=== PATIENT | male | born 1955 | race Caucasian/White ===

== ENCOUNTER 2022-06-10 10:15 | Emergency (ER) | payer MEDICARE, BC, SELFPAY ==
[2022-06-10 10:27] VITALS: BP 143/71; PULSE 67; RESP 18; TEMP 36; O2SAT 97; BMI 32.7
[2022-06-10 10:40] VITALS: PULSE 71; BMI 32.7
--- NOTE | 2022-06-10 10:46 | ED_ITS ---
HPI - General Adult General Chief complaint: Extremity Pain/Injury, Lower Stated complaint: Severe RT leg pain Time Seen by Provider: 06/10/22 10:24 History of Present Illness HPI narrative: This 67-year-old male has a history of pseudogout and comes in because of a flare up. He has pain in his right knee. He has had joint aspiration in the past which identified pseudogout as a cause for his pain. He does have an appointment with a integration solution architect next month. He states that he ate some beef last night and since then has had some terrible pain in his right knee. He has a history of aortic dissection and is on several antihypertensives including enalapril. He states that his kidney function is okay but he is best to avoid NSAIDs. He describes constant pain in his right knee that is not relieved with nonweightbearing. Related Data Home Medications Medication Instructions Recorded Confirmed atorvastatin 80 mg tablet mg 06/10/22 carvedilol 25 mg tablet mg 06/10/22 enalapril maleate 20 mg tablet mg 06/10/22 fluticasone propionate 50 intranasal 06/10/22 mcg/actuation nasal spray,suspension ketoconazole 2 % topical cream applic topical 06/10/22 montelukast 10 mg tablet mg 06/10/22 nifedipine 30 mg tablet,extended mg PO 06/10/22 release triamterene 37.5 cap 06/10/22 mg-hydrochlorothiazide 25 mg capsule Previous Rx's Medication Instructions Recorded methylprednisolone 4 mg tablets in See Rx Instructions PO .COMPLEX 06/10/22 a dose pack (Medrol (Edi)) #21 ea Allergies Allergy/AdvReac Type Severity Reaction Status Date / Time sulfamethoxazole Allergy Rash Verified 06/10/22 10:24 [From Bactrim] trimethoprim [From Bactrim] Allergy Rash Verified 06/10/22 10:24 Review of Systems Status of ROS: Reports: 10 or more systems reviewed and unremarkable except as noted in History and below Narrative: Constitutional: No fevers, no weight gain or loss. Eyes: No discharge. No vision changes. HENT: No congestion, no sore throat, no ear pain. Cardiovascular: No chest pain, no palpitations. Respiratory: No shortness of breath, no wheezes, no cough. Gastrointestinal: No abdominal pain, no vomiting, no diarrhea. Genitourinary: No dysuria, no hematuria. Musculoskeletal: Right knee pain as described above. Skin: No rashes, no pruritis. Neurological: No dizziness, weakness, sensory change, speech change. Endo/Heme/Allergies: No bruising or bleeding. No polydipsia. Pysch: no suicidality, no anxiety, no insomnia. All other systems reviewed and are negative. Exam Narrative: Exam Narrative: Constitutional: Well-developed, well-nourished, no acute distress. HEENT: Normocephalic, atraumatic. Neck: Normal range of motion. Nontender. Supple. Heart: Regular. No murmurs. Normal rate. Intact distal pulses. Lungs: Clear to auscultation. No chest discomfort. No wheezes, rhonchi, or rales. Abdomen: Normal bowel sounds. Nontender. No rebound tenderness. Genitalia: Deferred. Back: No midline tenderness. Normal range of motion. Extremities: Right knee pain. No significant swelling or erythema. Skin: Intact. No rash. Warm. No erythema or pallor. Neurologic: No altered sensation. No weakness. Alert and oriented. Psychiatric: No suicidality. No anxiety or depression. No insomnia. Nursing notes and vitals signs are reviewed. Const: Vital Signs, click to edit/add: Vital Signs - 24 hr 06/10/22 10:27 Temperature 96.8 F L Pulse Rate [Left P ulse Oximeter] 67 Respiratory Rate 18 Blood Pressure [Le ft Upper Arm] 143/71 H Pulse Oximetry 97 Oxygen Delivery Me thod Room Air Course Vital Signs Vital signs: Initial Vital Signs Temperature 96.8 F L 06/10/22 10:27 Temperature Source Temporal Artery Scan 06/10/22 10:27 Pulse Rate 67 06/10/22 10:27 Respiratory Rate 18 06/10/22 10:27 Blood Pressure 143/71 H 06/10/22 10:27 Blood Pressure Mean 95 06/10/22 10:27 Blood Pressure Position Sitting 06/10/22 10:27 Pulse Oximetry 97 06/10/22 10:27 Oxygen Delivery Method 06/10/22 10:27 Vital Signs Temperature 96.8 F L 06/10/22 10:27 Pulse Rate 67 06/10/22 10:27 Respiratory Rate 18 06/10/22 10:27 Blood Pressure 143/71 H 06/10/22 10:27 Pulse Oximetry 97 06/10/22 10:27 Oxygen Delivery Method 06/10/22 10:27 Temperature 96.8 F L 06/10/22 10:27 Pulse Rate 67 06/10/22 10:27 Respiratory Rate 18 06/10/22 10:27 Blood Pressure 143/71 H 06/10/22 10:27 Pulse Oximetry 97 06/10/22 10:27 Oxygen Delivery Method 06/10/22 10:27 Medical Decision Making MDM Narrative Medical decision making narrative: This patient has a history of pseudogout confirm by a joint aspiration analysis. He comes in with a flare up of pain in his right knee related to this. He received the intramuscular injection of morphine 10 mg and an oral dose of dexamethasone 10 mg. A prescription for Medrol Dosepak is also provided. Given his medications and mild renal insufficiency according to his report, I did nisa id using NSAIDs. Discharge Plan Discharge Clinical Impression: Pseudogout Patient Disposition: Home, Self-Care Condition: Stable Additional Instructions: Take medications as needed and indicated. Follow up with MD or return if worsening. Prescriptions: New methylprednisolone [Medrol (Edi)] 4 mg tablets,dose pack See Rx Instructions .ROUTE .COMPLEX Qty: 21 0RF Rx Instructions: orally per package directions No Action atorvastatin 80 mg tablet Label Comments: TAKE 1 TABLET BY MOUTH AT BEDTIME carvedilol 25 mg tablet Label Comments: TAKE 1 TABLET BY MOUTH TWICE DAILY WITH MEALS enalapril maleate 20 mg tablet Label Comments: TAKE 1 TABLET BY MOUTH TWICE DAILY nifedipine 30 mg tablet extended release PO Label Comments: TAKE 1 TABLET BY MOUTH DAILY triamterene-hydrochlorothiazid 37.5-25 mg capsule Label Comments: TAKE ONE CAPSULE BY MOUTH EVERY MORNING montelukast 10 mg tablet Label Comments: TAKE 1 TABLET BY MOUTH AT BEDTIME ketoconazole 2 % cream TOPICAL Label Comments: APPLY TOPICALLY TO THE AFFECTED AREA TWICE DAILY fluticasone propionate 50 mcg/actuation spray,suspension INTRANASAL Label Comments: INHALE 1 SPRAY TO BOTH NOSTRILS ONCE DAILY. Follow Up/Referrals: Anita Davis DO [Primary Care Provider] - Stand Alone Forms: [facility] Info Instructions
--- OUTSIDE RECORDS SUMMARY | 2022-06-10 10:52 | XMS_ITS | Encounter Summary ---
:1955 Author Organization [facility] Address [address] [place] [address] Care Team Providers Name Role Phone Elsewhere, Pcp Primary Care Provider Unavailable Encounter Details Date Type Department Care Team Description 04/06/2022 Ancillary Procedure Department of Dermatology Social History Tobacco Use Types Packs/Day Years Used Date Smoking Tobacco: Former Cigarettes 0.8 6 08/1966 - 08/20/1971 Smokeless Tobacco: Never Comments: quit in early 20s, 1 ppd X 6 y ears Alcohol Use Standard Drinks/Week Comments Yes 10 (1 standard drink = 0.6 oz pure cut o n and off alcohol, none this alcohol) year Alcohol Habits Answer Date Recorded How often do you have a drink containing 4 or more times a w [place] 12/18/2020 alcohol? How many drinks containing alcohol do you have 3 or 4 12/18/2020 on a typical day when you are drinking? How often do you have six or more drinks on one Monthly 12/18/2020 occasion? Social Isolation Answer Date Recorded In a typical week, how many times do you Twice a week 12/18/2020 talk on the phone with family, friends, or neighbors? How often do you get together with friends Once a week 12/18/2020 or relatives? How often do you attend voodoo or mormon Never 09/20/2019 services? Do you belong to any clubs or organizations Yes 12/18/2020 such as voodoo groups, unions, fraternal or athletic groups, or school groups? How often do you attend meetings of the More than 4 times pe r year 12/18/2020 clubs or organizations you belong to? Are you now , , , 09/20/2019 , never or living with a partner? Physical Activity Answer Date Recorded On average, how many days per week do you engage in moderate to 1 day 12/18/2020 strenuous exercise (like walking fast, running, jogging, dancing, swimming, biking, or other activities that cause a light or heavy sweat)? On average, how many minutes do you engage in exercise at th is 20 min 12/18/2020 level? Stress Answer Date Recorded Do you feel stress - tense, restless, nervous, or anxious, N ot at all 12/18/2020 or unable to sleep at night because your mind is troubled all the time - these days? Financial Resource Strain Answer Date Recorded How hard is it for you to pay for the very basics like Not h ernu at all 12/18/2020 food, housing, medical care, and heating? Food Insecurity Answer Date Recorded Within the past 12 months, you worried that your food would Never true 12/18/2020 run out before you got money to buy more. Within the past 12 months, the food you bought just didn't N ever true 12/18/2020 last and you didn't have money to get more. Transportation Needs Answer Date Recorded In the past 12 months, has lack of transportation kept you f rom No 12/18/2020 medical appointments or from getting medications? In the past 12 months, has lack of transportation kept you f rom No 12/18/2020 meetings, work, or getting things needed for daily living? Housing Stability Answer Date Recorded In the last 12 months, was there a time when you were not ab le No 12/18/2020 to pay the mortgage or rent on time? In the last 12 months, how many places have you lived? 1 12/18/2020 In the last 12 months, was there a time when you did not hav e a No 12/18/[address] or slept in a chcf (including now)? Education Answer Date Recorded What is the highest level of school Master's degree (e.g., M A, MS, 09/20/2019 you have completed or the highest Rufus, MEd, [employer], SHON) degree you have received? Sex Assigned at Date Recorded Male 03/19/2018 11:46 AM CDT documented as of this encounter Plan of Treatment Upcoming Encounters Date Type Specialty Care Team Description 06/21/2022 Clinical Communication Admitting/Central Scheduling 06/22/2022 Comprehensive Visit Rheumatology Clemente Mario M.B.B.S. [address] [place] [address] 08/03/2022 Comprehensive Visit Dermatology Jignesh [place] M.D. [address] [place] [address] documented as of this encounter Procedures Procedure Name Priority Date/Time Associated Comments Diagnosis DERMATOLOGY IMAGE Routine 04/06/2022 12:00 Result s for this EXAM AM CDT procedure are i n the results section. documented in this encounter Results cheek, right jawline 38 Mohs micrographic surgery-Dermatology Image Exam (04/06/2022 12:00 AM CDT) Specimen (Source) Anatomical Location Collection Method / Collectio n Time Received Time / Laterality Volume Narrative IIMS - 04/06/2022 10:42 AM CDT This order has been created and auto-finalized to support the import of images acquired without order. The clini michael documentation to support these images can be found on the encounter minna t produced images. Provider Not In System IMG NON RAD IMAGING PROCEDUR ES Performing Organization Address City/State/ZIP Code Phon e Number IIMS IIMS NA documented in this encounter Visit Diagnoses Not on filedocumented in this encounter Care Teams Town Clerk Relationship Specialty Start Date End Date Elsewhere, Pcp PCP - General Family Medicine 02/13/18 documented as of this encounter
--- OUTSIDE RECORDS SUMMARY | 2022-06-10 10:52 | XMS_ITS | Encounter Summary ---
:1955 Author Organization [facility] Address [address] [place] [id number] Care Team Providers Name Role Phone Elsewhere, Pcp Primary Care Provider Unavailable Reason for Referral Outpatient (Routine) - Authorized Specialty Diagnoses / Procedures Referred By Contact Refer red To Contact Dermatology Chuck Zamora M. D. [facility] [address] [place], [place] [phone] Referral ID Status Reason Start Date Expiration Date Visits V isits Requested Authorized [id number] Authorized 04/06/2022 04/06/2023 1 1 Reason for Visit Reason Comments Basal Cell Carcinoma Outpatient (Routine) - Closed Specialty Diagnoses / Procedures Referred By Contact Refer red To Contact Dermatology Diagnoses Malignant Neoplasm Of Face Basal Cell Que Fam M.D. [facility] Procedures [facility] 1-[address] sites [address] [place] [phone] Referral ID Status Reason Start Date Expiration Date Visits Requ ested Visits Authorized [id number] Closed 01/17/2022 01/17/2023 1 1 Encounter Details Date Type Department Care Team Description 04/06/2022 Procedure visit Department of Chuck Zamora Malign ant Neoplasm Dermatology in [place] Of Face Basal Cell [place], [place] [address] [facility] [address] [place] [phone] Social History Tobacco Use Types Packs/Day Years [...] containing 4 or more times a w [place] 12/18/2020 alcohol? How many drinks containing alcohol [...] or relatives? How often do you attend gnosticism or orthodox Never 09/20/2019 services? Do you belong to any clubs or organizations Yes 12/18/2020 such as gnosticism groups, unions, fraternal or athletic groups, or [...] for the very basics like Not h renu at all 12/18/2020 food, housing, medical care, [...] place to sleep or slept in a snf (including now)? Education Answer Date Recorded What is the highest level of school Master's degree (e.g., M A, MS, 09/20/2019 you have completed or the highest Rufus, MEd, CAPSULE MAKER, SHON) degree you have received? Sex Assigned at Date Recorded Male 03/19/2018 11:46 AM CDT documented as of this encounter Last Filed Vital Signs Vital Sign Reading Time Taken Comments Blood Pressure 144/73 04/06/2022 7:00 AM CDT Pulse 84 04/06/2022 7:00 AM CDT Temperature - - Respiratory Rate - - Oxygen Saturation - - Inhaled Oxygen Concentration - - Weight - - Height - - Body Mass Index - - documented in this encounter Procedure Notes Curtis Patel M.D. - 04/06/2022 8:00 AM CDTAssociated Order(s): [facility] 1-4 SITES PREOP INDICATION: REMOVAL. Date of Surgery: 04/06/2022 Surgeon: Chuck Zamora M.D. Senior Instructional Designer: Curtis Patel M.D. Location: [facility]:GO Floor:16 Room:[facility] Visit Type: Outpatient PostOp Diagnosis: Basal Cell Carcinoma Anatomic Location: Right cheek Preoperative size: 0.[address] [facility] number: [phone] Indication(s) for Mohs Micrographic Surgery: anatomic location where tissue conservation is critical Procedure(s): Mohs micrographic surgery with intermediate layered closure Prior to the procedure, final verification of the patient identity and correct marked surgical site was performed. Procedural pause conducted to verify: correct patient identity, procedure to be performed and as applicable, correct side and site, correct patient position, and availability of implants, special equipment or special requirements. INFORMED CONSENT Discussed the risks, benefits, alternatives, and the necessity of other members of the healthcare team participating in the procedure. All questions answered and consent given. PATIENT EDUCATION Ready to learn, no apparent learning barriers were identified; learning preferences include listening. Explained diagnosis and treatment plan; patient expressed understanding of the content. Preoperative medications: Over the counter analgesics The anesthesia used was 1% lidocaine and 0.25% bupivacaine with 1:200,000 epinephrine. The skin was prepped in a sterile fashion with Hibiclens. No residual tumor was identified in true marginal sections of stage 1. Histologic tumor-free margins were obtained in 1 stages (2 blocks) by standard Mohs micrographic techniques with the Mohs surgeon performing both the surgery and pathology. The final defect depth was down to level of: subcutaneous fat. Postoperative size: 2.0 x 1.5 cm. Anesthesia with 1% lidocaine with 1:200,000 epinephrine and another sterile prep were performed. An intermediate layered closure was planned, and Burow's triangles were excised from opposite poles of the defect in the direction of the skin tension lines. The wound was undermined as needed, and hemostasis was obtained with electrocoagulation. The wound edges were closed with 4-0 vicryl and 5-0 monocryl subcutaneous sutures and 5-0 fast gut skin sutures. Postoperative length: 4.5 cm. Estimated blood loss: Minimal. Complications: None. Wound care: Routine. Postoperative medications: Over the counter analgesics documented in this encounter Consult Notes Curtis Patel M.D. - 04/06/2022 8:00 AM CDT DERMATOLOGIC SURGERY CONSULTATION NOTE PATIENT NAME: London Sanches DATE OF : 1955, 67 y.o. DATE: 04/06/2022 STAFF PHYSICIAN: Dr. Chuck Zamora M.D. SUBJECTIVE CHIEF COMPLAINT/REASON FOR VISIT Basal Cell Carcinoma HISTORY OF PRESENT ILLNESS London Sanches is a 67 y.o. male presents today in referral from Que Fam M.D. for biopsy proven Basal Cell Carcinoma on the right cheek. Pathology result: FINAL DIAGNOSIS A. Skin, Right cheek, [id number], 12/19/2021: Nodular and infiltrative basal cell carcinoma, involving biopsy border PERTINENT DERMATOLOGIC REVIEW OF SYSTEMS: Per HPI patient does take aspirin. He quit drinking 18 months ago The dermatologic surgery preoperative sheet was reviewed today in detail. CURRENT MEDICATIONS The medications for today's visit were reviewed OBJECTIVE VITALS SIGNS BP 144/73 Pulse 84 PHYSICAL EXAMINATION General: well appearing male in no acute distress Skin: Focused skin examination was performed today of the surgical site(s) revealing erythematous scar, consistent with prior biopsy site(s), on the right cheek. DIAGNOSTICS REVIEW OF MEDICAL CHART: A review of the patient's medical chart and any referral form(s) was performed. I personally reviewed the patient's histopathology from the biopsy slides, and my impression is listed below in the assessment and plan. ASSESSMENT / PLAN #1 Basal Cell Carcinoma, right cheek The patient is here today for definitive treatment of the above tumor. We reviewed the diagnosis(es)/indication(s) and treatment options. Based on appropriate use criteria, decision was made to treat with Mohs micrographic surgery given anatomic location where tissue conservation is critical. We review ed associated risks, benefits, and alternatives. Risks included bleeding, infection, scar, recurrence, large wound, dehiscence, and sensation loss. Natural history of scar and expectations reviewed. After discussion, the patient consented to proceed. All questions were answered. After curettage of the clinically apparent tumor, the tumor deep and peripheral margins were clear after 1 stages of Mohs micrographic excision. The final wound defect was repaired by intermediate repair. Please refer to the operative note and associated Mohs map for complete details. Follow up on yearly basis for skin cancer screening, sooner if needed for wound related issues. Curtis Patel M.D. Associated attestation - Chuck Zamora M.D. - 04/07/2022 12:41 PM CDT I saw and evaluated the patient, participating in the nelson elements of the service. I discussed the findings, assessment and plan with the resident/fellow and agree with resident/fellow???s findings andplan as documented in the resident/fellow's note. I was immediately available for the entirety of the procedure(s) and present for the nelson and critical portions. Chuck Zamora M.D. documented in this encounter Plan of Treatment Upcoming Encounters Date Type Specialty Care Team Description 06/21/2022 Clinical Communication Admitting/Central Scheduling 06/22/2022 Comprehensive Visit Rheumatology Clemente Mario M.B.B.S. [address] [place] [address] 08/03/2022 Comprehensive Visit Dermatology Jignesh [place] M.D. [address] [place] [phone] Scheduled Referrals Name Type Priority Associated Order Schedule Diagnoses Dermatology office Outpatient Referral Routine Ex pected: visit (clinic) 04/06/2023 (Approximate), Expires: 07/07/2023 documented as of this encounter Procedures Procedure Name Priority Date/Time Associated Diagnosis Comme nts [facility] 1-4 SITES Routine 04/06/2022 8:00 AM Malignant Neopla sm Results for this CDT Of Face Basal Cell procedure are in the results section. documented in this encounter Results [facility] 1-4 sites (04/06/2022 8:00 AM CDT) Narrative Chuck Zamora M.D. - 04/06/2022 8:00 AM CDT Curtis Patel M.D. ? 04/06/2022 ??3:03 PM PREOP INDICATION: REMOVAL. Date of Surgery: 04/06/2022 Surgeon: Chuck Zamora M.D. Senior Instructional Designer: Curtis Patel M.D. Location: [facility] ?? Bldg:GO ?? Floor: 16 ?? Room:[facility] Visit Type: Outpatient PostOp Diagnosis: Basal Cell Carcinoma Anatomic Location: ??Right cheek Preoperative size: ??0.[address] [facility] number: ??[phone] Indication(s) for Mohs Micrographic Surg mike: anatomic location where tissue conservation is critical Procedure(s): Mohs micrographic surgery with intermediate layered closure Prior to the procedure, final verificati on of the patient identity and correct marked surgical site was perform ed. Procedural pause conducted to verify: co rrect patient identity, procedure to be performed and as applicable, corre ct side and site, correct patient position, and availability of implants, special equipment or special requirements. INFORMED CONSENT Discussed the risks, benefits, alternati ves, and the necessity of other members of the healthcare team participa ting in the procedure. ?? All questions answered and consent given. PATIENT EDUCATION Ready to learn, no apparent learning bar riers were identified; learning preferences include listening. ??Explain ed diagnosis and treatment plan; patient expressed understanding of the c ontent. Preoperative medications: ??Over the cou nter analgesics The anesthesia used was 1% lidocaine and 0.25% bupivacaine with 1:200,000 epinephrine. ??The skin was prepped in a sterile fashion with Hibiclens. No residual tumor was identified in true marginal sections of stage 1. Histologic tumor-free margins were obtai katrina in 1 stages (2 blocks) by standard Mohs micrographic te chnikelsie with the Mohs surgeon performing both the surgery and pathology. The final defect depth was down to level of: subcutaneous fat. Postoperative size: ??2.0 x 1.5 cm. Anesthesia with 1% lidocaine with 1:200, 000 epinephrine and another sterile prep were performed. ??A n intermediate layered closure was planned, and Burow's triangl es were excised from opposite poles of the defect in the dire ction of the skin tension lines. ??The wound was undermined as nee ded, and hemostasis was obtained with electrocoagulation. ??The wound edges were closed with 4-0 vicryl and 5-0 monocryl subcuta neous sutures and 5-0 fast gut skin sutures. ??Postoperative l ength: 4.5 cm. ??Estimated blood loss: Minimal. ??Complications: No ne. ??Wound care: Routine. Postoperative medications: Over the coun ter analgesics Que Fam M.D. DERM PROCEDURE ORDERABLES documented in this encounter Visit Diagnoses Diagnosis Malignant Neoplasm Of Face Basal Cell documented in this encounter Administered Medications Inactive Administered Medications - up to 3 most recent administrations Medication Order MAR Action Action Date Dose Rate Site lidocaine-EPINEPHrine 1%-1:200,000 Given 04/06/2022 10:00 AM CDT 12 mL injection 2-50 mL (XYLOCAINE W/EPI) 2-50 mL, injection, As needed, may repeat if the patient complains of pain/discomfort at the site up to 50 mL for entire procedure, Starting on [place] 04/06/22 at 0751, For 1 day documented in this encounter Care Teams Stage Driver Relationship Specialty Start Date End Date Elsewhere, Pcp PCP - General Family Medicine 02/13/18 documented as of this encounter
--- OUTSIDE RECORDS SUMMARY | 2022-06-10 10:52 | XMS_ITS | Encounter Summary ---
:1955 Author Organization [facility] Address [address] [place] [address] Care Team Providers Name Role Phone Elsewhere, [...] containing 4 or more times a w sit[place] 12/18/2020 alcohol? How many drinks containing alcohol [...] or relatives? How often do you attend jain or rastafarian Never 09/20/2019 services? Do you belong to any clubs or organizations Yes 12/18/2020 such as jain groups, unions, fraternal or athletic groups, or [...] place to sleep or slept in a detention (including now)? Education Answer Date Recorded What is the highest level of school Master's degree (e.g., M A, MS, 09/20/2019 you have completed or the highest Rufus, MEd, HAND WELT BUTTER, SHON) degree you have received? Sex Assigned at Date Recorded Male 03/19/2018 11:46 AM CDT documented as of this encounter Plan of Treatment Upcoming Encounters Date Type Specialty Care Team Description 06/21/2022 Clinical Communication Admitting/Central Scheduling 06/22/2022 Comprehensive Visit Rheumatology Clemente Mairo M.B.B.S. [address] [place] [address] 08/03/2022 Comprehensive Visit Dermatology Jignesh Leonard M.D. [address] [place] [address] documented as of this encounter Procedures Procedure Name Priority Date/Time Associated Comments Diagnosis DERMATOLOGY IMAGE Routine 04/06/2022 12:05 Result s for this EXAM AM CDT procedure are i n the results section. documented in this encounter Results cheek, right jawline 38 Mohs micrographic surgery-Dermatology Image Exam (04/06/2022 12:05 AM CDT) Specimen (Source) Anatomical Location Collection [...] on filedocumented in this encounter Care Teams Gypsum Roofer Relationship Specialty Start Date End Date Elsewhere, Pcp PCP - General Family Medicine 02/13/18 documented as of this encounter
--- OUTSIDE RECORDS SUMMARY | 2022-06-10 10:52 | XMS_ITS | Encounter Summary ---
:1955 Author Organization [facility] Address [address] [place] [address] Care Team Providers Name Role Phone Elsewhere, Pcp Primary Care Provider Unavailable Encounter Details Date Type Department Care Team Description 02/28/2022 Ancillary Procedure Department of Ophthalmology Social History Tobacco Use Types Packs/Day Years [...] containing 4 or more times a w [place] 12/18/2020 alcohol? How many drinks containing alcohol [...] or relatives? How often do you attend mosque or anglican Never 09/20/2019 services? Do you belong to any clubs or organizations Yes 12/18/2020 such as mosque groups, unions, fraternal or athletic groups, or [...] place to sleep or slept in a jail (including now)? Education Answer Date Recorded What is the highest level of school Master's degree (e.g., M A, MS, 09/20/2019 you have completed or the highest Rufus, MEd, STEAMFITTER APPRENTICE, SHON) degree you have received? Sex Assigned at Date Recorded Male 03/19/2018 11:46 AM CDT documented as of this encounter Plan of Treatment Upcoming Encounters Date Type Specialty Care Team Description 06/21/2022 Clinical Communication Admitting/Central Scheduling 06/22/2022 Comprehensive Visit Rheumatology Clemente Mario M.B.B.S. [address] [place] [address] 08/03/2022 Comprehensive Visit Dermatology Jignesh Leonard M.D. [address] [place] [address] documented as of this encounter Procedures Procedure Name Priority Date/Time Associated Comments Diagnosis OPHTHALMOLOGY IMAGE Routine 02/28/2022 1:15 PM Re sults for this EXAM CDT procedure are i n the results section. documented in this encounter Results Visual Jean (VF)-Ophthalmology Image Exam (02/28/2022 1:15 PM CDT) Specimen (Source) Anatomical Collection Method Collection Time Re ceived Time Location / / Volume Laterality 02/28/2022 1:15 PM CDT Narrative [facility] - 02/28/2022 1:26 PM CDT This order has been created and [...] on filedocumented in this encounter Care Teams Anthropologist Relationship Specialty Start Date End Date Elsewhere, Pcp PCP - General Family Medicine 02/13/18 documented as of this encounter
--- OUTSIDE RECORDS SUMMARY | 2022-06-10 10:52 | XMS_ITS | Encounter Summary ---
:1955 Author Organization [facility] Address [address] [place] [address] Care Team Providers Name Role Phone Elsewhere, Pcp Primary Care Provider Unavailable Encounter Details Date Type Department Care Team Description 03/31/2022 Lab RST RO LMP Chuck Zamora, Basal Cell Carcinoma [address] [facility] M.D. [place] [address] [address] [place] [address] (Wo rk) Social History Tobacco Use Types Packs/Day Years [...] containing 4 or more times a w [place] 12/18/2020 alcohol? How many drinks containing alcohol [...] or relatives? How often do you attend episcopalian or alevism Never 09/20/2019 services? Do you belong to any clubs or organizations Yes 12/18/2020 such as episcopalian groups, unions, fraternal or athletic groups, or [...] place to sleep or slept in a penitentiary (including now)? Education Answer Date Recorded What is the highest level of school Master's degree (e.g., Radha Darnell, , 09/20/2019 you have completed or the highest Rufus, MEd, STACKER DRIVER, SHON) degree you have received? Sex Assigned at Date Recorded Male 03/19/2018 11:46 AM CDT documented as of this encounter Plan of Treatment Upcoming Encounters Date Type Specialty Care Team Description 06/21/2022 Clinical Communication Admitting/Central Scheduling 06/22/2022 Comprehensive Visit Rheumatology Clemente Mario M.B.B.S. [address] [place] [address] 08/03/2022 Comprehensive Visit Dermatology Jignesh Leonard M.D. [address] [place] [phone] documented as of this encounter Procedures Procedure Name Priority Date/Time Associated Diagnosis Comme nts PATHOLOGY REVIEW OF Routine 03/31/2022 2:47 PM Basal Cell Carc inoma Results for this OUTSIDE MATERIAL CDT Skin Other Parts procedu re are in Face the results section. documented in this encounter Results Pathology Review of Outside Material (03/31/2022 2:47 PM CDT) Component Value Ref Test Analysis Performed At [facility] Range Method Time Signature 04/04/2022 PDRM 12:09 PM CDT Report Enoc Rodriguez M.D. 04/04/2022 PD RM electronically 12:09 PM signed by CDT I verify that I have examined all relevant slides/materials for the specimen(s) and rendered or confirmed the diagnosis. Material Received A. [id number]: Skin, Right cheek 04/04/2022 PDRM ? 1 stained slide, 1 block 12:09 PM CDT Interpretation FINAL DIAGNOSIS 04/04/2022 PDRM A. ??Skin, Right cheek, [id number], 12/19/2021: ??Nodular and 12:09 PM infiltrative basal cell carcinoma, involving biopsy border CDT Specimen Anatomical Collection Method Collection Time Receive d Time (Source) Location / / Volume Laterality Varies 03/31/2022 2:47 PM 08/12/202 2 2:47 CDT PM CDT Narrative This result has an attachment that is no t available. Chuck Zamora M.D. LAB SURG PATH ORDERABLES Performing Organization Address City/State/[facility] Code Phon e Number [facility] - [address] [place], [place] [address] [place] [address] Laboratories-[facility] [address] documented in this encounter Visit Diagnoses Diagnosis Basal Cell Carcinoma Skin Other Parts Fa ce documented in this encounter Care Teams Lockstitch Pocket Setter Relationship Specialty Start Date End Date Elsewhere, Pcp PCP - General Family Medicine 02/13/18 documented as of this encounter
--- OUTSIDE RECORDS SUMMARY | 2022-06-10 10:52 | XMS_ITS | Encounter Summary ---
:1955 Author Organization [facility] Address [address] [place] [address] Care Team Providers Name Role Phone Elsewhere, Pcp Primary Care Provider Unavailable Encounter Details Date Type Department Care Team Description 01/17/2022 Clinical Communication [facility] Que Fam[facility] [place] [place] [address] [facility] [address] [place] [address] [phone] Social History Tobacco Use Types Packs/Day Years [...] containing 4 or more times a w tejon 12/18/2020 alcohol? How many drinks containing alcohol [...] or relatives? How often do you attend mandaen or spiritism Never 09/20/2019 services? Do you belong to any clubs or organizations Yes 12/18/2020 such as mandaen groups, unions, fraternal or athletic groups, or [...] place to sleep or slept in a senior care (including now)? Education Answer Date Recorded What is the highest level of school Master's degree (e.g., M Mann, MS, 09/20/2019 you have completed or the highest Rufus, MEd, SILK WORKER, SHON) degree you have received? Sex Assigned at Date Recorded Male 03/19/2018 11:46 AM CDT documented as of this encounter Miscellaneous Notes Telephone Encounter - Art Krause - 01/17/2022 9:38 AM CDT ----- Message from Que Fam M.D. sent at 01/12/2022 7:04 PM CDT ----- Regarding: RE: Please advise 1. Slides 2. Mohs ----- Message ----- From: Art Krause Sent: 01/12/2022 1:06 PM CDT To: Rst [facility] Surgery Subject: Please advise Good Afternoon Patient has been referred for a BCC of the right cheek Biopsy was done 12/19 Pathology is in media dated 12/19 an photo in q-AFreeze dated 01/08 Please advise how to proceed with patient care Thank you Jaya documented in this encounter Plan of Treatment Upcoming Encounters Date Type Specialty Care Team Description 06/21/2022 Clinical Communication Admitting/Central Scheduling 06/22/2022 Comprehensive Visit Rheumatology Clemente Mario M.B.B.S. [address] [place] [phone] 08/03/2022 Comprehensive Visit Dermatology Jignesh Leonard M.D. [address] [place] [phone] documented as of this encounter Visit Diagnoses Not on filedocumented in this encounter Care Teams Recycling Coordinator Relationship Specialty Start Date End Date Elsewhere, Pcp PCP - General Family Medicine 02/13/18 documented as of this encounter
--- OUTSIDE RECORDS SUMMARY | 2022-06-10 10:52 | XMS_ITS | Encounter Summary ---
:1955 Author Organization [facility] Address [address] [place] [address] Care Team Providers Name Role Phone Elsewhere, Pcp Primary Care Provider Unavailable Reason for Referral Outpatient (Routine) - Authorized Specialty Diagnoses / Procedures Referred By Contact Refer red To Contact Ophthalmology Diagnoses Anatomical Narrow Angle Bilateral Masoud Veliz O.D. [address] [phone] Referral ID Status Reason Start Date Expiration Date Visits V isits Requested Authorized [id number] Authorized 02/28/2022 02/28/2023 [address] Haily Carbajal Reason for Visit Reason Comments Follow-up Glaucoma suspect Outpatient (Routine) - Closed Specialty Diagnoses / Procedures Referred By Contact Refer red To Contact Ophthalmology Masoud Veliz O. D. [address] [address] Referral ID Status Reason Start Date Expiration Date Visits Requ ested Visits Authorized [id number] Closed 10/14/2021 10/14/2022 1 1 Encounter Details Date Type Department Care Team Description 02/28/2022 Office Visit Department of Sadia Veliz Ophthalmology in Claudia Meredith Angle Bilateral [place], [place] [address] [place] [address] (Primary Dx) [address] [place] [phone] Social History Tobacco Use Types Packs/Day Years [...] containing 4 or more times a w timbi-sha shoshone 12/18/2020 alcohol? How many drinks containing alcohol [...] or relatives? How often do you attend christian or muslim Never 09/20/2019 services? Do you belong to any clubs or organizations Yes 12/18/2020 such as christian groups, unions, fraternal or athletic groups, or [...] place to sleep or slept in a halfway (including now)? Education Answer Date Recorded What is the highest level of school Master's degree (e.g., M A, MS, 09/20/2019 you have completed or the highest Rufus, MEd, FINANCIAL SERVICES DIRECTOR, SHON) degree you have received? Sex Assigned at Date Recorded Male 03/19/2018 11:46 AM CDT documented as of this encounter Progress Notes Masoud Veliz O.D. - 02/28/2022 3:00 PM CDT #1 Narrow angles; glaucoma suspect ONH photos 2020 stable vs 2018 family hx - grandfather CCT 545, 541 OCT rnfl 09/2021 - stable both; slightly thicker temporally VF 03/10 right - early inf arc; stable left - sup scatter (10-2) VF 09/2021 right - scatter; stable left - paracentral change sup vs noise Gonio 03/10- appears narrow and potentially occludable both IOP acceptable for now both 16, 19 will ask glaucoma consult for narrow angles for potential laser PI #2 Refractive disorder discussed; will cont rx OCT macula cirrus 08/2020 - wnl both documented in this encounter Plan of Treatment Upcoming Encounters Date Type Specialty Care Team Description 06/21/2022 Clinical Communication Admitting/Central Scheduling 06/22/2022 Comprehensive Visit Rheumatology Clemente Mario M.B.B.S. [address] [place] [phone] 08/03/2022 Comprehensive Visit Dermatology Jignesh Leonard M.D. [address] [place] [phone] Scheduled Referrals Name Type Priority Associated Order Schedule Diagnoses Ophthalmology - Outpatient Referral Routine Anatomical Narrow Expected: Glaucoma consult Angle Bilateral 02/29/20 22 (clinic) (Approximate), Expires: 05/31/2023 documented as of this encounter Visit Diagnoses Diagnosis Anatomical Narrow Angle Bilateral - Prim corinne documented in this encounter Care Teams Lead Burner Supervisor Relationship Specialty Start Date End Date Elsewhere, Pcp PCP - General Family Medicine 02/13/18 documented as of this encounter
--- OUTSIDE RECORDS SUMMARY | 2022-06-10 10:52 | XMS_ITS | Encounter Summary ---
:1955 Author Organization [facility] Address [address] [place] [address] Care Team Providers Name Role Phone Elsewhere, Pcp Primary Care Provider Unavailable Reason for Referral Outpatient (Routine) - Closed Specialty Diagnoses / Procedures Referred By Contact Refer red To Contact Dermatology Diagnoses Malignant Neoplasm Of Face Basal Cell Que Fam M.D. [facility] Procedures GIFTY MOHS 1-4 sites [address] [place] [phone] Referral ID Status Reason Start Date Expiration Date Visits Requ ested Visits Authorized [id number] Closed 01/17/2022 01/17/2023 1 1 Encounter Details Date Type Department Care Team Description 01/17/2022 Orders Only Department of Que Fam, Malignant N eoplasm Of Dermatology in M.DJaleel Face Basal Cell [place], [place] [address] [place] [address] (Primary Dx) [address] [place] [phone] Social History Tobacco Use Types Packs/Day Years [...] containing 4 or more times a w ewiiaapaayp 12/18/2020 alcohol? How many drinks containing alcohol [...] or relatives? How often do you attend catholic or moravian Never 09/20/2019 services? Do you belong to any clubs or organizations Yes 12/18/2020 such as catholic groups, unions, fraternal or athletic groups, or [...] place to sleep or slept in a [facility] (including now)? Education Answer Date Recorded What is the highest level of school Master's degree (e.g., Radha Darnell, MS, 09/20/2019 you have completed or the highest Rufus, MEd, TOUR ACTOR, SHON) degree you have received? Sex Assigned at Date Recorded Male 03/19/2018 11:46 AM CDT documented as of this encounter Plan of Treatment Upcoming Encounters Date Type Specialty Care Team Description 06/21/2022 Clinical Communication Admitting/Central Scheduling 06/22/2022 Comprehensive Visit Rheumatology Clemente Mario M.B.B.S. [address] [place] [address] 08/03/2022 Comprehensive Visit Dermatology Jignesh Leonard M.D. [address] [place] [address] documented as of this encounter Results GIFTY [facility] 1-4 sites (04/06/2022 8:00 AM CDT) Narrative Chuck Zamora M.D. - 04/06/2022 8:00 AM CDT Curtis Patel M.D. ? 04/06/2022 ??3:03 PM PREOP INDICATION: REMOVAL. Date of Surgery: 04/06/2022 Surgeon: Chuck Zamora M.D. Leadership Development Instructor: Curtis Patel M.D. Location: [place] ?? Bldg:GO ?? Floor: 16 ?? Room:DERMPR Visit Type: Outpatient PostOp Diagnosis: Basal Cell Carcinoma Anatomic Location: ??Right cheek Preoperative size: ??0.8 x 0.8 cm [facility] number: ??[id number] Indication(s) for Mohs Micrographic Surg [...] Diagnosis Malignant Neoplasm Of Face Basal Cell - Primary Malignant Neoplasm Of Face Basal Cell documented in this encounter Care Teams Assembler Plastic Boat Relationship Specialty Start Date End Date Elsewhere, Pcp PCP - General Family Medicine 02/13/18 documented as of this encounter
--- OUTSIDE RECORDS SUMMARY | 2022-06-10 10:52 | XMS_ITS | Clinical Summary ---
:1955 Author Organization [facility] Address [address] [place] [address] Care Team Providers Name Role Phone Elsewhere, Pcp Primary Care Provider Unavailable Source Comments Patient records contain information from all sites at [facility]. For routine questions regarding patient records, call [phone] during business hours, M-F 8:00 AM - 5:00 PM Central Time. Record requests for emergency care only can be directed to [phone] at any time.[facility] Allergies Active Allergy Reactions Severity Noted Date Comments Sulfamethoxazole-Trimethoprim Hives 02/18/2018 Medications Medication Sig Dispensed Refills Start Date End Date Status carvedilol (COREG) 25 Take 25 mg by 0 Active mg tablet mouth 2 (two) times a day with meals. FLUoxetine (PROzac) 40 Take 20 mg by 0 Active mg capsule mouth daily. montelukast Take 10 mg by 0 Acti ve (SINGULAIR) 10 mg mouth at bedtime. tablet NIFEdipine (ADALAT CC) Take 30 mg by 0 Active 60 mg ER tablet mouth daily. enalapril (VASOTEC) 20 Take 20 mg by 0 Active mg tablet mouth 2 (two) times a day. triamterene-hydroCHLOR Take 1 capsule by 0 0 Active Othiazide (DYAZIDE) mouth daily. 37.5-25 mg per capsule cetirizine (ZyrTEC) 10 Take 10 mg by 0 07/15/2018 Active mg tablet mouth daily. atorvastatin (LIPITOR) Take 80 mg by 0 04/20/2020 Active 80 mg tablet mouth daily. cod liver oil oil Take 5 mL by mouth 0 03/05/2019 Active daily. fluticasone propionate Administer 2 0 06/08/2020 Active (FLONASE) 50 sprays into mcg/actuation nasal nostril(s) as spray needed. ketoconazole (NIZORAL) Apply topically as 0 07/09/20 20 Active 2 % cream needed. lactobacillus Take 1 capsule by 0 05/29/2018 Active combination no.4 3 mouth daily. billion cell capsule miscellaneous medical Full face mask 1/3 0 0 Active supply misc months, full face mask cushion 08/[address] Take 81 mg by 0 Active tablet mouth daily. famotidine (PEPCID) 10 Take 10 mg by 0 Active mg tablet mouth daily as needed for heartburn. multivitamin tablet Take 1 tablet by 0 11/15/2020 Active mouth daily. Active Problems Problem Noted Date Hyperlipidemia 09/24/2019 Apnea Sleep Obstructive 09/24/2019 Obesity Body Mass Index 30-39.9 Adult 09/24/2019 Atherosclerotic Heart Disease Of [place] Coronary Arter y Without Angina 09/24/2019 Pectoris Regurgitation Aortic 09/24/2019 Glaucoma 06/10/2018 Thoracic Aortic Aneurysm Without Rupture Unspecified 0 04/16/2018 Hypertension Essential Primary 04/16/2018 Dissection Of Thoracic Aorta Unspecified 04/16/2018 Concussion Loss Of Consciousness Unspecified Duration Initial Chronic Kidney Disease (CKD), Stage 3a Glomerular Filt ration Rate (GFR) 45 To 59 Headache Post Traumatic Intracranial Hemorrhage Encounters Date Type Specialty Care Team Description 04/06/2022 Procedure visit Dermatology Chuck Zamora Malignant Neoplasm Kim Garcia Of Face Basal C ell 04/06/2022 Ancillary Procedure 04/06/2022 Ancillary Procedure 04/06/2022 Ancillary Procedure 04/06/2022 Ancillary Procedure 03/31/2022 Lab Laboratory Medicine Chuck Zamora Basal Cell Carcinoma Kim Garcia Skin Other Part s Face 03/29/2022 Orders Only Dermatology Chuck Zamora Basal Cell Ca rcinoma Kim Garcia Skin Other Part s Face (Primary D x) from Last 3 Months Family History Medical History Relation Name Comments Glaucoma Paternal Grandfather james Hyperlipidemia Paternal Grandfather james Hypertension Paternal Grandfather james Osteoporosis Paternal Grandfather james Stroke Paternal Grandfather james Relation Name Status Comments Paternal Grandfather james Social History Tobacco Use Types Packs/Day Years [...] containing 4 or more times a w [place] 12/18/2020 alcohol? How many drinks containing alcohol [...] or relatives? How often do you attend confucianism or gnosticism Never 09/20/2019 services? Do you belong to any clubs or organizations Yes 12/18/2020 such as confucianism groups, unions, fraternal or athletic groups, or [...] minutes do you engage in exercise at is 20 min 12/18/2020 level? Stress Answer [...] place to sleep or slept in a long-term (including now)? Education Answer Date Recorded What is the highest level of school Master's degree (e.g., M A, MS, 09/20/2019 you have completed or the highest Rufus, MEd, C D REACTOR OPERATOR, SHON) degree you have received? Sex Assigned at Date Recorded Male 03/19/2018 11:46 AM CDT Last Filed Vital Signs Vital Sign Reading Time Taken Comments Blood Pressure 144/73 04/06/2022 7:00 AM CDT Pulse 84 04/06/2022 7:00 AM CDT Temperature 36.1 ??C (97 ??F) 11/11/2020 8:17 AM CDT Respiratory Rate 20 10/15/2020 6:25 PM AGRICULTURE TECHNICIAN Oxygen Saturation 96% 12/22/2020 8:34 AM CDT Inhaled Oxygen Concentration - - Weight 103 kg (227 lb 11.8 oz) 12/22/2020 8:34 AM CDT Height 171.7 cm (5' 7.6) 12/22/2020 8:34 AM CDT Body Mass Index 35.04 12/22/2020 8:34 AM CDT Plan of Treatment Upcoming Encounters Date Type Specialty Care Team Description 06/21/2022 Clinical Communication Admitting/Central Scheduling 06/22/2022 Comprehensive Visit Rheumatology Clemente Mario M.B.B.S. [address] [place] [address] 08/03/2022 Comprehensive Visit Dermatology Jignesh Leonard M.D. [address] [place] [address] Health Maintenance Due Date Last Done Comments CT Colonography 1955 Cologuard 1955 Colonoscopy 1955 Colorectal Cancer Screening 1955 FIT 1955 Depression Screening (Annual 08/20/2021 PHQ-2) Office Visit for Blood Pressure 12/22/2021 12/22/2020 Check / Re-check COVID-19 Vaccine (5 - Booster for 02/15/2022 12/21/2021, , Moderna series) 11/25/2020, Additional history exists Creatinine Level 05/04/2022 05/04/2021, 12/21/2020, 10/22/2020, Additional history exists Potassium Level 05/04/2022 05/04/2021, 10/22/2020, 10/07/2020, Additional history exists Sodium Level 05/04/2022 05/04/2021, 10/22/2020, 10/07/2020, Additional history exists Fasting Glucose for Diabetes 05/04/2024 05/04/2021, 021, Screening 10/07/2020, Additional history exists Lipid (Cholesterol) Screening 12/07/2026 12/07/2021, 2018, 07/29/2018, Additional history exists DTaP,Tdap,and Td Vaccines (3 - Td 03/10/2029 03/10/2019, or Tdap) Pneumococcal vaccine (65+ years) Completed 04/19/2020, Zoster Vaccines Completed 07/28/2020, 05/20/2020, 04/04/2015 Fall Risk Screen (Annual) Completed 10/14/2021 Influenza Vaccine Completed 05/08/2022, 05/04/2021, 07/28/2020, Additional history exists Medical Devices Implanted Type Area Shipboard Intelligence Analyst Device Shelf Expiration Model / Identifier Date Serial / Lot Stent Other Stent Other Aorta Procedures Procedure Name Priority Date/Time Associated Comments Diagnosis [facility] 1-4 SITES Routine 04/06/2022 8:00 AM Malignant Neopla sm Results for this CDT Of Face Basal Cell procedure are in the results section. DERMATOLOGY IMAGE Routine 04/06/2022 12:15 Result s for this EXAM AM CDT procedure are i n the results section. DERMATOLOGY IMAGE Routine 04/06/2022 12:10 Result s for this EXAM AM CDT procedure are i n the results section. DERMATOLOGY IMAGE Routine 04/06/2022 12:05 Result s for this EXAM AM CDT procedure are i n the results section. DERMATOLOGY IMAGE Routine 04/06/2022 12:00 Result s for this EXAM AM CDT procedure are i n the results section. PATHOLOGY REVIEW OF Routine 03/31/2022 2:47 PM Basal Cell Re sults for this OUTSIDE MATERIAL CDT Carcinoma Skin procedure are in Other Parts Face the results section. from Last [address] [facility] 1-4 sites (04/06/2022 8:00 AM CDT) Narrative Chuck Zamora M.D. - 04/06/2022 8:00 AM CDT Curtis Patel M.D. ? 04/06/2022 ??3:03 PM PREOP INDICATION: REMOVAL. Date of Surgery: 04/06/2022 Surgeon: Chuck Zamora M.D. Security Support Analyst: Curtis Patel M.D. Location: [place] ?? dg:GO ?? Floor: 16 ?? Room:DERMOH Visit Type: Outpatient PostOp Diagnosis: Basal Cell Carcinoma Anatomic Location: ??Right cheek Preoperative size: ??0.8 x 0.8 cm [facility] number: ??[id number] Indication(s) for Mohs Micrographic Surg [...] analgesics Que Fam M.D. DERM PROCEDURE ORDERABLES cheek, right jawline 38 Mohs micrographic surgery-Dermatology Image Exam (04/06/2022 12:15 AM CDT)Only the most recent of4 resultswithin the time period is included. Specimen (Source) Anatomical Location Collection Method / [...] Code Phon e Number IIMS IIMS NA Pathology Review of Outside Material (03/31/2022 2:47 PM CDT) Component Value Ref Test Analysis Performed At [facility] gist Range Method Time Signature 04/04/2022 PDRM 12:09 PM CDT Report Enoc Rodriguez M.D. 04/04/2022 PD RM electronically 12:09 PM signed by CDT I verify that I have examined all relevant slides/materials for the specimen(s) and rendered or confirmed the diagnosis. Material Received A. [id number]: Skin, Right cheek 04/04/2022 PDRM ? 1 stained slide, 1 block 12:09 PM CDT Interpretation FINAL DIAGNOSIS 04/04/2022 PDR A. ??Skin, Right cheek, [id number], 12/19/2021: ??Nodular and 12:09 PM infiltrative basal cell carcinoma, involving biopsy border CDT Specimen Anatomical Collection Method Collection Time Receive d Time (Source) Location / / Volume Laterality Varies 03/31/2022 2:47 PM 2:47 CDT PM CDT Narrative This result has an attachment that is no t available. Chuck Zamora M.D. LAB SURG PATH ORDERABLES Performing Organization Address City/State/ZIP Code Phon e Number [facility] - [address] [place], [place] [address] [facility] [place] [address] Laboratories-[facility] [address] from Last 3 Months Insurance Payer Benefit Plan Subscriber ID Effective Phone Address Typ e / Group Dates MEDICARE MEDICARE A [id number] 2019-Pres [address] [place] [address] BLUE CROSS BCBS [place] [id number] 2019-Pres [phone] PO YVONNE X Cost Share BLUE SHIELD BLUE COST ent [phone] [place] [address] (Home) [place] [address] Care Teams Director Of Emergency Nursing Relationship Specialty Start Date End Date Elsewhere, Pcp PCP - General Family Medicine 02/13/18
--- OUTSIDE RECORDS SUMMARY | 2022-06-10 10:52 | XMS_ITS | Encounter Summary ---
:1955 Author Organization [facility] Address [address] [place] [address] Care Team Providers Name Role Phone Elsewhere, [...] containing 4 or more times a w [place] 12/18/2020 alcohol? How many drinks containing alcohol [...] or relatives? How often do you attend sikhism or jew Never 09/20/2019 services? Do you belong to any clubs or organizations Yes 12/18/2020 such as sikhism groups, unions, fraternal or athletic groups, or [...] place to sleep or slept in a residential (including now)? Education Answer Date Recorded What is the highest level of school Master's degree (e.g., M A, MS, 09/20/2019 you have completed or the highest Rufus, MEd, RHIT, SHON) degree you have received? Sex Assigned at Date Recorded Male 03/19/2018 11:46 AM CDT documented as of this encounter Plan of Treatment Upcoming Encounters Date Type Specialty Care Team Description 06/21/2022 Clinical Communication Admitting/Central Scheduling 06/22/2022 Comprehensive Visit Rheumatology Clemente Mario M.B.B.S. [address] [place] [address] 08/03/2022 Comprehensive Visit Dermatology Jignesh Leonard M.D. [address] [place] [address] documented as of this encounter Procedures Procedure Name Priority Date/Time Associated Comments Diagnosis DERMATOLOGY IMAGE Routine 04/06/2022 12:15 Result s for this EXAM AM CDT procedure are i n the results section. documented in this encounter Results cheek, right jawline 38 Mohs micrographic surgery-Dermatology Image Exam (04/06/2022 12:15 AM CDT) Specimen (Source) Anatomical Location Collection [...] on filedocumented in this encounter Care Teams Extract Operator Relationship Specialty Start Date End Date Elsewhere, Pcp PCP - General Family Medicine 02/13/18 documented as of this encounter
--- OUTSIDE RECORDS SUMMARY | 2022-06-10 10:52 | XMS_ITS | Encounter Summary ---
:1955 Author Organization [facility] Address [address] [place] [address] Care Team Providers Name Role Phone Elsewhere, Pcp Primary Care Provider Unavailable Encounter Details Date Type Department Care Team Description 02/28/2022 Ancillary Procedure Department of Alfie Veliz Ophthalmology in [place], [place] [address] [place] [address] [phone] Social History Tobacco Use Types Packs/Day Years [...] containing 4 or more times a w [place] 12/18/2020 alcohol? How many drinks containing alcohol [...] or relatives? How often do you attend orthodox or episcopalian Never 09/20/2019 services? Do you belong to any clubs or organizations Yes 12/18/2020 such as orthodox groups, unions, fraternal or athletic groups, or [...] place to sleep or slept in a mcc (including now)? Education Answer Date Recorded What is the highest level of school Master's degree (e.g., M Mann, , 09/20/2019 you have completed or the highest Rufus, Ahsan, ACCOUNTING ASSOCIATE, SHON) degree you have received? Sex Assigned at Date Recorded Male 03/19/2018 11:46 AM CDT documented as of this encounter Plan of Treatment Upcoming Encounters Date Type Specialty Care Team Description 06/21/2022 Clinical Communication Admitting/Central Scheduling 06/22/2022 Comprehensive Visit Rheumatology Clemente Mario M.B.B.S. [address] [place] [address] 08/03/2022 Comprehensive Visit Dermatology Jignesh Leonard M.D. [address] [place] [address] documented as of this encounter Procedures Procedure Name Priority Date/Time Associated Diagnosis Comme nts AUTOMATED VF - Routine 02/28/2022 1:08 PM Glaucoma Results for this EXTENDED - OS - CDT procedure ar e in LEFT EYE the results section. documented in this encounter Results Automated VF - Extended - OS - Left Eye (02/28/2022 1:08 PM CDT) Specimen (Source) Anatomical Location Collection Method / Collectio n Time Received Time / Laterality Volume Narrative OPHTHALMOLOGY IMAGING EXAM - 02/29/20 22 2:55 PM CDT Automated visual field device used was Zeiss. Strategy was CHIARA. Threshold was 10-2. Eyelid was taped. Notes See note for results. Masoud Veliz O.D. OPHTH VISUAL FIELD Performing Organization Address City/State/ZIP Code Phon e Number OPHTHALMOLOGY IMAGING EXAM documented in this encounter Visit Diagnoses Diagnosis Glaucoma documented in this encounter Care Teams Tele Tech Relationship Specialty Start Date End Date Elsewhere, Pcp PCP - General Family Medicine 02/13/18 documented as of this encounter
--- OUTSIDE RECORDS SUMMARY | 2022-06-10 10:52 | XMS_ITS | Encounter Summary ---
:1955 Author Organization [facility] Address [address] [place] [address] Care Team Providers Name Role Phone Elsewhere, [...] containing 4 or more times a w [place] 12/18/2020 alcohol? How many drinks containing alcohol [...] or relatives? How often do you attend yarsanism or yazidi Never 09/20/2019 services? Do you belong to any clubs or organizations Yes 12/18/2020 such as yarsanism groups, unions, fraternal or athletic groups, or [...] have completed or the highest Rufus, MEd, OUTCOMES SPECIALIST, SHON) degree you have received? Sex Assigned at Date Recorded Male 03/19/2018 11:46 AM CDT documented as of this encounter Plan of Treatment Upcoming Encounters Date Type Specialty Care Team Description 06/21/2022 Clinical Communication Admitting/Central Scheduling 06/22/2022 Comprehensive Visit Rheumatology Clemente Mario M.B.B.S. [address] [place] [address] 08/03/2022 Comprehensive Visit Dermatology Jignesh Leonard M.D. [address] [place] [address] documented as of this encounter Procedures Procedure Name Priority Date/Time Associated Comments Diagnosis DERMATOLOGY IMAGE Routine 04/06/2022 12:10 Result s for this EXAM AM CDT procedure are i n the results section. documented in this encounter Results cheek, right jawline 38 Mohs micrographic surgery-Dermatology Image Exam (04/06/2022 12:10 AM CDT) Specimen (Source) Anatomical Location Collection [...] on filedocumented in this encounter Care Teams Museum Docent Relationship Specialty Start Date End Date Elsewhere, Pcp PCP - General Family Medicine 02/13/18 documented as of this encounter
--- OUTSIDE RECORDS SUMMARY | 2022-06-10 10:52 | XMS_ITS | Encounter Summary ---
:1955 Author Organization [facility] Address [address] [place] [address] Care Team Providers Name Role Phone Elsewhere, [...] containing 4 or more times a w [place] 12/18/2020 alcohol? How many drinks containing [...] How often do you attend episcopalian or church Never 09/20/2019 services? Do you belong to [...] place to sleep or slept in a fdc (including now)? Education Answer Date Recorded What is the highest level of school Master's degree (e.g., M A, MS, 09/20/2019 you have completed or the highest Rufus, MEd, RFID MANAGER, SHON) degree you have received? Sex Assigned at Date Recorded Male 03/19/2018 11:46 AM CDT documented as of this encounter Plan of Treatment Upcoming Encounters Date Type Specialty Care Team Description 06/21/2022 Clinical Communication Admitting/Central Scheduling 06/22/2022 Comprehensive Visit Rheumatology Clemente Mario M.B.B.S. [address] [place] [address] 08/03/2022 Comprehensive Visit Dermatology Jignesh Leonard M.D. [address] [place] [address] documented as of this encounter Procedures Procedure Name Priority Date/Time Associated Comments Diagnosis OPHTHALMOLOGY IMAGE Routine 02/28/2022 1:10 PM Re sults for this EXAM CDT procedure are i n the results section. documented in this encounter Results Visual Jean (VF)-Ophthalmology Image Exam (02/28/2022 1:10 PM CDT) Specimen (Source) Anatomical Collection Method Collection Time Re ceived Time Location / / Volume Laterality 02/28/2022 1:07 PM CDT Narrative IIMS - 02/28/2022 1:19 PM CDT This order has been created [...] on filedocumented in this encounter Care Teams Bar Waiter/Waitress Relationship Specialty Start Date End Date Elsewhere, Pcp PCP - General Family Medicine 02/13/18 documented as of this encounter
--- OUTSIDE RECORDS SUMMARY | 2022-06-10 10:52 | XMS_ITS | Encounter Summary ---
:1955 Author Organization [facility] Address [address] [place] [address] Care Team Providers Name Role Phone Elsewhere, Pcp Primary Care Provider Unavailable Encounter Details Date Type Department Care Team Description 02/28/2022 Ancillary Procedure Department of Alfie Veliz Ophthalmology in [place], [place] [address] [place] [address] [phone] Social History Tobacco Use Types Packs/Day Years [...] containing 4 or more times a w [place] 12/18/2020 alcohol? How many drinks containing alcohol [...] or relatives? How often do you attend bahai or voodoo Never 09/20/2019 services? Do you belong to any clubs or organizations Yes 12/18/2020 such as bahai groups, unions, fraternal or athletic groups, or [...] have completed or the highest Rufus, Ahsan, CREATIVE PERFUMER, SHON) degree you have received? Sex Assigned at Date Recorded Male 03/19/2018 11:46 AM CDT documented as of this encounter Plan of Treatment Upcoming Encounters Date Type Specialty Care Team Description 06/21/2022 Clinical Communication Admitting/Central Scheduling 06/22/2022 Comprehensive Visit Rheumatology Clemente Mario M.B.B.S. [address] [place] [address] 08/03/2022 Comprehensive Visit Dermatology Jignesh Leonard M.D. [address] [place] [address] documented as of this encounter Procedures Procedure Name Priority Date/Time Associated Diagnosis Comme nts AUTOMATED VF - Routine 02/28/2022 1:08 PM Glaucoma Results for this EXTENDED - OD - CDT procedure ar e in RIGHT EYE the results section. documented in this encounter Results Automated VF - Extended - OD - Right Eye (02/28/2022 1:08 PM CDT) Specimen (Source) Anatomical Location Collection Method / Collectio n Time Received Time / Laterality Volume Narrative OPHTHALMOLOGY IMAGING EXAM - 02/29/20 22 2:55 PM CDT Automated visual field device used was Zeiss. Strategy was CHIARA. Threshold was 24-2. Eyelid was taped. Notes See note for results. Masoud Veliz O.D. OPHTH VISUAL FIELD Performing Organization Address City/State/ZIP Code Phon e Number OPHTHALMOLOGY IMAGING EXAM documented in this encounter Visit Diagnoses Diagnosis Glaucoma documented in this encounter Care Teams Distributor Advertising Material Relationship Specialty Start Date End Date Elsewhere, Pcp PCP - General Family Medicine 02/13/18 documented as of this encounter
--- OUTSIDE RECORDS SUMMARY | 2022-06-10 10:52 | XMS_ITS | Encounter Summary ---
:1955 Author Organization [facility] Address [address] [place] [address] Care Team Providers Name Role Phone Elsewhere, Pcp Primary Care Provider Unavailable Encounter Details Date Type Department Care Team Description 03/29/2022 Orders Only Department of Sera, Chuck Garcia, Lavern Tarah l Carcinoma Dermatology in M.D. Skin Other Parts Face [place], [place] [address] [facility] (Primary Dx) [address] [place] [address] [phone] Social History Tobacco Use Types Packs/Day Years [...] containing 4 or more times a w [place] 12/18/2020 alcohol? How many drinks containing alcohol [...] or relatives? How often do you attend latter-day or orthodox Never 09/20/2019 services? Do you belong to any clubs or organizations Yes 12/18/2020 such as latter-day groups, unions, fraternal or athletic groups, or [...] place to sleep or slept in a prison (including now)? Education Answer Date Recorded What is the highest level of school Master's degree (e.g., M A, MS, 09/20/2019 you have completed or the highest Rufus, MEd, DIRECTOR OF CORPORATE SALES, SHON) degree you have received? Sex Assigned at Date Recorded Male 03/19/2018 11:46 AM CDT documented as of this encounter Plan of Treatment Upcoming Encounters Date Type Specialty Care Team Description 06/21/2022 Clinical Communication Admitting/Central Scheduling 06/22/2022 Comprehensive Visit Rheumatology Clemente Mario M.B.B.S. [address] [place] [address] 08/03/2022 Comprehensive Visit Dermatology Jignesh Leonard M.D. [address] [place] [address] documented as of this encounter Results Pathology Review of Outside Material (03/31/2022 2:47 PM CDT) Component Value Ref Test Analysis Performed At [facility] gist Range Method Time Signature 04/04/2022 PDRM 12:09 PM CDT Report Enoc Rodriguez M.D. 04/04/2022 PD RM electronically 12:09 PM signed by CDT I verify that I have examined all relevant slides/materials for the specimen(s) and rendered or confirmed the diagnosis. Material Received A. [id number]: Skin, Right cheek 04/04/2022 PDRM ? 1 stained slide, 1 block 12:09 PM CDT Interpretation FINAL DIAGNOSIS 04/04/2022 PDRM A. ??Skin, Right cheek, [id number], 12/19/2021: ??Nodular and 12:09 PM infiltrative basal cell carcinoma, involving biopsy border CDT Specimen Anatomical Collection Method Collection Time Receive d Time (Source) Location / / Volume Laterality Varies 03/31/2022 2:47 PM 2:47 CDT PM CDT Narrative This result has an attachment that is no t available. Chuck M Demer M.D. LAB SURG PATH ORDERABLES Performing Organization Address City/State/ZIP Code Phon e Number [facility] - [address] [place], [place] [address] [facility] [place] [address] Laboratories-[facility] [address] documented in this encounter Visit Diagnoses Diagnosis Basal Cell Carcinoma Skin Other Parts Fa ce - Primary documented in this encounter Care Teams Material Manager Relationship Specialty Start Date End Date Elsewhere, Pcp PCP - General Family Medicine 02/13/18 documented as of this encounter
--- OUTSIDE RECORDS SUMMARY | 2022-06-10 10:53 | XMS_ITS | Encounter Summary ---
:1955 Author Organization [facility] Address [address] [place] [address] Care Team Providers Name Role Phone Elsewhere, Pcp Primary Care Provider Unavailable Encounter Details Date Type Department Care Team Description 10/14/2021 Ancillary Procedure Department of Alfie Veliz Ophthalmology in [place], [place] [address] [facility] [address] [place] [phone] Social History Tobacco Use Types Packs/Day Years [...] containing 4 or more times a w tribe 12/18/2020 alcohol? How many drinks containing alcohol [...] or relatives? How often do you attend buddhist or pentecostal Never 09/20/2019 services? Do you belong to any clubs or organizations Yes 12/18/2020 such as buddhist groups, unions, fraternal or athletic groups, or [...] have completed or the highest Rufus, MEd, FRAME STRAIGHTENER, SHON) degree you have received? Sex Assigned at Date Recorded Male 03/19/2018 11:46 AM CDT documented as of this encounter Plan of Treatment Upcoming Encounters Date Type Specialty Care Team Description 06/21/2022 Clinical Communication Admitting/Central Scheduling 06/22/2022 Comprehensive Visit Rheumatology Clemente Mario M.B.B.S. [address] [place] [address] 08/03/2022 Comprehensive Visit Dermatology Jignesh Leonard M.D. [address] [place] [address] documented as of this encounter Procedures Procedure Name Priority Date/Time Associated Diagnosis Comme nts AUTOMATED VF - Routine 10/14/2021 12:42 PM Glaucoma Result s for this EXTENDED - OU - FILLING SEPARATOR procedure ar e in BOTH EYES the results section. documented in this encounter Results Automated VF - Extended - OU - Both Eyes (10/14/2021 12:42 PM FILLING SEPARATOR) Specimen (Source) Anatomical Location Collection Method / Collectio n Time Received Time / Laterality Volume Narrative OPHTHALMOLOGY IMAGING EXAM - 10/14/19 22 3:11 PM FILLING SEPARATOR Right Eye Automated visual field device used was Z eiss. Strategy was CHIARA. Threshold was 24-2. Left Eye Automated visual field device used was Z eiss. Strategy was CHIARA. Threshold was 24-2. Notes See note for results. Masoud Veliz O.D. OPHTH VISUAL FIELD Performing Organization Address City/State/ZIP Code Phon e Number OPHTHALMOLOGY IMAGING EXAM documented in this encounter Visit Diagnoses Diagnosis Glaucoma documented in this encounter Care Teams Home Care Coordinator Relationship Specialty Start Date End Date Elsewhere, Pcp PCP - General Family Medicine 02/13/18 documented as of this encounter
--- OUTSIDE RECORDS SUMMARY | 2022-06-10 10:53 | XMS_ITS | Encounter Summary ---
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 [facility] Procedures EEG routine - awake and sleep [address] [place], [place] [address] Referral ID Status Reason Start Date Expiration Date Visits Requ ested Visits Authorized [id number] Closed 10/13/2020 10/13/2021 1 1 Encounter Details Date Type Department Care Team Description 10/22/2020 Hospital Encounter Department of Shanika Stroke C erebrovascular Accident Personal History; Neurology in [place] Kidney Disorder; [address] Hypertension Essential Primary; [place], [place] Dissecting Aneurysm Thoracic Aortic (HCC) [address] [place] [address] [place], [place] [phone] (Work) [phone] Social History Tobacco Use Types Packs/Day Years [...] containing 4 or more times a w [place] 12/18/2020 alcohol? How many drinks containing alcohol [...] or relatives? How often do you attend caodaism or orthodox Never 09/20/2019 services? Do you belong to any clubs or organizations Yes 12/18/2020 such as caodaism groups, unions, fraternal or athletic groups, or [...] place to sleep or slept in a skilled nursing (including now)? Education Answer Date Recorded What is the highest level of school Master's degree (e.g., M A, MS, 09/20/2019 you have completed or the highest Rufus, MEd, CREW ATTENDANT, SHON) degree you have received? Sex Assigned at Date Recorded Male 03/19/2018 11:46 AM CDT documented as of this encounter Medications at Time of Discharge Medication Sig Dispensed Refills Start Date End Date aspirin [address] tablet Take 81 mg by mouth 0 daily. atorvastatin (LIPITOR) 80 Take 80 mg by mouth 0 0 04/20/2020 mg tablet daily. carvedilol (COREG) 25 mg Take 25 mg by mouth 0 tablet 2 (two) times a day with meals. cetirizine (ZyrTEC) 10 mg Take 10 mg by mouth 0 1 09/14/2017 tablet daily. cod liver oil oil Take 5 mL by mouth 0 03/05/2019 daily. enalapril (VASOTEC) 20 mg Take 20 mg by mouth 0 tablet 2 (two) times a day. FLUoxetine (PROzac) 40 mg Take 20 mg by mouth 0 capsule daily. fluticasone propionate Administer 2 sprays 0 05/21 (FLONASE) 50 into nostril(s) as mcg/actuation nasal spray needed. ketoconazole (NIZORAL) 2 Apply topically as 0 % cream needed. lactobacillus combination Take 1 capsule by 0 05/2018 no.4 3 billion cell mouth daily. capsule miscellaneous medical Full face mask 08/22 0 2019 supply mis months, full face mask cushion 08/20 month montelukast (SINGULAIR) Take 10 mg by mouth 0 10 mg tablet at bedtime. NIFEdipine (ADALAT CC) 60 Take 30 mg by mouth 0 mg ER tablet daily. triamterene-hydroCHLOROth Take 1 capsule by 0 10/2019 iazide (DYAZIDE) 37.5-25 mouth daily. mg per capsule cholecalciferol (VITAMIN Take 1,000 Units by 0 12/22/2020 D3) 25 mcg (1,000 Unit) mouth daily. capsule omeprazole (PriLOSEC) 20 Take 20 mg by mouth 0 12/22/[address] capsule every morning before breakfast. documented as of this encounter Plan of Treatment Upcoming Encounters Date Type Specialty Care Team Description 06/21/2022 Clinical Communication Admitting/Central Scheduling 06/22/2022 Comprehensive Visit Rheumatology Clemente Mario M.B.BJaleelSJaleel [address] [place] [phone] 08/03/2022 Comprehensive Visit Dermatology Jignesh Leonard M.D. [address] [place] [phone] documented as of this encounter Procedures Procedure Name Priority Date/Time Associated Diagnosis Comme nts EEG ROUTINE - Routine 10/22/2020 1:01 PM Stroke Cerebrovascula r Results for this AWAKE AND SLEEP YEAST CULTURE DEVELOPER Accident Personal procedu re are in History the results Kidney Disorder section. Hypertension Essential Primary Dissecting Aneurysm Thoracic Aortic (HCC) documented in this encounter Results EEG routine - awake and sleep (10/22/2020 1:01 PM YEAST CULTURE DEVELOPER) Specimen (Source) Anatomical Location Collection Method / Collectio n Time Received Time / Laterality Volume Narrative MMODAL - 10/22/2020 3:02 PM YEAST CULTURE DEVELOPER CLINICAL INTERPRETATION Normal EEG during wakefulness and sleep. ??No potentially epileptiform activity was present during the recordin g. EEG CLASSIFICATION SPECIAL STUDY - Short-term video EEG. Normal (awake and asleep). EKG channel. EEG REPORT The short-term video EEG recording durin g wakefulness contains 11 Hz activity over the posterior head regions . ??No abnormal activity occurred with photic stimulation. ??Hyperventilat ion was not performed due to Covid precautions. During the recording, the patient fell a sleep spontaneously. ??No abnormal activity occurred during sleep or at the time of arousal. The EKG channel was unremarkable. Dr. Alvarez reviewed the EEG with Dr. Soto and agree with these findings. Romy Voss M.D. 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
--- OUTSIDE RECORDS SUMMARY | 2022-06-10 10:53 | XMS_ITS | Encounter Summary ---
:1955 Author Organization [facility] Address [address] [place] [address] Care Team Providers Name Role Phone Elsewhere, Pcp Primary Care Provider Unavailable Reason for Visit Reason Comments Pre-visit Intake Encounter Details Date Type Department Care Team Description 12/21/2020 Clinical Communication Department of Shanika, Pre- visit Intake Neurology in [place], [place] [address] [facility] [address] [place] [phone] Social History Tobacco Use Types Packs/Day Years [...] containing 4 or more times a w [place] 12/18/2020 alcohol? How many drinks containing alcohol [...] How often do you attend orthodox or restoration Never 09/20/2019 services? Do you belong to [...] place to sleep or slept in a correction (including now)? Education Answer Date Recorded What is the highest level of school Master's degree (e.g., Radha Darnell MS, 09/20/2019 you have completed or the highest Rufus, Ahsan, SLIDE FASTENERS INSPECTOR, SHON) degree you have received? Sex Assigned at Date Recorded Male 03/19/2018 11:46 AM CDT documented as of this encounter Plan of Treatment Upcoming Encounters Date Type Specialty Care Team Description 06/21/2022 Clinical Communication Admitting/Central Scheduling 06/22/2022 Comprehensive Visit Rheumatology Clemente Mario M.B.B.S. [address] [place] [address] 08/03/2022 Comprehensive Visit Dermatology Jignesh Leonard M.D. [address] [place] [address] documented as of this encounter Visit Diagnoses Not on filedocumented in this encounter Care Teams Pediatric Physical Therapy Assistant Relationship Specialty Start Date End Date Elsewhere, Pcp PCP - General Family Medicine 02/13/18 documented as of this encounter
--- OUTSIDE RECORDS SUMMARY | 2022-06-10 10:53 | XMS_ITS | Encounter Summary ---
:[address] [facility] Address [address] [place] [address] Care Team Providers Name Role Phone Elsewhere, Pcp Primary Care Provider Unavailable Encounter Details Date Type Department Care Team Description 01/10/2022 Ancillary Procedure Department of Dermatology Social History [...] containing 4 or more times a w [place] 12/18/2020 alcohol? How many drinks containing alcohol [...] or relatives? How often do you attend protestant or jew Never 09/20/2019 services? Do you belong to any clubs or organizations Yes 12/18/2020 such as protestant groups, unions, fraternal or athletic groups, or [...] place to sleep or slept in a assisted (including now)? Education Answer Date Recorded What is the highest level of school Master's degree (e.g., M A, MS, 09/20/2019 you have completed or the highest Rufus, MEd, MACHINE WASHER, SHON) degree you have received? Sex Assigned at Date Recorded Male 03/19/2018 11:46 AM CDT documented as of this encounter Plan of Treatment Upcoming Encounters Date Type Specialty Care Team Description 06/21/2022 Clinical Communication Admitting/Central Scheduling 06/22/2022 Comprehensive Visit Rheumatology Clemente Mario M.B.B.S. [address] [place] [address] 08/03/2022 Comprehensive Visit Dermatology Jignesh Leonard M.D. [address] [place] [address] documented as of this encounter Procedures Procedure Name Priority Date/Time Associated Comments Diagnosis DERMATOLOGY IMAGE Routine 01/10/2022 12:00 Result s for this EXAM AM CDT procedure are i n the results section. documented in this encounter Results Cheek, right 12 14 26 28 38-Dermatology Image Exam (01/10/2022 12:00 AM CDT) Specimen (Source) Anatomical Location Collection Method / Collectio n Time Received Time / Laterality Volume Narrative IIMS - 01/10/2022 11:44 AM CDT This order has been created [...] on filedocumented in this encounter Care Teams Salvage Laborer Relationship Specialty Start Date End Date Elsewhere, Pcp PCP - General Family Medicine 02/13/18 documented as of this encounter
--- OUTSIDE RECORDS SUMMARY | 2022-06-10 10:53 | XMS_ITS | Encounter Summary ---
:1955 Author Organization [facility] Address [address] [place] [address] Care Team Providers Name Role Phone Elsewhere, Pcp Primary Care Provider Unavailable Reason for Visit Outpatient (Routine) - Closed Specialty Diagnoses / Procedures Referred By Contact Refer red To Contact Neurology Romy Voss M.D . [facility] [address] [place] [phone] Referral ID Status Reason Start Date Expiration Date Visits Requ ested Visits Authorized [id number] Closed 10/15/2020 10/15/2021 1 1 Encounter Details Date Type Department Care Team Description 12/22/2020 Office Visit Department of Romy Voss, Intracrani al Hemorrhage (HCC) (Primary Dx); Neurology in [place] Hemorrhage Subarachnoid Personal History [place], [place] [address] [facility] [address] [place] [phone] Social History Tobacco Use Types Packs/Day Years [...] containing 4 or more times a w [place] 12/18/2020 alcohol? How many drinks containing alcohol [...] or relatives? How often do you attend temple or sikhism Never 09/20/2019 services? Do you belong to any clubs or organizations Yes 12/18/2020 such as temple groups, unions, fraternal or athletic groups, or [...] have completed or the highest Rufus, MEd, NUDE MODEL, SHON) degree you have received? Sex Assigned at Date Recorded Male 03/19/2018 11:46 AM CDT documented as of this encounter Consult Notes Romy Voss M.D. - 12/22/2020 11:30 AM CDT SUBJECTIVE HISTORY OF PRESENT ILLNESS Mr. Sanches returns in followup accompanied by his . 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 Of note, he did undergo MRI imaging locally approximately 19 days following the event. This study showed the bilateral intracranial and associated subarachnoid blood products butalso showed an area of restricted diffusion in the right basal ganglia, which to my view was somewhat low attenuation on the ADC map, as well as an area of low attenuation change in the left periventricular basal ganglia. I was pleased to hear that he has been doing well with no significant cardiovascular symptoms and with blood pressures in excellent control. He denies any headaches or significant lightheadedness. He has complex aortic disease as described in my previous notes and those of Dr. Keane. His Holter monitor shows no significant dysrhythmias. He has a transthoracic echocardiogram scheduled for December 30, 2020. The following portions of the patient's history were reviewed and updated as appropriate: allergies,current medication, family history, medical history, surgical history, social history, problem list. ASSESSMENT / PLAN #1 Posttraumatic bifrontal hemorrhagic contusions and associated subarachnoid hemorrhage He has not undergone imaging since October 15, 2020, but has not had any neurologic symptoms to suggest rebleed or other new ischemic event. I suggested that a followup MRI in approximately 1 year's time would be reasonable, and they will call to schedule as it gets closer to that time. #2 Possible subacute right basal ganglia ischemic event The timing of this event and whether it was asymptomatic or symptomatic is uncertain. It is possiblethat this led to his fall, although he did have syncopal symptoms at that time. I emphasized the importance of ongoing risk factor monitoring and management, which he is doing. His blood pressure is in excellent control. He is on maximal dose statin and being closely followed by Cardiology and his primary care provider. #3 Stage 3 chronic kidney disease #4 Treated hypertension #5 Treated hyperlipidemia #6 Complex type B aortic dissection, status post left carotid to subclavian bypass, endovascular repair of the distal arch and proximal descending aorta, and open aortobiiliac grafting for acute occlusion of the infrarenal abdominal artery I will follow up the results of his TTE when available. I advised him to continue his low-dose aspirin therapy and concurred with Dr. Keane's recommendation regarding moderating alcohol intake. Romy Voss M.D. CT CT Job ID: [id number]/tory documented in this encounter Plan of Treatment Upcoming Encounters Date Type Specialty Care Team Description 06/21/2022 Clinical Communication Admitting/Central Scheduling 06/22/2022 Comprehensive Visit Rheumatology Clemente Mario M.B.B.S. [address] [place] [address] 08/03/2022 Comprehensive Visit Dermatology Jignesh Leonard M.D. [address] [place] [address] documented as of this encounter Visit Diagnoses Diagnosis Intracranial Hemorrhage (HCC) - Primary Hemorrhage Subarachnoid Personal History documented in this encounter Care Teams Clinical Program Coordinator Relationship Specialty Start Date End Date Elsewhere, Pcp PCP - General Family Medicine 02/13/18 documented as of this encounter
--- OUTSIDE RECORDS SUMMARY | 2022-06-10 10:53 | XMS_ITS | Encounter Summary ---
:1955 Author Organization [facility] Address [address] [place] [address] Care Team Providers Name Role Phone Elsewhere, Pcp Primary Care Provider Unavailable Reason for Referral Outpatient (Routine) - Closed Specialty Diagnoses / Procedures Referred By Contact Refer red To Contact Diagnoses Dissection Of Thoracic Aorta Unspecified (HCC) Hypertension Essential Primary Hyperlipidemia Regurgitation Aortic Neema Keane [facility] Procedures Echo Transthoracic (TTE) M.DJaleel [address] [place] [address] Referral ID Status Reason Start Date Expiration Date Visits Requ ested Visits Authorized [id number] Closed 09/24/2019 09/23/2020 1 1 Reason for Visit Outpatient (Routine) - Closed Specialty Diagnoses / Procedures Referred By Contact Refer red To Contact Diagnoses Dissection Of Thoracic Aorta Unspecified (HCC) Hypertension Essential Primary Hyperlipidemia Regurgitation Aortic Neema Keane [facility] Procedures Echo Transthoracic (TTE) M.DJaleel [address] [place] [address] Referral ID Status Reason Start Date Expiration Date Visits Requ ested Visits Authorized [id number] Closed 09/24/2019 09/23/2020 1 1 Encounter Details Date Type Department Care Team Description 12/30/2020 Hospital Department of Diya, Dissecting Ane urysm Thoracic Aortic (HCC); Encounter Cardiovascular Neema Seymour M.D. Hypertension Essential Primary; Diseases in [place], [facility] [address] Hyperlipidemia; [place], [place] Regurgitation Aortic [address] [place] [address] [place], [place] [phone] (Work) [phone] Social History Tobacco Use Types Packs/Day Years [...] containing 4 or more times a w yuhaaviatam 12/18/2020 alcohol? How many drinks containing alcohol [...] or relatives? How often do you attend methodist or amish Never 09/20/2019 services? Do you belong to any clubs or organizations Yes 12/18/2020 such as methodist groups, unions, fraternal or athletic groups, or [...] have completed or the highest Rufus, MEd, HYDROELECTRIC PLANT OPERATOR, SHON) degree you have received? Sex [...] 25 mg Take 25 mg by mouth 2 0 tablet (two) times a day with meals. cetirizine (ZyrTEC) 10 mg Take 10 mg by mouth 0 1 09/14/2017 tablet daily. cod liver oil oil Take 5 mL by mouth 0 03/05/2019 daily. enalapril (VASOTEC) 20 mg Take 20 mg by mouth 2 0 tablet (two) times a day. famotidine (PEPCID) 10 mg Take 10 mg by mouth 0 tablet daily as needed for heartburn. FLUoxetine (PROzac) 40 mg Take 20 mg by mouth 0 capsule daily. fluticasone propionate Administer 2 sprays 0 05/21 (FLONASE) 50 into nostril(s) as mcg/actuation nasal spray needed. ketoconazole (NIZORAL) 2 Apply topically as 0 % cream needed. lactobacillus combination Take 1 capsule by 0 05/2018 no.4 3 billion cell mouth daily. capsule miscellaneous medical Full face mask 08/22 0 2019 supply misc months, full face mask cushion 08/20 month montelukast (SINGULAIR) Take 10 mg by mouth at 0 10 mg tablet bedtime. multivitamin tablet Take 1 tablet by mouth 0 10/19 daily. NIFEdipine (ADALAT CC) 60 Take 30 mg by mouth 0 mg ER tablet daily. triamterene-hydroCHLOROth Take 1 capsule by 0 10/2019 iazide (DYAZIDE) 37.5-25 mouth daily. mg per capsule documented as of this encounter Plan of Treatment Upcoming Encounters Date Type Specialty Care Team Description 06/21/2022 Clinical Communication Admitting/Central Scheduling 06/22/2022 Comprehensive Visit Rheumatology Clemente Mario M.B.B.S. [address] [place] [address] 08/03/2022 Comprehensive Visit Dermatology Jignesh Leonard M.D. [address] [place] [address] documented as of this encounter Procedures Procedure Name Priority Date/Time Associated Diagnosis Comme nts (TTE) 2D ECHO Routine 12/30/2020 4:08 PM Dissecting Aneurysm R esults for this DOPPLER COLOR CDT Thoracic Aortic procedure a re in (HCC) the results Hypertension section. Essential Primar y Hyperlipidemia Regurgitation Aortic documented in this encounter Results (TTE) 2D ECHO DOPPLER COLOR (12/30/2020 4:08 PM CDT) P athologist Signature Ejection 61 MC CV EIMS Fraction Sinus of 41 MC CV EIMS Valsalva Mid-Ascending 38 MC CV EIMS Aorta LV End-Diastolic 56 MC CV EIMS Diameter LV End-Systolic 37 MC CV EIMS Diameter MV E Velocity 0.9 MC CV EIMS MV A Velocity 0.8 MC CV EIMS MV E/A 1.13 MC CV EIMS MV e' Velocity 0.08 MC CV EIMS Medial MV e' Velocity 0.12 MC CV EIMS Lateral MV E/e' Medial 11.3 MC CV EIMS MV E/e' Lateral 7.5 MC CV EIMS Left ventricular 70 MC CV EIMS stroke volume index Cardiac Output 10.63 MC CV EIMS Cardiac Index 4.94 MC CV EIMS TR Vmax 2.50 MC CV EIMS RA Pressure 5 MC CV EIMS RV Systolic 30 MC CV EIMS Pressure Anatomical Region Laterality Modality Echocardiography Specimen (Source) Anatomical Collection Method Collection Time Re ceived Time Location / / Volume Laterality 12/30/2020 3:13 PM CDT Impressions 12/30/2020 4:33 PM CDT LEFT VENTRICLE: ??Mildly enlarged left ventricular chamber size. ??Calculated 2- D linear left ventricular ejection fraction 61 %. ??Le ft ventricular cardiac index 4.94 l/min/m^2. ??No regional wall motion abnormalities. ??No rmal left ventricular filling pressure. ??RIGHT VENTRICLE: ??Normal right ventricular ch bert size. ??Normal right ventricular systolic function. Estimated right ventricular systolic pr essure 30 mmHg (systolic blood pressure 136 mmHg). ATRIA: ??Mild-moderately enlarged left a trial size. ??Normal right atrial size. ??CARDIAC VALVES: Trileaflet aortic valve. ??Mildly thicke katrina aortic valve. ??Mild-moderate aortic valve regurgitation. ??Mildly thickened mitral valve. ??Trivial mitral valve regurgitation. ??Normal tricuspid valve. ??Trivial tricuspid ethel ve regurgitation. ??OTHER ECHO FINDINGS: ??Normal inferior vena cava size with normal inspiratory c ollapse (>50%). ??Normal sinus of Valsalva diameter (diameter 41 mm). ??Upper limit of ivon l for patient is 43 mm. ??Normal mid ascending aorta diameter (diameter 38 mm at mid level). ??Upper limit of normal for patient is 41 mm. ??Abdominal aorta incompletely visualized. ??Normal abdominal aorta Doppler flow pattern. ??No intracardiac mass or thrombus, but the left atrial ap pendage cannot be visualized adequately with transthoracic echo to exclude thrombus i n this location. ??No pericardial effusion. For the complete report, see the [employer] Documents. Narrative 12/30/2020 4:33 PM CDT For the complete report, see the [employer] Documents. Final Impressions 1. 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 2. Mildly enlarged left ventricular atul jean pierre size. ??Calculated ejection fraction 61%. No regional wall motion abnormalities. 3. Normal right ventricular chamber size and systolic function. 4. Estimated right ventricular systolic pressure 30 mmHg (systolic blood pressure 136 mmHg). 5. Mildly thickened aortic valve (tricus pid) with mild-moderate regurgitation. 6. Normal inferior vena cava size with n ormal inspiratory collapse (>50%). 7. Normal sinus of Valsalva diameter (di ameter 41 mm). ??Upper limit of normal for patient is 43 mm. 8. Normal mid ascending aorta diameter ( diameter 38 mm at mid level). ??Upper limit of normal for patient is 41 mm. 9. No evidence of descending aorta/aorti c arch obstruction; proximal end of the vascular stent seen in the mid aortic arch. 10. No pericardial effusion. 11. Compared to the report of 09/23/2019 no significant change has occurred. Side by side comparison of images performed. Procedure Note Alexei De LaC ruz M.D. - 12/30/2020Formatti ng of this note might be different from the original. For the complete report, see the [employer] Documents. Final Impressions 1. 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 2. Mildly enlarged left ventricular atul jean pierre size. Calculated ejection fraction 61%. No regional wall motion abnormalities. 3. Normal right ventricular chamber size and systolic function. 4. Estimated right ventricular systolic pressure 30 mmHg (systolic blood pressure 136 mmHg). 5. Mildly thickened aortic valve (tricus pid) with mild-moderate regurgitation. 6. Normal inferior vena cava size with n ormal inspiratory collapse (>50%). 7. Normal sinus of Valsalva diameter (di ameter 41 mm). Upper limit of normal for patient is 43 mm. 8. Normal mid ascending aorta diameter ( diameter 38 mm at mid level). Upper limit of normal for patient is 41 mm. 9. No evidence of descending aorta/aorti c arch obstruction; proximal end of the vascular stent seen in the mid aortic arch. 10. No pericardial effusion. 11. Compared to the report of 09/23/2019 no significant change has occurred. Side by side comparison of images performed. Findings LEFT VENTRICLE: Mildly enlarged left radha tricular chamber size. Calculated 2-D linear left ventricular ejection fraction 61 %. Left ventricular cardiac index 4.94 l/min/m^2. No regional wall motion abnormalities. Norm al left ventricular filling pressure. RIGHT VENTRICLE: Normal right ventricular atul jean pierre size. Normal right ventricular systolic function. Estimated right ventricular systolic pr essure 30 mmHg (systolic blood pressure 136 mmHg). ATRIA: Mild-moderately enlarged left atr ial size. Normal right atrial size. CARDIAC VALVES: Trileaflet aortic valve. Mildly thickene d aortic valve. Mild-moderate aortic valve regurgitation. Mildly thickened mitral v alve. Trivial mitral valve regurgitation. Normal tricuspid valve. Trivial tricuspid valve regurgitation. OTHER ECHO FINDINGS: Normal inferior vena cava size with normal inspiratory c ollapse (>50%). Normal sinus of Valsalva diameter (diameter 41 mm). Upper limit of normal for patient is 43 mm. Normal mid ascending aorta diameter (diameter 38 mm at mid level). Upper limit of normal for patient is 41 mm. Abdominal aorta incompletely visualized. Normal ab dominal aorta Doppler flow pattern. No intracardiac mass or thrombus, but the left atrial ap pendage cannot be visualized adequately with transthoracic echo to exclude thrombus i n this location. No pericardial effusion. For the complete report, see the Order-L evel Documents. Neema Keane M.D. CV ECHO PROCEDURES documented in this encounter Visit Diagnoses Diagnosis Dissection Of Thoracic Aorta Unspecified (HCC) Hypertension Essential Primary Hyperlipidemia Regurgitation Aortic documented in this encounter Care Teams Cupola Tender Relationship Specialty Start Date End Date Elsewhere, Pcp PCP - General Family Medicine 02/13/18 documented as of this encounter
--- OUTSIDE RECORDS SUMMARY | 2022-06-10 10:53 | XMS_ITS | Encounter Summary ---
:1955 Author Organization [facility] Address [address] [place] [address] Care Team Providers Name Role Phone Elsewhere, Pcp Primary Care Provider Unavailable Encounter Details Date Type Department Care Team Description 10/22/2020 Hospital Encounter Department of [place], Stroke C erebrovascular Accident Personal History; Laboratory Medicine Steve Escalante, Ushaen kim Essential Primary; and Pathology, MRenny., Ch.B., Dissecting An eurysm Thoracic Aortic (HCC); [place] renetta Childers M.D. Chronic Kidney Disease (CKD), Stage 3 Un specified (HCC) [place], [facility] [address] [place], [place] [address] [place] [phone] [place], [place] [phone] (Work) [phone] Social History Tobacco Use Types Packs/Day Years [...] or relatives? How often do you attend jewish or orthodoxy Never 09/20/2019 services? Do you belong to any clubs or organizations Yes 12/18/2020 such as jewish groups, unions, fraternal or athletic groups, or [...] have completed or the highest Rufus, MEd, BRADDER, SHON) degree you have received? Sex Assigned [...] daily. capsule miscellaneous medical Full face mask 1/3 0 2019 supply misc months, full face [...] Visit Rheumatology Clemente Mario M.B.B.S. [address] [place] [phone] 08/03/2022 Comprehensive Visit Dermatology Jignesh Leonard M.D. [address] [place] [phone] documented as of this encounter Procedures Procedure Name Priority Date/Time Associated Diagnosis Comme nts MICROSCOPIC Routine 10/22/2020 10:37 Results for this AUTOMATED AM SENIOR UI UX DEVELOPER procedure are i n the results section. URINALYSIS WITH Routine 10/22/2020 10:37 Stroke Cerebrovascula r Results for this MICROSCOPIC AM SENIOR UI UX DEVELOPER Accident Personal procedure are in History the results Hypertension Essential secti on. Primary Dissecting Aneurysm Thoracic Aortic (HCC) Chronic Kidney Disease (CKD), Stage 3 Unspecified (HCC) documented in this encounter Results Microscopic Automated (10/22/2020 10:37 AM SENIOR UI UX DEVELOPER) P athologist Signature Microscopy Normal 10/22/2020 [place] 11:37 AM SENIOR UI UX DEVELOPER Casts, Hyaline 1-3 /lpf 10/22/2020 [place] 11:37 AM SENIOR UI UX DEVELOPER Specimen Anatomical Collection Method Collection Time Receive d Time (Source) Location / / Volume Laterality Urine 10/22/2020 10:37 10/22/2020 AM SENIOR UI UX DEVELOPER 10:37 AM SENIOR UI UX DEVELOPER Steve Jefferson, Laurie, Lina. LAB URINE ORDERABLE S Performing Organization Address City/State/ZIP Code Phon e Number [facility] - [address] [place] [phone] [facility] [place] [place] [address] [facility] 200 [place] [facility] Urinalysis with Microscopic: Urine, Midstream (10/22/2020 10:37 AM SENIOR UI UX DEVELOPER) [facility] Method Time Signature Source Midstream 10/22/2020 [place] 10:37 AM SENIOR UI UX DEVELOPER Appearance Normal Normal 10/22/2020 [place] 11:13 AM SENIOR UI UX DEVELOPER Osmolality, U 553 150 - 1150 10/22/2020 [place] mOsm/kg 11:32 AM SENIOR UI UX DEVELOPER pH, U 6.0 4.5 - 8.0 10/22/2020 [place] 11:32 AM SENIOR UI UX DEVELOPER Comment: ----ADDITIONAL INFORMATION---- This test was developed and its performa nce characteristics determined by [facility] in a manner co nsistent with CLIA requirements. This test has not bee n cleared or approved by the U.S. Food and Drug Admin istration. Glucose 4 0 - 15 mg/dL 10/22/2020 11:13 AM SENIOR UI UX DEVELOPER CUCO A Protein, U 12 <26 mg/dL 10/22/2020 11:13 AM SENIOR UI UX DEVELOPER [place] Comment: ----ADDITIONAL INFORMATION---- On 02/13/2017 the total protein assay me thod changed resulting in approximately a 15% increase in prote in values. Protein/Osmolality 0.22 <0.42 Ratio 10/22/2020 11:32 AM SENIOR UI UX DEVELOPER [place] Comment: ----ADDITIONAL INFORMATION---- On 02/13/2017 the total protein assay me thod changed resulting in approximately a 15% increase in prote in values. Predicted 24 Hr Protein 220 mg/24 h 10/22/2020 11:32 AM SENIOR UI UX DEVELOPER [place] Predicted Range 70-692 mg/24 h 10/22/2020 11:32 AM SENIOR UI UX DEVELOPER [place] Hemoglobin, QL Negative Negative 10/22/2020 11:37 AM SENIOR UI UX DEVELOPER R SAM Specimen Anatomical Collection Method Collection Time Receive d Time (Source) Location / / Volume Laterality Urine (Urine, 10/22/2020 10:37 10/22/2020 Midstream) AM SENIOR UI UX DEVELOPER 10:37 AM SENIOR UI UX DEVELOPER Steve Jefferson, BJaleel, MSanchez. LAB URINE ORDERABLE S Performing Organization Address City/State/ZIP Code Phon e Number [facility] - [address] [place] [phone] [facility] [place] [address] [facility] [address] documented in this encounter Visit Diagnoses Diagnosis Stroke Cerebrovascular Accident Personal History Hypertension 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) Chronic Kidney Disease (CKD), Stage 3 Un specified (HCC) documented in this encounter Care Teams [employer] Department Head Relationship Specialty Start Date End Date Elsewhere, Pcp PCP - General Family Medicine 02/13/18 documented as of this encounter
--- OUTSIDE RECORDS SUMMARY | 2022-06-10 10:53 | XMS_ITS | Encounter Summary ---
:1955 Author Organization [facility] Address [address] [place] [address] Care Team Providers Name Role Phone Elsewhere, Pcp Primary Care Provider Unavailable Reason for Referral O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) Chronic Kidney Disease (CKD), Stage 3 Unspecified (HCC) Steve Lombardo M.B., [facility] Procedures US Kidneys with Renal Artery Doppler Kim Sullivan [address] [place] [address] Referral ID Status Reason Start Date Expiration Date Visits Requ ested Visits Authorized [id number] Closed 10/22/2020 10/22/2021 1 1 BURSEMENT SPEC Reason for Visit O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) Chronic Kidney Disease (CKD), Stage 3 Unspecified (HCC) Steve Lombardo M.B., [facility] Procedures US Kidneys with Renal Artery Doppler Kim Sullivan [address] [place] [phone] Referral ID Status Reason Start Date Expiration Date Visits Requ ested Visits Authorized [id number] Closed 10/22/2020 10/22/2021 1 1 Encounter Details Date Type Department Care Team Description 10/22/2020 Hospital Encounter Department of [place], Stroke C erebrovascular Accident Personal History; Radiology, Mack Escalante, Hypertensio n Essential Primary; Alvarado, renetta Jefferson Ch.B., Dissecting Aneu rysm Thoracic Aortic (HCC); Kim Gilbert Chronic Kidney Disease (CKD), Stage 3 Un specified (HCC) [place] [address] [facility] [address] [place] [phone] Social History Tobacco Use Types Packs/Day Years [...] containing 4 or more times a w [place] 12/18/2020 alcohol? How many drinks containing alcohol [...] or relatives? How often do you attend worship or episcopal Never 09/20/2019 services? Do you belong to any clubs or organizations Yes 12/18/2020 such as worship groups, unions, fraternal or athletic groups, or [...] place to sleep or slept in a alf (including now)? Education Answer Date Recorded What is the highest level of school Master's degree (e.g., M A, MS, 09/20/2019 you have completed or the highest Rufus, MEd, ORNAMENTAL PLASTER STICKER, SHON) degree you have received? Sex Assigned [...] daily. capsule miscellaneous medical Full face mask /3 0 2019 supply misc months, full face [...] Comprehensive Visit Rheumatology Clemente Mario M.B.B.S. [address] [place] [phone] 08/03/2022 Comprehensive Visit Dermatology Jignesh Leonard M.D. [address] [place] [phone] documented as of this encounter Procedures Procedure Name Priority Date/Time Associated Diagnosis Comme nts US KIDNEYS WITH RAD - Routine 10/22/2020 11:47 Stroke Results for RENAL ARTERY (most inpatients AM REIMBURSEMENT SPEC Cerebrovascular this pro cedure DOPPLER and all Accident Personal are in the outpatients) History results Hypertension section. Essential Primar y Dissecting Aneurysm Thoracic Aortic (HCC) Chronic Kidney Disease (CKD), Stage 3 Unspecified (HCC) documented in this encounter Results US Kidneys with Renal Artery Doppler (10/22/2020 11:47 AM REIMBURSEMENT SPEC) Anatomical Region Laterality Modality Abdomen, Renal, Ultrasound RST LOS, Ultrasound ARZ LOS, N/A Ultrasound Ultrasound FLA LOS, Procedural Specimen (Source) Anatomical Collection Method Collection Time Re ceived Time Location / / Volume Laterality 10/22/2020 11:55 AM REIMBURSEMENT SPEC Impressions 10/22/2020 12:06 PM REIMBURSEMENT SPEC No renal artery stenosis. No hydronephro sis. Narrative 10/22/2020 12:06 PM REIMBURSEMENT SPEC EXAM: US KIDNEYS WITH RENAL ARTERY DOPPLER Exam performed with color and spectral D oppler analysis. COMPARISON: CT of the abdomen and pelvis dated 09/23/2019. FINDINGS: Right kidney: Normal echogenicity and pa renchymal thickness. No hydronephrosis. Right renal artery: Negative for stenosi s; 2 vessels well seen. ?? Left kidney: Normal echogenicity and par enchymal thickness. No hydronephrosis. Left renal artery: Negative for stenosis ; single vessel well seen. ?? Right Renal Measurements: Right renal length: 12.1 cm Right segmental artery - upper pole RI: 0.73 Right segmental artery - lower pole RI: 0.80 Right renal artery origin PSV: 50 cm/s Right renal artery prox PSV: 59 cm/s Right renal artery mid PSV: 52 cm/s Right renal artery distal PSV: 34 cm/s Left Renal Measurements: Left renal length: 11.8 cm Left segmental artery - upper pole RI: 0 .79 Left segmental artery - lower pole RI: 0 .78 Left renal artery origin PSV: 25 cm/s Left renal artery prox PSV: 43 cm/s Left renal artery mid PSV: 42 cm/s Left renal artery distal PSV: 37 cm/s Aorta: The abdominal aorta is prominent in the upper abdomen measuring 3.6 cm. This tapers to 3.1 cm in the lower abdom inal aorta. Bladder: Normal, prominent prostatic imp ression. Procedure Note Brianna Hickey M.D. - 10/22/2020For matting of this note might be different from the original. EXAM: US KIDNEYS WITH RENAL ARTERY DOPPL ER Exam performed with color and spectral D oppler analysis. COMPARISON: CT of the abdomen and pelvis dated 09/23/2019. FINDINGS: Right kidney: Normal echogenicity and pa renchymal thickness. No hydronephrosis. Right renal artery: Negative for stenosi s; 2 vessels well seen. Left kidney: Normal echogenicity and par enchymal thickness. No hydronephrosis. Left renal artery: Negative for stenosis ; single vessel well seen. Right Renal Measurements: Right renal length: 12.1 cm Right segmental artery - upper pole RI: 0.73 Right segmental artery - lower pole RI: 0.80 Right renal artery origin PSV: 50 cm/s Right renal artery prox PSV: 59 cm/s Right renal artery mid PSV: 52 cm/s Right renal artery distal PSV: 34 cm/s Left Renal Measurements: Left renal length: 11.8 cm Left segmental artery - upper pole RI: 0 .79 Left segmental artery - lower pole RI: 0 .78 Left renal artery origin PSV: 25 cm/s Left renal artery prox PSV: 43 cm/s Left renal artery mid PSV: 42 cm/s Left renal artery distal PSV: 37 cm/s Aorta: The abdominal aorta is prominent in the upper abdomen measuring 3.6 cm. This tapers to 3.1 cm in the lower abdom inal aorta. Bladder: Normal, prominent prostatic imp ression. IMPRESSION: No renal artery stenosis. No hydronephro sis. Steve Jefferson, Kim Sullivan IMG US PROCEDURES documented in this encounter Visit Diagnoses Diagnosis Stroke Cerebrovascular Accident Personal History Hypertension 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) Chronic Kidney Disease (CKD), Stage 3 Un specified (HCC) documented in this encounter Care Teams Junior Data Analyst Relationship Specialty Start Date End Date Elsewhere, Pcp PCP - General Family Medicine 02/13/18 documented as of this encounter
--- OUTSIDE RECORDS SUMMARY | 2022-06-10 10:53 | XMS_ITS | Encounter Summary ---
:1955 Author Organization [facility] Address [address] [place] [address] Care Team Providers Name Role Phone Elsewhere, Pcp Primary Care Provider Unavailable Reason for Visit Outpatient (Routine) - Closed Specialty Diagnoses / Procedures Referred By Contact Refer red To Contact Nephrology and Steve Lombardo, [facility] Hypertension Radha.Yovani, ChTemitope, MSanchez. [address] [place] [phone] Referral ID Status Reason Start Date Expiration Date Visits Requ ested Visits Authorized [id number] Closed 10/22/2020 10/22/2021 1 1 Encounter Details Date Type Department Care Team Description 11/11/2020 Office Visit Steve Heath Hyp ertension Essential Primary (Primary Dx); Center for Ronny Escalante, ChJaleelB., Chronic Kidn ey Disease Stage 2 Glomerular Filtration Rate 60 To 89; Transplantation and M.DJaleel Aneurysm Thoracic Aortic Without Rupture (HCC); Clinical Regeneration in [address] [place] [address] Apnea Sleep Obstructive; [place], [place] Hyperlipidemia [address] [place] [phone] [place] [phone] Social History Tobacco Use Types Packs/Day Years [...] containing 4 or more times a w [place] 12/18/2020 alcohol? How many drinks containing alcohol [...] or relatives? How often do you attend denominational or protestant Never 09/20/2019 services? Do you belong to any clubs or organizations Yes 12/18/2020 such as denominational groups, unions, fraternal or athletic groups, or [...] place to sleep or slept in a fpc (including now)? Education Answer Date Recorded What is the highest level of school Master's degree (e.g., M Mann, MS, 09/20/2019 you have completed or the highest Rufus, MEd, COIL ASSEMBLER, SHON) degree you have received? Sex Assigned at Date Recorded Male 03/19/2018 11:46 AM CDT documented as of this encounter Last Filed Vital Signs Vital Sign Reading Time Taken Comments Blood Pressure 106/62 11/11/2020 9:01 AM CDT Pulse 67 11/11/2020 9:01 AM CDT Temperature 36.1 ??C (97 ??F) 11/11/2020 8:17 AM CDT Respiratory Rate - - Oxygen Saturation - - Inhaled Oxygen Concentration - - Weight 99.2 kg (218 lb 11.1 oz) 11/11/2020 8:17 AM CDT Height - - Body Mass Index 33.15 10/13/2020 7:15 AM OPERATIONS BUSINESS PARTNER documented in this encounter Progress Notes Steve Lombardo M.B., Laurie, MSanchez. - 11/11/2020 8:30 AM CDT REASON FOR VISIT Tests review/Wrap up SUBJECTIVE Mr. Sanches returns for follow up with his supportive following his visit earlier this month with me. He is feeling much better drinking more water, less salt and this is encouraging. He has not had anymore dizzy spells. OBJECTIVE DIAGNOSTICS Recent Labs 10/22/20 0946 10/22/20 0945 07/120302/21/182111 HGB 13.6 -- 11.3 L 10.0 L LABIRON -- 33 -- -- FERRITIN -- -- 264 -- NA -- 141 -- 132 L KSERUM -- 4.2 -- -- KPLASMA -- -- -- 3.7 BICARB -- 28 -- 23 BUN -- 25 H -- 46 H CREATININE -- 1.63 H 1.44 H 2.20 H EGFRNONBLKAA -- 43 L 51 L 31 L EGFRBLKAA -- 50 L 59 L 36 L Recent Labs 10/22/20 09 CYSTATINC 1.08 EGFRCYSTATNC 69 Recent Labs 10/22/20 0946 10/22/20 0945 03/01/18120302/21/[id number]/21/182111 CALCIUM -- 10.0 9.6 -- 8.8 LABPHOS -- -- 3.6 -- -- PTH -- 52 -- -- -- 25OHVITDTTL 36 -- 49 < > -- < > = values in this interval not displayed. US reviewed with no renal artery flow issues and equal good size kidneys with no hydronephrosis. ASSESSMENT / PLAN Mr. Sanches is doing very well and was pleased with his results. We reviewed these with his today from his last visit. His creatinine had been up slightly at 1.63; however, I did a cystatin C which gave him an eGFR of 69. He is a well-built gentleman and therefore I think the creatinine overestimates his degree of kidney disease. This is stage II rather than stage IIIB. He does not have any signs of proteinuria and indeed his 24-hour albumin is less than 13 and his total protein, while above the threshold of 229, is only 234. I would not be concerned with protein less than 500. He is going tocontinue to work on weight loss to the goal as we previously expressed and he does not have any red blood cells in his urine. Reviewed all his labs. He does not have any signs of anemia. His calcium and phosphorus as well as PTH and vitamin D were all normal suggesting no significant sequelae of GFR that is mildly below the normal for age at 68. His monoclonal screen was normal with no evidence of monoclonality, and he had an immunological screen by Rheumatology a few years ago which was negative other than the CATHIE that was positive. His blood pressure is well controlled in the clinic today, 106/62, and given that he is asymptomatic, I have not looked to change his medications, although he could potentially reduce his nifedipine down to 30 mg twice a day or 60 mg once a day per preference. We discussed his PPI and he could stop this which he will do, and he could potentially take famotidine if he gets any reflux symptoms. I did not see any contraindication with his montelukast for his allergies. It was a pleasure meeting him. He can follow up with his primary care, but the door is open to Nephrology if he needs any further input down the line. He and his were reassured with regards to this. Ronny Wilkins, Laurie, MSanchez. documented in this encounter Plan of Treatment Upcoming Encounters Date Type Specialty Care Team Description 06/21/2022 Clinical Communication Admitting/Central Scheduling 06/22/2022 Comprehensive Visit Rheumatology Clemente Mario M.B.B.S. [address] [place] [address] 08/03/2022 Comprehensive Visit Dermatology Jignesh Leonard M.D. [address] [place] [address] documented as of this encounter Visit Diagnoses Diagnosis Hypertension Essential Primary - Primary Chronic Kidney Disease Stage 2 Glomerula r Filtration Rate 60 To 89 Thoracic Aortic Aneurysm Without Rupture Unspecified (HCC) Apnea Sleep Obstructive Hyperlipidemia documented in this encounter Care Teams Director Nursery School Relationship Specialty Start Date End Date Elsewhere, Pcp PCP - General Family Medicine 02/13/18 documented as of this encounter
--- OUTSIDE RECORDS SUMMARY | 2022-06-10 10:53 | XMS_ITS | Encounter Summary ---
:1955 Author Organization [facility] Address [address] [place] [address] Care Team Providers Name Role Phone Elsewhere, Pcp Primary Care Provider Unavailable Encounter Details Date Type Department Care Team Description 01/08/2022 Ancillary Procedure Department of Dermatology Social History [...] containing 4 or more times a w [place] 12/18/2020 alcohol? How many drinks containing alcohol [...] or relatives? How often do you attend zoroastrian or synagogue Never 09/20/2019 services? Do you belong to any clubs or organizations Yes 12/18/2020 such as zoroastrian groups, unions, fraternal or athletic groups, or [...] have completed or the highest Rufus, MEd, RADIO INTERFERENCE INVESTIGATOR, SHON) degree you have received? Sex Assigned at Date Recorded Male 03/19/2018 11:46 AM CDT documented as of this encounter Plan of Treatment Upcoming Encounters Date Type Specialty Care Team Description 06/21/2022 Clinical Communication Admitting/Central Scheduling 06/22/2022 Comprehensive Visit Rheumatology Clemente Mario M.B.B.S. [address] [place] [address] 08/03/2022 Comprehensive Visit Dermatology Jignesh Leonard M.D. [address] [place] [address] documented as of this encounter Procedures Procedure Name Priority Date/Time Associated Comments Diagnosis DERMATOLOGY IMAGE Routine 01/08/2022 12:00 Result s for this EXAM AM CDT procedure are i n the results section. documented in this encounter Results Face 507-Dermatology Image Exam (01/08/2022 12:00 AM CDT) Specimen (Source) Anatomical Location Collection Method / Collectio n Time Received Time / Laterality Volume Narrative IIMS - 01/09/2022 4:13 PM CDT This order has been created [...] on filedocumented in this encounter Care Teams Wrapping Machine Helper Relationship Specialty Start Date End Date Elsewhere, Pcp PCP - General Family Medicine 02/13/18 documented as of this encounter
--- OUTSIDE RECORDS SUMMARY | 2022-06-10 10:53 | XMS_ITS | Encounter Summary ---
:1955 Author Organization [facility] Address [address] [place] [address] Care Team Providers Name Role Phone Elsewhere, Pcp Primary Care Provider Unavailable Reason for Referral Outpatient (Routine) - Closed Specialty Diagnoses / Procedures Referred By Contact Refer red To Contact Ophthalmology Masoud Veliz O. D. [address] [phone] Referral ID Status Reason Start Date Expiration Date Visits Requ ested Visits Authorized [id number] Closed 10/14/2021 10/14/2022 1 1 Scheduling Instructions with TY JSF DEVELOPER Reason for Visit Reason Comments Glaucoma Outpatient (Routine) - Closed Specialty Diagnoses / Procedures Referred By Contact Refer red To Contact Ophthalmology Masoud Veliz O. D. [address] [phone] Referral ID Status Reason Start Date Expiration Date Visits Requ ested Visits Authorized [id number] Closed 09/01/2020 09/01/2021 1 1 Encounter Details Date Type Department Care Team Description 10/14/2021 Office Visit Department of Jose Alfredo Glaucoma (Prim corinne Dx) Ophthalmology in [place] [address] [place] [phone] Social History Tobacco Use Types Packs/Day Years [...] containing 4 or more times a w [place] 12/18/2020 alcohol? How many drinks containing alcohol [...] or relatives? How often do you attend muslim or pentecostal Never 09/20/2019 services? Do you belong to any clubs or organizations Yes 12/18/2020 such as muslim groups, unions, fraternal or athletic groups, or [...] place to sleep or slept in a nursing home (including now)? Education Answer Date Recorded What is the highest level of school Master's degree (e.g., M A, MS, 09/20/2019 you have completed or the highest Rufus, MEd, SPORTS DEVELOPMENT OFFICER, SHON) degree you have received? Sex Assigned at Date Recorded Male 03/19/2018 11:46 AM CDT documented as of this encounter Progress Notes Masoud Veliz O.D. - 10/14/2021 2:45 PM CST #1 Glaucoma suspect based on large cup/disc ONH photos 2020 stable vs 2018 family hx - grandfather CCT 545, 541 OCT rnfl 09/2021 - stable both; slightly thicker temporally VF 09/2021 right - scatter; stable left - paracentral change sup vs noise IOP acceptable for now both 23, 24 cont observation off glaucoma meds 4 mo 24-2 right 10-2 left; gonio; no dilation #2 Refractive disorder discussed; will cont rx OCT macula cirrus 08/2020 - wnl both JSF DEVELOPER documented in this encounter Plan of Treatment Upcoming Encounters Date Type Specialty Care Team Description 06/21/2022 Clinical Communication Admitting/Central Scheduling 06/22/2022 Comprehensive Visit Rheumatology Clemente Mario M.B.B.S. [address] [place] [address] 08/03/2022 Comprehensive Visit Dermatology Jignesh Leonard M.D. [address] [place] [address] Scheduled Referrals Name Type Priority Associated Order Schedule Diagnoses Ophthalmology office Outpatient Referral Routine Expected: visit (clinic) 02/11/2022 (Approximate), Expires: 01/11/2023 documented as of this encounter Results Automated VF - Extended [...] See note for results. Masoud Veliz O.D. OPH VISUAL FIELD Performing Organization Address City/[facility] Code Phon e Number OPHTHALMOLOGY IMAGING EXAM Automated VF - Extended - OD - [...] O.D. OPHTH VISUAL FIELD Performing Organization Address City/[facility] Phon e Number OPHTHALMOLOGY IMAGING EXAM documented in this encounter Visit Diagnoses Diagnosis Glaucoma - Primary Glaucoma Glaucoma documented in this encounter Care Teams A&P Mechanic Relationship Specialty Start Date End Date Elsewhere, Pcp PCP - General Family Medicine 02/13/18 documented as of this encounter
--- OUTSIDE RECORDS SUMMARY | 2022-06-10 10:53 | XMS_ITS | Encounter Summary ---
:1955 Author Organization [facility] Address [address] [place] [address] Care Team Providers Name Role Phone Elsewhere, Pcp Primary Care Provider Unavailable Reason for Visit Reason Comments Appointment Encounter Details Date Type Department Care Team Description 10/25/2020 Clinical Communication Department of Bee Tender, Nicole samuels Cardiovascular Medicine Kim Vazquez in [facility] betzaida [address] [place] [phone] Social History Tobacco Use Types Packs/Day Years [...] containing 4 or more times a w [place] 12/18/2020 alcohol? How many drinks containing alcohol [...] or relatives? How often do you attend pentecostalism or anabaptism Never 09/20/2019 services? Do you belong to any clubs or organizations Yes 12/18/2020 such as pentecostalism groups, unions, fraternal or athletic groups, or [...] place to sleep or slept in a group home (including now)? Education Answer Date Recorded What is the highest level of school Master's degree (e.g., Radha Darnell MS, 09/20/2019 you have completed or the highest Rufus, MEd, MINE MOTOR ENGINEER, SHON) degree you have received? Sex Assigned at Date Recorded Male 03/19/2018 11:46 AM CDT documented as of this encounter Miscellaneous Notes Telephone Encounter - Jeanette Mckeon - 10/25/2020 4:23 PM CST Will call Dr. Mooney office IAL TRACKWORK BLACKSMITH Telephone Encounter - Steffanie More C.N.P., R.NJaleel - 10/25/2020 2:53 PM SPECIAL TRACKWORK BLACKSMITH Add echo and I think would be reasonable to have him fu with Dr. Keane as she did say in her note of 09/24/2019 she would see him back sooner if he has new symptoms or concerns IAL TRACKWORK BLACKSMITH Telephone Encounter - Breana Ferguson R.N. - 10/25/2020 10:57 AM SPECIAL TRACKWORK BLACKSMITH Pre-appointment cardiology triage/record review. Information collected has not been verified by the patient. Appointment triage team does not establish a relationship with the patient. For any questions, please contact patient's primary provider. 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 HTN CKD stage 3 SAMIR on CPAP HLD Syncopal spell 08/2020 s/p traumatic bilateral bifrontal L>R hemorrhagic contusions and bilateralR>L subdural hematomas without associated significant mass effect Testing/Consultations: 10/2020 6 hour BP Labs: CBC, CMP 09/2020 Holter Autonomic reflex screen 09/[address] chest/abd/pelvis angiogram OSMR: Care Everywhere IAL TRACKWORK BLACKSMITH documented in this encounter Plan of Treatment Upcoming Encounters Date Type Specialty Care Team Description 06/21/2022 Clinical Communication Admitting/Central Scheduling 06/22/2022 Comprehensive Visit Rheumatology Clemente Mario M.B.B.S. [address] [place] [address] 08/03/2022 Comprehensive Visit Dermatology Jignesh Leonard M.D. [address] [place] [address] documented as of this encounter Visit Diagnoses Not on filedocumented in this encounter Care Teams Teleprinter Installer Relationship Specialty Start Date End Date Elsewhere, Pcp PCP - General Family Medicine 02/13/18 documented as of this encounter
--- OUTSIDE RECORDS SUMMARY | 2022-06-10 10:53 | XMS_ITS | Encounter Summary ---
:1955 Author Organization [facility] Address [address] [place] [address] Care Team Providers Name Role Phone Elsewhere, Pcp Primary Care Provider Unavailable Encounter Details Date Type Department Care Team Description 10/14/2021 Ancillary Procedure Department of Alfie Veliz Ophthalmology in [place], [place] [address] [facility] [address] [place] [phone] Social History Tobacco Use Types Packs/Day Years [...] containing 4 or more times a w [place] 12/18/2020 alcohol? How many drinks containing alcohol [...] or relatives? How often do you attend rastafari or scientologist Never 09/20/2019 services? Do you belong to any clubs or organizations Yes 12/18/2020 such as rastafari groups, unions, fraternal or athletic groups, or [...] have completed or the highest Rufus, MEd, ROOMING HOUSE OPERATOR, SHON) degree you have received? Sex Assigned at Date Recorded Male 03/19/2018 11:46 AM CDT documented as of this encounter Plan of Treatment Upcoming Encounters Date Type Specialty Care Team Description 06/21/2022 Clinical Communication Admitting/Central Scheduling 06/22/2022 Comprehensive Visit Rheumatology Clemente Mario M.B.B.S. [address] [place] [address] 08/03/2022 Comprehensive Visit Dermatology Jignesh Leonard M.D. [address] [place] [address] documented as of this encounter Procedures Procedure Name Priority Date/Time Associated Comments Diagnosis OPTICAL COHERENCE Routine 10/14/2021 2:31 PM Glaucoma Resu lts for this TOMOGRAPHY (OCT) - EQUIPMENT MAINTENANCE TECH procedure are in OPTIC NERVE - OU - the resul ts BOTH EYES section. documented in this encounter Results Optical Coherence Tomography (OCT) - Optic Nerve - OU - Both Eyes (10/14/2021 2:31 PM EQUIPMENT MAINTENANCE TECH) Specimen (Source) Anatomical Location Collection Method / Collectio n Time Received Time / Laterality Volume Narrative OPHTHALMOLOGY IMAGING EXAM - 10/14/19 22 3:11 PM EQUIPMENT MAINTENANCE TECH OCT device used was Cirrus . Right Eye Reliability was good. Left Eye Reliability was good. Notes See note for results. Masoud Veliz O.D. OPHTH TOMOGRAPHY Performing Organization Address City/State/ZIP Code Phon e Number OPHTHALMOLOGY IMAGING EXAM documented in this encounter Visit Diagnoses Diagnosis Glaucoma documented in this encounter Care Teams Automobiles Salesperson Relationship Specialty Start Date End Date Elsewhere, Pcp PCP - General Family Medicine 02/13/18 documented as of this encounter
--- OUTSIDE RECORDS SUMMARY | 2022-06-10 10:53 | XMS_ITS | Encounter Summary ---
:1955 Author Organization [facility] Address [address] [place] [id number] Care Team Providers Name Role Phone Elsewhere, Pcp Primary Care Provider Unavailable Reason for Referral Outpatient (Routine) - Closed Specialty Diagnoses / Procedures Referred By Contact Refer red To Contact Cardiovascular Disease Neema [facility] Selvin Seymour M.D. [address] [place] [address] Referral ID Status Reason Start Date Expiration Date Visits Requ ested Visits Authorized [id number] Closed 01/06/2021 01/06/2022 1 1 MRI/CAT/PET Scan (Routine) - Closed Specialty Diagnoses / Procedures Referred By Contact Refer red To Contact Radiology Diagnoses Dissecting Aneurysm Abdominal Aortic (HCC) Neema Keane [facility] Procedures CT Chest Abdomen Pelvis Angiogram with IV Contrast M.D. [address] [place] [address] Referral ID Status Reason Start Date Expiration Date Visits Requ ested Visits Authorized [id number] Closed 01/06/2021 01/06/2022 1 1 Outpatient (Routine) - Closed Specialty Diagnoses / Procedures Referred By Contact Refer red To Contact Diagnoses Hypertension 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) Regurgitation Aortic Neema Keane [facility] Procedures Echo Transthoracic (TTE) M.D. 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) Regurgitation Aortic Neema Keane [facility] Procedures ECG 12 Lead M.DJaleel [address] [place], [place] [address] Referral ID Status Reason Start Date Expiration Date Visits Requ ested Visits Authorized [id number] Closed 01/06/2021 01/06/2022 1 1 Reason for Visit Outpatient (Routine) - Closed Specialty Diagnoses / Procedures Referred By Referred To Contact Contact Cardiovascular Diseases Diagnoses Stroke Cerebrovascular Accident Personal History Kidney Disorder Hypertension 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 Regurgitation Aortic; [place], [place] 200 [facility] Chronic Kidney Disease (CKD), Stage 3a G lomerular Filtration Rate (GFR) 45 To 59 (HCC); 200 [place], [place] Stroke Cerebrovascular Accid ent Personal History; [place] [address] Kidney Disorder; [id number] Obesity Body Mass Index 30-3 9.9 Adult; Hyperlipidemia; [phone] Dissecting Aneu rysm Abdominal Aortic (HCC) (Fax) Social History Tobacco Use Types Packs/Day Years [...] containing 4 or more times a w kaw 12/18/2020 alcohol? How many drinks containing alcohol [...] or relatives? How often do you attend tenriism or quaker Never 09/20/2019 services? Do you belong to any clubs or organizations Yes 12/18/2020 such as tenriism groups, unions, fraternal or athletic groups, or [...] place to sleep or slept in a care home (including now)? Education Answer Date Recorded What is the highest level of school Master's degree (e.g., M [employer], [place], 09/20/2019 you have completed or the highest [employer], MEd, [employer], SHON) degree you have received? Sex Assigned at Date Recorded Male 03/19/2018 11:46 AM CDT documented as of this encounter Last Filed Vital Signs Vital Sign Reading Time Taken Comments Blood Pressure 109/58 12/22/2020 8:36 AM CDT Pulse 72 12/22/2020 8:36 AM CDT Temperature - - Respiratory Rate - - Oxygen Saturation 96% 12/22/2020 8:34 AM CDT Inhaled Oxygen Concentration - - Weight 103 kg (227 lb 11.8 oz) 12/22/2020 8:34 AM CDT Height 171.7 cm (5' 7.6) 12/22/2020 8:34 AM CDT Body Mass Index 35.04 12/22/2020 8:34 AM CDT documented in this encounter Consult Notes Neema Keane M.D. - 12/22/2020 9:00 AM CDT REFERRAL SOURCE Romy Voss M.D. ?? CHIEF COMPLAINT / REASON FOR VISIT Complex type B aortic dissection. HISTORY OF PRESENT ILLNESS Mr. Sanches is a very pleasant 65-year-old man here today for routine follow-up of aortic disease. He was previously evaluated by my colleague, Dr. Charles, and I met him for the first time in September2019. He has a history of longstanding hypertension dating back to his 20s, which was suboptimally controlled. In December of 2013 he developed a type B dissection originating from and involving the origin of the left subclavian artery extending to the iliacs bilaterally. He was initially managed medicallybut developed evidence of end-organ ischemia with abdominal pain and acute kidney injury with imaging findings of marked compression of the true lumen in the abdomen. The proximal descending aorta measured 4.7 cm. He underwent a complex endovascular procedure with a left carotid to left subclavian artery bypass with an 8 mm PTFE graft followed by stent grafting of the distal arch and proximal descending thoracic aorta with two Medtronic Valiant stent grafts, with the proximal graft placed just distal to the left carotid artery with a 5 cm overlap with the second graft ending above the celiac artery. This was complicated by acute occlusion of the infrarenal abdominal aorta, requiring conversion to open repair to replace the infrarenal abdominal aorta with an 18 x 9 bifurcated Dacron graft to the iliac arteries bilaterally. He ultimately made a good recovery, but has had some ongoing issues with chronic kidney disease. He came to [facility] in February of 2018 for further evaluation of a potential underlying aortopathy. He was evaluated by Dr. Charles and on exam did not have features suggestive of Marfan syndrome, Loeys-Marcella syndrome, or Jayden-Danlos syndrome. There was questionable dilatation of the sinus of Valsalva at 41 mm (although this is actually within normal limits for age and BSA) with a trileaflet aortic valve and mild-moderate regurgitation. He was evaluated by [facility] and underwent genetic testing with the Invitae panel which did not reveal any pathogenic mutations. MRA of the brain showed nointracranial aneurysm. Screening of first-degree relatives was recommended. When I met him in September 2019, he was overall doing well with no significant cardiovascular symptoms and no symptoms of claudication. He had gained about 30 pounds and was not exercising. His blood pressure was well controlled. Echo showed normal LV function with an EF of 61% and mild-moderate aortic insufficiency. The RVSP was 36 mmHg. CTA showed no complications related to his prior repair. The residual dissection in the left common iliac artery was stable. He was having some issues with lower extremity edema, which I felt was more related to venous insufficiency. I suggested weight loss, exercise, and compression stockings. On September 18, 2020 he had a fall with head trauma. It sounds like it was probably a syncopal event,possibly related to low blood pressure. He did not immediately seek care but a few days later was having headaches and was found to have hemorrhagic bifrontal contusions and bilateral subdural hematomas. In September he was evaluated by Dr. Voss in Neurology. It was felt his syncope was likely related to orthostasis. Head MRA was unremarkable. 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 He then saw Dr. Lombardo in Nephrology. Ambulatory blood pressure monitor showed an average blood pressure of 111/60. Weight loss, increased fluid intake, and decreased alcohol intake was recommended. He is here today for follow-up with neurology and routine cardiac follow-up. He reports that he is doing much better since he increased his fluid intake. His symptoms of orthostatic lightheadedness have decreased significantly, and he has not noted any within the past month. He continues to monitor his blood pressure and has very good control at home with a range of 94/51 to 128/67. He has no symptoms with systolic pressures in the 90s. There have been no further syncopal events. He has no symptoms of exertional chest pain or dyspnea. There have been no issues with palpitations. He uses CPAP at night. He has no orthopnea or PND. He has no symptoms of claudication. He has stable lower extremity edema. His weight has been stable. He is hoping to lose weight. He has not been doing much activity, butdid mow the lawn at all of his three properties earlier this week and felt good with that. The following portions of the patient's history were reviewed and updated as appropriate: allergies,current medications, family history, medical history, social history, surgical history, psychiatric history, substance abuse history, problem list, labs, diagnostic tests. I also reviewed pertinent clinical notes in the electronic health record. PAST MEDICAL HISTORY 1. 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 2. Left carotid to subclavian bypass with an 8 mm PTFE graft, followed by endovascular repair of thedistal arch and proximal descending thoracic aorta with two overlapping Medtronic Valiant stent grafts complicated by acute occlusion of the abdominal aorta requiring open aorto bi-iliac grafting; January 15, 2014, [facility]. 3. Hypertension. 4. Normal aortic root, 41 mm; Z-score = 1.57. 5. Mild-moderate aortic insufficiency. 6. Stage 3 chronic kidney disease. 7. Hyperlipidemia. 8. Inguinal hernia repair. 9. Incisional hernia. 10. Cecal diverticulitis, status post appendectomy. 11. Pseudogout. 12. Glaucoma. 13. Obesity, BMI 35. 14. Obstructive sleep apnea treated with CPAP. 15. Traumatic bilateral bifrontal hemorrhagic contusions and subdural hematomas. 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 He smoked briefly in high school, but never regularly. He does drink alcohol daily, 3-4 glasses of wine per day or several beers per day. He has beentrying to cut down on this. FAMILY HISTORY No family history of aortic dissection, aortic surgery, or sudden unexplained . He has one daughter, healthy. He has three siblings. REVIEW OF SYSTEMS A comprehensive review of systems was completed; pertinent abnormalities are included in the Historyof Present Illness. MEDICATIONS Current Medications: ??? aspirin [address] tablet, Take 81 mg by mouth daily. ??? atorvastatin (LIPITOR) 80 mg tablet, Take 80 mg by mouth daily. ??? carvedilol (COREG) 25 mg tablet, Take 25 mg by mouth 2 (two) times a day with meals. ??? cetirizine (ZyrTEC) 10 mg tablet, Take 10 mg by mouth daily. ??? cod liver oil oil, Take 5 mL by mouth daily. ??? enalapril (VASOTEC) 20 mg tablet, Take 20 mg by mouth 2 (two) times a day. ??? famotidine (PEPCID) 10 mg tablet, Take 10 mg by mouth daily as needed for heartburn. ??? FLUoxetine (PROzac) 40 mg capsule, Take 80 mg by mouth daily. ??? fluticasone propionate (FLONASE) 50 mcg/actuation nasal spray, Administer 2 sprays into nostril(s) as needed. ??? ketoconazole (NIZORAL) 2 % cream, Apply topically as needed. ??? lactobacillus combination no.4 3 billion cell capsule, Take 1 capsule by mouth daily. ??? miscellaneous medical supply misc, Full face mask 1/3 months, full face mask cushion 1/1 month ??? montelukast (SINGULAIR) 10 mg tablet, Take 10 mg by mouth at bedtime. ??? multivitamin tablet, Take 1 tablet by mouth daily. ??? NIFEdipine (ADALAT CC) 60 mg ER tablet, Take 60 mg by mouth 2 (two) times a day. ??? triamterene-hydroCHLOROthiazide (DYAZIDE) 37.5-25 mg per capsule, Take 1 capsule by mouth daily. No current facility-administered medications for this visit. VITALS BP 109/58 (BP Location: Left arm, Patient Position: Sitting, Cuff Size: Large) Pulse 72 Ht 171.7cm Wt 103 kg SpO2 96% BMI 35.04 kg/m?? PHYSICAL EXAMINATION General: Overweight. Well groomed. Psychiatric: Normal mood and affect. Oriented to person, place, and time. Eyes: No xanthelasma or conjunctivitis. ENT: No oral mucosal pallor or cyanosis. Uvula is normal. Vessels: Jugular venous pressure is normal. Normal carotid upstrokes. Soft carotid bruit in the leftneck/suprasternal notch. Left radial is slightly diminished compared to right radial. Heart: Regular rhythm with a normal S1 and S2 with a soft systolic ejection murmur and soft 1/4 holodiastolic murmur at the left sternal border. Lungs: Clear bilaterally. Abdomen: No obvious hepatosplenomegaly. No abdominal tenderness, no masses. Extremities: No clubbing or cyanosis. 1-2+ lower extremity edema bilaterally. Skin: No stasis dermatitis or ulceration of the lower extremities. DIAGNOSTIC REVIEW All labs and diagnostic studies were reviewed. Labs from October 22, 2020: Hemoglobin 13.6, platelets 292, sodium 141, potassium 4.2, creatinine 1.63,BUN 25, glucose 115, total bilirubin 0.4, AST 23, ALT 31, albumin 4.4, Cystatin C1 0.08, estimated GFR 69. ECG shows sinus rhythm at 71 beats per minute with nonspecific T-wave changes. Holter monitor shows sinus rhythm with rates varying 65-100 beats per minute with an average heart rate of 74 beats per minute. There were rare PACs and PVCs and two three beat episodes of SVT. He had no symptoms. CTA of the chest, abdomen, and pelvis shows no significant changes. There is a normal caliber aorticroot and ascending aorta. There are postoperative changes of stent grafting of the descending thoracic aorta with a patent left common carotid to left subclavian artery bypass graft. The descending aorta at the level of the diaphragm is stable at 39 mm. There are postoperative changes of graft replacement of the infrarenal abdominal aorta which is intact without pseudoaneurysm. There is stable focal dissection of the left common iliac artery with a maximum diameter of 19 mm. There are mild atherosclerotic changes in the iliofemoral arteries. The celiac, SMA, two right renal arteries, and one left re nal artery are patent. There is proximal occlusion of the ROSIE with distal reconstitution. There is scattered coronary calcifications. ?? ASSESSMENT / PLAN #1 Complex type B aortic dissection, status post left carotid to subclavian bypass, endovascular repair of the distal arch and proximal descending aorta, and open [id number] grafting for acute occlusion of the infrarenal abdominal aorta #2 Normal aortic root dimension, 41 mm; Z-score = 1.57 #3 Mild-moderate aortic insufficiency #4 Residual dissection/dilatation of the left common iliac artery, 18-19 mm #5 Hypertension #6 Hyperlipidemia #7 Coronary artery disease, asymptomatic #8 Obesity, BMI 35 #9 Obstructive sleep apnea treated with CPAP #10 Stage 3 chronic kidney disease #11 Chronic venous insufficiency #12 Orthostatic lightheadedness, improved #13 Syncope complicated by bifrontal hemorrhagic contusions and bilateral subdural hematomas Mr. Sanches is stable from the perspective of his complex aortic disease. CTA demonstrates no changes with no complications related to his prior repairs, no new aneurysms or dissections, and no changes with any the previously noted areas of dilatation. He did not have his echocardiogram performed yesterday, as he did not see it on his itinerary. I do not suspect any major changes with his valve disease based on his exam, but given his episode of syncope I do think it is reasonable to recheck the echo to make sure there have been no changes with his ventricular function. His blood pressure is very well controlled. His symptoms of orthostasis have improved with increasedfluid intake. Even when he has systolic pressures in the 90s he does not have any symptoms of lightheadedness. At this point, he would favor not making any changes to his medical program. I agree with this, as we have previously discussed that excellent blood pressure control is important in the setting of his complex aortic disease. Should he develop recurrent symptoms of orthostasis, I would recommend starting by decreasing or discontinuing the nifedipine, which is the most likely agent to lead toorthostasis and may contribute to his lower extremity edema. I again recommended he work on weight loss, and if he is able to lose a significant amount of weight it is possible he will require less blood pressure medication. Holter monitor showed no arrhythmias and he has had no symptoms suggestive of arrhythmia. There havebeen no recurrent syncopal events. It would be beneficial for him to cut down on his alcohol intake, and this was already discussed with him. He indicates he is working on this. Weight loss would also be helpful. We will reschedule the echocardiogram at his convenience and I will review the results when available and determine timing of his next routine follow-up. ADDENDUM: TTE was reviewed. This shows no changes with mild LV enlargement, LVEF 61%. There are no regional wall motion abnormalities. The sinus of Valsalva is 41 mm and mid ascending is 38 mm, both normal for patient's age and size. There is mild-moderate regurgitation, unchanged. RV size and function are normal with an RVSP of 30 mmHg. There is no effusion. I will see him back in 18 months, sooner if he has new symptoms or concerns. Neema Keane M.D. 12/22/2020 documented in this encounter Plan of Treatment Upcoming Encounters Date Type Specialty Care Team Description 06/21/2022 Clinical Communication Admitting/Central Scheduling 06/22/2022 Comprehensive Visit Rheumatology Clemente Mario M.B.B.S. [address] [place] [address] 08/03/2022 Comprehensive Visit Dermatology Jignesh Leonard M.D. [address] [place] [address] Scheduled Orders Name Type Priority Associated Diagnoses Order Schedule CBC without Lab Routine Hypertension Expected: Differential Essential Primar y 06/26/2022, Dissecting Aneurysm Expires: Thoracic Aortic 01/07/2024 (HCC) Regurgitation Aortic Lipid Panel Lab Routine Stroke Expected: Cerebrovascular 06/26/2022, Accident Personal Expires: History 01/07/2024 Hypertension Essential Primar y Dissecting Aneurysm Thoracic Aortic (HCC) Regurgitation Aortic Basic Metabolic Lab Routine Hypertension Expected: Panel Essential Primar y 06/26/2022, Dissecting Aneurysm Expires: Thoracic Aortic 01/07/2024 (HCC) Regurgitation Aortic ECG 12 Lead ECG Routine Hypertension Expected: Essential Primar y 06/26/2022, Dissecting Aneurysm Expires: Thoracic Aortic 01/07/2024 (HCC) Regurgitation Aortic Echo Transthoracic Echocardiography Routine Hypertension Expec nixon: (TTE) Essential Primar y 06/26/2022, Dissecting Aneurysm Expires: Thoracic Aortic 01/07/2024 (HCC) Regurgitation Aortic CT Chest Abdomen Imaging RAD - Routine Dissecting Aneurysm Exp ected: Pelvis Angiogram (most inpatients Abdominal Aortic 02/2022, with IV Contrast and all (HCC) Expires: outpatients) 01/07/2024 Scheduled Referrals Name Type Priority Associated Order Schedule Diagnoses Cardiovascular Disease Outpatient Referral Routine Expected: office visit (clinic) 2021, Expires: 01/07/2024 documented as of this encounter Visit Diagnoses Diagnosis Dissection Of Thoracic Aorta Unspecified (HCC) - Primary Hypertension Essential Primary Regurgitation Aortic Chronic Kidney Disease (CKD), Stage 3a G lomerular Filtration Rate (GFR) 45 To 59 (HCC) Stroke Cerebrovascular Accident Personal History Kidney Disorder Obesity Body Mass Index 30-39.9 Adult Hyperlipidemia Dissecting Aneurysm Abdominal Aortic (HC C) documented in this encounter Care Teams Cruise Staff Member Relationship Specialty Start Date End Date Elsewhere, Pcp PCP - General Family Medicine 02/13/18 documented as of this encounter
--- OUTSIDE RECORDS SUMMARY | 2022-06-10 10:53 | XMS_ITS | Encounter Summary ---
:1955 Author Organization [facility] Address [address] [place] [id number] Care Team Providers Name Role Phone Elsewhere, Pcp Primary Care Provider Unavailable Encounter Details Date Type Department Care Team Description 10/22/2020 Hospital Encounter Department of Steve [facility] Medicine Ronny Escalante, Laurie, Torsten arroyo (CKD), Stage and Pathology, [place] [address] [place] [address] Filtration Rate [place], [place] (GFR) 45 To 59 (HCC) [address] [facility] [address] [place], [place] [phone] (Work) [phone] Social History Tobacco Use Types Packs/Day Years [...] containing 4 or more times a w [place] 12/18/2020 alcohol? How many drinks containing alcohol [...] or relatives? How often do you attend anabaptism or lutheran Never 09/20/2019 services? Do you belong to any clubs or organizations Yes 12/18/2020 such as anabaptism groups, unions, fraternal or athletic groups, or [...] have completed or the highest Rufus, MEd, CORRECTION OFFICER SUPERVISOR, SHON) degree you have received? Sex Assigned [...] Full face mask 1/3 0 2019 supply [facility] [place] months, full face mask cushion / month montelukast (SINGULAIR) Take 10 mg by [...] Visit Rheumatology Clemente Mario M.B.B.S. [address] [place] [phone] 08/03/2022 Comprehensive Visit Dermatology Jignesh Leonard M.D. [address] [place] [address] documented as of this encounter Procedures Procedure Name Priority Date/Time Associated Diagnosis Comme nts PROTEIN, TOTAL, 24 Routine 11/05/2020 8:00 AM Chronic Kidney R esults for this HR, U CDT Disease (CKD), Stage procedu re are in 3a Glomerular the results Filtration Rate section. (GFR) 45 To 59 (HCC) ALBUMIN, 24 HR, U Routine 11/05/2020 8:00 AM Chronic Kidney Re sults for this CDT Disease (CKD), Stage procedu re are in 3a Glomerular the results Filtration Rate section. (GFR) 45 To 59 (HCC) documented in this encounter Results (ABNORMAL) Protein, Total, 24 Hour, Urine (11/05/2020 8:00 AM CDT) P athologist Signature Total Protein, 234 (H) <229 mg/24 11/08/2020 DTL 24 HR, U h 2:08 PM CDT Comment: ----ADDITIONAL INFORMATION---- On 02/13/2017 the total protein assay me thod changed resulting in approximately a 15% increase in prote in values. Collection Duration 24 h 11/08/2020 12:53 PM CDT [facility] Urine Volume 2600 mL 11/08/2020 12:53 PM CDT [facility] A Concentration 9 mg/dL 11/08/2020 2:08 PM CDT DTL Specimen Anatomical Collection Method Collection Time Receive d Time (Source) Location / / Volume Laterality Urine (Urine, 24 11/05/2020 8:00 AM 11/08 1:21 Hours) CDT PM CDT Resulting Agency Comment Mailed In Specimen Steve Jefferson Ch.B., M.D. LAB URINE ORDERABLE S Performing Organization Address City/[facility] Phon e Number [facility] - [address] [place], [place] [address] [place] [address] [facility] 200 [facility] [place] [address] Albumin, 24 Hour Collection, Urine (11/05/2020 8:00 AM CDT) P athologist Signature Albumin, 24 Hr, <13 <30 mg/24 h 11/08/2020 DTL U 2:33 PM CDT Comment: ----ADDITIONAL INFORMATION---- This test has been modified from the man ufacturer's instructions. Its performance characteri stics were determined by [facility] in a manner co nsistent with CLIA requirements. This test has not bee n cleared or approved by the U.S. Food and Drug Admin istration. Collection Duration 24 h 11/08/2020 12:53 PM CDT DTL Urine Volume 2600 mL 11/08/2020 12:53 PM CDT DTL Albumin Excretion Rate <9 <20 mcg/min 11/08/2020 2:33 PM CDT DTL Specimen Anatomical Collection Method Collection Time Receive d Time (Source) Location / / Volume Laterality Urine (Urine, 24 11/05/2020 8:00 AM 11/08 1:21 Hours) CDT PM CDT Resulting Agency Comment Mailed In Specimen Steve Jefferson Ch.B., M.D. LAB URINE ORDERABLE S Performing Organization Address City/[facility]/ZIP Code Phon e Number [facility] - 200 [place], [place] [address] [place] [address] documented in this encounter Visit Diagnoses Diagnosis Chronic Kidney Disease (CKD), Stage 3a G lomerular Filtration Rate (GFR) 45 To 59 (HCC) documented in this encounter Care Teams Steam Hammer Operator Relationship Specialty Start Date End Date Elsewhere, Pcp PCP - General Family Medicine 02/13/18 documented as of this encounter
--- OUTSIDE RECORDS SUMMARY | 2022-06-10 10:53 | XMS_ITS | Encounter Summary ---
:1955 Author Organization [facility] Address [address] [place] [phone] Care Team Providers Name Role Phone Elsewhere, Pcp Primary Care Provider Unavailable Reason for Referral MRI/CAT/PET Scan (Routine) - Closed Specialty Diagnoses / Procedures Referred By Contact Refer red To Contact Radiology Diagnoses Dissection Of Thoracic Aorta Unspecified (HCC) Hypertension Essential Primary Hyperlipidemia [facility]domen Pelvis Angiogram with IV Contrast M.D. [address] [place] [phone] Referral ID Status Reason Start Date Expiration Date Visits Requ ested Visits Authorized [id number] Closed 09/24/2019 09/23/2020 1 1 Reason for Visit MRI/CAT/PET Scan (Routine) - Closed Specialty Diagnoses / Procedures Referred By Contact Refer red To Contact Radiology Diagnoses Dissection Of Thoracic Aorta Unspecified (HCC) Hypertension Essential Primary Hyperlipidemia Regurgitation Aortic Neema Keane [facility] Procedures CT Chest Abdomen Pelvis Angiogram with IV Contrast M.D. [address] [place], [place] [address] Referral ID Status Reason Start Date Expiration Date Visits Requ ested Visits Authorized [id number] Closed 09/24/2019 09/23/2020 1 1 Encounter Details Date Type Department Care Team Description 12/21/2020 Hospital Encounter Department of Joseph Keane Aneurysm Thoracic Aortic (HCC); Radiology, Mack Seymour M.D. Hypertension Essential Primary; Building, in 200 [facility] Hyperlipidemia; [place], [place] Regurgitation Aortic [place] [address] 200 [facility] [phone] [place], [place] (Work) [phone] Social History Tobacco Use Types Packs/Day Years [...] containing 4 or more times a w [place] 12/18/2020 alcohol? How many drinks containing alcohol [...] or relatives? How often do you attend pentecostal or quaker Never 09/20/2019 services? Do you belong to any clubs or organizations Yes 12/18/2020 such as pentecostal groups, unions, fraternal or athletic groups, or [...] place to sleep or slept in a [place] [facility] [place] facility (including now)? Education Answer Date Recorded What is the highest level of school Master's degree (e.g., M A, MS, 09/20/2019 you have completed or the highest Rufus, MEd, CLOUD SUBJECT MATTER EXPERT, SHON) degree you have received? Sex Assigned [...] mouth 0 10 mg tablet at bedtime. multivitamin tablet Take 1 tablet by 0 11/15/2020 mouth daily. NIFEdipine (ADALAT CC) 60 Take 30 [...] Comprehensive Visit Rheumatology Clemente Mario M.B.B.S. [address] [place] [phone] 08/03/2022 Comprehensive Visit Dermatology Jignesh Leonard M.D. [address] [place] [phone] Scheduled Orders Name Type Priority Associated Diagnoses Order S chedule Creatinine, POCT Point of Care Routine Routine la b collection Testing-Docked (next collect ion) for Device 1 Occurrences s tarting 12/21/2020 unti l 12/21/2020 documented as of this encounter Procedures Procedure Name Priority Date/Time Associated Comments Diagnosis CT CHEST ABDOMEN RAD - Routine 12/21/2020 12:32 Dissecting Result s for this PELVIS ANGIOGRAM (most inpatients PM CDT Aneurysm Thoracic pr ocedure are in WITH IV CONTRAST and all Aortic (HCC) the results outpatients) Hypertension section. Essential Primar y Hyperlipidemia Regurgitation Aortic CREATININE, POCT, Routine 12/21/2020 10:57 Result s for this B AM CDT procedure are i n the results section. CREATININE, POCT, Routine 12/21/2020 10:57 Result s for this B AM CDT procedure are i n the results section. documented in this encounter Results CT Chest Abdomen Pelvis Angiogram with IV Contrast (12/21/2020 12:32 PM CDT) Anatomical Region Laterality Modality Chest, Abdomen, Pelvis, Cardiovascular C omputed Tomography, Computed RST LOS, Abdominal ARZ LOS, Thoracic Julio ography ARZ LOS, Vascular Interventional ARZ LOS, Vascular Interventional FLA LOS, Abdominal FLA LOS Specimen (Source) Anatomical Collection Method Collection Time Re ceived Time Location / / Volume Laterality 12/21/2020 12:49 PM CDT Impressions 12/21/2020 1:03 PM CDT 1. ??No significant interval change. Patent thoracic aortic stent graft. No endoleak or stent migration. 2. 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 Patent left common carotid to subclavian bypass graft. 3. ??Infrarenal abdominal aortic graft i s patent. 4. 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 Narrative 12/21/2020 1:03 PM CDT EXAM: ??CT CHEST ABDOMEN PELVIS ANGIOGRAM WITH IV CONTRAST Including 3D image post-processing. COMPARISON: ??09/23/2019 FINDINGS: VASCULAR FINDINGS: * ??Normal caliber of the aortic root, a scending aorta and the arch. * ??Unchanged appearances of the thoraci c endovascular stent graft extending from the mid aortic arch at the level of left common carotid artery to the descending thoracic aorta. The graft is intact with out migration, stenosis or leak. * ??Stable mild dilation of the descendi ng thoracic aorta at the level of diaphragmatic hiatus measuring 3.9 x 3.7 cm. 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 Patent left common carotid subclavian bypass graft with nor mal opacification of the mid and distal left subclavian artery and left axillary artery. * ??Patent visualized bilateral common c arotid arteries, right brachiocephalic artery and right subclavian artery. * ??The visualized proximal abdominal ao rta is of normal caliber. * ??Postsurgical changes of infrarenal a bdominal aorta. The graft is intact without stenosis, leak or pseudoaneurysm . * ??Unchanged appearances of bilateral t ortuous common iliac arteries. Unchanged focal dissection of the proximal left co mmon iliac artery. Dilation of distal left common iliac artery measuring 19 mm . * ??Mild atherosclerosis of the rest of the iliofemoral arteries without significant focal stenosis. * ??Patent celiac artery, SMA, ROSIE, dual right renal and single left renal arteries. * ??Proximal occlusion of the ROSIE with d istal reconstitution. * ??No cardiomegaly or pericardial effus ion. * ??Scattered coronary artery calcificat ions. * ??The central pulmonary arteries are n ormal in caliber. * ??Conventional pulmonary venous anatom y. No anomalous drainage or stenosis. ADDITIONAL FINDINGS: * ??Trachea and central bronchi are tineo nt. No central endobronchial lesion. Dependent atelectasis in bilateral lower lobes of lungs. No consolidation pneumothorax. * ??No intrathoracic lymphadenopathy. Vi sualized thyroid is normal. * ??Hepatic steatosis. Unchanged mm hypo attenuating lesion in left lobe of the liver. Normal gallbladder. * ??The pancreas, adrenal glands and kid neys are normal. Calcified granulomas in the spleen. Small splenule. * ??No small or large bowel dilation. Sc attered colonic diverticulosis. * ??The prostate is enlarged with calcif ications. Left inguinal hernias repair. Numerous bilateral subcentimeter inguina l lymph nodes. * ??Degenerative changes of the spine. Procedure Note Rashad Clifton M.B.B.S., M.Rayna. - 11/2020 EXAM: CT CHEST ABDOMEN PELVIS ANGIOGRAM WITH IV CONTRAST Including 3D image post-processing. COMPARISON: 09/23/2019 FINDINGS: VASCULAR FINDINGS: * Normal caliber of the aortic root, asc ending aorta and the arch. * Unchanged appearances of the thoracic endovascular stent graft extending from the mid aortic arch at the level of left common carotid artery to the descending thoracic aorta. The graft is intact with out migration, stenosis or leak. * Stable mild dilation of the descending thoracic aorta at the level of diaphragmatic hiatus measuring 3.9 x 3.7 cm. * Unchanged proximal occlusion of left s ubclavian artery. Patent left common carotid subclavian bypass graft with nor mal opacification of the mid and distal left subclavian artery and left axillary artery. * Patent visualized bilateral common car otid arteries, right brachiocephalic artery and right subclavian artery. * The visualized proximal abdominal aort a is of normal caliber. * Postsurgical changes of infrarenal abd ominal aorta. The graft is intact without stenosis, leak or pseudoaneurysm . * Unchanged appearances of bilateral tor tuous common iliac arteries. Unchanged focal dissection of the proximal left co mmon iliac artery. Dilation of distal left common iliac artery measuring 19 mm . * Mild atherosclerosis of the rest of th e iliofemoral arteries without significant focal stenosis. * Patent celiac artery, SMA, ROSIE, dual r ight renal and single left renal arteries. * Proximal occlusion of the ROSIE with dis delicia reconstitution. * No cardiomegaly or pericardial effusio n. * Scattered coronary artery calcificatio ns. * The central pulmonary arteries are nor mal in caliber. * Conventional pulmonary venous anatomy. No anomalous drainage or stenosis. ADDITIONAL FINDINGS: * Trachea and central bronchi are patent . No central endobronchial lesion. Dependent atelectasis in bilateral lower lobes of lungs. No consolidation pneumothorax. * No intrathoracic lymphadenopathy. Visu alized thyroid is normal. * Hepatic steatosis. Unchanged mm hypoat tenuating lesion in left lobe of the liver. Normal gallbladder. * The pancreas, adrenal glands and kidne ys are normal. Calcified granulomas in the spleen. Small splenule. * No small or large bowel dilation. Scat tered colonic diverticulosis. * The prostate is enlarged with calcific ations. Left inguinal hernias repair. Numerous bilateral subcentimeter inguina l lymph nodes. * Degenerative changes of the spine. IMPRESSION: 1. No significant interval change. Paten t thoracic aortic stent graft. No endoleak or stent migration. 2. Proximal occlusion of left subclavian artery. Patent left common carotid to subclavian bypass graft. 3. Infrarenal abdominal aortic graft is patent. 4. Unchanged focal dissection and dilati on of left common iliac artery. Neema Keane M.D. IMG CT PROCEDURES Creatinine, POCT (12/21/2020 10:57 AM CDT) athologist Signature Creatinine, 1.4 0.7 - 1.4 12/21/2020 PCDT POCT, B mg/dL 11:01 AM CDT Comment: ----ADDITIONAL INFORMATION---- Performed at the Point of Care Specimen Anatomical Collection Method Collection Time Receive d Time (Source) Location / / Volume Laterality Blood 12/21/2020 10:57 12/21/2020 AM CDT 11:02 AM CDT Unknown Provider LAB POCT ORDERABLES - DEVICE Performing Organization Address City/[facility] Phon e Number POC [place] PERFORMING [address] [place] [address] LABS [place]CD[place] [address] [place] [facility] [address] (ABNORMAL) Creatinine, POCT (12/21/2020 10:57 AM CDT) athologist Signature eGFR-Black/Afri 60 >=60 12/21/2020 PCMO can [place], mL/min/BSA 11:02 AM CDT POCT Comment: ----ADDITIONAL INFORMATION---- Estimated GFR calculated using the 2009 CKD_EPI creatinine equation. eGFR Non-Black/ 52 (L) >=60 mL/min/BSA 12/21/2020 11:02 AM CDT [facility] [place], POCT Comment: ----ADDITIONAL INFORMATION---- Estimated GFR calculated using the 2009 CKD_EPI creatinine equation. Specimen Anatomical Collection Method Collection Time Receive d Time (Source) Location / / Volume Laterality Blood 12/21/2020 10:57 12/21/2020 AM CDT 11:02 AM CDT Unknown Provider LAB POCT ORDERABLES - DEVICE Performing Organization Address City/[facility] Phon e Number POC [facility] [address] [place] [address] OUTPATIENT LABS [facility] [place] [place] [address] [place] [facility] [address] documented in this encounter Visit Diagnoses Diagnosis Dissection Of Thoracic Aorta Unspecified (HCC) Hypertension Essential Primary Hyperlipidemia Regurgitation Aortic documented in this encounter Administered Medications Inactive Administered Medications - up to 3 most recent administrations Medication Order MAR Action Action Date Dose Rate Site iohexoL 350 mg iodine/mL solution Given 12/21/2020 12:01 PM CDT 100 mL 1-200 mL (OMNIPAQUE) 1-200 mL, intravenous, Once in imaging, contrast, Starting on 12/21/20 at 1040, For 1 dose, Imaging Protocol Orders, Dose per Radiant Medication Guidelines sodium chloride (PF) 0.9 % injection 1-1 00 mL Given 12/21/2020 12:01 PM CDT 30 mL 1-100 mL, intravenous, Once, On 12/21/20 at 1045, For 1 dose, Imaging Protocol Orders documented in this encounter Care Teams Camera Systems Engineer Relationship Specialty Start Date End Date Elsewhere, Pcp PCP - General Family Medicine 02/13/18 documented as of this encounter
--- OUTSIDE RECORDS SUMMARY | 2022-06-10 10:53 | XMS_ITS | Encounter Summary ---
:1955 Author Organization [facility] Address [address] [place] [id number] Care Team Providers Name Role Phone Elsewhere, Pcp Primary Care Provider Unavailable Encounter Details Date Type Department Care Team Description 10/22/2020 Hospital Encounter Department of [place], Stroke C erebrovascular Accident Personal History; Laboratory Medicine Steve Escalante, Ushaen kim Essential Primary; and Pathology, MRenny., Ch.B., Dissecting An eurysm Thoracic Aortic (HCC); [place] renetta Childers M.D. Chronic Kidney Disease (CKD), Stage 3 Un specified (HCC) [place], [facility] [address] [place], [place] [address] [place] [phone] [place], [place] [phone] (Work) [phone] Social History Tobacco Use Types Packs/Day Years [...] containing 4 or more times a w platinum 12/18/2020 alcohol? How many drinks containing alcohol [...] or relatives? How often do you attend alevism or taoism Never 09/20/2019 services? Do you belong to any clubs or organizations Yes 12/18/2020 such as alevism groups, unions, fraternal or athletic groups, or [...] place to sleep or slept in a half-way (including now)? Education Answer Date Recorded What is the highest level of school Master's degree (e.g., M Mann, MS, 09/20/2019 you have completed or the highest Rufus, MEd, TALENT REP, SHON) degree you have received? Sex Assigned [...] Scheduling 06/22/2022 Comprehensive Visit Rheumatology Clemente Mario M.B.B.SJaleel [address] [place] [phone] 08/03/2022 Comprehensive Visit Dermatology Jignesh Leonard M.D. [address] [place] [phone] documented as of this encounter Procedures Procedure Name Priority Date/Time Associated Diagnosis Comme nts CYSTATIN C WITH EGFR Routine 10/22/2020 9:46 Stroke Cerebrovas cular Results for this AM DOCTOR PODIATRIC MEDICINE Accident Personal procedure are in History the results Hypertension Essential secti on. Primary Dissecting Aneurysm Thoracic Aortic (HCC) Chronic Kidney Disease (CKD), Stage 3 Unspecified (HCC) 25-HYDROXYVITAMIN D2 Routine 10/22/2020 9:46 Stroke Cerebrovas cular Results for this AND D3, S AM DOCTOR PODIATRIC MEDICINE Accident Personal procedure are in History the results Hypertension Essential secti on. Primary Dissecting Aneurysm Thoracic Aortic (HCC) Chronic Kidney Disease (CKD), Stage 3 Unspecified (HCC) CBC WITH Routine 10/22/2020 9:46 Stroke Cerebrovascular Re sults for this DIFFERENTIAL, B AM DOCTOR PODIATRIC MEDICINE Accident Personal procedu re are in History the results Hypertension Essential secti on. Primary Dissecting Aneurysm Thoracic Aortic (HCC) Chronic Kidney Disease (CKD), Stage 3 Unspecified (HCC) MONOCLONAL GAMMOPATHY Routine 10/22/2020 9:45 Stroke Cerebrova scular Results for this DIAGNOSTIC, S AM DOCTOR PODIATRIC MEDICINE Accident Personal procedure are in History the results Hypertension Essential secti on. Primary Dissecting Aneurysm Thoracic Aortic (HCC) Chronic Kidney Disease (CKD), Stage 3 Unspecified (HCC) IRON AND TOT Routine 10/22/2020 9:45 Stroke Cerebrovascular Re sults for this IRON-BINDING AM DOCTOR PODIATRIC MEDICINE Accident Personal procedure are in CAPACITY, S/P History the results Hypertension Essential secti on. Primary Dissecting Aneurysm Thoracic Aortic (HCC) Chronic Kidney Disease (CKD), Stage 3 Unspecified (HCC) C-REACTIVE PROTEIN Routine 10/22/2020 9:45 Stroke Cerebrovascu lar Results for this (CRP), S/P AM DOCTOR PODIATRIC MEDICINE Accident Personal procedure are in History the results Hypertension Essential secti on. Primary Dissecting Aneurysm Thoracic Aortic (HCC) Chronic Kidney Disease (CKD), Stage 3 Unspecified (HCC) PARATHYROID HORMONE Routine 10/22/2020 9:45 Stroke Cerebrovasc ular Results for this (PTH), S AM DOCTOR PODIATRIC MEDICINE Accident Personal procedure are in History the results Hypertension Essential secti on. Primary Dissecting Aneurysm Thoracic Aortic (HCC) Chronic Kidney Disease (CKD), Stage 3 Unspecified (HCC) LACTATE DEHYDROGENASE Routine 10/22/2020 9:45 Stroke Cerebrova scular Results for this (LD), S AM DOCTOR PODIATRIC MEDICINE Accident Personal procedure are in History the results Hypertension Essential secti on. Primary Dissecting Aneurysm Thoracic Aortic (HCC) Chronic Kidney Disease (CKD), Stage 3 Unspecified (HCC) COMPREHENSIVE Routine 10/22/2020 9:45 Stroke Cerebrovascular R esults for this METABOLIC PANEL, S/P AM DOCTOR PODIATRIC MEDICINE Accident Personal pr ocedure are in History the results Hypertension Essential secti on. Primary Dissecting Aneurysm Thoracic Aortic (HCC) Chronic Kidney Disease (CKD), Stage 3 Unspecified (HCC) documented in this encounter Results CBC with Differential, Blood (10/22/2020 9:46 AM DOCTOR PODIATRIC MEDICINE) P athologist Signature Hemoglobin 13.6 13.2 - 10/22/2020 DTL 16.6 g/dL 10:16 AM DOCTOR PODIATRIC MEDICINE Hematocrit 41.8 38.3 - 10/22/2020 DTL 48.6 % 10:16 AM DOCTOR PODIATRIC MEDICINE Erythrocytes 4.38 4.35 - 10/22/2020 DTL 5.65 10:16 AM DOCTOR PODIATRIC MEDICINE x10(12)/L MCV 95.4 78.2 - 10/22/2020 DTL 97.9 fL 10:16 AM DOCTOR PODIATRIC MEDICINE RBC Distrib Width 13.2 11.8 - 10/22/2020 DTL 14.5 % 10:16 AM DOCTOR PODIATRIC MEDICINE Platelet Count 292 135 - 317 10/22/2020 DTL x10(9)/L 10:16 AM DOCTOR PODIATRIC MEDICINE Leukocytes 8.0 3.4 - 9.6 10/22/2020 DTL x10(9)/L 10:16 AM DOCTOR PODIATRIC MEDICINE Neutrophils 5.67 1.56 - 10/22/2020 DTL 6.45 10:16 AM DOCTOR PODIATRIC MEDICINE x10(9)/L Lymphocytes 1.66 0.95 - 10/22/2020 DTL 3.07 10:16 AM DOCTOR PODIATRIC MEDICINE x10(9)/L Monocytes 0.48 0.26 - 10/22/2020 DTL 0.81 10:16 AM DOCTOR PODIATRIC MEDICINE x10(9)/L Eosinophils 0.18 0.03 - 10/22/2020 DTL 0.48 10:16 AM DOCTOR PODIATRIC MEDICINE x10(9)/L Basophils 0.04 0.01 - 10/22/2020 DTL 0.08 10:16 AM DOCTOR PODIATRIC MEDICINE x10(9)/L Specimen Anatomical Collection Method Collection Time Receive d Time (Source) Location / / Volume Laterality Blood (Blood, 10/22/2020 9:46 AM 10/23/19 21 Venous) DOCTOR PODIATRIC MEDICINE 10:09 AM DOCTOR PODIATRIC MEDICINE Steve Jefferson, Laurie, Lina. LAB BLOOD ADD-ON Performing Organization Address City/State/ZIP Code Phon e Number [facility] - 200 [place], [place] [address] [facility] [place] [address] [facility] 200 [facility] 25-Hydroxyvitamin D2 and D3 (10/22/2020 9:46 AM DOCTOR PODIATRIC MEDICINE) athologist Signature 25-Hydroxy D2 <4.0 ng/mL 10/22/2020 [facility] 10:23 PM DOCTOR PODIATRIC MEDICINE 25-Hydroxy D3 36 ng/mL 10/22/2020 [facility] 10:23 PM DOCTOR PODIATRIC MEDICINE 25-Hydroxy D 36 ng/mL 10/22/2020 [facility] Total 10:23 PM DOCTOR PODIATRIC MEDICINE Comment: ----REFERENCE VALUE---- 25-HYDROXY D TOTAL (D2+D3) Optimum level s in the healthy population are 20-50, patients with bone disease may benefit from higher levels within this r scotty. ----ADDITIONAL INFORMATION---- This test was developed and its performa nce characteristics determined by [facility] in a manner consistent with CLIA requirements. This test has not been cleared or approved by the U.S. Sin d and Drug Administration. Specimen Anatomical Collection Method Collection Time Receive d Time (Source) Location / / Volume Laterality Blood (Blood, 10/22/2020 9:46 AM 10/23/19 1:34 Venous) DOCTOR PODIATRIC MEDICINE PM DOCTOR PODIATRIC MEDICINE Steve Jefferson Ch.B., M.D. LAB BLOOD ADD-ON Performing Organization Address City/[facility]/ZIP Code Phon e Number [facility] [address] [place], [place] [address] [facility]ENTER [facility] [place] [address] Laboratory Medicine and Pathology [address] [place] Cystatin C with Estimated GFR, S (10/22/2020 9:46 AM DOCTOR PODIATRIC MEDICINE) athologist Signature eGFR by 69 >60 10/22/2020 [place] Cystatin C mL/min/BSA 11:53 AM DOCTOR PODIATRIC MEDICINE Comment: ----ADDITIONAL INFORMATION---- Cystatin C-based eGFR may differ substan tially from creatinine-based eGFR in patients with a bnormal muscle mass or acutely changing renal function. ??Pl ease interpret together with relevant clinical features. Cystatin C, S 1.08 0.77 - 1.42 mg/L 10/22/2020 11:53 AM DOCTOR PODIATRIC MEDICINE [place] Specimen Anatomical Collection Method Collection Time Receive d Time (Source) Location / / Volume Laterality Blood (Blood, 10/22/2020 9:46 AM 10/23/19 Venous) DOCTOR PODIATRIC MEDICINE 10:07 AM DOCTOR PODIATRIC MEDICINE Steve Jefferson Ch.B., M.D. LAB BLOOD ADD-ON Performing Organization Address City/State/ZIP Code Phon e Number [facility] - [address] [place], [place] [address] [facility] [place] [address] [facility] [address] CRP (C-Reactive Protein) (10/22/2020 9:45 AM DOCTOR PODIATRIC MEDICINE) athologist Signature C-Reactive 6.8 <=8.0 mg/L 10/22/2020 DTL Protein (CRP), 11:14 AM DOCTOR PODIATRIC MEDICINE S Specimen Anatomical Collection Method Collection Time Receive d Time (Source) Location / / Volume Laterality Blood (Blood, 10/22/2020 9:45 AM 10/23/19 Venous) DOCTOR PODIATRIC MEDICINE 10:10 AM DOCTOR PODIATRIC MEDICINE Steve Jefferson Ch.B., M.D. LAB BLOOD ADD-ON Performing Organization Address City/State/ZIP Code Phon e Number [facility] - [address] LD (Lactate Dehydrogenase) (10/22/2020 9:45 AM DOCTOR PODIATRIC MEDICINE) Analysis Performed At Patho logist Time Signature Lactate 165 122 - 222 10/22/2020 DTL Dehydrogenase U/L 11:14 AM DOCTOR PODIATRIC MEDICINE (LD), S Specimen Anatomical Collection Method Collection Time Receive d Time (Source) Location / / Volume Laterality Blood (Blood, 10/22/2020 9:45 AM 10/23/19 Venous) DOCTOR PODIATRIC MEDICINE 10:10 AM DOCTOR PODIATRIC MEDICINE Steve Jefferson Ch.B., M.D. LAB BLOOD NON ADD-O N Performing Organization Address City/[facility]/ZIP Code Phon e Number [facility] - [address] Iron and Total Iron-Binding Capacity (10/22/2020 9:45 AM DOCTOR PODIATRIC MEDICINE) P athologist Signature Iron 92 50 - 150 10/22/2020 DTL mcg/dL 11:14 AM DOCTOR PODIATRIC MEDICINE Total Iron 275 250 - 400 10/22/2020 DTL Binding Capacity mcg/dL 11:14 AM DOCTOR PODIATRIC MEDICINE Percent 33 14 - 50 % 10/22/2020 DTL Saturation 11:14 AM DOCTOR PODIATRIC MEDICINE Specimen Anatomical Collection Method Collection Time Receive d Time (Source) Location / / Volume Laterality Blood (Blood, 10/22/2020 9:45 AM 10/23/19 Venous) DOCTOR PODIATRIC MEDICINE 10:10 AM DOCTOR PODIATRIC MEDICINE Steve Jefferson Ch.B., Kim LAB BLOOD ADD-ON Performing Organization Address City/State/ZIP Code Phon e Number [facility] - [address] (ABNORMAL) Monoclonal Gammopathy Screen (10/22/2020 9:45 AM DOCTOR PODIATRIC MEDICINE) Patholo gist Method Time Signature Total Protein, 7.2 6.3 - 7.9 10/22/2020 [facility] S g/dL 1:38 PM DOCTOR PODIATRIC MEDICINE [place] Free 2.00 (H) 0.3300 - 10/22/2020 [facility] Light Chain, S 1.94 5:39 PM DOCTOR PODIATRIC MEDICINE mg/dL Lambda Free 2.59 0.5700 - 10/22/2020 [facility] Light Chain, S 2.63 5:39 PM DOCTOR PODIATRIC MEDICINE mg/dL [place]/Lambda 0.7722 0.2600 - 10/22/2020 [facility] FLC Ratio 1.65 5:39 PM DOCTOR PODIATRIC MEDICINE Albumin 3.5 3.4 - 4.7 10/25/2020 [facility] g/dL 10:59 AM DO[facility] PODIATRIC MEDICINE Alpha-1 0.3 0.1 - 0.3 10/25/2020 [facility] Globulin g/dL 10:59 AM DOCTOR PODIATRIC MEDICINE Alpha-2 1.1 (H) 0.6 - 1.0 10/25/2020 [facility] Globulin g/dL 10:59 AM DO[facility] PODIATRIC MEDICINE Beta-Globulin 1.1 0.7 - 1.2 10/25/2020 [facility] g/dL 10:59 AM DOCTOR PODIATRIC MEDICINE Gamma-Globulin 1.2 0.6 - 1.6 10/25/2020 [facility] g/dL 10:59 AM DOCTOR PODIATRIC MEDICINE A/G Ratio 0.94 10/25/2020 [facility] 10:59 AM DOCTOR PODIATRIC MEDICINE Impression No apparent monoclonal protein on serum electrophoresi s. 10/25/2020 [facility] See Isotype. 10:59 AM DOCTOR PODIATRIC MEDICINE M-protein No monoclonal 10/26/2020 [facility] Isotype protein 3:50 PM DOCTOR PODIATRIC MEDICINE MALDI-TOF MS detected by isotyping. Abnormal Free Light Chain Ratio noted.D~Sugges t 24-hr urine Monoclonal Protein Studies. Comment: ----ADDITIONAL INFORMATION---- The submitted sample was assayed by five separate immunopurifications for IgG, IgA, IgM, kappa and lambda. ??The r esult reflects the findings of either no monoclonal protein detected or those monoclonal immunoglobulins that were detected. This test was developed and its performa nce characteristics determined by [facility] in a manner consistent with CLIA requirements. This test has not been cleared or approved by the U.S. Sin d and Drug Administration. Specimen Anatomical Collection Method Collection Time Receive d Time (Source) Location / / Volume Laterality Blood (Blood, 10/22/2020 9:45 AM 10/23/19 21 1:24 Venous) DOCTOR PODIATRIC MEDICINE PM DOCTOR PODIATRIC MEDICINE Narrative [facility] SUPPORT [place]IRT R - 10/26/2020 3:50 PM DOCTOR PODIATRIC MEDICINE Specimen Information: Specimen ID: [id number] Specimen Type: Blood Specimen Collection Start Date: 1 ??9:45 AM Specimen Received Date: 10/22/2020 ??1:24 PM Specimen ID: [id number] Specimen Type: Blood Specimen Collection Start Date: ??9:45 AM Specimen Received Date: 10/22/2020 12:24 PM Steve Jefferson Ch.B., M.D. LAB BLOOD ADD-ON Performing Organization Address City/[facility] Phon e Number [facility] [address] [place], [place] [address] [address] [facility] [place] [address] Laboratory Medicine and Pathology [address] [place] [address] Dr. [place] Parathyroid Hormone (PTH) (10/22/2020 9:45 AM DOCTOR PODIATRIC MEDICINE) P athologist Signature Parathyroid 52 15 - 65 10/22/2020 DTL Hormone (PTH), S pg/mL 11:14 AM DOCTOR PODIATRIC MEDICINE Specimen Anatomical Collection Method Collection Time Receive d Time (Source) Location / / Volume Laterality Blood (Blood, 10/22/2020 9:45 AM 10/23/19 21 Venous) DOCTOR PODIATRIC MEDICINE 10:10 AM DOCTOR PODIATRIC MEDICINE Steve Jefferson Ch.B., MNoble LAB BLOOD ADD-ON Performing Organization Address City/State/ZIP Code Phon e Number [facility] - [address] [place], [place] [address] [facility] [place] [address] [facility] 200 [address] [facility] (ABNORMAL) Comprehensive Metabolic Panel (10/22/2020 9:45 AM DOCTOR PODIATRIC MEDICINE) Analysis Performed At Patho logist Time Signature Potassium, S 4.2 3.6 - 5.2 10/22/2020 DTL mmol/L 10:46 AM DOCTOR PODIATRIC MEDICINE Sodium, S 141 135 - 145 10/22/2020 DTL mmol/L 10:46 AM DOCTOR PODIATRIC MEDICINE Chloride, S 101 98 - 107 10/22/2020 DTL mmol/L 10:46 AM DO[facility] PODIATRIC MEDICINE Bicarbonate, S 28 22 - 29 10/22/2020 DTL mmol/L 10:46 AM DO[facility] PODIATRIC MEDICINE Anion Gap 12 7 - 15 10/22/2020 DTL 10:46 AM DO[facility] PODIATRIC MEDICINE BUN (Blood Urea 25 (H) 8 - 24 10/22/2020 DTL Nitrogen), S mg/dL 10:46 AM DO[facility] PODIATRIC MEDICINE Creatinine 1.63 (H) 0.74 - 10/22/2020 DTL 1.35 mg/dL 10:46 AM DOCTOR PODIATRIC MEDICINE eGFR-Non 43 (L) >=60 10/22/2020 DTL Black/ mL/min/BSA 10:46 AM DOCTOR PODIATRIC MEDICINE [place] Comment: ----ADDITIONAL INFORMATION---- Estimated GFR calculated using the 2009 CKD_EPI creatinine equation. eGFR-Black/ 50 (L) >=60 mL/min/BSA 2020 10:46 AM DOCTOR PODIATRIC MEDICINE DTL Comment: ----ADDITIONAL INFORMATION---- Estimated GFR calculated using the 2009 CKD_EPI creatinine equation. Calcium, Total, S 10.0 8.8 - 10.2 mg/dL 10/22/2020 10:4 6 AM DOCTOR PODIATRIC MEDICINE DTL Glucose, S 115 70 - 140 mg/dL 10/22/2020 10:46 AM DOCTOR PODIATRIC MEDICINE DTL Protein, Total, S 7.4 6.3 - 7.9 g/dL 10/22/2020 10:46 AM DO[facility] PODIATRIC MEDICINE DTL Albumin, S 4.4 3.5 - 5.0 g/dL 10/22/2020 10:46 AM DO[facility] PODIATRIC MEDICINE DTL Aspartate Aminotransferase 23 8 - 48 U/L 10/22/2020 1 0:46 AM DOCTOR PODIATRIC MEDICINE DTL (AST), S Alkaline Phosphatase, S 92 40 - 129 U/L 10/22/2020 10 :46 AM DOCTOR PODIATRIC MEDICINE DTL Alanine Aminotransferase (ALT), 31 7 - 55 U/L 021 10:46 AM DOCTOR PODIATRIC MEDICINE DTL S Bilirubin, Total, S 0.4 <=1.2 mg/dL 10/22/2020 10:46 A M DOCTOR PODIATRIC MEDICINE DTL Specimen Anatomical Collection Method Collection Time Receive d Time (Source) Location / / Volume Laterality Blood (Blood, 10/22/2020 9:45 AM 03/05/20 21 Venous) DOCTOR PODIATRIC MEDICINE 10:08 AM DOCTOR PODIATRIC MEDICINE Steve Jefferson, Lina Sullivan. LAB BLOOD ADD-ON Performing Organization Address City/State/ZIP Code Phon e Number [facility] - [address] [place], [place] [address] [facility] [place] [address] [facility] [address] documented in this encounter Visit Diagnoses Diagnosis Stroke Cerebrovascular Accident Personal History Hypertension 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) Chronic Kidney Disease (CKD), Stage 3 Un specified (HCC) documented in this encounter Care Teams Granite Countertop Installer Relationship Specialty Start Date End Date Elsewhere, Pcp PCP - General Family Medicine 02/13/18 documented as of this encounter
--- OUTSIDE RECORDS SUMMARY | 2022-06-10 10:53 | XMS_ITS | Encounter Summary ---
:1955 Author Organization [facility] Address [address] [place] [address] Care Team Providers Name Role Phone Elsewhere, Pcp Primary Care Provider Unavailable Encounter Details Date Type Department Care Team Description 10/14/2021 Ancillary Procedure Department of Ophthalmology Social History [...] containing 4 or more times a w [place] 12/18/2020 alcohol? How many drinks containing alcohol [...] or relatives? How often do you attend jew or mormonism Never 09/20/2019 services? Do you belong to any clubs or organizations Yes 12/18/2020 such as jew groups, unions, fraternal or athletic groups, or [...] have completed or the highest Rufus, MEd, PRECISION THREAD GRINDER OPERATOR, SHON) degree you have received? Sex Assigned at Date Recorded Male 03/19/2018 11:46 AM CDT documented as of this encounter Plan of Treatment Upcoming Encounters Date Type Specialty Care Team Description 06/21/2022 Clinical Communication Admitting/Central Scheduling 06/22/2022 Comprehensive Visit Rheumatology Clemente Mario M.B.B.S. [address] [place] [address] 08/03/2022 Comprehensive Visit Dermatology Jignesh Leonard M.D. [address] [place] [address] documented as of this encounter Procedures Procedure Name Priority Date/Time Associated Comments Diagnosis OPHTHALMOLOGY IMAGE Routine 10/14/2021 12:50 Resu lts for this EXAM PM SOFTWARE SPECIALIST procedure are i n the results section. documented in this encounter Results Visual Jean (VF) SFA-Ophthalmology Image Exam (10/14/2021 12:50 PM SOFTWARE SPECIALIST) Specimen (Source) Anatomical Collection Method Collection Time Re ceived Time Location / / Volume Laterality 10/14/2021 12:46 PM SOFTWARE SPECIALIST Narrative [facility] - 10/14/2021 1:01 PM SOFTWARE SPECIALIST This order has been created and auto-finalized [...] on filedocumented in this encounter Care Teams Last Pattern Grader Relationship Specialty Start Date End Date Elsewhere, Pcp PCP - General Family Medicine 02/13/18 documented as of this encounter
--- OUTSIDE RECORDS SUMMARY | 2022-06-10 10:53 | XMS_ITS | Encounter Summary ---
:1955 Author Organization [facility] Address [address] [place] [address] Care Team Providers Name Role Phone Elsewhere, Pcp Primary Care Provider Unavailable Reason for Visit Reason Comments Patient Education Encounter Details Date Type Department Care Team Description 10/26/2020 Education Department of Patient Mann Lombardo M.B., Laurie, MJaleelD. [address] [place] [phone] Chronic Kidney Disease Education in [place] Sarah L (CKD), Stage 3 [place] Unspecified (HCC) [address] [place] [phone] Social History Tobacco Use Types Packs/Day Years [...] containing 4 or more times a w [place] 12/18/2020 alcohol? How many drinks containing alcohol [...] or relatives? How often do you attend religious or gnosticism Never 09/20/2019 services? Do you belong to any clubs or organizations Yes 12/18/2020 such as religious groups, unions, fraternal or athletic groups, or [...] have completed or the highest Rufus, MEd, SHIPMASTER, SHON) degree you have received? Sex Assigned at Date Recorded Male 03/19/2018 11:46 AM CDT documented as of this encounter Plan of Treatment Upcoming Encounters Date Type Specialty Care Team Description 06/21/2022 Clinical Communication Admitting/Central Scheduling 06/22/2022 Comprehensive Visit Rheumatology Clemente Mario M.B.B.S. [address] [place] [address] 08/03/2022 Comprehensive Visit Dermatology Jignesh Leonard M.D. [address] [place] [address] documented as of this encounter Visit Diagnoses Diagnosis Chronic Kidney Disease (CKD), Stage 3 Un specified (HCC) documented in this encounter Care Teams Bed And Breakfast Cook Relationship Specialty Start Date End Date Elsewhere, Pcp PCP - General Family Medicine 02/13/18 documented as of this encounter
--- OUTSIDE RECORDS SUMMARY | 2022-06-10 10:53 | XMS_ITS | Encounter Summary ---
:1955 Author Organization [facility] Address [address] [place] [address] Care Team Providers Name Role Phone Elsewhere, [...] containing 4 or more times a w jamul 12/18/2020 alcohol? How many drinks containing alcohol [...] or relatives? How often do you attend congregational or zoroastrianism Never 09/20/2019 services? Do you belong to any clubs or organizations Yes 12/18/2020 such as congregational groups, unions, fraternal or athletic groups, or [...] place to sleep or slept in a intermediate (including now)? Education Answer Date Recorded What is the highest level of school Master's degree (e.g., M A, MS, 09/20/2019 you have completed or the highest Rufus, MEd, GYROSCOPIC ENGINEERING TECHNICIAN, SHON) degree you have received? Sex Assigned at Date Recorded Male 03/19/2018 11:46 AM CDT documented as of this encounter Plan of Treatment Upcoming Encounters Date Type Specialty Care Team Description 06/21/2022 Clinical Communication Admitting/Central Scheduling 06/22/2022 Comprehensive Visit Rheumatology Clemente Mario M.B.B.S. [address] [place] [address] 08/03/2022 Comprehensive Visit Dermatology Jignesh Leonard M.D. [address] [place] [address] documented as of this encounter Procedures Procedure Name Priority Date/Time Associated Comments Diagnosis OPHTHALMOLOGY IMAGE Routine 10/14/2021 2:25 PM Re sults for this EXAM GUARD RAIL INSTALLER procedure are i n the results section. documented in this encounter Results Optical Coherence Tomography (OCT)-Ophthalmology Image Exam (10/14/2021 2:25 PM GUARD RAIL INSTALLER) Specimen (Source) Anatomical Collection Method Collection Time Re ceived Time Location / / Volume Laterality 10/14/2021 2:24 PM GUARD RAIL INSTALLER Narrative [facility] - 10/14/2021 2:35 PM GUARD RAIL INSTALLER This order has been created and auto-finalized [...] on filedocumented in this encounter Care Teams Industrial Trainer Relationship Specialty Start Date End Date Elsewhere, Pcp PCP - General Family Medicine 02/13/18 documented as of this encounter
--- OUTSIDE RECORDS SUMMARY | 2022-06-10 10:54 | XMS_ITS | Encounter Summary ---
:1955 Author Organization [facility] Address [address] [place] [address] Care Team Providers Name Role Phone Elsewhere, Pcp Primary Care Provider Unavailable Encounter Details Date Type Department Care Team Description 09/01/2020 Ancillary Procedure Department of [facility] Glenn Reina Ophthalmology in Kaylen Draper O.D. [place], [place] [address] [facility] [address] [place] [phone] Social History Tobacco Use Types Packs/Day Years [...] containing 4 or more times a w [place] 12/18/2020 alcohol? How many drinks containing alcohol [...] or relatives? How often do you attend holiness or hoahaoism Never 09/20/2019 services? Do you belong to any clubs or organizations Yes 12/18/2020 such as holiness groups, unions, fraternal or athletic groups, or [...] place to sleep or slept in a fci (including now)? Education Answer Date Recorded What is the highest level of school Master's degree (e.g., M A, MS, 09/20/2019 you have completed or the highest Rufus, MEd, SOLUTION PROFESSIONAL, SHON) degree you have received? Sex Assigned at Date Recorded Male 03/19/2018 11:46 AM CDT documented as of this encounter Plan of Treatment Upcoming Encounters Date Type Specialty Care Team Description 06/21/2022 Clinical Communication Admitting/Central Scheduling 06/22/2022 Comprehensive Visit Rheumatology Clemente Mario M.B.B.S. [address] [place] [address] 08/03/2022 Comprehensive Visit Dermatology Jignesh Leonard M.D. [address] [place] [address] documented as of this encounter Procedures Procedure Name Priority Date/Time Associated Diagnosis Comme nts AUTOMATED VF - Routine 09/01/2020 12:50 PM Glaucoma Result s for this EXTENDED - OU - MAMMAL CONTROL AGENT procedure ar e in BOTH EYES the results section. documented in this encounter Results Automated VF - Extended - OU - Both Eyes (09/01/2020 12:50 PM MAMMAL CONTROL AGENT) Specimen (Source) Anatomical Location Collection Method / Collectio n Time Received Time / Laterality Volume Narrative OPHTHALMOLOGY IMAGING EXAM - 09/01/19 21 3:11 PM MAMMAL CONTROL AGENT Right Eye Automated visual field device used was Z eiss. Strategy was CHIARA. Threshold was 30-2. Left Eye Automated visual field device used was Z eiss. Strategy was CHIARA. Threshold was 30-2. Notes See note for results. Kaylen Reina O.D. OPHTH VISUAL FIELD Performing Organization Address City/State/ZIP Code Phon e Number OPHTHALMOLOGY IMAGING EXAM documented in this encounter Visit Diagnoses Diagnosis Glaucoma documented in this encounter Care Teams Designer Writer Relationship Specialty Start Date End Date Elsewhere, Pcp PCP - General Family Medicine 02/13/18 documented as of this encounter
--- OUTSIDE RECORDS SUMMARY | 2022-06-10 10:54 | XMS_ITS | Encounter Summary ---
:1955 Author Organization [facility] Address [address] [place] [address] Care Team Providers Name Role Phone Elsewhere, Pcp Primary Care Provider Unavailable Encounter Details Date Type Department Care Team Description 09/01/2020 Ancillary Procedure Department of Ophthalmology Social History [...] containing 4 or more times a w [place] 12/18/2020 alcohol? How many drinks containing alcohol [...] How often do you attend pentecostal or synagogue Never 09/20/2019 services? Do you [...] have completed or the highest Rufus, MEd, FINISHER COLD ROLLING, SHON) degree you have received? Sex Assigned at Date Recorded Male 03/19/2018 11:46 AM CDT documented as of this encounter Plan of Treatment Upcoming Encounters Date Type Specialty Care Team Description 06/21/2022 Clinical Communication Admitting/Central Scheduling 06/22/2022 Comprehensive Visit Rheumatology Clemente Mario M.B.B.S. [address] [place] [address] 08/03/2022 Comprehensive Visit Dermatology Jignesh Leonard M.D. [address] [place] [address] documented as of this encounter Procedures Procedure Name Priority Date/Time Associated Comments Diagnosis OPHTHALMOLOGY IMAGE Routine 09/01/2020 12:00 Resu lts for this EXAM AM RADIATION OFFICER procedure are i n the results section. documented in this encounter Results Eyes Color-Ophthalmology Image Exam (09/01/2020 12:00 AM RADIATION OFFICER) Specimen (Source) Anatomical Location Collection Method / Collectio n Time Received Time / Laterality Volume Narrative IIMS - 09/01/2020 2:06 PM RADIATION OFFICER This order has been created and auto-finalized [...] on filedocumented in this encounter Care Teams Independent Driver Relationship Specialty Start Date End Date Elsewhere, Pcp PCP - General Family Medicine 02/13/18 documented as of this encounter
--- OUTSIDE RECORDS SUMMARY | 2022-06-10 10:54 | XMS_ITS | Encounter Summary ---
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 [facility] Procedures Autonomic reflex Screen [address] [place], [place] [address] Referral ID Status Reason Start Date Expiration Date Visits Requ ested Visits Authorized [id number] Closed 10/13/2020 10/13/2021 1 1 Encounter Details Date Type Department Care Team Description 10/15/2020 Hospital Encounter Department of Shanika, Hemorrha ge Subarachnoid Nontraumatic (HCC); Neurology in [facility] [place] Nontraumatic Intracerebral Hemorrhage Un specified (HCC); [place], [place] [address] [facility] Hypertension Essential Primary; [address] [place], [place] Dissecting Aneurysm Thoracic Aortic ([place]) [place] [phone] [phone] Social History Tobacco Use Types Packs/Day Years [...] or more times a w [place] 12/18/2020 alcohol? How many drinks containing alcohol [...] or relatives? How often do you attend yarsani or pentecostal Never 09/20/2019 services? Do you belong to any clubs or organizations Yes 12/18/2020 such as yarsani groups, unions, fraternal or athletic groups, or [...] have completed or the highest Rufus, MEd, SCREW CUTTER, SHON) degree you have received? Sex Assigned [...] Scheduling 06/22/2022 Comprehensive Visit Rheumatology Clemente Mario M.B.BJaleelS. [address] [place] [phone] 08/03/2022 Comprehensive Visit Dermatology Jignesh Leonard M.D. [address] [place] [phone] documented as of this encounter Procedures Procedure Name Priority Date/Time Associated Diagnosis Comme nts AUTONOMIC REFLEX Routine 10/15/2020 2:02 PM Hemorrhage Resul ts for this SCREEN LOCK CORNER MACHINE OPERATOR Subarachnoid procedure are i n Nontraumatic (HC C) the results Nontraumatic section. 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 REPORT ? AUTONOMIC REFLEX SCREEN ? [phone] ? A ge: 65 ?Location: [place] ? Lab #: [id number] [place] ?Sex: M ? Order ID: [id number] ? Date: 10/15/2020 : 1955 Autonomic Unix System Administrator: Evans Taylor M.D. ([id number]) ?CONCLUSION Abnormal study. 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 These findings can be seen i n autonomic neuropathies, but may to a large degree relate to effects of v arious medications (enalapril, nifedipine, fluoxetine, carvedilol, dyaz syeda, Zyrtec), which would also be expected to increase this patient's risk of orthostatic hypotension under conditions of increased orthostatic stre ss (dehydration, heat exposure, postprandially, with prolonged standing, etc.). ?QUANTITATIVE AXON REFLEX SWEAT TEST (QSWEAT) ?Test ? Latency ??Sweat Output ??Sweat Output Normal Cutoff Side ?Site ? Current ?? Dura tion ? (min) ?(uL) ?5th (10th) Percentile ? (mA) ? (min) ? L ? Forearm ? 2 ?10 ? 0.8 ? 0.77 ? M: ?? 0.25 (0.43) L ? Proximal Leg ?2 ?10 ? 0.7 ? 0.43 ? M: ?? 0.48 (0.73) L ? Distal Leg ?2 ?10 ? 1.7 ? 0.89 ? M: ?? 0.62 (0.82) L ? Foot ?2 ?10 ? 0.7 ? 1.37 ? M: ?? 0.15 (0.33) Comments on Sudomotor Test: QSART respon ses were reduced at the proximal leg and normal at all other sites. ?DEEP BREATHING & VALSALVA MANEUVER RESPONSES ?Result ? Normal Cutoff Deep Breathing ?Heart Rate Range (bpm) ? 6.0 ? > 7 Valsalva Maneuver ? Valsalv a Ratio ? 1.15 ? > 1.29 Comments on Deep Breathing: ??Heart rate responses to deep breathing were reduced. Comments on Valsalva maneuver: (A) Heart rate responses to the Valsalva maneuver were reduced. (B) Yhzi-am-gbdz blood pressure response s to the Valsalva maneuver showed reduced late phase II, mildly prolonged BP recovery time, and absent phase IV. ?B LOOD PRESSURE AND HEART RATE RESPONSES TO TILT ? BP (mmHg) ?Heart Rate (BPM) ?Supine ? 122/70 ? 65 ?Tilt 1 min ? 114/68 ? 72 ?Tilt 2 min ? 118/70 ? 78 ?Tilt 3 min ? 114/64 ? 80 ?Tilt 5 min ? 122/68 ? 78 ?Tilt 10 min ?118/70 ? 80 Comments on Tilt: Patient was tilted for 10 minutes. Orthostatic hypotension was not detected. Heart rate response was normal. The patient reported no symptoms. -99 = missing value ?? Romy Voss M.D. 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
--- OUTSIDE RECORDS SUMMARY | 2022-06-10 10:54 | XMS_ITS | Encounter Summary ---
:1955 Author Organization [facility] Address [address] [place] [address] Care Team Providers Name Role Phone Elsewhere, Pcp Primary Care Provider Unavailable Reason for Referral Outpatient (Routine) - Closed Specialty Diagnoses / Procedures Referred By Contact Refer red To Contact Diagnoses Thoracic Aortic Aneurysm Without Rupture Unspecified (HCC) Dissection Of Thoracic Aorta Unspecified (HCC) Agustín Charles M.D. [facility] Procedures Echo Transthoracic (TTE) - Adult Congenital [address] [place] [address] Referral ID Status Reason Start Date Expiration Date Visits Requ ested Visits Authorized [id number] Closed 04/16/2018 04/16/2019 1 1 CHBOARD WIRER Reason for Visit Outpatient (Routine) - Closed Specialty Diagnoses / Procedures Referred By Contact Refer red To Contact Diagnoses Thoracic Aortic Aneurysm Without Rupture Unspecified (HCC) Dissection Of Thoracic Aorta Unspecified (HCC) Agustín Charles M.D. [facility] Procedures Echo Transthoracic (TTE) - Adult Congenital [address] [place] [address] Referral ID Status Reason Start Date Expiration Date Visits Requ ested Visits Authorized [id number] Closed 04/16/2018 04/16/2019 1 1 Encounter Details Date Type Department Care Team Description 09/23/2019 Hospital Encounter Department of Agustín Charles Thoracic Aortic Without Rupture (HCC); Cardiovascular Diseases Kim Garcia Dissecting Aneurysm Thoracic Aortic (HCC ) in [facility] betzaida [address] [facility] [address] [place] [phone] Social History Tobacco Use Types Packs/Day Years Used Date Smoking Tobacco: Former Cigarettes 0.8 6 08/1966 - 08/20/1971 Smokeless Tobacco: Never Comments: quit in early 20s, 1 ppd X 6 y ears Alcohol Use Standard Drinks/Week Comments No 0 (1 standard drink = 0.6 oz pure cut on and off alcohol, none this alcohol) year Alcohol Habits Answer Date Recorded How often do you have a drink containing 4 or more times a w [place] 12/18/2020 alcohol? How many drinks containing alcohol [...] or relatives? How often do you attend moravian or advent Never 09/20/2019 services? Do you belong to any clubs or organizations Yes 12/18/2020 such as moravian groups, unions, fraternal or athletic groups, or [...] have completed or the highest Rufus, MEd, FOXING PAINTER, SHON) degree you have received? Sex Assigned at Date Recorded Male 03/19/2018 11:46 AM CDT documented as of this encounter Medications at Time of Discharge Medication Sig Dispensed Refills Start Date End Date carvedilol (COREG) 25 mg Take 25 mg by 0 tablet mouth 2 (two) times a day with meals. cetirizine (ZyrTEC) 10 mg Take 10 mg by 0 018 tablet mouth daily. cod liver oil oil Take 5 mL by mouth 0 03/05/2019 daily. enalapril (VASOTEC) 20 mg Take 20 mg by 0 tablet mouth 2 (two) times a day. FLUoxetine (PROzac) 40 mg Take 20 mg by 0 capsule mouth daily. lactobacillus combination Take 1 capsule by 0 05/2018 no.4 3 billion cell capsule mouth daily. miscellaneous medical Full face mask 1/3 0 2019 supply misc months, full face mask cushion 08/20 month montelukast (SINGULAIR) 10 Take 10 mg by 0 mg tablet mouth at bedtime. NIFEdipine (ADALAT CC) 60 Take 30 mg by 0 mg ER tablet mouth daily. triamterene-hydroCHLOROthia Take 1 capsule by 0 0 08/22/2019 zide (DYAZIDE) 37.5-25 mg mouth daily. per capsule aspirin 325 mg tablet Take 325 mg by 0 10/12/2020 mouth daily. cholecalciferol (VITAMIN Take 1,000 Units 0 03/0512/22/2020 D3) 25 mcg (1,000 Unit) by mouth daily. capsule pravastatin (PRAVACHOL) 40 Take 60 mg by 0 10/12/2020 mg tablet mouth daily. 1.5 tablets daily documented as of this encounter Plan of Treatment Upcoming Encounters Date Type Specialty Care Team Description 06/21/2022 Clinical Communication Admitting/Central Scheduling 06/22/2022 Comprehensive Visit Rheumatology Clemente Mario M.B.BJaleelS. [address] [place] [address] 08/03/2022 Comprehensive Visit Dermatology Jignesh Leonard M.D. [address] [place] [address] documented as of this encounter Procedures Procedure Name Priority Date/Time Associated Diagnosis Comme nts (TTE) 2D ECHO Routine 09/23/2019 3:39 PM Aneurysm Thoracic Res ults for this DOPPLER COLOR SWITCHBOARD WIRER Aortic Without procedure ar e in Rupture (HCC) the results Dissecting Aneurysm section. Thoracic Aortic (HCC) documented in this encounter Results (TTE) 2D ECHO DOPPLER COLOR (09/23/2019 3:39 PM SWITCHBOARD WIRER) [facility] Method Time Signature Ejection Fraction 61 MC CV EIMS Sinus of Valsalva 41 MC CV EIMS Sinotubular Junction 34 MC CV EIM S Proximal Ascending 38 MC CV EIMS Aorta LV Mass Index 107 MC CV EIMS LV End-Diastolic 56 MC CV EIMS Diameter LV End-Systolic 35 MC CV EIMS Diameter MV E Velocity 0.8 MC CV EIMS MV A Velocity 0.8 MC CV EIMS MV E/A 1.00 MC CV EIMS MV e' Velocity 0.07 MC CV EIMS Medial MV e' Velocity 0.13 MC CV EIMS Lateral MV E/e' Medial 11.4 MC CV EIMS MV E/e' Lateral 6.2 MC CV EIMS Left ventricular 53 MC CV EIMS stroke volume index Cardiac Output 7.76 MC CV EIMS Cardiac Index 3.79 MC CV EIMS LV Interventricular 10 MC CV EIMS Septal Wall Thickness LV Posterior Wall 10 MC CV EIMS Thickness Tricuspid Annular S? 0.16 MC CV EIMS TR Vmax 2.80 MC CV EIMS RA Pressure 5 MC CV EIMS RV Systolic Pressure 36 MC CV EIM S Aortic valve area 3.53 MC CV EIMS LA Volume Index 41 MC CV EIMS Anatomical Region Laterality Modality Echocardiography Specimen (Source) Anatomical Collection Method Collection Time Re ceived Time Location / / Volume Laterality 09/23/2019 2:22 PM SWITCHBOARD WIRER Impressions 09/23/2019 8:10 PM SWITCHBOARD WIRER LEFT VENTRICLE: ??Mildly enlarged left ventricular chamber size. ??Calculated 2- D linear left ventricular ejection fraction 61 %. ??No rmal left ventricular wall thickness. ??No regional wall motion abnormalities. ??Findings consist ent with normal left ventricular filling pressure. RIGHT VENTRICLE: ??Normal right ventricu lar chamber size. ??Normal right ventricular systolic function. ??Estimated right ventricular systolic pressure 36 mmHg (systolic blood pressure 124 mmHg). ??ATRIA: ??Mild-moderately enlarg ed left atrial size. ??Left atrial volume index 41 ml/m^2. Normal right atrial size. ??CARDIAC WEST VES: ??Trileaflet aortic valve. ??Mildly thickened aortic valve. ??Mild-moderate aortic valve regu rgitation. ??Mildly thickened mitral valve. ??Trivial mitral valve regurgitation. ??Normal pul monary valve. ??Normal pulmonary valve systolic velocity. Mild pulmonary valve regurgitation. ??N ormal tricuspid valve. ??Trivial tricuspid valve regurgitation. ??OTHER ECHO FINDINGS: ?? Normal inferior vena cava size with normal inspiratory collapse (>50%). ??Normal aortic sinus o f Valsalva (41 mm); upper limit of normal per age and BSA 42 mm. ??Normal ascending aorta dime nsion. ??Abdominal aorta incompletely visualized. ??Normal abdominal aorta Doppler flow pattern. ?? No atrial level shunt by color flow imaging. ??No intracardiac mass or thrombus, but the l eft atrial appendage cannot be visualized adequately with transthoracic echo to exclude throm bus in this location. ??No pericardial effusion. For the complete report, see the Order-L evel Documents below. Narrative 09/23/2019 8:10 PM SWITCHBOARD WIRER For the complete report, see the Order-L evel Documents below. Final Impressions 1. Status post descending aortic aneurys m repair (elsewhere, 2013). 2. Mildly enlarged left ventricular atul jean pierre size. ??No regional wall motion abnormalities. Calculated ejection fraction 61%. 3. Left ventricular cardiac index 3.79 l /min/m^2. 4. Findings consistent with normal left ventricular filling pressure. 5. Normal right ventricular chamber size and systolic function. Estimated right ventricular systolic pressure 36 mmHg. 6. Mildly thickened aortic valve (tricus pid) with mild-moderate regurgitation; no stenosis. 7. Mild-moderately enlarged left atrial size; normal right atrial size. 8. Normal ascending aorta dimension. 9. No evidence of descending aorta/aorti c arch obstruction; proximal end of the vascular stent seen in the mid aortic arch. 10. Normal inferior vena cava size with normal inspiratory collapse (>50%). 11. No pericardial effusion. 12. Compared to the report of 03/19/2018 the following changes have occurred: LV size measures larger and RVSP has increased. Side by s syeda comparison of images performed. Procedure Note Ayan Mojica M.D. - 09/23/2019For matting of this note might be different from the original. For the complete report, see the Order-L evel Documents below. Final Impressions 1. Status post descending aortic aneurys m repair (elsewhere, 2013). 2. Mildly enlarged left ventricular atul jean pierre size. No regional wall motion abnormalities. Calculated ejection fraction 61%. 3. Left ventricular cardiac index 3.79 l /min/m^2. 4. Findings consistent with normal left ventricular filling pressure. 5. Normal right ventricular chamber size and systolic function. Estimated right ventricular systolic pressure 36 mmHg. 6. Mildly thickened aortic valve (tricus pid) with mild-moderate regurgitation; no stenosis. 7. Mild-moderately enlarged left atrial size; normal right atrial size. 8. Normal ascending aorta dimension. 9. No evidence of descending aorta/aorti c arch obstruction; proximal end of the vascular stent seen in the mid aortic arch. 10. Normal inferior vena cava size with normal inspiratory collapse (>50%). 11. No pericardial effusion. 12. Compared to the report of 03/19/2018 the following changes have occurred: LV size measures larger and RVSP has increased. Side by s syeda comparison of images performed. Findings LEFT VENTRICLE: Mildly enlarged left radha tricular chamber size. Calculated 2-D linear left ventricular ejection fraction 61 %. Norm al left ventricular wall thickness. No regional wall motion abnormalities. Findings consisten t with normal left ventricular filling pressure. RIGHT VENTRICLE: Normal right ventricula r chamber size. Normal right ventricular systolic function. Estimated right ventricular sy stolic pressure 36 mmHg (systolic blood pressure 124 mmHg). ATRIA: Mild-moderately enlarged l eft atrial size. Left atrial volume index 41 ml/m^2. Normal right atrial size. CARDIAC VALVE S: Trileaflet aortic valve. Mildly thickened aortic valve. Mild-moderate aortic valve regurg itation. Mildly thickened mitral valve. Trivial mitral valve regurgitation. Normal pulmo nary valve. Normal pulmonary valve systolic velocity. Mild pulmonary valve regurgitation. Nor mal tricuspid valve. Trivial tricuspid valve regurgitation. OTHER ECHO FINDINGS: Norm al inferior vena cava size with normal inspiratory collapse (>50%). Normal aortic sinus of Valsalva (41 mm); upper limit of normal per age and BSA 42 mm. Normal ascending aorta dimens ion. Abdominal aorta incompletely visualized. Normal abdominal aorta Doppler flow pattern. No atrial level shunt by color flow imaging. No intracardiac mass or thrombus, but the l eft atrial appendage cannot be visualized adequately with transthoracic echo to exclude throm bus in this location. No pericardial effusion. For the complete report, see the Order-L evel Documents below. Agustín Charles M.D. CV ECHO PROCEDURES documented in this encounter Visit Diagnoses Diagnosis Thoracic Aortic Aneurysm Without Rupture Unspecified (HCC) Dissection Of Thoracic Aorta Unspecified (HCC) documented in this encounter Care Teams R Developer Relationship Specialty Start Date End Date Elsewhere, Pcp PCP - General Family Medicine 02/13/18 documented as of this encounter
--- OUTSIDE RECORDS SUMMARY | 2022-06-10 10:54 | XMS_ITS | Encounter Summary ---
:1955 Author Organization [facility] Address [address] [place] [address] Care Team Providers Name Role Phone Elsewhere, Pcp Primary Care Provider Unavailable Reason for Referral MRI/CAT/PET Scan (Routine) - Closed Specialty Diagnoses / Procedures Referred By Contact Refer red To Contact Radiology Diagnoses Kidney Disorder Romy Voss M.D. [facility] Procedures MR Brain without and with IV Contrast MR Brain without IV Contrast CO MRI BRAIN WO CNTRST HC MRI BRAIN WO CNTRST [address] [place], [place] [address] Referral ID Status Reason Start Date Expiration Date Visits Requ ested Visits Authorized [id number] Closed 10/13/2020 10/13/2021 1 1 [facility] MRI/CAT/PET Scan (Routine) - Closed Specialty Diagnoses / Procedures Referred By Contact Refer red To Contact Radiology Diagnoses Stroke Cerebrovascular Accident Personal History Romy Voss M.D. [facility] Procedures MR Neck Angiogram without and with IV Contrast [address] [place], [place] [phone] Referral ID Status Reason Start Date Expiration Date Visits Requ ested Visits Authorized [id number] Closed 10/13/2020 10/13/2021 1 1 [facility] MRI/CAT/PET Scan (Routine) - Closed Specialty Diagnoses / Procedures Referred By Contact Refer red To Contact Radiology Diagnoses Stroke Cerebrovascular Accident Personal History Romy Voss M.D. [facility] Procedures MR Brain Angiogram without IV Contrast [address] [place], [place] [address] Referral ID Status Reason Start Date Expiration Date Visits Requ ested Visits Authorized [id number] Closed 10/13/2020 10/13/2021 1 1 [facility] Reason for Visit MRI/CAT/PET Scan (Routine) - Closed Specialty Diagnoses / Procedures Referred By Contact Refer red To Contact Radiology Diagnoses Stroke Cerebrovascular Accident Personal History Romy Voss M.D. [facility] Procedures MR Neck Angiogram without and with IV Contrast [address] [place], [place] [phone] Referral ID Status Reason Start Date Expiration Date Visits Requ ested Visits Authorized [id number] Closed 10/13/2020 10/13/2021 1 1 Encounter Details Date Type Department Care Team Description 10/15/2020 Hospital Encounter Department of [facility], Stroke C erebrovascular Accident Personal History; Radiology, Valente Stanton M.D. [facility] [place], in [address] [facility] [phone] [place] [address] [place], [place] (Work) [phone] Social History Tobacco Use Types Packs/Day Years [...] containing 4 or more times a w [employer] 12/18/2020 alcohol? How many drinks containing alcohol [...] How often do you attend sikhism or sabianism Never 09/20/2019 services? Do you belong to [...] have completed or the highest Rufus, MEd, [employer], SHON) degree you have received? Sex Assigned at Date Recorded Male 03/19/2018 11:46 AM CDT documented as of this encounter Last Filed Vital Signs Vital Sign Reading Time Taken Comments Blood Pressure - - Pulse 71 10/15/2020 6:25 PM [facility] Temperature - - Respiratory Rate 20 10/15/2020 6:25 PM [facility] Oxygen Saturation 97% 10/15/2020 6:25 PM [facility] Inhaled Oxygen Concentration - - Weight - - Height - - Body Mass Index - - documented in this encounter Medications at Time of Discharge [...] before breakfast. documented as of this encounter Nursing Notes Chanelle Huddleston R.N. - 10/15/2020 5:15 PM CST Patient tolerates MRI with minimal sedation. Patient meets criteria for dismissal. Patient dismissesvia ambulatory mode. RN accompanies patient to the [facility] where he meets his . Patient and deny the need for further assistance from here. [facility] Jojo Farah R.N. - 10/15/2020 4:38 PM CST Radiology Minimal Sedation Screening (Ativan) Is the patient 18 and older: Yes if yes... continue If no, did Radiologists approve administration and was verbal consent obtained from parents? Able to take oral meds? Yes If yes... continue Does the patient have a responsible adult accompanying them? Yes - If yes: Name of accompanying adult Vikki () Phone number of accompanying adult [phone] - If no, verify sedation dismissal plan: - If family/friend coming to transport following exam (confirm via phone call): - Name of adult - Phone number of adult If using transportation service: - Name of service - Final destination/address Does patient have an allergy to lorazepam or other benzodiazepines? No If no... continue Does patient have active respiratory issues? No If no...continue If yes notify radiologist for direction prior to continuing. Has the patient taken any other benzodiazepines, antidepressants, or sedating medications today? No If no...continue If yes, ask how long they have been taking the medication(s) and notify radiologist for direction prior to continuing. Does patient have a hx of narrow angle glaucoma or gaging or choking? No If no... Continue If yes notify radiologist for direction prior to continuing. Is patient scheduled for a MR proctogram or neuro functional MR? No if no... continue Is the patient scheduled for a MR guided breast biopsy? No - if yes, obtain consent prior to administration. Is patient or ? No If no... continue Does patient have other appointments today that may require attention to detail or informed consent?No If no... continue If yes, call other area to determine if administration is ???ok?? . [facility] documented in this encounter Plan of Treatment Upcoming Encounters Date Type Specialty Care Team Description 06/21/2022 Clinical Communication Admitting/Central Scheduling 06/22/2022 Comprehensive Visit Rheumatology Clemente Mario M.B.B.S. [address] [place] [address] 08/03/2022 Comprehensive Visit Dermatology Jignesh Leonard M.D. [address] [place] [phone] documented as of this encounter Procedures Procedure Name Priority Date/Time Associated Diagnosis Comme nts MR BRAIN WITHOUT RAD - Routine 10/15/2020 6:28 Kidney Disorder Resu lts for AND WITH IV (most inpatients PM [facility] this proced ure CONTRAST and all are in the outpatients) results section. MR NECK RAD - Routine 10/15/2020 6:28 Stroke Results for ANGIOGRAM (most inpatients PM [facility] Cerebrovascular this pro cedure WITHOUT AND WITH and all Accident Personal are in the IV CONTRAST outpatients) History results section. MR BRAIN RAD - Routine 10/15/2020 6:28 Stroke Results for ANGIOGRAM (most inpatients PM [facility] Cerebrovascular this pro cedure WITHOUT IV and all Accident Personal are in the CONTRAST outpatients) History results section. documented in this encounter Results MR Brain without and with IV Contrast (10/15/2020 6:28 PM [facility]) Anatomical Region Laterality Modality Head, Brain, Neuroradiology RST LOS, Neuroradiology OSCAR N/A Magnetic Resonance LOS, Neuroradiology FLA [facility] Specimen (Source) Anatomical Collection Method Collection Time Re ceived Time Location / / Volume Laterality 10/18/2020 9:10 AM [facility] Impressions 10/18/2020 9:59 AM [facility] 1. Slight decrease in size of the bifrontal posttraumatic hematomas. Bilateral subdural hygromas are slightly decreased on the right and slightly increased on the left. 2. Unremarkable head MRA. 3. Neck MRA with findings related to typ e B aortic dissection with endovascular graft. 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 Narrative 10/18/2020 9:59 AM [facility] EXAM: MR BRAIN ANGIOGRAM WITHOUT IV CONTRAST, MR NECK ANGIOGRAM WITHOUT AND WITH IV CONTRAST, MR BRAIN WITHOUT AND WITH I V CONTRAST COMPARISON: Head MRI 10/07/2020 FINDINGS: Head MRI: 3.8 x 2.5 x 1.9 cm (AP x trans x SI) left paramedian inferior frontal intraparenchymal hematoma measures sligh tly smaller than on prior with similar degree of surrounding vasogenic edema ca using minimal mass effect on the underlying frontal horn of the left fron delicia horn of the lateral ventricle. Mild sulcal effacement. 1.3 cm right paramedi an anterior frontal hematoma measures minimally smaller than on prior with min imal local sulcal effacement and decreased surrounding vasogenic edema. R eportedly, these represent posttraumatic contusions; location would support this history. Bilateral subdural hygromas. Similar to slightly decreased on the rig ht measuring up to 7 mm. Slightly increased on the left measuring up to 5 mm (previously 2 mm). Reactive dural enhancement. Area of diffusion restriction in the rig ht basal ganglia is not present today; in addition, there is no T2 hyperintensi ty or enhancement. Chronic infarcts with encephalomalacia in the left caudate hea d. Prominent perivascular spaces versus hippocampal cysts bilaterally. No acute infarcts. 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 Mild leukoaraiosis. Degenerative changes both TMJ. Head MRA: Dominant right vertebral arter y. Vertebral, basilar, and intracranial internal carotid arteries are patent wit h antegrade flow. No aneurysms or high-grade stenoses of the intracranial arteries. Fenestrated anterior communicating artery. Neck MRA: The left vertebral artery is m arkedly diminutive. Flow is not seen in the distal vertebral artery on time-of-f light imaging but it is visible on nicholas bolus imaging. Likewise in the inferior neck it is not visible on nicholas bolus imaging but flow is visible nearly to it s origin. A connection is not seen to the aorta though he has a history of a t ype B aortic dissection with a descending thoracic endovascular stent g raft. Left carotid subclavian bypass is present. Origins of the carotid and vert ebral arteries are otherwise patent. No high-grade stenoses of the carotid arter ies. 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 Procedure Note Vidhi French M.D. - 10/18/2020Formatt ing of this note might be different from the original. EXAM: MR BRAIN ANGIOGRAM WITHOUT IV CONT RAST, MR NECK ANGIOGRAM WITHOUT AND WITH IV CONTRAST, MR BRAIN WITHOUT AND WITH I V CONTRAST COMPARISON: Head MRI 10/07/2020 FINDINGS: Head MRI: 3.8 x 2.5 x 1.9 cm (AP x trans x SI) left paramedian inferior frontal intraparenchymal hematoma measures sligh tly smaller than on prior with similar degree of surrounding vasogenic edema ca using minimal mass effect on the underlying frontal horn of the left fron delicia horn of the lateral ventricle. Mild sulcal effacement. 1.3 cm right paramedi an anterior frontal hematoma measures minimally smaller than on prior with min imal local sulcal effacement and decreased surrounding vasogenic edema. R eportedly, these represent posttraumatic contusions; location would support this history. Bilateral subdural hygromas. Similar to slightly decreased on the rig ht measuring up to 7 mm. Slightly increased on the left measuring up to 5 mm (previously 2 mm). Reactive dural enhancement. Area of diffusion restriction in the rig ht basal ganglia is not present today; in addition, there is no T2 hyperintensi ty or enhancement. Chronic infarcts with encephalomalacia in the left caudate hea d. Prominent perivascular spaces versus hippocampal cysts bilaterally. No acute infarcts. 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 Mild leukoaraiosis. Degenerative changes both TMJ. Head MRA: Dominant right vertebral arter y. Vertebral, basilar, and intracranial internal carotid arteries are patent wit h antegrade flow. No aneurysms or high-grade stenoses of the intracranial arteries. Fenestrated anterior communicating artery. Neck MRA: The left vertebral artery is m arkedly diminutive. Flow is not seen in the distal vertebral artery on time-of-f light imaging but it is visible on nicholas bolus imaging. Likewise in the inferior neck it is not visible on nicholas bolus imaging but flow is visible nearly to it s origin. A connection is not seen to the aorta though he has a history of a t ype B aortic dissection with a descending thoracic endovascular stent g raft. Left carotid subclavian bypass is present. Origins of the carotid and vert ebral arteries are otherwise patent. No high-grade stenoses of the carotid arter ies. 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 IMPRESSION: 1. Slight decrease in size of the bifron delicia posttraumatic hematomas. Bilateral subdural hygromas are slightly decreased on the right and slightly increased on the left. 2. Unremarkable head MRA. 3. Neck MRA with findings related to typ e B aortic dissection with endovascular graft. 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 Romy RAYMUNDO MRI PROCEDURES MR Neck Angiogram without and with IV Contrast (10/15/2020 6:28 PM [facility]) Anatomical Region Laterality Modality Neck, Neuroradiology RST LOS, Neuroradiology ARZ LOS, N/A Magnetic Resonance Neuroradiology FLA [facility] Specimen (Source) Anatomical Collection Method Collection Time Re ceived Time Location / / Volume Laterality 10/18/2020 9:10 AM [facility] Impressions 10/18/2020 9:59 AM [facility] 1. Slight decrease in size of the bifrontal posttraumatic hematomas. Bilateral subdural hygromas are slightly decreased on the right and slightly increased on the left. 2. Unremarkable head MRA. 3. Neck MRA with findings related to typ e B aortic dissection with endovascular graft. 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 Narrative 10/18/2020 9:59 AM [facility] [employer] [facility] EXAM: MR BRAIN ANGIOGRAM WITHOUT IV CONTRAST, MR NECK ANGIOGRAM WITHOUT AND WITH IV CONTRAST, MR BRAIN WITHOUT AND WITH I V CONTRAST COMPARISON: Head MRI 10/07/2020 FINDINGS: Head MRI: 3.8 x 2.5 x 1.9 cm (AP x trans x SI) left paramedian inferior frontal intraparenchymal hematoma measures sligh tly smaller than on prior with similar degree of surrounding vasogenic edema ca using minimal mass effect on the underlying frontal horn of the left fron delicia horn of the lateral ventricle. Mild sulcal effacement. 1.3 cm right paramedi an anterior frontal hematoma measures minimally smaller than on prior with min imal local sulcal effacement and decreased surrounding vasogenic edema. R eportedly, these represent posttraumatic contusions; location would support this history. Bilateral subdural hygromas. Similar to slightly decreased on the rig ht measuring up to 7 mm. Slightly increased on the left measuring up to 5 mm (previously 2 mm). Reactive dural enhancement. Area of diffusion restriction in the rig ht basal ganglia is not present today; in addition, there is no T2 hyperintensi ty or enhancement. Chronic infarcts with encephalomalacia in the left caudate hea d. Prominent perivascular spaces versus hippocampal cysts bilaterally. No acute infarcts. 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 Mild leukoaraiosis. Degenerative changes both TMJ. Head MRA: Dominant right vertebral arter y. Vertebral, basilar, and intracranial internal carotid arteries are patent wit h antegrade flow. No aneurysms or high-grade stenoses of the intracranial arteries. Fenestrated anterior communicating artery. Neck MRA: The left vertebral artery is m arkedly diminutive. Flow is not seen in the distal vertebral artery on time-of-f light imaging but it is visible on nicholas bolus imaging. Likewise in the inferior neck it is not visible on nicholas bolus imaging but flow is visible nearly to it s origin. A connection is not seen to the aorta though he has a history of a t ype B aortic dissection with a descending thoracic endovascular stent g raft. Left carotid subclavian bypass is present. Origins of the carotid and vert ebral arteries are otherwise patent. No high-grade stenoses of the carotid arter ies. 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 Procedure Note Vidhi French M.D. - 10/18/2020Formatt ing of this note might be different from the original. EXAM: MR BRAIN ANGIOGRAM WITHOUT IV CONT RAST, MR NECK ANGIOGRAM WITHOUT AND WITH IV CONTRAST, MR BRAIN WITHOUT AND WITH I V CONTRAST COMPARISON: Head MRI 10/07/2020 FINDINGS: Head MRI: 3.8 x 2.5 x 1.9 cm (AP x trans x SI) left paramedian inferior frontal intraparenchymal hematoma measures sligh tly smaller than on prior with similar degree of surrounding vasogenic edema ca using minimal mass effect on the underlying frontal horn of the left fron delicia horn of the lateral ventricle. Mild sulcal effacement. 1.3 cm right paramedi an anterior frontal hematoma measures minimally smaller than on prior with min imal local sulcal effacement and decreased surrounding vasogenic edema. R eportedly, these represent posttraumatic contusions; location would support this history. Bilateral subdural hygromas. Similar to slightly decreased on the rig ht measuring up to 7 mm. Slightly increased on the left measuring up to 5 mm (previously 2 mm). Reactive dural enhancement. Area of diffusion restriction in the rig ht basal ganglia is not present today; in addition, there is no T2 hyperintensi ty or enhancement. Chronic infarcts with encephalomalacia in the left caudate hea d. Prominent perivascular spaces versus hippocampal cysts bilaterally. No acute infarcts. 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 Mild leukoaraiosis. Degenerative changes both TMJ. Head MRA: Dominant right vertebral arter y. Vertebral, basilar, and intracranial internal carotid arteries are patent wit h antegrade flow. No aneurysms or high-grade stenoses of the intracranial arteries. Fenestrated anterior communicating artery. Neck MRA: The left vertebral artery is m arkedly diminutive. Flow is not seen in the distal vertebral artery on time-of-f light imaging but it is visible on nicholas bolus imaging. Likewise in the inferior neck it is not visible on nicholas bolus imaging but flow is visible nearly to it s origin. A connection is not seen to the aorta though he has a history of a t ype B aortic dissection with a descending thoracic endovascular stent g raft. Left carotid subclavian bypass is present. Origins of the carotid and vert ebral arteries are otherwise patent. No high-grade stenoses of the carotid arter ies. 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 IMPRESSION: 1. Slight decrease in size of the bifron delicia posttraumatic hematomas. Bilateral subdural hygromas are slightly decreased on the right and slightly increased on the left. 2. Unremarkable head MRA. 3. Neck MRA with findings related to typ e B aortic dissection with endovascular graft. 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 Romy RAYMUNDO MRI PROCEDURES MR Brain Angiogram without IV Contrast (10/15/2020 6:28 PM [employer] [employer]) Anatomical Region Laterality Modality Head, Brain, Neuroradiology RST LOS, Neuroradiology ARZ N/A Magnetic Resonance LOS, Neuroradiology FLA LOS Specimen (Source) Anatomical Collection Method Collection Time Re ceived Time Location / / Volume Laterality 10/18/2020 9:10 AM [facility] Impressions 10/18/2020 9:59 AM [facility] 1. Slight decrease in size of the bifrontal posttraumatic hematomas. Bilateral subdural hygromas are slightly decreased on the right and slightly increased on the left. 2. Unremarkable head MRA. 3. Neck MRA with findings related to typ e B aortic dissection with endovascular graft. 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 Narrative 10/18/2020 9:59 AM [employer] [employer] EXAM: MR BRAIN ANGIOGRAM WITHOUT IV CONTRAST, MR NECK ANGIOGRAM WITHOUT AND WITH IV CONTRAST, MR BRAIN WITHOUT AND WITH I V CONTRAST COMPARISON: Head MRI 10/07/2020 FINDINGS: Head MRI: 3.8 x 2.5 x 1.9 cm (AP x trans x SI) left paramedian inferior frontal intraparenchymal hematoma measures sligh tly smaller than on prior with similar degree of surrounding vasogenic edema ca using minimal mass effect on the underlying frontal horn of the left fron delicia horn of the lateral ventricle. Mild sulcal effacement. 1.3 cm right paramedi an anterior frontal hematoma measures minimally smaller than on prior with min imal local sulcal effacement and decreased surrounding vasogenic edema. R eportedly, these represent posttraumatic contusions; location would support this history. Bilateral subdural hygromas. Similar to slightly decreased on the rig ht measuring up to 7 mm. Slightly increased on the left measuring up to 5 mm (previously 2 mm). Reactive dural enhancement. Area of diffusion restriction in the rig ht basal ganglia is not present today; in addition, there is no T2 hyperintensi ty or enhancement. Chronic infarcts with encephalomalacia in the left caudate hea d. Prominent perivascular spaces versus hippocampal cysts bilaterally. No acute infarcts. 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 Mild leukoaraiosis. Degenerative changes both TMJ. Head MRA: Dominant right vertebral arter y. Vertebral, basilar, and intracranial internal carotid arteries are patent wit h antegrade flow. No aneurysms or high-grade stenoses of the intracranial arteries. Fenestrated anterior communicating artery. Neck MRA: The left vertebral artery is m arkedly diminutive. Flow is not seen in the distal vertebral artery on time-of-f light imaging but it is visible on nicholas bolus imaging. Likewise in the inferior neck it is not visible on nicholas bolus imaging but flow is visible nearly to it s origin. A connection is not seen to the aorta though he has a history of a t ype B aortic dissection with a descending thoracic endovascular stent g raft. Left carotid subclavian bypass is present. Origins of the carotid and vert ebral arteries are otherwise patent. No high-grade stenoses of the carotid arter ies. 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 Procedure Note Vidhi French M.D. - 10/18/2020Formatt ing of this note might be different from the original. EXAM: MR BRAIN ANGIOGRAM WITHOUT IV CONT RAST, MR NECK ANGIOGRAM WITHOUT AND WITH IV CONTRAST, MR BRAIN WITHOUT AND WITH I V CONTRAST COMPARISON: Head MRI 10/07/2020 FINDINGS: Head MRI: 3.8 x 2.5 x 1.9 cm (AP x trans x SI) left paramedian inferior frontal intraparenchymal hematoma measures sligh tly smaller than on prior with similar degree of surrounding vasogenic edema ca using minimal mass effect on the underlying frontal horn of the left fron delicia horn of the lateral ventricle. Mild sulcal effacement. 1.3 cm right paramedi an anterior frontal hematoma measures minimally smaller than on prior with min imal local sulcal effacement and decreased surrounding vasogenic edema. R eportedly, these represent posttraumatic contusions; location would support this history. Bilateral subdural hygromas. Similar to slightly decreased on the rig ht measuring up to 7 mm. Slightly increased on the left measuring up to 5 mm (previously 2 mm). Reactive dural enhancement. Area of diffusion restriction in the rig ht basal ganglia is not present today; in addition, there is no T2 hyperintensi ty or enhancement. Chronic infarcts with encephalomalacia in the left caudate hea d. Prominent perivascular spaces versus hippocampal cysts bilaterally. No acute infarcts. 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 Mild leukoaraiosis. Degenerative changes both TMJ. Head MRA: Dominant right vertebral arter y. Vertebral, basilar, and intracranial internal carotid arteries are patent wit h antegrade flow. No aneurysms or high-grade stenoses of the intracranial arteries. Fenestrated anterior communicating artery. Neck MRA: The left vertebral artery is m arkedly diminutive. Flow is not seen in the distal vertebral artery on time-of-f light imaging but it is visible on nicholas bolus imaging. Likewise in the inferior neck it is not visible on nicholas bolus imaging but flow is visible nearly to it s origin. A connection is not seen to the aorta though he has a history of a t ype B aortic dissection with a descending thoracic endovascular stent g raft. Left carotid subclavian bypass is present. Origins of the carotid and vert ebral arteries are otherwise patent. No high-grade stenoses of the carotid arter ies. 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 IMPRESSION: 1. Slight decrease in size of the bifron delicia posttraumatic hematomas. Bilateral subdural hygromas are slightly decreased on the right and slightly increased on the left. 2. Unremarkable head MRA. 3. Neck MRA with findings related to typ e B aortic dissection with endovascular graft. 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 Romy RAYMUNDO MRI PROCEDURES documented in this encounter Visit Diagnoses Diagnosis Stroke Cerebrovascular Accident Personal History Kidney Disorder documented in this encounter Administered Medications Inactive Administered Medications - up to 3 most recent administrations Medication Order MAR Action Action Date Dose Rate Site gadobutrol injection 0.01-30 mL Given 10/15/2020 6:12 PM [employer] 10 mL (GADAVIST) 0.01-30 mL, intravenous, Once in imaging, contrast, Starting on Sun10/15/20 at 1631, For 1 dose, Imaging Protocol Orders, Dose per Radiant Medication Guidelines LORazepam tablet 0.5 mg (ATIVAN) Given 10/15/2020 4:46 PM [employer] 1 mg 0.5 mg, sublingual, As needed, anxiety, Starting on Sun10/15/20 at 1631, For 4 doses, Imaging Protocol Orders, 1 mg by mouth once as needed for anxiety related to radiology study. May administer 0.5 mg dose if patient prefers. May repeat every 15 minutes if anxiety persists (2 mg maximum dose). sodium chloride (PF) 0.9 % injection 1-1 00 mL Given 10/15/2020 6:12 PM [employer] 20 mL 1-100 mL, intravenous, Once, On Sun10/15/20 at 1645, For 1 dose, Imaging Protocol Orders documented in this encounter Care Teams Picking Table Worker Relationship Specialty Start Date End Date Elsewhere, Pcp PCP - General Family Medicine 02/13/18 documented as of this encounter
--- OUTSIDE RECORDS SUMMARY | 2022-06-10 10:54 | XMS_ITS | Encounter Summary ---
:1955 Author Organization [facility] Address [address] [place] [id number] Care Team Providers Name Role Phone Elsewhere, Pcp Primary Care Provider Unavailable Encounter Details Date Type Department Care Team Description 09/01/2020 Silent Schedule Department of Ophthalmology Angel Veliz in [facility] cota O.D. [address] [facility] [address] [place] [address] [place], [place] [phone] Social History Tobacco Use Types Packs/Day Years [...] containing 4 or more times a w twenty-nine palms 12/18/2020 alcohol? How many drinks containing alcohol [...] or relatives? How often do you attend evangelical or voodoo Never 09/20/2019 services? Do you belong to any clubs or organizations Yes 12/18/2020 such as evangelical groups, unions, fraternal or athletic groups, or [...] place to sleep or slept in a long term (including now)? Education Answer Date Recorded What is the highest level of school Master's degree (e.g., M A, MS, 09/20/2019 you have completed or the highest Rufus, MEd, CASE MAKING MACHINE OPERATOR, SHON) degree you have received? Sex Assigned at Date Recorded Male 03/19/2018 11:46 AM CDT documented as of this encounter Plan of Treatment Upcoming Encounters Date Type Specialty Care Team Description 06/21/2022 Clinical Communication Admitting/Central Scheduling 06/22/2022 Comprehensive Visit Rheumatology Clemente Mario M.B.B.S. [address] [place] [phone] 08/03/2022 Comprehensive Visit Dermatology Jignesh Leonard M.D. [address] [place] [address] documented as of this encounter Procedures Procedure Name Priority Date/Time Associated Comments Diagnosis OPTICAL COHERENCE Routine 09/01/2020 2:45 PM Glaucoma Resu lts for this TOMOGRAPHY (OCT) - FORENSIC ECONOMIST procedure are in OPTIC NERVE - OU - the resul ts BOTH EYES section. documented in this encounter Results Optical Coherence Tomography (OCT) - Optic Nerve - OU - Both Eyes (09/01/2020 2:45 PM FORENSIC ECONOMIST) Specimen (Source) Anatomical Location Collection Method / Collectio n Time Received Time / Laterality Volume Narrative OPHTHALMOLOGY IMAGING EXAM - 09/01/19 21 3:11 PM FORENSIC ECONOMIST OCT device used was [employer]rus . Right Eye Reliability was good. Left Eye Reliability was good. Notes See note for results. Masoud Veliz O.D. OPHTH TOMOGRAPHY Performing Organization Address City/State/ZIP Code Phon e Number OPHTHALMOLOGY IMAGING EXAM documented in this encounter Visit Diagnoses Not on filedocumented in this encounter Care Teams Black Puller Relationship Specialty Start Date End Date Elsewhere, Pcp PCP - General Family Medicine 02/13/18 documented as of this encounter
--- OUTSIDE RECORDS SUMMARY | 2022-06-10 10:54 | XMS_ITS | Encounter Summary ---
:1955 Author Organization [facility] Address [address] [place] [address] Care Team Providers Name Role Phone Elsewhere, Pcp Primary Care Provider Unavailable Reason for Referral Specialty Diagnoses / Procedures Referred By Contact Refer red To Contact Steve Lombardo M.B., [facility], [facility] [address] [place] [phone] Referral ID Status Reason Start Date Expiration Date Visits Requ ested Visits Authorized utpatient (Routine) - Closed Specialty Diagnoses / Procedures Referred By Contact Refer red To Contact Nephrology and Steve Lombardo, [facility] Laurie Jefferson M.D. [address] [place] [phone] Referral ID Status Reason Start Date Expiration Date Visits Requ ested Visits Authorized [id number] Closed 10/22/2020 10/22/2021 1 1 Scheduling Instructions Can put in transplant clinic time. 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) Chronic Kidney Disease (CKD), Stage 3 Unspecified (HCC) Steve Lombardo M.B., [facility] Procedures US Kidneys with Renal Artery Doppler Kim Sullivan [address] [place] [address] Referral ID Status Reason Start Date Expiration Date Visits Requ ested Visits Authorized [id number] Closed 10/22/2020 10/22/2021 1 1 UNTS RECEIVABLE SUPERVISOR Reason for Visit Reason Comments Chronic Kidney Disease Outpatient (Routine) - Closed Specialty Diagnoses / Procedures Referred By Referred To Contact Contact Nephrology and Diagnoses Stroke Cerebrovascular Accident Personal History Kidney Disorder Hypertension 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) Romy Voss [place] [facility] Hypertension Kim [address] [place] [address] Referral ID Status Reason Start Date Expiration Date Visits Requ ested Visits Authorized [id number] Closed 10/13/2020 10/13/2021 1 1 Encounter Details Date Type Department Care Team Description 10/22/2020 Comprehensive Visit Division of [place], Chronic Kidney Disease (CKD), Stage 3 Unspecified (HCC) (Primary Dx); Nephrology and Steve Escalante Chronic Kidne y Disease (CKD), Stage 3a Glomerular Filtration Rate (GFR) 45 To 59 (HCC); Hypertension in Radha.Laurie Pina, Hypertension Essential Primary; Kim Gilbert Stroke Cerebrovascular Accident Personal History; [place] [address] [facility] Kidney Disorder; [place], [place] Dissecting Aneurysm Thoracic Aortic (HCC); [place] [address] Obesity Body Mass Index 30-39.9 Adult; [id number] Hyperlipidemia; Atherosclerotic Heart Disease Of [place] Coronary Artery Without Angina Pectoris; [phone] Aneurysm Thorac ic Aortic Without Rupture (HCC) (Fax) Social History Tobacco Use Types [...] containing 4 or more times a w chilkat 12/18/2020 alcohol? How many drinks containing alcohol [...] How often do you attend zoroastrian or sabianist Never 09/20/2019 services? Do you belong to [...] have completed or the highest Rufus, MEd, POTLINE MONITOR, SHON) degree you have received? Sex Assigned at Date Recorded Male 03/19/2018 11:46 AM CDT documented as of this encounter Last Filed Vital Signs Vital Sign Reading Time Taken Comments Blood Pressure - - Pulse - - Temperature 36.1 ??C (97 ??F) 10/22/2020 8:21 AM ACCOUNTS RECEIVABLE SUPERVISOR Respiratory Rate - - Oxygen Saturation - - Inhaled Oxygen Concentration - - Weight 100 kg (220 lb 10.9 oz) 10/22/2020 8:21 AM ACCOUNTS RECEIVABLE SUPERVISOR Height - - Body Mass Index 33.45 10/13/2020 7:15 AM ACCOUNTS RECEIVABLE SUPERVISOR documented in this encounter Consult Notes Steve Lombardo M.B., Lina Sullivan. - 10/22/2020 8:30 AM CST Referring Provider: Romy Voss M.D. SUBJECTIVE REASON FOR CONSULT Hypertension and CKD HISTORY OF PRESENT ILLNESS Mr. Sanches is a 65 y.o. male who comes with questions regarding his elevated creatinine. 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 The initial dissection began in the left subclavian and extended to the renal arteries, with the proximal descending artery reportedly measuring at 4.7 cm. On 01/15/2014, he underwent a left azncbmd-jg-tqirismedi bypass and endovascular stent repairof the arch to the distal descending thoracic aorta. Endovascular stenting was complicated by intimal flap embolization and occlusion of the aorta at the iliac bifurcation. This required open repair with aortobiiliac bypass with Dacron graft. The postoperative course was complicated by an acute kidney injury and his recent creatinine baseline is around 1.7-1.8 but has been down t o 1.3-1.4 in 2019. He had late subacute hemorrhagic bifrontal contusions and evidence of a previous infarct on head imaging from a fall in Sep 2020. He has managed hypertension, SAMIR on CPAP and hyperlipidemia. He does not have AF and good LVEF 55-60% with moderate LVH Mr. Sanches has had blood pressure management since his mid 20s off and on. He has had information with regard to salt and can continue to reduce this further. He has been on a proton pump inhibitor for about 2 years. In 2020 he has taken his spironolactone only for a few days which was exacerbated by his increasing creatinine. His blood pressure, he reports, is meant to be kept at less than 120 systolic. He does not have a significant history of chronic kidney disease or family history of chronic kidneydisease or stones. He does not have any obstructive urinary symptoms and does not have peripheral edema. The following portions of the patient's history were reviewed and updated as appropriate: allergies,current medications, family history, medical history, social history, surgical history and problem list. Medications Current Outpatient Medications: ??? aspirin [address] tablet, Take 81 mg by mouth daily., Disp: , Rfl: ??? atorvastatin (LIPITOR) 80 mg tablet, Take 80 mg by mouth daily., Disp: , Rfl: ??? carvedilol (COREG) 25 mg tablet, Take 25 mg by mouth 2 (two) times a day with meals., Disp: , Rfl: ??? cetirizine (ZyrTEC) 10 mg tablet, Take 10 mg by mouth daily. , Disp: , Rfl: ??? cholecalciferol (VITAMIN D3) 25 mcg (1,000 Unit) capsule, Take 1,000 Units by mouth daily., Disp: , Rfl: ??? cod liver oil oil, Take 5 mL by mouth daily., Disp: , Rfl: ??? enalapril (VASOTEC) 20 mg tablet, Take 20 mg by mouth 2 (two) times a day. , Disp: , Rfl: ??? FLUoxetine (PROzac) 40 mg capsule, Take 80 mg by mouth daily. , Disp: , Rfl: ??? fluticasone propionate (FLONASE) 50 mcg/actuation nasal spray, Administer 2 sprays into nostril(s) as needed., Disp: , Rfl: ??? ketoconazole (NIZORAL) 2 % cream, Apply topically as needed., Disp: , Rfl: ??? lactobacillus combination no.4 3 billion cell capsule, Take 1 capsule by mouth daily., Disp: , Rfl: ??? miscellaneous medical supply mis, Full face mask 1/3 months, full face mask cushion 1/ month, Disp: , Rfl: ??? montelukast (SINGULAIR) 10 mg tablet, Take 10 mg by mouth at bedtime., Disp: , Rfl: ??? NIFEdipine (ADALAT CC) 60 mg ER tablet, Take 60 mg by mouth 2 (two) times a day., Disp: , Rfl: ??? omeprazole (PriLOSEC) [address] capsule, Take 20 mg by mouth every morning before breakfast., Disp: , Rfl: ??? triamterene-hydroCHLOROthiazide (DYAZIDE) 37.5-25 mg per capsule, Take 1 capsule by mouth daily., Disp: , Rfl: Review of Systems Constitutional: Positive for fatigue. Cardiovascular: Positive for swelling in the legs or feet. Neurological: Positive for loss of consciousness, light-headedness, excessive daytime sleepiness, loss of balance or tendency to fall easily, headaches and weakness in arms or legs. Psychiatric/Behavioral: Positive for excessive daytime sleepiness/tiredness and little interest or pleasure in doing things over past two weeks. The following systems were negative: Skin, Eyes, ENT, Respiratory, GI, , Hematologic, Musculoskeletal Past Medical/Surgical History Past Medical History: Diagnosis Date ??? Amblyopia Bilateral ??? Anemia ??? Cataract ??? Concussion Loss Of Consciousness Unspecified Duration Initial ??? Depressive Disorder ??? Dissection Aorta (HCC) ??? Headache Unspecified ??? Hyperlipidemia ??? Hypertension NOS since his 20s ??? Hyperthyroidism ??? Other Specified Health Status ??? Pseudogout ??? Sleep Apnea ??? Transient Ischemic Attack ??? Ulcer Duodenal 2000 Cauterized. Cause H. Pylori Past Surgical History: Procedure Laterality Date ??? APPENDECTOMY ??? HERNIA REPAIR ??? OTHER SURGICAL HISTORY duodinal ulcer 2000 ??? THORACIC AORTA STENT ??? VASECTOMY 1987 OBJECTIVE There were no vitals taken for this visit. PHYSICAL EXAMINATION Constitutional General: He is not in acute distress. Appearance: He is well-developed. HENT Nose: Nose normal. Eyes General: No scleral icterus. Neck Thyroid: No thyromegaly. Vascular: No JVD. Cardiovascular Rate and Rhythm: Normal rate and regular rhythm. Heart sounds: No murmur. No friction rub. No gallop. Pulmonary Effort: Pulmonary effort is normal. No respiratory distress. Breath sounds: Normal breath sounds. No wheezing or rales. Abdominal General: Bowel sounds are normal. There is no distension. Palpations: Abdomen is soft. There is no mass. Tenderness: There is no abdominal tenderness. There is no rebound. Hernia: No hernia is present. Musculoskeletal Right lower leg: No edema. Left lower leg: No edema. Lymphadenopathy Cervical: No cervical adenopathy. Skin Findings: No erythema or rash. Neurological Mental Status: He is alert and oriented to person, place, and time. Psychiatric Behavior: Behavior normal. Thought Content: Thought content normal. Judgment: Judgment normal. DIAGNOSTICS Recent Labs 03/01/18 1204 02/21/18 2112 HGB 11.3 L 10.0 L FERRITIN 264 -- NA -- 132 L BUN -- 46 H CREATININE 1.44 H 2.20 H Recent Labs 03/01/18 1204 02/21/18 2112 CALCIUM 9.6 8.8 LABPHOS 3.6 -- 25OHVITDTTL 49 -- 6hr ambulatory BP shows good control of BP 111/60 CT Mar 2017 IMPRESSION: 1. Endovascular thoracic aortic stent extending from the mid aortic arch to the distal descending thoracic aorta, across the takeoff of the left subclavian artery with a patent left common carotid artery to left subclavian artery bypass. 2. Additional postsurgical changes involving a short segment of the infrarenal abdominal aorta. 3. Focal dissection of the proximal left common iliac artery. The proximal common iliac arteries aretortuous and ectatic. Findings suggest an underlying connective tissue disorder. ASSESSMENT / PLAN #1 Stroke Cerebrovascular Accident Personal History #2 Kidney Disorder #3 Hypertension Essential Primary #4 Dissecting Aneurysm Thoracic Aortic (HCC) Mr. Sanches and I looked at his labs here from [place] and from outside. His baseline creatinine is around 1.5, 1.6. He did get acute kidney injury around the time of his type B dissection, and this has left him with some chronic kidney disease, stage 3. We discussed stage 3 kidney disease, and he did not have any significant risk factors associated with progression, i.e., his urine was negative. We repeated these labs today, and his urine is indeed without blood or protein on the dipstick. We are awaiting quantification on that. His creatinine has come down to 1.63, giving him a creatinine based EGFR of 43 mL/minute; however, cystatin C of 1.08 gives him an EGFR of 69. We were able to get an ultrasound with Dopplers of his kidneys today to ensure that he had significant blood flow to his kidneys. He has 2 right renal arteries, and both on the left and right kidneys, there is no evidence of stenosis. He has no hydronephrosis, either, as expected. I did complete a monoclonal screen, which initial light chain results are normal for renal function.The rest of his labs are within normal range including his CRP which had previously been elevated a few years ago. His calcium and albumin are normal. His iron studies are within normal range with a TSAT of 33, and he has no elevated PTH suggesting not significant prolongation of his chronic kidney disease. His hemoglobin is normal, 13.6, and he is not anemic. He will meet with our nurse team for education on keeping kidneys healthy and a return visit with [facility] in October to be able to go through these results. However, I sent him a portal message to reassure him. I spoke with Mr. Sanches about his risk factors for kidney disease, and certainly we discussed weight loss, as his BMI is 33.5. We are aiming for an initial weight loss of around 10 pounds as an achievable target to bring his BMI down. This will help with his blood pressure as well as relieving pressure on his kidney. His 6-hour ambulatory blood pressure monitor was excellent with an average blood pressure control at111/60. I have commended him on this and encouraged him to continue with a low-salt diet. If he has syncopal episodes, which are still being investigated, then there could be a change in his blood pressure medications. His enalapril is helpful as well as his nifedipine and hydrochlorothiazide. He could potentially have a reduction in his nifedipine as a first-line agent if he is having ongoing syncopal episodes. This was not a significant discussion that we had with regard to side effects at present. Ronny Wilkins, Kim Sullivan RECOMMENDATIONS TO PATIENT: Please remember to avoid taking NSAIDS (such as ibuprofen, naproxen, ketorolac, indomethacin, nabumetone) as these medications may affect your kidney function. Should you receive medications from a doctor, please remind them of your kidney disease and ask thatthey check the appropriate dose for you. Please remember that contrast dye from CT scans, heart catheterizations, or MRI studies may affect your kidney function and/or you. You should discuss this risk with your doctor. UNTS RECEIVABLE SUPERVISOR documented in this encounter Plan of Treatment Upcoming Encounters Date Type Specialty Care Team Description 06/21/2022 Clinical Communication Admitting/Central Scheduling 06/22/2022 Comprehensive Visit Rheumatology Clemente Mario M.B.B.S. [address] [place] [address] 08/03/2022 Comprehensive Visit Dermatology Jignesh Leonard M.D. [address] [place] [address] Scheduled Referrals Name Type Priority Associated Order Schedule Diagnoses Nephrology and Outpatient Routine 1 Occurrences Hypertension office Referral starting 10/22/2020 visit (clinic) until 024 Patient Education - Outpatient Routine Chronic Kidney Expect ed: Keeping your kidneys Referral Disease (CKD), 10/22 healthy education Stage 3 Unspecified (Ap proximate), visit (clinic) - ([facility]) Expires: (RST) documented as of this encounter Results US Kidneys with Renal Artery Doppler (10/22/2020 11:47 AM ACCOUNTS RECEIVABLE SUPERVISOR) Anatomical Region Laterality Modality Abdomen, Renal, Ultrasound RST LOS, Ultrasound ARZ LOS, N/A Ultrasound Ultrasound FLA LOS, Procedural Specimen (Source) Anatomical Collection Method Collection Time Re ceived Time Location / / Volume Laterality 10/22/2020 11:55 AM ACCOUNTS RECEIVABLE SUPERVISOR Impressions 10/22/2020 12:06 PM ACCOUNTS RECEIVABLE SUPERVISOR No renal artery stenosis. No hydronephro sis. Narrative 10/22/2020 12:06 PM ACCOUNTS RECEIVABLE SUPERVISOR EXAM: US KIDNEYS WITH RENAL ARTERY DOPPLER [...] artery stenosis. No hydronephro sis. Steve Jefferson, Laurie, Lina. IMG US PROCEDURES Urinalysis with Microscopic: Urine, Midstream (10/22/2020 10:37 AM ACCOUNTS RECEIVABLE SUPERVISOR) [facility] Method Time Signature Source Midstream 10/22/2020 [place] 10:37 AM ACCOUNTS RECEIVABLE SUPERVISOR Appearance Normal Normal 10/22/2020 [place] 11:13 AM ACCOUNTS RECEIVABLE SUPERVISOR Osmolality, U 553 150 - 1150 10/22/2020 [place] mOsm/kg 11:32 AM ACCOUNTS RECEIVABLE SUPERVISOR pH, U 6.0 4.5 - 8.0 10/22/2020 [place] 11:32 AM ACCOUNTS RECEIVABLE SUPERVISOR Comment: ----ADDITIONAL INFORMATION---- This test was developed and its performa nce characteristics determined by [facility] in a manner co nsistent with CLIA requirements. This test has not bee n cleared or approved by the U.S. Food and Drug Admin istration. Glucose 4 0 - 15 mg/dL 10/22/2020 11:13 AM ACCOUNTS RECEIVABLE SUPERVISOR CUCO A Protein, U 12 <26 mg/dL 10/22/2020 11:13 AM ACCOUNTS RECEIVABLE SUPERVISOR [place] Comment: ----ADDITIONAL INFORMATION---- On 02/13/2017 the total protein assay me thod changed resulting in approximately a 15% increase in prote in values. Protein/Osmolality 0.22 <0.42 Ratio 10/22/2020 11:32 AM ACCOUNTS RECEIVABLE SUPERVISOR [place] Comment: ----ADDITIONAL INFORMATION---- On 02/13/2017 the total protein assay me thod changed resulting in approximately a 15% increase in prote in values. Predicted 24 Hr Protein 220 mg/24 h 10/22/2020 11:32 AM ACCOUNTS RECEIVABLE SUPERVISOR [place] Predicted Range 70-692 mg/24 h 10/22/2020 11:32 AM ACCOUNTS RECEIVABLE SUPERVISOR [place] Hemoglobin, QL Negative Negative 10/22/2020 11:37 AM ACCOUNTS RECEIVABLE SUPERVISOR R SAM Specimen Anatomical Collection Method Collection Time Receive d Time (Source) Location / / Volume Laterality Urine (Urine, 10/22/2020 10:37 10/22/2020 Midstream) AM ACCOUNTS RECEIVABLE SUPERVISOR 10:37 AM ACCOUNTS RECEIVABLE SUPERVISOR Steve Jefferson, Ch.B., M.Rayna. LAB URINE ORDERABLE S Performing Organization Address City/State/ZIP Code Phon e Number [facility] - [address] [place] [address] [place] [address] Laboratories-[address] CBC with Differential, Blood (10/22/2020 9:46 AM ACCOUNTS RECEIVABLE SUPERVISOR) P athologist Signature Hemoglobin 13.6 13.2 - 10/22/2020 DTL 16.6 g/dL 10:16 AM ACCOUNTS RECEIVABLE SUPERVISOR Hematocrit 41.8 38.3 - 10/22/2020 DTL 48.6 % 10:16 AM ACCOUNTS RECEIVABLE SUPERVISOR Erythrocytes 4.38 4.35 - 10/22/2020 DTL 5.65 10:16 AM ACCOUNTS RECEIVABLE SUPERVISOR x10(12)/L MCV 95.4 78.2 - 10/22/2020 DTL 97.9 fL 10:16 AM ACCOUNTS RECEIVABLE SUPERVISOR RBC Distrib Width 13.2 11.8 - 10/22/2020 DTL 14.5 % 10:16 AM ACCOUNTS RECEIVABLE SUPERVISOR Platelet Count 292 135 - 317 10/22/2020 DTL x10(9)/L 10:16 AM ACCOUNTS RECEIVABLE SUPERVISOR Leukocytes 8.0 3.4 - 9.6 10/22/2020 DTL x10(9)/L 10:16 AM ACCOUNTS RECEIVABLE SUPERVISOR Neutrophils 5.67 1.56 - 10/22/2020 DTL 6.45 10:16 AM ACCOUNTS RECEIVABLE SUPERVISOR x10(9)/L Lymphocytes 1.66 0.95 - 10/22/2020 DTL 3.07 10:16 AM ACCOUNTS RECEIVABLE SUPERVISOR x10(9)/L Monocytes 0.48 0.26 - 10/22/2020 DTL 0.81 10:16 AM ACCOUNTS RECEIVABLE SUPERVISOR x10(9)/L Eosinophils 0.18 0.03 - 10/22/2020 DTL 0.48 10:16 AM ACCOUNTS RECEIVABLE SUPERVISOR x10(9)/L Basophils 0.04 0.01 - 10/22/2020 DTL 0.08 10:16 AM ACCOUNTS RECEIVABLE SUPERVISOR x10(9)/L Specimen Anatomical Collection Method Collection Time Receive d Time (Source) Location / / Volume Laterality Blood (Blood, 10/22/2020 9:46 AM 10/23/19 21 Venous) ACCOUNTS RECEIVABLE SUPERVISOR 10:09 AM ACCOUNTS RECEIVABLE SUPERVISOR Steve Jefferson, Ch.BJaleel, MSanchez. LAB BLOOD ADD-ON Performing Organization Address City/State/ZIP Code Phon e Number [facility] - [address] [place] [address] [place] [address] Laboratories-[facility] [address] [facility] 25-Hydroxyvitamin D2 and D3 (10/22/2020 9:46 AM ACCOUNTS RECEIVABLE SUPERVISOR) P athologist Signature 25-Hydroxy D2 <4.0 ng/mL 10/22/2020 [facility] 10:23 PM ACCOUNTS RECEIVABLE SUPERVISOR 25-Hydroxy D3 36 ng/mL 10/22/2020 [facility] 10:23 PM ACCOUNTS RECEIVABLE SUPERVISOR 25-Hydroxy D 36 ng/mL 10/22/2020 [facility] Total 10:23 PM ACCOUNTS RECEIVABLE SUPERVISOR Comment: ----REFERENCE VALUE---- 25-HYDROXY D TOTAL (D2+D3) Optimum level s in the healthy population are 20-50, patients with bone disease may benefit from higher levels within this r scotty. ----ADDITIONAL INFORMATION---- This test was developed and its performa nce characteristics determined by [facility] in a manner consistent with CLIA requirements. This test has not been cleared or approved by the U.S. Sin d and Drug Administration. Specimen Anatomical Collection Method Collection Time Receive d Time (Source) Location / / Volume Laterality Blood (Blood, 10/22/2020 9:46 AM 10/23/19 1:34 Venous) ACCOUNTS RECEIVABLE SUPERVISOR PM ACCOUNTS RECEIVABLE SUPERVISOR Steve Jefferson Ch.B., M.D. LAB BLOOD ADD-ON Performing Organization Address City/[facility]/ZIP Code Phon e Number [facility] [address] [place], [place] [address] [facility] [place] [address] Laboratory Medicine and Pathology [address] [place] Cystatin C with Estimated GFR, S (10/22/2020 9:46 AM ACCOUNTS RECEIVABLE SUPERVISOR) athologist Signature eGFR by 69 >60 10/22/2020 [place] Cystatin C mL/min/BSA 11:53 AM ACCOUNTS RECEIVABLE SUPERVISOR Comment: ----ADDITIONAL INFORMATION---- Cystatin C-based eGFR may differ substan tially from creatinine-based eGFR in patients with a bnormal muscle mass or acutely changing renal function. ??Pl ease interpret together with relevant clinical features. Cystatin C, S 1.08 0.77 - 1.42 mg/L 10/22/2020 11:53 AM ACCOUNTS RECEIVABLE SUPERVISOR [place] Specimen Anatomical Collection Method Collection Time Receive d Time (Source) Location / / Volume Laterality Blood (Blood, 10/22/2020 9:46 AM 10/23/19 Venous) ACCOUNTS RECEIVABLE SUPERVISOR 10:07 AM ACCOUNTS RECEIVABLE SUPERVISOR Steve Jefferson Ch.B., M.D. LAB BLOOD ADD-ON Performing Organization Address City/[facility]/ZIP Code Phon e Number [facility] - [address] [place], [place] [address] [facility] [place] [place] [address] Laboratories-[facility] [address] CRP (C-Reactive Protein) (10/22/2020 9:45 AM ACCOUNTS RECEIVABLE SUPERVISOR) athologist Signature C-Reactive 6.8 <=8.0 mg/L 10/22/2020 DTL Protein (CRP), 11:14 AM ACCOUNTS RECEIVABLE SUPERVISOR S Specimen Anatomical Collection Method Collection Time Receive d Time (Source) Location / / Volume Laterality Blood (Blood, 10/22/2020 9:45 AM 10/23/19 Venous) ACCOUNTS RECEIVABLE SUPERVISOR 10:10 AM ACCOUNTS RECEIVABLE SUPERVISOR Steve Jefferson Ch.B., M.D. LAB BLOOD ADD-ON Performing Organization Address City/State/ZIP Code Phon e Number [facility] - [address] [place], [place] [address] [facility] [place], [place] [address] [place] [address] LD (Lactate Dehydrogenase) (10/22/2020 9:45 AM ACCOUNTS RECEIVABLE SUPERVISOR) Analysis Performed At Patho logist Time Signature Lactate 165 122 - 222 10/22/2020 DTL Dehydrogenase U/L 11:14 AM ACCOUNTS RECEIVABLE SUPERVISOR (LD), S Specimen Anatomical Collection Method Collection Time Receive d Time (Source) Location / / Volume Laterality Blood (Blood, 10/22/2020 9:45 AM 10/23/19 Venous) ACCOUNTS RECEIVABLE SUPERVISOR 10:10 AM ACCOUNTS RECEIVABLE SUPERVISOR Steve Jefferson Ch.B., M.D. LAB BLOOD NON ADD-O N Performing Organization Address City/[facility] Code Phon e Number [facility] - [address] [place], [place] [address] [facility] [place], [place] [address] [place] [address] Iron and Total Iron-Binding Capacity (10/22/2020 9:45 AM ACCOUNTS RECEIVABLE SUPERVISOR) P athologist Signature Iron 92 50 - 150 10/22/2020 DTL mcg/dL 11:14 AM ACCOUNTS RECEIVABLE SUPERVISOR Total Iron 275 250 - 400 10/22/2020 DTL Binding Capacity mcg/dL 11:14 AM ACCOUNTS RECEIVABLE SUPERVISOR Percent 33 14 - 50 % 10/22/2020 DTL Saturation 11:14 AM ACCOUNTS RECEIVABLE SUPERVISOR Specimen Anatomical Collection Method Collection Time Receive d Time (Source) Location / / Volume Laterality Blood (Blood, 10/22/2020 9:45 AM 10/23/19 Venous) ACCOUNTS RECEIVABLE SUPERVISOR 10:10 AM ACCOUNTS RECEIVABLE SUPERVISOR Steve Jefferson Ch.B., M.D. LAB BLOOD ADD-ON Performing Organization Address City/State/ZIP Code Phon e Number [facility] - [address] [place], [place] [address] [facility] [place], [place] [id number] [place] [address] (ABNORMAL) Monoclonal Gammopathy Screen (10/22/2020 9:45 AM ACCOUNTS RECEIVABLE SUPERVISOR) [facility] Method Time Signature Total Protein, 7.2 6.3 - 7.9 10/22/2020 [facility] S g/dL 1:38 PM ACCOUNTS RECEIVABLE SUPERVISOR [place] Free 2.00 (H) 0.3300 - 10/22/2020 [facility] Light Chain, S 1.94 5:39 PM ACCOUNTS RECEIVABLE SUPERVISOR mg/dL Lambda Free 2.59 0.5700 - 10/22/2020 [facility] Light Chain, S 2.63 5:39 PM ACCOUNTS RECEIVABLE SUPERVISOR mg/dL [place]/Lambda 0.7722 0.2600 - 10/22/2020 [facility] FLC Ratio 1.65 5:39 PM ACCOUNTS RECEIVABLE SUPERVISOR Albumin 3.5 3.4 - 4.7 10/25/2020 [facility] g/dL 10:59 AM ACCOUNTS RECEIVABLE SUPERVISOR Alpha-1 0.3 0.1 - 0.3 10/25/2020 [facility] Globulin g/dL 10:59 AM ACCOUNTS RECEIVABLE SUPERVISOR Alpha-2 1.1 (H) 0.6 - 1.0 10/25/2020 [facility] Globulin g/dL 10:59 AM ACCOUNTS RECEIVABLE SUPERVISOR Beta-Globulin 1.1 0.7 - 1.2 10/25/2020 [facility] g/dL 10:59 AM ACCOUNTS RECEIVABLE SUPERVISOR Gamma-Globulin 1.2 0.6 - 1.6 10/25/2020 [facility] g/dL 10:59 AM ACCOUNTS RECEIVABLE SUPERVISOR A/G Ratio 0.94 10/25/2020 [facility] 10:59 AM ACCOUNTS RECEIVABLE SUPERVISOR Impression No apparent monoclonal protein on serum electrophoresi s. 10/25/2020 [facility] See Isotype. 10:59 AM ACCOUNTS RECEIVABLE SUPERVISOR M-protein No monoclonal 10/26/2020 [facility] Isotype protein 3:50 PM ACCOUNTS RECEIVABLE SUPERVISOR MALDI-TOF MS detected by isotyping. Abnormal Free [...] and its performa nce characteristics determined by [facility] in a manner consistent with CLIA requirements. This test has not been cleared or approved by the U.S. Sin d and Drug Administration. Specimen Anatomical Collection Method Collection Time Receive d Time (Source) Location / / Volume Laterality Blood (Blood, 10/22/2020 9:45 AM 10/23/19 1:24 Venous) ACCOUNTS RECEIVABLE SUPERVISOR PM ACCOUNTS RECEIVABLE SUPERVISOR Narrative [facility] SUPPORT KIRT R - 10/26/2020 3:50 PM ACCOUNTS RECEIVABLE SUPERVISOR Specimen Information: Specimen ID: [id number] Specimen Type: Blood Specimen Collection Start Date: ??9:45 AM Specimen Received Date: 10/22/2020 ??1:24 PM Specimen ID: [id number] Specimen Type: Blood Specimen Collection Start Date: ??9:45 AM Specimen Received Date: 10/22/2020 12:24 PM Steve Jefferson Ch.B., MNoble LAB BLOOD ADD-ON Performing Organization Address City/[facility] Code Phon e Number [facility] [address] [place], [place] [address] SUPPORT [facility] [place] [address] Laboratory Medicine and Pathology [address] [place] [address] Dr. CASTREJON Parathyroid Hormone (PTH) (10/22/2020 9:45 AM ACCOUNTS RECEIVABLE SUPERVISOR) P athologist Signature Parathyroid 52 15 - 65 10/22/2020 [facility] Hormone (PTH), S pg/mL 11:14 AM ACCOUNTS RECEIVABLE SUPERVISOR Specimen Anatomical Collection Method Collection Time Receive d Time (Source) Location / / Volume Laterality Blood (Blood, 10/22/2020 9:45 AM 10/23/19 Venous) ACCOUNTS RECEIVABLE SUPERVISOR 10:10 AM ACCOUNTS RECEIVABLE SUPERVISOR Steve Jefferson, Laurie, MNoble LAB BLOOD ADD-ON Performing Organization Address City/[facility]/ZIP Code Phon e Number [facility] - [facility] [place], [place] [address] [facility] [place] [place] [address] Laboratories-[facility] [address] [facility] (ABNORMAL) Comprehensive Metabolic Panel (10/22/2020 9:45 AM ACCOUNTS RECEIVABLE SUPERVISOR) Analysis Performed At Patho logist Time Signature Potassium, S 4.2 3.6 - 5.2 10/22/2020 [facility] mmol/L 10:46 AM ACCOUNTS RECEIVABLE SUPERVISOR Sodium, S 141 135 - 145 10/22/2020 [facility] mmol/L 10:46 AM ACCOUNTS RECEIVABLE SUPERVISOR Chloride, S 101 98 - 107 10/22/2020 [facility] mmol/L 10:46 AM ACCOUNTS RECEIVABLE SUPERVISOR Bicarbonate, S 28 22 - 29 10/22/2020 [facility] mmol/L 10:46 AM ACCOUNTS RECEIVABLE SUPERVISOR Anion Gap 12 7 - 15 10/22/2020 [facility] 10:46 AM ACCOUNTS RECEIVABLE SUPERVISOR BUN (Blood Urea 25 (H) 8 - 24 10/22/2020 [facility] Nitrogen), S mg/dL 10:46 AM ACCOUNTS RECEIVABLE SUPERVISOR Creatinine 1.63 (H) 0.74 - 10/22/2020 [facility] 1.35 mg/dL 10:46 AM ACCOUNTS RECEIVABLE SUPERVISOR eGFR-Non 43 (L) >=60 10/22/2020 [facility] Black/ mL/min/BSA 10:46 AM ACCOUNTS RECEIVABLE SUPERVISOR [place] Comment: ----ADDITIONAL INFORMATION---- Estimated GFR calculated using the 2009 CKD_EPI creatinine equation. eGFR-Black/ 50 (L) >=60 mL/min/BSA 2020 10:46 AM ACCOUNTS RECEIVABLE SUPERVISOR DTL Comment: ----ADDITIONAL INFORMATION---- Estimated GFR calculated using the 2009 CKD_EPI creatinine equation. Calcium, Total, S 10.0 8.8 - 10.2 mg/dL 10/22/2020 10:4 6 AM ACCOUNTS RECEIVABLE SUPERVISOR DTL Glucose, S 115 70 - 140 mg/dL 10/22/2020 10:46 AM ACCOUNTS RECEIVABLE SUPERVISOR DTL Protein, Total, S 7.4 6.3 - 7.9 g/dL 10/22/2020 10:46 AM ACCOUNTS RECEIVABLE SUPERVISOR DTL Albumin, S 4.4 3.5 - 5.0 g/dL 10/22/2020 10:46 AM ACCOUNTS RECEIVABLE SUPERVISOR DTL Aspartate Aminotransferase 23 8 - 48 U/L 10/22/2020 1 0:46 AM ACCOUNTS RECEIVABLE SUPERVISOR DTL (AST), S Alkaline Phosphatase, S 92 40 - 129 U/L 10/22/2020 10 :46 AM ACCOUNTS RECEIVABLE SUPERVISOR DTL Alanine Aminotransferase (ALT), 31 7 - 55 U/L 021 10:46 AM ACCOUNTS RECEIVABLE SUPERVISOR DTL S Bilirubin, Total, S 0.4 <=1.2 mg/dL 10/22/2020 10:46 A M ACCOUNTS RECEIVABLE SUPERVISOR DTL Specimen Anatomical Collection Method Collection Time Receive d Time (Source) Location / / Volume Laterality Blood (Blood, 10/22/2020 9:45 AM 10/23/19 21 Venous) ACCOUNTS RECEIVABLE SUPERVISOR 10:08 AM ACCOUNTS RECEIVABLE SUPERVISOR Steve Jefferson Ch.B., M.D. LAB BLOOD ADD-ON Performing Organization Address City/State/ZIP Code Phon e Number [facility] - [address] [place], [place] [address] [facility] [place] [address] Laboratories-[facility] [address] documented in this encounter Visit Diagnoses Diagnosis Chronic Kidney Disease (CKD), Stage 3 Un specified (HCC) - Primary Chronic Kidney Disease (CKD), Stage 3a G lomerular Filtration Rate (GFR) 45 To 59 (HCC) Hypertension Essential Primary Stroke Cerebrovascular Accident Personal History Kidney Disorder Dissection Of Thoracic Aorta Unspecified (HCC) Obesity Body Mass Index 30-39.9 Adult Hyperlipidemia Atherosclerotic Heart Disease Of [place] Coronary Artery Without Angina Pectoris Thoracic Aortic Aneurysm Without Rupture Unspecified (HCC) Stroke Cerebrovascular Accident Personal History Hypertension 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) Chronic Kidney Disease (CKD), Stage 3 Un specified (HCC) Stroke Cerebrovascular Accident Personal History Hypertension 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
--- OUTSIDE RECORDS SUMMARY | 2022-06-10 10:54 | XMS_ITS | Encounter Summary ---
:1955 Author Organization [facility] Address [address] [place] [address] Care Team Providers Name Role Phone Elsewhere, Pcp Primary Care Provider Unavailable Reason for Referral Outpatient (Routine) - Closed Specialty Diagnoses / Procedures Referred By Contact Refer red To Contact Ophthalmology Masoud Veliz O. D. [facility] [address] [place] [phone] Referral ID Status Reason Start Date Expiration Date Visits Requ ested Visits Authorized [id number] Closed 09/01/2020 09/01/2021 1 1 Scheduling Instructions with TY CLEANER Outpatient (Routine) - Closed Specialty Diagnoses / Procedures Referred By Contact Refer red To Contact Diagnoses Masoud Al O.D. [facility] Procedures Corneal Pachymetry - OU - Both Eyes [address] [place] [phone] Referral ID Status Reason Start Date Expiration Date Visits Requ ested Visits Authorized [id number] Closed 09/01/2020 09/01/2021 1 1 CLEANER Reason for Visit Reason Comments Eye Exam Outpatient (Routine) - Closed Specialty Diagnoses / Procedures Referred By Contact Refer red To Contact Ophthalmology Diagnoses Glaucoma Softing Kaylen Reina [place] O.DJaleel [address] [place] [phone] Referral ID Status Reason Start Date Expiration Date Visits Requ ested Visits Authorized [id number] Closed 11/03/2019 11/02/2020 1 1 Encounter Details Date Type Department Care Team Description 09/01/2020 Office Visit Department of Ophthalmology Rajan Veliz, Glaucoma in [facility] betzaida O.D. [address] [place] [address] [place], [place] [phone] (Wo rk) Social History Tobacco Use Types [...] containing 4 or more times a w [place] 12/18/2020 alcohol? How many drinks containing alcohol [...] or relatives? How often do you attend mormon or sabianism Never 09/20/2019 services? Do you belong to any clubs or organizations Yes 12/18/2020 such as mormon groups, unions, fraternal or athletic groups, or [...] have completed or the highest Rufus, MEd, MATTRESS STUFFER, SHON) degree you have received? Sex Assigned at Date Recorded Male 03/19/2018 11:46 AM CDT documented as of this encounter Progress Notes Masoud Veliz O.D. - 09/01/2020 2:15 PM CST #1 Glaucoma suspect based on large cup/disc ONH photos 2020 stable vs 2018 family hx - grandfather OCT rnfl 08/2020 good ss; no gpa right - wnl left - thin inf VF 08/2020 -right scatter; left full; no gpa Impression / Plan IOP acceptable for now both 20, 23 cont observation off glaucoma meds discussed potential tx for left in future 6 mo va ta vf oct dilation pach #2 Refractive disorder cont rx OCT macula cirrus 08/2020 - wnl both CLEANER documented in this encounter Plan of Treatment Upcoming Encounters Date Type Specialty Care Team Description 06/21/2022 Clinical Communication Admitting/Central Scheduling 06/22/2022 Comprehensive Visit Rheumatology Clemente Mario M.B.B.S. [address] [place] [address] 08/03/2022 Comprehensive Visit Dermatology Jignesh Leonard M.D. [address] [place] [phone] Scheduled Orders Name Type Priority Associated Diagnoses Order S chedule Corneal Pachymetry - Ophthalmology Routine Glaucoma Expect ed: OU - Both Eyes 03/01/2021 (Approximate), Expires: 2023 Scheduled Referrals Name Type Priority Associated Order Schedule Diagnoses Ophthalmology office Outpatient Referral Routine Expected: visit (clinic) 03/01/2021 (Approximate), Expires: 09/01/2023 documented as of this encounter Results Optical Coherence Tomography (OCT) - Optic Nerve - OU - Both Eyes (10/14/2021 2:31 PM SACK CLEANER) Specimen (Source) Anatomical Location Collection Method / Collectio n Time Received Time / Laterality Volume Narrative OPHTHALMOLOGY IMAGING EXAM - 10/14/19 3:11 PM SACK CLEANER OCT device used was Cirrus . Right Eye Reliability was good. Left Eye Reliability was good. Notes See note for results. Masoud Veliz O.D. OPHTH TOMOGRAPHY Performing Organization Address City/State/ZIP Code Phon e Number OPHTHALMOLOGY IMAGING EXAM Automated VF - Extended - OU - Both Eyes (10/14/2021 12:42 PM SACK CLEANER) Specimen (Source) Anatomical Location Collection Method / Collectio n Time Received Time / Laterality Volume Narrative OPHTHALMOLOGY IMAGING EXAM - 10/14/19 3:11 PM SACK CLEANER Right Eye Automated visual field device used was Z eiss. Strategy was CHIARA. Threshold was 24-2. Left Eye Automated visual field device used was Z eiss. Strategy was CHIARA. Threshold was 24-2. Notes See note for results. Masoud Veliz O.D. OPHTH VISUAL FIELD Performing Organization Address City/State/ZIP Code Phon e Number OPHTHALMOLOGY IMAGING EXAM documented in this encounter Visit Diagnoses Diagnosis Glaucoma Glaucoma Glaucoma documented in this encounter Care Teams Wind Energy Mechanic Relationship Specialty Start Date End Date Elsewhere, Pcp PCP - General Family Medicine 02/13/18 documented as of this encounter
--- OUTSIDE RECORDS SUMMARY | 2022-06-10 10:54 | XMS_ITS | Encounter Summary ---
:1955 Author Organization [facility] Address [address] [place] [address] Care Team Providers Name Role Phone Elsewhere, [...] containing 4 or more times a w [place] 12/18/2020 alcohol? How many drinks containing alcohol [...] or relatives? How often do you attend hoahaoism or zoroastrian Never 09/20/2019 services? Do you belong to any clubs or organizations Yes 12/18/2020 such as hoahaoism groups, unions, fraternal or athletic groups, or [...] have completed or the highest Rufus, MEd, EXECUTIVE OFFICE MANAGER, SHON) degree you have received? Sex Assigned at Date Recorded Male 03/19/2018 11:46 AM CDT documented as of this encounter Plan of Treatment Upcoming Encounters Date Type Specialty Care Team Description 06/21/2022 Clinical Communication Admitting/Central Scheduling 06/22/2022 Comprehensive Visit Rheumatology Clemente Mario M.B.B.S. [address] [place] [address] 08/03/2022 Comprehensive Visit Dermatology Jignesh Leonard M.D. [address] [place] [address] documented as of this encounter Procedures Procedure Name Priority Date/Time Associated Comments Diagnosis OPHTHALMOLOGY IMAGE Routine 09/01/2020 12:50 Resu lts for this EXAM PM POULTRY KILLER procedure are i n the results section. documented in this encounter Results Visual Jean (VF) SFA-Ophthalmology Image Exam (09/01/2020 12:50 PM POULTRY KILLER) Specimen (Source) Anatomical Collection Method Collection Time Re ceived Time Location / / Volume Laterality 09/01/2020 12:46 PM POULTRY KILLER Narrative [facility] - 09/01/2020 12:58 PM POULTRY KILLER This order has been created and auto-finalized [...] on filedocumented in this encounter Care Teams Cancellation Clerk Relationship Specialty Start Date End Date Elsewhere, Pcp PCP - General Family Medicine 02/13/18 documented as of this encounter
--- OUTSIDE RECORDS SUMMARY | 2022-06-10 10:54 | XMS_ITS | Encounter Summary ---
:1955 Author Organization [facility] Address [address] [place] [id number] Care Team Providers Name Role Phone Elsewhere, Pcp Primary Care Provider Unavailable Reason for Referral MRI/CAT/PET Scan (Routine) - Closed Specialty Diagnoses / Procedures Referred By Contact Refer red To Contact Radiology Diagnoses Kidney Disorder Romy Voss M.D. [facility] Procedures MR Brain without and with IV Contrast MR Brain without IV Contrast [place] MRI BRAIN WO CNTRST HC MRI BRAIN WO CNTRST [address] [place] [phone] Referral ID Status Reason Start Date Expiration Date Visits Requ ested Visits Authorized [id number] Closed 10/13/2020 10/13/2021 1 1 utpatient (Routine) - Closed Specialty Diagnoses / Procedures Referred By Contact Refer red To Contact Neurology Romy Voss M.D . 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 [facility] Procedures MR Neck Angiogram without and with IV Contrast [address] [place], [place] [phone] Referral ID Status Reason Start Date Expiration Date Visits Requ ested Visits Authorized [id number] Closed 10/13/2020 10/13/2021 1 1 GER AGRIC[employer]URE MRI/CAT/PET Scan (Routine) - Closed Specialty Diagnoses / Procedures Referred By Contact Refer red To Contact Radiology Diagnoses Stroke Cerebrovascular Accident Personal History Romy Voss M.D. 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 [facility] Procedures ECG Heart rhythm monitor (Holter) [address] [place], [place] [phone] Referral ID Status Reason Start Date Expiration Date Visits Requ ested Visits Authorized [id number] Closed 10/13/2020 10/13/2021 1 1 GER AGRIC[employer]URE Reason for Visit Reason Comments Pre-visit Intake intkae complete 10/12 Appointment Request (Routine) - Closed Specialty Diagnoses / Procedures Referred By Contact Refer red To Contact Neurology Diagnoses Abnormal Magnetic Resonance Imaging Referral ID Status Reason Start Date Expiration Date Visits Requ ested Visits Authorized [id number] Closed 10/07/2020 10/07/2021 1 1 Encounter Details Date Type Department Care Team Description 10/13/2020 Comprehensive Visit Department of Lisa Voss Essential Primary (Primary Dx); Neurology in [place] Stroke Cerebrovascular Accident Personal History; [place] [id number] Kidney Disorder ; [facility] Dissecting Aneurysm Thoracic Aortic (HCC ) [address] [facility] [phone] Social History Tobacco Use Types Packs/Day Years [...] containing 4 or more times a w [place] 12/18/2020 alcohol? How many drinks containing alcohol [...] How often do you attend [facility] or oriental orthodox Never 09/20/2019 services? Do you belong [...] to sleep or slept in a senior living (including now)? Education Answer Date Recorded What is the highest level of school Master's degree (e.g., M A, MS, 09/20/2019 you have completed or the highest Rufus, MEd, GARDENING SUPERVISOR, SHON) degree you have received? Sex Assigned at Date Recorded Male 03/19/2018 11:46 AM CDT documented as of this encounter Last Filed Vital Signs Vital Sign Reading Time Taken Comments Blood Pressure - - Pulse - - Temperature 36.6 ??C (97.9 ??F) 10/13/2020 7:15 AM MANAGER AGRIC[employer] Respiratory Rate - - Oxygen Saturation - - Inhaled Oxygen Concentration - - Weight 98.8 kg (217 lb 13 oz) 10/13/2020 7:15 AM MANAGER AGRIC[employer]URE Height 173 cm (5' 8.11) 10/13/2020 7:15 AM MANAGER AGRICULTURE Body Mass Index 33.01 10/13/2020 7:15 AM MANAGER AGRIC[employer]URE documented in this encounter Consult Notes Romy Voss M.D. - 10/13/2020 7:30 AM CST SUBJECTIVE REASON FOR CONSULT Mr. 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 HISTORY OF PRESENT ILLNESS He has a history of a type B aortic dissection which occurred in December of 2014 in setting of uncontrolled hypertension, managed at [facility] in [place]. The initial dissection began in the left subclavian and extended to the renal arteries, with the proximal descending artery reportedly measuring at 4.7 cm. On 01/15/2014, he underwent a left zyakeef-ig-esxnyuignf bypass and endovascular stent repairof the arch to the distal descending thoracic aorta. Endovascular stenting was complicated by intimal flap embolization and occlusion of the aorta at the iliac bifurcation. This required open repair with aortobiiliac bypass with Dacron graft. The postoperative course was complicated by an acute kidney injury and over time, he has had elevation of his creatinines, with a most recent creatinine of 1.77. In February of 2018, he presented with abdominal pain and was ultimately discovered to have cecal diverticulitis. He was also found to have pseudogout of the left elbow at that time. He was tested for connective tissue disease with a negative genetic testing and benign family history. He was evaluated by Dr. Charles as well, and has done well over the last few years, although in June of 2020, his blood pressures were high and he underwent adjustment of his antihypertensive medications with the addition of spironolactone to his regimen of hydrochlorothiazide, carvedilol and enalapril. This was stopped due 2 low readings of 100/50s. He persisted to have occasional orthostatic lightheadedness. On the morning of September 18, 2020, he had a THC brownie. In the evening, he was lying in the recliner andhad fallen asleep. His had already retired and when he woke up, he got out of their recliner and fell face down hard on the hardwood floor. His heard a thump and went, and noticed that he wasface down and snoring loudly but unresponsive for approximately 2 minutes to her shouting. She pushed him on his side and he then woke up. She did not call an EMT. He then went to bed and the followingday, awoke with a severe frontal vertex headache. He also had evidence for a contusion in his frontal area and bruising on his head. His comments that the furniture was quite sharp and pointy and that he may have hit his head on this during his fall. He was evaluated on September 22 by the primary care provider who discussed blood pressure control in relation to his presumptive syncopal episode.He and his forgot to mention his persistent headache, but when they did, she advised an MRI, which was done on October 07, 2020. He was using Tylenol, Aleve and Advil for headache. The MRI demonstrated a 4.2- x 2.7 x 3.2-cm hyperintense inferior left frontal lobe area of contusion with diffusionrestriction, hyperintense on ADC map with an adjacent vasogenic edema area consistent with a hemorrhagic contusion. A small amount of subarachnoid blood products were also seen along the left frontal convexity. There was a smaller 1.9 x 1.4 x 1.7 area of hyperintensity with similar characteristics consistent with a hemorrhagic contusion. Abnormal diffusion signal in the right basal ganglia without res tricted diffusion. A 7-mm subdural hygroma on the right hemisphere and a 2-mm subdural hygroma alongthe left hemisphere without significant mass effect. These findings were consistent with late subacute hemorrhagic bifrontal contusions, left greater than right, with bilateral traumatic hemispheric subdural hygromas, 7 mm on the right and 2 mm on the left, with no significant mass effect on adjacent brain parenchyma. 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 Since that time, his headaches have resolved. His blood pressures have been stable around 115s/60s. He was on 325 mg of aspirin at the time of the fall, and is currently taking baby aspirin. He still gets orthostatic lightheadedness. He had 1 episode shortly following the fall where his legs felt somewhat wobbly while standing, and his gradually helped lower him to the floor. No clear evidence of seizure activity. No alteration of sensorium, no change in cognition or personality, although he has had reduced energy and endurance. He underwent recent laboratory testing revealing a normal PT, PTT, normal chemistries with the exception of a creatinine of 1.77 on 10/07/2020, up from 1.55 on 09/20, but this was 1.75 on 07/07/2020, upfrom 1.32 on 05/21/2020. His hemoglobin was 13.0 on 10/07/2020, but up from 10.9 on 02/21/2018, duringthe time that he was being evaluated for abdominal pain. His LDL was 122 on 09/20/2020, and he is on statin therapy, atorvastatin 80 mg. He admits to having had some syncopal spells in childhood a couple of times when sitting in [facility], but no episodes recently. He denies a history of atrial fibrillation, coronary artery disease, other than above-described, and congestive heart failure. He has sleep apnea and is compliant on CPAP. He has treated hypertension and treated hyperlipidemia. He has chronic kidney disease, and is concerned that his creatinines are increasing, and requested specifically an appointment with Nephrology. He is a remote reformed smoker (5 years, having quit in 1971). His most recent available transthoracic echocardiogram was on 04/30/2019, demonstrating a normal left ventricular size, moderately increased wall thickness, normal global systolic function with an ejection fraction of 55% to 60%, moderate basal septal left ventricular hypertrophy, and a dilated ascending aorta (3.8 cm, and aortic sinus 3.8 cm maximal diameter). His is still somewhat concerned about him driving and returning to full activities. He has never had any prior headaches or intracranial hemorrhages, or history to suggest sentinel bleed. The following portions of the patient's history were reviewed and updated as appropriate: allergies,current medication, family history, medical history, surgical history, social history, problem list. OBJECTIVE PHYSICAL EXAMINATION Neurologic: The neurologic exam reveals an alert, oriented gentleman with an intact cranial nerve and neurovascular exam. Strength and tone are normal throughout. Deep tendon reflexes are symmetric, and plantar responses are downgoing bilaterally. Gait and coordination are intact. ASSESSMENT / PLAN #1 Status post traumatic bilateral bifrontal, left greater than right, hemorrhagic contusions and bilateral, right greater than left, subdural hematomas without associated significant mass effect He has not had imaging since his fall. He is currently asymptomatic. I have ordered a followup MRI/MRA of the head and neck to exclude vascular pathology, dissection, etc., and to assure that his hematomas are resorbing and evolving as expected. #2 Orthostatic hypotension I suspect that the syncopal spell leading to the above fall and traumatic hemorrhages was on the basis of an orthostatic syncopal episode rather than another primary etiology but for completeness, I have ordered autonomic testing and an EEG. #3 Chronic kidney disease He has concerns about his increase in creatinine and wishes to see Nephrology if time permits. I have also ordered ambulatory blood pressure monitor, 6-hour, in preparation for this assessment. #4 Status post type B aortic dissection, left sqbxica-oy-wrqwhxjsky bypass, arch to distal descending aorta endovascular repair and aortobiiliac bypass graft I have ordered a Holter monitor and a cardiovascular followup to assure that there is no propensity for cardiac dysrhythmia, which may have precipitated his spell, and as followup for his aortic dissection. I defer to Cardiology as to whether a repeat echo is indicated at this time. I will review his study results when complete. Romy Voss M.D. CT CT Job ID: [id number]/[id number] [employer] documented in this encounter Plan of Treatment Upcoming Encounters Date Type Specialty Care Team Description 06/21/2022 Clinical Communication Admitting/Central Scheduling 06/22/2022 Comprehensive Visit Rheumatology Clemente Mario M.B.B.S. [address] [place] [phone] 08/03/2022 Comprehensive Visit Dermatology Jignesh Leonard M.D. [address] [place] [phone] Scheduled Referrals Name Type Priority Associated Diagnoses Order S chedule Nephrology and Outpatient Routine Stroke 1 Occurrences Hypertension - Referral Cerebrovascular starting Chronic kidney Accident Personal 10/13/19 21 until disease consult History 10/13/2023 (clinic) Kidney Disorder Hypertension Essential Primar y Dissecting Aneurysm Thoracic Aortic (HCC) Cardiovascular Outpatient Routine Stroke Expected: Disease - General Referral Cerebrovascular 021 cardiology consult Accident Personal (Nicole roximate), (clinic) History Expires: Kidney Disorder 10/13/2023 Hypertension Essential Primar y Dissecting Aneurysm Thoracic Aortic (HCC) Neurology office Outpatient Routine 1 Occurrenc es visit (clinic) Referral starting 10/15/2020 unti l 10/13/2023 documented as of this encounter Results EEG routine - awake and sleep (10/22/2020 1:01 PM MANAGER [employer]GRIC[employer]URE) Specimen (Source) Anatomical Location Collection Method / Collectio n Time Received Time / Laterality Volume Narrative MMODAL - 10/22/2020 3:02 PM MANAGER AGRICULTURE CLINICAL INTERPRETATION Normal EEG during wakefulness and [...] Code Phon e Number MMODAL MMODAL NA NEP Blood pressure check 6 hr (10/22/2020 7:51 AM MANAGER AGRICULTURE) Specimen (Source) Anatomical Location Collection Method / Collectio n Time Received Time / Laterality Volume Narrative This result has an attachment that is no t available. Romy Voss M.D. PFT ORDERABLES Performing Organization Address City/State/ZIP Code Phon e Number MMODAL MR Brain without and with IV Contrast (10/15/2020 6:28 PM MANAGER AGRICULTURE) Anatomical Region Laterality Modality Head, Brain, Neuroradiology RST LOS, Neuroradiology ARConrado N/A Magnetic Resonance LOS, Neuroradiology FLA [facility] Specimen (Source) Anatomical Collection Method Collection Time Re ceived Time Location / / Volume Laterality 10/18/2020 9:10 AM MANAGER AGRICULTURE Impressions 10/18/2020 9:59 AM MANAGER AGRICULTURE 1. Slight decrease in size of the bifrontal posttraumatic hematomas. Bilateral subdural hygromas are slightly decreased on the right and slightly increased on the left. 2. Unremarkable head MRA. 3. Neck MRA with findings related to typ e B aortic dissection with endovascular graft. 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 Narrative 10/18/2020 9:59 AM MANAGER AGRICULTURE EXAM: MR BRAIN ANGIOGRAM WITHOUT IV CONTRAST, [...] and with IV Contrast (10/15/2020 6:28 PM MANAGER AGRICULTURE) Anatomical Region Laterality Modality Neck, Neuroradiology RST LOS, Neuroradiology ARZ LOS, N/A Magnetic Resonance Neuroradiology [facility] Specimen (Source) Anatomical Collection Method Collection Time Re ceived Time Location / / Volume Laterality 10/18/2020 9:10 AM MANAGER AGRICULTURE Impressions 10/18/2020 9:59 AM MANAGER AGRICULTURE 1. Slight decrease in size of the bifrontal posttraumatic hematomas. Bilateral subdural hygromas are slightly decreased on the right and slightly increased on the left. 2. Unremarkable head MRA. 3. Neck MRA with findings related to typ e B aortic dissection with endovascular graft. 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 Narrative 10/18/2020 9:59 AM MANAGER AGRICULTURE EXAM: MR BRAIN ANGIOGRAM WITHOUT IV CONTRAST, [...] Angiogram without IV Contrast (10/15/2020 6:28 PM MANAGER AGRICULTURE) Anatomical Region Laterality Modality Head, Brain, Neuroradiology RST LOS, Neuroradiology ARZ N/A Magnetic Resonance LOS, Neuroradiology FLA LOS Specimen (Source) Anatomical Collection Method Collection Time Re ceived Time Location / / Volume Laterality 10/18/2020 9:10 AM MANAGER AGRICULTURE Impressions 10/18/2020 9:59 AM MANAGER AGRICULTURE 1. Slight decrease in size of the bifrontal posttraumatic hematomas. Bilateral subdural hygromas are slightly decreased on the right and slightly increased on the left. 2. Unremarkable head MRA. 3. Neck MRA with findings related to typ e B aortic dissection with endovascular graft. 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 Narrative 10/18/2020 9:59 AM MANAGER AGRICULTURE EXAM: MR BRAIN ANGIOGRAM WITHOUT IV CONTRAST, [...] right vertebral artery. Romy RAYMUNDO MRI PROCEDURES Autonomic reflex Screen (10/15/2020 2:02 PM MANAGER AGRICULTURE) Specimen (Source) Anatomical Collection Method Collection Time Re ceived Time Location / / Volume Laterality 10/15/2020 2:00 PM MANAGER AGRICULTURE Narrative MC KASSANDRA AUTO - 10/18/2020 9:29 AM MANAGER AGRICULTURE FINAL ? REPORT ? AUTONOMIC REFLEX SCREEN ? [phone] ? A ge: 65 ?Location: [facility] ? Lab #: [id number] [place] Sanches ?Sex: M ? Order ID: [id number] ? Date: 10/15/2020 : 1955 Autonomic Asset Analyst: Evans Taylro M.D. ([id number]) ?CONCLUSION Abnormal study. There is evidence of [...] to the Valsalva maneuver were reduced. (B) Nolb-[id number] blood pressure response s to the Valsalva [...] Code Phon e Number MC KASSANDRA AUTO HOLTER MONITOR - IN CLINIC JOCKEY ROOM CUSTODIAN (10/13/2020 8:46 AM MANAGER AGRICULTURE) [employer] Method Time Signature SVE Max Per 8 count HOLTER Hour SENTINEL VE Total Beats 8 count HOLTER SENTINEL SVE Percent 0 percent HOLTER Beats SENTINEL VE Max Per [id number] HOLTER Hour Time SENTINEL AF Count 0 count HOLTER SENTINEL Min Heart Rate 65 bpm HOLTER SENTINEL Analysis Date 210,226 HOLTER SENTINEL SVE Max Per [id number] HOLTER Hour Time SENTINEL Max Heart Rate [id number] HOLTER Time SENTINEL VE Max Per 2 count HOLTER Hour SENTINEL Holter Pauses 0 count HOLTER SENTINEL Mean Heart 74 bpm HOLTER Rate SENTINEL SVE Total 39 count HOLTER Beats SENTINEL Recording Date [id number] HOLTER SENTINEL SVT Max Rate 132 bpm HOLTER SENTINEL VE Percent 0 percent HOLTER Beats SENTINEL Min Heart Rate [id number] HOLTER Time SENTINEL VT Runs 0 count HOLTER SENTINEL Bradycardia 0 count HOLTER Runs SENTINEL SVT Runs 2 count HOLTER SENTINEL Tachycardia 0 count HOLTER Runs SENTINEL Max Heart Rate 100 bpm HOLTER SENTINEL Specimen (Source) Anatomical Collection Method Collection Time Re ceived Time Location / / Volume Laterality 10/13/2020 8:45 AM MANAGER AGRICULTURE Narrative This result has an attachment that is no t available. Romy Voss M.D. 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
--- OUTSIDE RECORDS SUMMARY | 2022-06-10 10:54 | XMS_ITS | Encounter Summary ---
:1955 Author Organization [facility] Address [address] [place] [address] Care Team Providers Name Role Phone Elsewhere, Pcp Primary Care Provider Unavailable Encounter Details Date Type Department Care Team Description 09/01/2020 Ancillary Procedure Department of Phoebeing Glenn Reina Ophthalmology in Kaylen Draper O.D. [place], [place] [address] [facility] [address] [place] [phone] Social History Tobacco Use Types Packs/Day Years [...] containing 4 or more times a w [place] 12/18/2020 alcohol? How many drinks containing alcohol [...] or relatives? How often do you attend nondenominational or rastafari Never 09/20/2019 services? Do you belong to any clubs or organizations Yes 12/18/2020 such as nondenominational groups, unions, fraternal or athletic groups, or [...] have completed or the highest Rufus, MEd, PHARMACY GENERAL MANAGER, SHON) degree you have received? Sex Assigned at Date Recorded Male 03/19/2018 11:46 AM CDT documented as of this encounter Plan of Treatment Upcoming Encounters Date Type Specialty Care Team Description 06/21/2022 Clinical Communication Admitting/Central Scheduling 06/22/2022 Comprehensive Visit Rheumatology Clemente Mario M.B.B.S. [address] [place] [address] 08/03/2022 Comprehensive Visit Dermatology Jignesh Leonard M.D. [address] [place] [address] documented as of this encounter Procedures Procedure Name Priority Date/Time Associated Diagnosis Comme nts FUNDUS PHOTOS - OU Routine 09/01/2020 2:05 PM Glaucoma Res ults for this - BOTH EYES STEEL HANDLER procedure are i n the results section. documented in this encounter Results Fundus Photos - OU - Both Eyes (09/01/2020 2:05 PM STEEL HANDLER) Specimen (Source) Anatomical Location Collection Method / Collectio n Time Received Time / Laterality Volume Narrative OPHTHALMOLOGY IMAGING EXAM - 09/01/19 21 3:11 PM STEEL HANDLER Right Eye Field of view is standard view. Left Eye Field of view is standard view. Notes See note for results. Kaylen Reina O.D. OPHTH PHOTOGRAPHY Performing Organization Address City/State/ZIP Code Phon e Number OPHTHALMOLOGY IMAGING EXAM documented in this encounter Visit Diagnoses Diagnosis Glaucoma documented in this encounter Care Teams Plumber Gasfitter Relationship Specialty Start Date End Date Elsewhere, Pcp PCP - General Family Medicine 02/13/18 documented as of this encounter
--- OUTSIDE RECORDS SUMMARY | 2022-06-10 10:54 | XMS_ITS | Encounter Summary ---
:1955 Author Organization [facility] Address [address] [place] [address] Care Team Providers Name Role Phone Elsewhere, Pcp Primary Care Provider Unavailable Reason for Referral Outpatient (Routine) - Closed Specialty Diagnoses / Procedures Referred By Contact Refer red To Contact Ophthalmology Diagnoses Glaucoma Kaylen French [facility] [address] [place] [phone] Referral ID Status Reason Start Date Expiration Date Visits Requ ested Visits Authorized [id number] Closed 11/03/2019 11/02/2020 1 1 Scheduling Instructions Schedule with glaucoma team Encounter Details Date Type Department Care Team Description 11/03/2019 Orders Only Department of Thomas Reina, Glaucoma (P rimary Dx) Ophthalmology in Kaylen Draper O.D. [place], [place] [address] [place] [address] [place] [phone] Social History Tobacco Use Types Packs/Day Years [...] containing 4 or more times a w [place] 12/18/2020 alcohol? How many drinks containing alcohol [...] or relatives? How often do you attend amish or latter day Never 09/20/2019 services? Do you belong to any clubs or organizations Yes 12/18/2020 such as amish groups, unions, fraternal or athletic groups, or [...] have completed or the highest Rufus, MEd, BEEF GRADER, SHON) degree you have received? Sex Assigned at Date Recorded Male 03/19/2018 11:46 AM CDT documented as of this encounter Plan of Treatment Upcoming Encounters Date Type Specialty Care Team Description 06/21/2022 Clinical Communication Admitting/Central Scheduling 06/22/2022 Comprehensive Visit Rheumatology Clemente Mario M.B.B.S. [address] [place] [address] 08/03/2022 Comprehensive Visit Dermatology Jignesh Leonard M.D. [address] [place] [address] Scheduled Referrals Name Type Priority Associated Order Schedule Diagnoses Ophthalmology - Outpatient Referral Routine Glaucoma Expec nixon: Glaucoma consult 02/03/2020 (clinic) (Approximate), Expires: 11/02/2022 documented as of this encounter Results Fundus Photos - OU - Both Eyes (09/01/2020 2:05 PM PAD TUFTER) Specimen (Source) Anatomical Location Collection Method / Collectio n Time Received Time / Laterality Volume Narrative OPHTHALMOLOGY IMAGING EXAM - 09/01/19 21 3:11 PM PAD TUFTER Right Eye Field of view is standard view. Left Eye Field of view is standard view. Notes See note for results. Kaylen Reina O.D. OPHTH PHOTOGRAPHY Performing Organization Address City/State/ZIP Code Phon e Number OPHTHALMOLOGY IMAGING EXAM Automated VF - Extended - OU - Both Eyes (09/01/2020 12:50 PM PAD TUFTER) Specimen (Source) Anatomical Location Collection Method / Collectio n Time Received Time / Laterality Volume Narrative OPHTHALMOLOGY IMAGING EXAM - 09/01/19 21 3:11 PM PAD TUFTER Right Eye Automated visual field device used [...] Glaucoma documented in this encounter Care Teams Labor Arbitrator Relationship Specialty Start Date End Date Elsewhere, Pcp PCP - General Family Medicine 02/13/18 documented as of this encounter
--- OUTSIDE RECORDS SUMMARY | 2022-06-10 10:54 | XMS_ITS | Encounter Summary ---
:1955 Author Organization [facility] Address [address] [place] [address] Care Team Providers Name Role Phone Elsewhere, [...] containing 4 or more times a w [place] 12/18/2020 alcohol? How many drinks containing alcohol [...] How often do you attend zoroastrian or zoroastrianism Never 09/20/2019 services? Do you [...] have completed or the highest Rufus, MEd, MAINTENANCE TEAM LEADER, SHON) degree you have received? Sex Assigned at Date Recorded Male 03/19/2018 11:46 AM CDT documented as of this encounter Plan of Treatment Upcoming Encounters Date Type Specialty Care Team Description 06/21/2022 Clinical Communication Admitting/Central Scheduling 06/22/2022 Comprehensive Visit Rheumatology Clemente Mario M.B.B.S. [address] [place] [address] 08/03/2022 Comprehensive Visit Dermatology Jignesh Leonard M.D. [address] [place] [address] documented as of this encounter Procedures Procedure Name Priority Date/Time Associated Comments Diagnosis OPHTHALMOLOGY IMAGE Routine 09/01/2020 12:05 Resu lts for this EXAM AM TIMBER RIDER procedure are i n the results section. documented in this encounter Results Eyes Spectralis OCT-Ophthalmology Image Exam (09/01/2020 12:05 AM TIMBER RIDER) Specimen (Source) Anatomical Location Collection Method / Collectio n Time Received Time / Laterality Volume Narrative IIMS - 09/01/2020 2:35 PM TIMBER RIDER This order has been created and auto-finalized [...] on filedocumented in this encounter Care Teams Printer Operator Relationship Specialty Start Date End Date Elsewhere, Pcp PCP - General Family Medicine 02/13/18 documented as of this encounter
--- OUTSIDE RECORDS SUMMARY | 2022-06-10 10:54 | XMS_ITS | Encounter Summary ---
:1955 Author Organization [facility] Address [address] [place] [address] Care Team Providers Name Role Phone Elsewhere, Pcp Primary Care Provider Unavailable Reason for Visit Reason Comments Appointment Encounter Details Date Type Department Care Team Description 10/13/2020 Clinical Communication Department of Reordering Clerk, Nicole samuels Cardiovascular Medicine Kim Vazquez in [facility] betzaida [address] [place] [phone] Social History Tobacco Use Types Packs/Day [...] containing 4 or more times a w [place] 12/18/2020 alcohol? How many drinks containing alcohol [...] or relatives? How often do you attend cheondoism or roman catholic Never 09/20/2019 services? Do you belong to any clubs or organizations Yes 12/18/2020 such as cheondoism groups, unions, fraternal or athletic groups, or [...] have completed or the highest Rufus, MEd, STEMHOLE BORER, SHON) degree you have received? Sex Assigned at Date Recorded Male 03/19/2018 11:46 AM CDT documented as of this encounter Plan of Treatment Upcoming Encounters Date Type Specialty Care Team Description 06/21/2022 Clinical Communication Admitting/Central Scheduling 06/22/2022 Comprehensive Visit Rheumatology Clemente Mario M.B.B.S. [address] [place] [phone] 08/03/2022 Comprehensive Visit Dermatology Jignesh Leonard M.D. [address] [place] [phone] documented as of this encounter Visit Diagnoses Not on filedocumented in this encounter Care Teams Product Support Analyst Relationship Specialty Start Date End Date Elsewhere, Pcp PCP - General Family Medicine 02/13/18 documented as of this encounter
--- OUTSIDE RECORDS SUMMARY | 2022-06-10 10:54 | XMS_ITS | Encounter Summary ---
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 [facility] Procedures ECG Heart rhythm monitor (Holter) [address] [place], [place] [phone] Referral ID Status Reason Start Date Expiration Date Visits Requ ested Visits Authorized [id number] Closed 10/13/2020 10/13/2021 1 1 Encounter Details Date Type Department Care Team Description 10/13/2020 Hospital Encounter Department of Shanika, Hemorrha ge Subarachnoid Nontraumatic (HCC); Cardiovascular Diseases Radha Stanton Nontraumatic Intracerebral Hemorrhage Un specified (HCC); in [place], [facility] well drill operator rotary drill [address] Hypertension Essential Prima ry; [address] SW Dissecting Aneurysm Thoracic Aortic (HCC ) [facility], [address] [place] [phone] Social History Tobacco Use Types Packs/Day Years [...] How often do you attend caodaism or congregational Never 09/20/2019 services? Do you belong to [...] have completed or the highest Rufus, MEd, HOUSING SPECIALIST, SHON) degree you have received? Sex [...] Comprehensive Visit Rheumatology Clemente Mario M.B.B.S. [address] [place] [phone] 08/03/2022 Comprehensive Visit Dermatology Jignesh Leonard M.D. [address] [place] [phone] documented as of this encounter Procedures Procedure Name Priority Date/Time Associated Diagnosis Comme nts HOLTER MONITOR - Routine 10/13/2020 8:46 AM Hemorrhage Resul ts for this IN CLINIC CASE MANAGEMENT RN CLEARANCE DIVER Subarachnoid procedure are in Nontraumatic (HC C) the results Nontraumatic section. 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) documented in this encounter Results HOLTER MONITOR - IN CLINIC CASE MANAGEMENT RN (10/13/2020 8:46 AM CLEARANCE DIVER) [facility] gist Method Time Signature SVE Max Per 8 count HOLTER Hour SENTINEL VE Total Beats 8 count HOLTER SENTINEL SVE Percent 0 percent HOLTER Beats SENTINEL VE Max Per [id number] HOLTER Hour Time SENTINEL AF Count 0 count HOLTER SENTINEL Min Heart Rate 65 bpm HOLTER SENTINEL Analysis Date , HOLTER SENTINEL SVE Max Per [id number] HOLTER Hour Time SENTINEL Max Heart Rate [id number] HOLTER Time SENTINEL VE Max Per 2 count HOLTER Hour SENTINEL Holter Pauses 0 count HOLTER SENTINEL Mean Heart 74 bpm HOLTER Rate SENTINEL SVE Total 39 count HOLTER Beats SENTINEL Recording Date [id number] HOLTER SENTINEL SVT Max Rate 132 bpm HOLTER SENTINEL VE Percent 0 percent HOLTER Beats SENTINEL Min Heart Rate [id number] HOLTER Time SENTINEL VT Runs 0 count HOLTER SENTINEL Bradycardia 0 count HOLTER Runs SENTINEL SVT Runs 2 count HOLTER SENTINEL Tachycardia 0 count HOLTER Runs SENTINEL Max Heart Rate 100 bpm HOLTER SENTINEL Specimen (Source) Anatomical Collection Method Collection Time Re ceived Time Location / / Volume Laterality 10/13/2020 8:45 AM CLEARANCE DIVER Narrative This result has an attachment that [...] (HCC) documented in this encounter Care Teams Precipitator Relationship Specialty Start Date End Date Elsewhere, Pcp PCP - General Family Medicine 02/13/18 documented as of this encounter
--- OUTSIDE RECORDS SUMMARY | 2022-06-10 10:54 | XMS_ITS | Encounter Summary ---
:1955 Author Organization [facility] Address [address] [place] [id number] Care Team Providers Name Role Phone Elsewhere, Pcp Primary Care Provider Unavailable Reason for Referral MRI/CAT/PET Scan (Routine) - Closed Specialty Diagnoses / Procedures Referred By Contact Refer red To Contact Radiology Diagnoses Dissection Of Thoracic Aorta Unspecified (HCC) Hypertension Essential Primary Hyperlipidemia Regurgitation Neema [facility] Procedures CT Chest Abdomen Pelvis Angiogram with IV Contrast M.D. [address] [place] [phone] Referral ID Status Reason Start Date Expiration Date Visits Requ ested Visits Authorized [id number] Closed 09/24/2019 09/23/2020 1 1 NDING ANESTHESIOLOGIST Outpatient (Routine) - Closed Specialty Diagnoses / Procedures Referred By Contact Refer red To Contact Diagnoses Dissection Of Thoracic Aorta Unspecified (HCC) Hypertension Essential Primary Hyperlipidemia Regurgitation Aortic Neema Keane [facility] Procedures ECG 12 Lead M.D. [address] [place], [place] [phone] Referral ID Status Reason Start Date Expiration Date Visits Requ ested Visits Authorized [id number] Closed 09/24/2019 12/21/2020 1 1 NDING ANESTHESIOLOGIST Outpatient (Routine) - Closed Specialty Diagnoses / Procedures Referred By Contact Refer red To Contact Diagnoses Dissection Of Thoracic Aorta Unspecified (HCC) Hypertension Essential Primary Hyperlipidemia Regurgitation Aortic Neema Keane [facility] Procedures Echo Transthoracic (TTE) Kim [address] [place] [address] Referral ID Status Reason Start Date Expiration Date Visits Requ ested Visits Authorized [id number] Closed 09/24/2019 09/23/2020 1 1 NDING ANESTHESIOLOGIST Reason for Visit Outpatient (Routine) - Closed Specialty Diagnoses / Procedures Referred By Contact Refer red To Contact Cardiovascular Disease Agustín Charles [place] M.D. [address] [place] [address] Referral ID Status Reason Start Date Expiration Date Visits Requ ested Visits Authorized [id number] Closed 04/16/2018 04/16/2019 1 1 Encounter Details Date Type Department Care Team Description 09/24/2019 Office Visit Department of Diya, Manda Ane urysm Thoracic Aortic (HCC) (Primary Dx); Cardiovascular Medicine Neema Seymour M.D. 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 How many drinks containing alcohol [...] How often do you attend episcopalian or samaritan Never 09/20/2019 services? Do you belong to [...] place to sleep or slept in a usp (including now)? Education Answer Date Recorded What is the highest level of school Master's degree (e.g., M Mann, MS, 09/20/2019 you have completed or the highest Rufus, MEd, EXTRUSION TECHNICIAN, SHON) degree you have received? Sex Assigned at Date Recorded Male 03/19/2018 11:46 AM CDT documented as of this encounter Last Filed Vital Signs Vital Sign Reading Time Taken Comments Blood Pressure 114/58 09/24/2019 9:37 AM ATTENDING ANESTHESIOLOGIST Pulse 73 09/24/2019 9:37 AM ATTENDING ANESTHESIOLOGIST Temperature - - Respiratory Rate - - Oxygen Saturation 96% 09/24/2019 9:35 AM ATTENDING ANESTHESIOLOGIST Inhaled Oxygen Concentration - - Weight 103 kg (227 lb 1.2 oz) 09/24/2019 9:35 AM ATTENDING ANESTHESIOLOGIST Height 171.2 cm (5' 7.4) 09/24/2019 9:35 AM ATTENDING ANESTHESIOLOGIST Body Mass Index 35.14 09/24/2019 9:35 AM ATTENDING ANESTHESIOLOGIST documented in this encounter Consult Notes Kimberley Mccartney M.D. - 09/24/2019 10:00 AM CST Referring provider: Agustín Charles M.D. Reason for consultation: History of aortic dissection SUBJECTIVE HISTORY OF PRESENT ILLNESS London Sanches is a 64 y.o. male who presents today for follow up evaluation. Mr. 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 He was managed at [facility] in [place]. The initial dissection began at the left subclavian and extended to the renal arteries. The proximal descending artery reportedly measured 4.7 cm. On 01/15/14 the patient had left carotid to subclavian bypass and endovascular stent repair of the arch to distal descending thoracic aorta. Endovascular stenting was complicated by intimal flap embolization and occlusion of the aorta at the iliac bifurcation. Open repair was then required, with aorto bi-iliacbypass with Dacron graft. Post-operative course was complicated by acute kidney injury. In February 2018 the patient presented with abdominal pain, and there was suspicion for appendicitis. Ultimately he was discovered to have cecal diverticulitis. CT imaging at [place] in 2016 demonstrated tortuous and ectatic proximal common iliac arteries. There was concern that these findings might suggest an underlying connective tissue disorder, and the patient was referred to Dr. Charles for further evaluation. He was seen by Dr. Charles and Dr. Cunha in the summer of 2017. There was no clinical evidenceof connective tissue disease, family history was benign, and genetic testing was ultimately performed and was negative. Since his visit with Dr. Charles, Mr. Sanches has overall been well. He had an episode of pseudogoutlast year that has since resolved. Since his residential in 2015 he and his moved from [place] to [place]. 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 Mr. Sanchesenjoys cooking, but acknowledges that they are having a bit too much fun, and he has gained about 15kilograms since his visit with Dr. Charles. He is beginning to feel out of shape but is uncertain howto go about getting back on track. He tells me he tends to be a bit undisciplined. In addition, he was warned against any significant physical activity by his physicians in [place], and so is afraid toexercise. Pre-dissection he exercised daily over his lunch hour on a stationary bike or treadmill and enjoyed weight lifting. He also really enjoys yoga. Since his residential he has not had any regularexercise routine. He finds himself afraid to do any exercise that causes him to sweat, for fear it is too much for this aorta. Notably, Mr. Sanches had a transthoracic echo at home in April 2019 which, by report, demonstrated moderate left ventricular hypertrophy. Those images were also sent to us for review. No hypertrophy is noted on review of the images, and his echo is overall unchanged from prior. See below. REVIEW OF SYSTEMS All other systems reviewed and negative unless noted in HPI. Current Outpatient Medications Medication Sig Dispense Refill ??? aspirin 325 mg tablet Take 325 mg by mouth daily. ??? carvedilol (COREG) 25 mg tablet Take 25 mg by mouth 2 (two) times a day with meals. ??? cetirizine (ZyrTEC) 10 mg tablet Take 10 mg by mouth daily. ??? enalapril (VASOTEC) 20 mg tablet Take 20 mg by mouth 2 (two) times a day. ??? FLUoxetine (PROzac) 40 mg capsule Take 80 mg by mouth daily. ??? montelukast (SINGULAIR) 10 mg tablet Take 10 mg by mouth at bedtime. ??? NIFEdipine (ADALAT CC) 60 mg ER tablet Take 60 mg by mouth 2 (two) times a day. ??? omeprazole (PriLOSEC) [address] capsule Take 20 mg by mouth every morning before breakfast. ??? pravastatin (PRAVACHOL) 40 mg tablet Take 60 mg by mouth daily. 1.5 tablets daily ??? triamterene-hydroCHLOROthiazide (DYAZIDE) 37.5-25 mg per capsule Take 1 capsule by mouth daily. Past Medical History: Diagnosis Date ??? Cataract ??? Depressive Disorder ??? Dissection Aorta (HCC) ??? Hyperlipidemia ??? Hypertension NOS since his 20s ??? Hyperthyroidism ??? Other Specified Health Status ??? Pseudogout ??? Sleep Apnea ??? Ulcer Duodenal 2000 Cauterized. Cause H. Pylori ??? Unspecified Amblyopia Bilateral Past Surgical History: Procedure Laterality Date ??? HERNIA REPAIR ??? OTHER SURGICAL HISTORY duodinal ulcer 2000 ??? THORACIC AORTA STENT ??? VASECTOMY 1987 Family History Problem Relation Age of Onset ??? Hypertension Paternal Grandfather ??? Stroke Paternal Grandfather ??? Hyperlipidemia Paternal Grandfather ??? Osteoporosis Paternal Grandfather ??? Glaucoma Paternal Grandfather Social History Socioeconomic History ??? Marital status: Spouse name: Not on file ??? Number of children: Not on file ??? Years of education: Not on file ??? Highest education level: Master's degree (e.g., MA, MS, Rufus, MEd, EXTRUSION TECHNICIAN, SHON) Occupational History ??? Not on file Social Needs ??? Financial resource strain: Not hard at all ??? Food insecurity Worry: Never true Inability: Never true ??? Transportation needs Medical: No Non-medical: No Tobacco Use ??? Smoking status: Former Smoker Packs/day: 0.75 Years: 6.00 Pack years: 4.50 Types: Cigarettes Start date: 08/20/1966 Last attempt to quit: 08/20/1971 Years since quittin.1 ??? Smokeless tobacco: Never Used ??? Tobacco comment: quit in early 20s, 1 ppd X 6 years Substance and Sexual Activity ??? Alcohol use: Yes Alcohol/week: 10.0 standard drinks Types: 10 Glasses of wine per week Frequency: 4 or more times a week Drinks per session: 3 or 4 Binge frequency: Weekly Comment: cut on and off alcohol, none this year ??? Drug use: No ??? Sexual activity: Yes Partners: Female control/protection: Vasectomy Lifestyle ??? Physical activity Days per week: 1 day Minutes per session: 60 min ??? Stress: Not at all Relationships ??? Social connections Talks on phone: Once a week Gets together: Twice a week Attends samaritan service: Never Active member of club or organization: No Attends meetings of clubs or organizations: Never Relationship status: ??? Intimate partner violence Fear of current or ex partner: Not on file Emotionally abused: Not on file Physically abused: Not on file Forced sexual activity: Not on file Other Topics Concern ??? Not on file Social History Narrative ??? Not on file OBJECTIVE VITAL SIGNS BP 114/58 (BP Location: Left arm, Patient Position: Sitting, Cuff Size: Large) Pulse 73 Ht 171.2cm Wt 103 kg SpO2 96% BMI 35.14 kg/m?? PHYSICAL EXAMINATION GENERAL: Well-appearing and in no acute distress. PSYCH: The patient is awake, alert, oriented, and normally conversant. SKIN: No chronic venous stasis changes in the lower extremities. VESSELS: No jugular venous distension. No carotid bruits. Normal peripheral pulses. HEART: [place] impalpable. Normal S1 and S2. No murmurs. LUNGS: Clear to auscultation & tympanic to percussion bilaterally with good inspiratory effort. ABDOMEN: Soft, nontender, and nondistended with active bowel sounds. No hepatomegaly. EXTREMITIES: Soft pitting edema to the upper barreto. DIAGNOSTICS I have reviewed the patient's current laboratory, imaging, and other diagnostic studies. Echocardiogram reviewed. Normal LV size and function, EF 61%. There is no left ventricular hypertrophy. Basal septum is prominent, unchanged from prior studies, and no LVOT obstruction. The sinus of Valsalva dimension is normal for the patient's BSA and unchanged from prior studies. There is mild to moderate eccentric aortic regurgitation. CTA demonstrates stable findings. No endo-leak in the thoracic aorta. Abdominal aortic bypass site looks good. There is a stable focal dissection in the left common iliac. ASSESSMENT / PLAN #1 Type B aortic dissection s/p descending thoracic endovascular stent graft and left carotid-subclavian bypass #2 Aorto-biiliac bypass grafting #3 Longstanding hypertension, controlled #4 Weight gain, BMI 35 #5 Hyperlipidemia #6 SAMIR on CPAP Mr. Sanches presents for follow up after type B dissection in 2013. Genetic testing has been negative, there are no suspicious physical findings or family history to suggest connective tissue disorder, and in the setting of long- standing hypertension this was most likely a hypertension-related dissection. His CT images are stable today. His aortic root is of normal dimension for his BSA and has not changed over time. There is no left ventricular hypertrophy and no LVOT obstruction related to his prominent basal septum. Reviewed the imaging findings with Mr. Sanches and his today. Agree with the patient's assessment that weight loss and increased physical activity would benefit him. His blood pressure is still acceptably controled (goal <120/80), but is notably higher than when he saw Dr. Charles in 2018. Reviewed that, while lifting and straining should be avoided in the setting of type B dissection, there is no limitation to cardiovascular exercise. Raising his heart rate and getting a sweat going is safeand beneficial for his overall fitness. PLAN: 1. Diet and exercise 2. Follow up with Dr. Keane in 1-[address] imaging 3. Goal blood pressure <120/80 Plan was discussed with Dr. Keane. Kimberley Mccartney MD [phone] NDING ANESTHESIOLOGIST Neema Keane M.D. - 09/24/2019 10:00 AM CST REFERRAL SOURCE Agustín Charles M.D. ?? CHIEF COMPLAINT / REASON FOR VISIT Complex type B aortic dissection. Assisted by: Dr. Kimberley Mccartney. ?? HISTORY OF PRESENT ILLNESS I have interviewed and examined Mr. Sanches and discussed management plans with Dr. Mccartney. I have reviewed her note and agree with the findings as outlined. Mr. Sanches is a very pleasant 64-year-old man here today for routine follow-up of aortic disease. He was previously evaluated by my colleague, Dr. Charles. He has a history of longstanding hypertension dating back to his 20s, which was suboptimally controlled. In December of 2013 he developed a type B dissection originating from and involving the origin of the left subclavian artery extending to the iliacs bilaterally. He was initially managed medically but developed evidence of end-organ ischemia with abdominal [...] descending thoracic aorta with two Medtronic Valiant stentgrafts, with the proximal graft placed just distal [...] with chronic kidney disease. He came to [facility] in February of 2018 for further [...] aneurysm. Screening of first-degree relatives was recommended. He returns today for routine evaluation. He retired and he and his moved to [place]. He is enjoying residential and unfortunately has gained about 30 pounds. He enjoys cooking and has not been doing much exercise. He was previously cautioned to avoid significant exercise because of his aortic di sease, so has not been doing much activity. He does have a treadmill at home but is not using it. Hehas no symptoms of exertional chest pain or dyspnea. He has had chronic bilateral lower extremity edema which has not changed in several years. He has no symptoms of claudication. He has no symptoms ofpalpitations or syncope. His blood pressure has been controlled on his current medications, although his readings previously were in the range of 100-110 systolic and now are more typically in the range of 120/80. He has treated hyperlipidemia and obstructive sleep apnea treated with CPAP. The following portions of the patient's history [...] open aorto bi-iliac grafting; January 15, 2014, [facility]. 3. Hypertension. 4. Normal aortic root, 41 mm; Z-score = 1.57. 5. Mild-moderate aortic insufficiency. 6. Stage 3 chronic kidney disease. 7. Hyperlipidemia. 8. Inguinal hernia repair. 9. Incisional hernia. 10. Cecal diverticulitis, status post appendectomy. 11. Pseudogout. 12. Glaucoma. 13. Obesity, BMI 35. 14. Obstructive sleep apnea treated with CPAP. 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 He smoked briefly in high school, but never regularly. He does drink alcohol on a regular basis, 4-5 glasses of wine per day or several beers per day. They will have cocktails 1-2 times per week. FAMILY HISTORY No family history of aortic dissection, aortic surgery, or sudden unexplained . He has one daughter, healthy. He has three siblings. REVIEW OF SYSTEMS A comprehensive review of systems was completed; pertinent abnormalities are included in the Historyof Present Illness. MEDICATIONS Current Medications: ??? aspirin 325 mg tablet, Take 325 mg by mouth daily. ??? carvedilol (COREG) 25 mg tablet, Take 25 mg by mouth 2 (two) times a day with meals. ??? cetirizine (ZyrTEC) 10 mg tablet, Take 10 mg by mouth daily. ??? enalapril (VASOTEC) 20 mg tablet, Take 20 mg by mouth 2 (two) times a day. ??? FLUoxetine (PROzac) 40 mg capsule, Take 80 mg by mouth daily. ??? montelukast (SINGULAIR) 10 mg tablet, Take 10 mg by mouth at bedtime. ??? NIFEdipine (ADALAT CC) 60 mg ER tablet, Take 60 mg by mouth 2 (two) times a day. ??? omeprazole (PriLOSEC) [address] capsule, Take 20 mg by mouth every morning before breakfast. ??? pravastatin (PRAVACHOL) 40 mg tablet, Take 60 mg by mouth daily. 1.5 tablets daily ??? triamterene-hydroCHLOROthiazide (DYAZIDE) 37.5-25 mg per capsule, Take 1 capsule by mouth daily. No current facility-administered medications for this visit. VITALS BP 114/58 (BP Location: Left arm, Patient Position: Sitting, Cuff Size: Large) Pulse 73 Ht 171.2cm Wt 103 kg SpO2 96% BMI 35.14 kg/m?? PHYSICAL EXAMINATION General: Overweight. Well groomed. Psychiatric: Normal mood and affect. Oriented to person, place, and time. Eyes: No xanthelasma or conjunctivitis. ENT: No oral mucosal pallor or cyanosis. Uvula is normal. Vessels: Jugular venous pressure is normal. Normal carotid upstrokes. Soft carotid bruit in the leftneck/suprasternal notch. Peripheral pulses are normal. Heart: Regular rhythm with a normal S1 and S2 with a very soft systolic ejection murmur. No diastolic murmur. Lungs: Clear bilaterally. Abdomen: No obvious hepatosplenomegaly. No abdominal tenderness, no masses. Extremities: No clubbing or cyanosis. 2+ lower extremity edema bilaterally. Skin: No stasis dermatitis or ulceration of the lower extremities. DIAGNOSTIC REVIEW All labs and diagnostic studies were reviewed. Transthoracic echo shows that the aortic root is normal for age and body surface area with a diameter of 41 mm. The aortic valve is trileaflet with mild-moderate regurgitation. The ascending aorta measures 38 mm. The left ventricle is mildly enlarged with an end-diastolic diameter 56 mm. Function is normal with an EF of 61%. The cardiac index is normal. There are no wall motion abnormalities. LV filling pressures are normal. RV size and function are normal with an estimated RVSP of 36 mmHg. There isno evidence of aortic arch obstruction. The IVC is normal in size with normal collapse. There is no pericardial effusion. CTA of the chest, abdomen, and pelvis was personally viewed. This shows a normal ascending aortic dimension. There is a stent graft in the distal arch and proximal descending thoracic aorta, originating just distal to the left common carotid artery. The innominate and left common carotid arteries are widely patent. There are postoperative changes of a left carotid to left subclavian artery bypass graft, which is widely patent. The endograft is patent and without endoleak. The stent graft ends just above the celiac artery, where the aorta measures 37 mm. The celiac, SMA, and renal arteries are widely patent. The ROSIE is occluded but reconstitutes via collaterals. There are postoperative changes of an aorto bi-iliac graft of the infrarenal abdominal aorta. There is residual dissection in the left common iliac artery distal to the anastomosis with a maximum diameter of 18 mm. The external iliac, internal iliac, and common femoral arteries are patent bilaterally without significant dilatation. Coronary calcifications are present. ?? ASSESSMENT / PLAN #1 Complex type B aortic dissection, status post left carotid to subclavian bypass, endovascular repair of the distal arch and proximal descending aorta, and open [id number] grafting for acute occlusion of the infrarenal abdominal aorta #2 Normal aortic root dimension, 41 mm; Z-score = 1.57 #3 Mild-moderate aortic insufficiency #4 Residual dissection/dilatation of the left common iliac artery, 18 mm #5 Hypertension #6 Hyperlipidemia #7 Coronary artery disease, asymptomatic #8 Obesity, BMI 35 #9 Obstructive sleep apnea treated with CPAP #10 Stage 3 chronic kidney disease #11 Chronic venous insufficiency Mr. Sanches is doing well from the perspective of his aortic disease. I suspect that his dissectionwas related to chronic longstanding hypertension. He does not have any features that suggest a connective tissue disorder and his genetic testing was negative. In addition, his aortic root is normal for his age and size. We reviewed the images from his CTA, which demonstrates an excellent repair. The endograft is intact with no endoleak. The ascending aortic dimensions are normal. The aorto bi-iliac graft is patent and the [place] abdominal aorta is only mildly dilated. The residual dissection/dilatation in the left common iliac artery is stable. The aortic insufficiency is mild- moderate and has notchanged. It is unlikely that he will ever require any intervention for the aortic valve disease. We emphasized the importance of routine surveillance imaging and excellent blood pressure control. Unfortunately, he has gained a significant amount of weight and we talked about the importance of weight loss and a regular exercise program in order to maintain good control of all of his risk factors. His CTA does demonstrate coronary calcification, so it is important that we are aggressive with risk factor modification to prevent progression of coronary artery disease. He will work on weight loss. We talked about portion control and the contribution of calories from alcohol. I also encouraged regular aerobic activity. With regards to his aortic disease, his only restriction is to avoid heavy weightlifting, and aerobic activity is actually beneficial for his vascular health. He will follow up with his primary care provider for management of his lipids, blood sugar, and chronic kidney disease. He has chronic lower extremity edema, which I suspect is related to venous insufficiency. His echo demonstrates normal IVC size and collapse, suggesting that elevated right heart pressures are not the main mechanic driver of his lower extremity edema. We talked about the importance of weightloss, regular exercise, and the use of compression stockings. I will see him back in 18 months, sooner if he has new symptoms or concerns. Neema Keane M.D. 09/24/2019 NDING ANESTHESIOLOGIST documented in this encounter Plan of Treatment Upcoming Encounters Date Type Specialty Care Team Description 06/21/2022 Clinical Communication Admitting/Central Scheduling 06/22/2022 Comprehensive Visit Rheumatology Clemente Mario M.B.B.S. [address] [place] [phone] 08/03/2022 Comprehensive Visit Dermatology Jignesh Leonard M.D. [address] [place] [address] documented as of this encounter Results (TTE) 2D ECHO DOPPLER [...] effusion. For the complete report, see the [employer] Documents. Narrative 12/30/2020 4:33 PM CDT For the complete report, see the [employer] Documents. Final Impressions 1. Status post aortic [...] of images performed. Procedure Note Alexei De La Cruz M.D. - 12/30/2020Formatti ng of this note might be different from the original. For the complete report, see the [employer] Documents. Final Impressions 1. Status post aortic [...] Documents. Neema Keane M.D. CV ECHO PROCEDURES ECG 12 Lead (12/21/2020 12:59 PM CDT) P athologist Signature Ventricular Rate 71 BPM MUSE ECG/Min MO Interval 182 ms MUSE QRSD Interval 86 ms MUSE QT Interval 400 ms MUSE QTC Interval 434 ms MUSE P [place] 54 degrees MUSE R [place] 22 degrees MUSE T Wave [place] 11 degrees MUSE Specimen Anatomical Collection Method Collection Time Receive d Time (Source) Location / / Volume Laterality 12/21/2020 12:59 12/21/2020 1:02 PM CDT PM CDT Impressions MUSE - 12/21/2020 1:02 PM CDT Normal sinus rhythm Nonspecific T wave abnormality When compared with ECG of 19-MAR-2018 13 :50, Nonspecific T wave abnormality now evide nt in Lateral leads Reviewed by USHA Hilton Narrative This result has an attachment that is no t available. Procedure Note Lux Chowdhury M.D. - 12/21/2020Forma tting of this note might be different from the original. IMPRESSION: Normal sinus rhythm Nonspecific T wave abnormality When compared with ECG of 19-MAR-2018 13 :50, Nonspecific T wave abnormality now evide nt in Lateral leads Reviewed by USHA Hilton Neema Keane M.D. ECG ORDERABLES Performing Organization Address City/State/ZIP Code Phon e Number MUSE MUSE NA CT Chest Abdomen Pelvis Angiogram with IV [...] the spine. Procedure Note Rashad Clifton M.B.B.S., M.D. - 11/2020 EXAM: CT CHEST ABDOMEN PELVIS [...] on of left common iliac artery. 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
--- OUTSIDE RECORDS SUMMARY | 2022-06-10 10:54 | XMS_ITS | Encounter Summary ---
:1955 Author Organization [facility] Address [address] [place] [address] Care Team Providers Name Role Phone Elsewhere, Pcp Primary Care Provider Unavailable Reason for Visit Reason Comments COVID Inquiry Encounter Details Date Type Department Care Team Description 10/11/2020 Clinical Communication Department of CALIXTO Voss Inquiry Neurology in Kim Stanton [place], [place] [address] [facility] [address] [place] [phone] Social History Tobacco Use Types Packs/Day Years [...] containing 4 or more times a w [place] 12/18/2020 alcohol? How many drinks containing alcohol [...] How often do you attend gnosticism or sabianism Never 09/20/2019 services? Do you [...] have completed or the highest Rufus, MEd, ELECTRICAL ESTIMATOR, SHON) degree you have received? Sex Assigned at Date Recorded Male 03/19/2018 11:46 AM CDT documented as of this encounter Miscellaneous Notes Telephone Encounter - Tevin Shultz - 10/11/2020 4:06 PM CST What is the purpose of the call?: Standard Appointment Process Standard Appointment Process Have you tested positive for COVID-19 in the last 20 days OR do you have a pending COVID-19 test because you had symptoms?: No, neither apply What region is the appointment being requested?: Less than 20 days [facility], [facility] or [facility] In the past 14 days are any of the following symptoms new to you and not related to an existing health condition?: No symptoms noted In the past 14 days have you had close contact* with a person who has a LABORATORY CONFIRMED case ofCOVID-19?: No exposure noted, follow appt process (End Screening) Plan: Endpoint recommendation: Followed regional OTG *Reminder if sending patient for testing in [facility] or [facility], route encounter to the correct testing pool. OLIDS MANAGEMENT TECHNICIAN documented in this encounter Plan of Treatment Upcoming Encounters Date Type Specialty Care Team Description 06/21/2022 Clinical Communication Admitting/Central Scheduling 06/22/2022 Comprehensive Visit Rheumatology Clemente Mario M.B.BJaleelS. [address] [place] [phone] 08/03/2022 Comprehensive Visit Dermatology Jignesh Leonard M.D. [address] [place] [phone] documented as of this encounter Visit Diagnoses Not on filedocumented in this encounter Care Teams Student Worker Relationship Specialty Start Date End Date Elsewhere, Pcp PCP - General Family Medicine 02/13/18 documented as of this encounter
--- OUTSIDE RECORDS SUMMARY | 2022-06-10 10:54 | XMS_ITS | Encounter Summary ---
:1955 Author Organization [facility] Address [address] [place] [address] Care Team Providers Name Role Phone Elsewhere, Pcp Primary Care Provider Unavailable Reason for Referral MRI/CAT/PET Scan (Routine) - Closed Specialty Diagnoses / Procedures Referred By Contact Refer red To Contact Radiology Diagnoses Aneurysm Thoracic Aorta Personal History Dissection Aorta Personal History Agustín Charles M.D. [facility] Procedures CT Chest Abdomen Pelvis Angiogram with IV Contrast [address] [place] [phone] Referral ID Status Reason Start Date Expiration Date Visits Requ ested Visits Authorized [id number] Closed 06/30/2019 06/29/2020 1 1 RTATION OFFICER Reason for Visit MRI/CAT/PET Scan (Routine) - Closed Specialty Diagnoses / Procedures Referred By Contact Refer red To Contact Radiology Diagnoses Aneurysm Thoracic Aorta Personal History Dissection Aorta Personal History Agustín Charles M.D. [facility] Procedures CT Chest Abdomen Pelvis Angiogram with IV Contrast [address] [place] [phone] Referral ID Status Reason Start Date Expiration Date Visits Requ ested Visits Authorized [id number] Closed 06/30/2019 06/29/2020 1 1 Encounter Details Date Type Department Care Team Description 09/23/2019 Hospital Encounter Department of Agustín Charles Thoracic Aorta Personal History; Radiology, Mack Garcia M.D. Dissection Aorta Personal History Building, in [address] [place] [address] [place] [phone] [place], [place] [phone] (Work) [phone] Social History Tobacco Use Types Packs/Day Years [...] containing 4 or more times a w [place] 12/18/2020 alcohol? How many drinks containing alcohol [...] or relatives? How often do you attend synagogue or evangelical Never 09/20/2019 services? Do you belong to any clubs or organizations Yes 12/18/2020 such as synagogue groups, unions, fraternal or athletic groups, or [...] have completed or the highest Rufus, MEd, OIL PROGRAM COMPLIANCE SPECIALIST, SHON) degree you have received? Sex Assigned at Date Recorded Male 03/19/2018 11:46 AM CDT documented as of this encounter Last Filed Vital Signs Vital Sign Reading Time Taken Comments Blood Pressure - - Pulse - - Temperature - - Respiratory Rate - - Oxygen Saturation - - Inhaled Oxygen Concentration - - Weight 92.5 kg (204 lb) 09/23/2019 1:00 PM DEPORTATION OFFICER Height 171.5 cm (5' 7.5) 09/23/2019 1:00 PM DEPORTATION OFFICER Body Mass Index 31.48 09/23/2019 1:00 PM DEPORTATION OFFICER documented in this encounter Medications at Time [...] mouth daily. miscellaneous medical Full face mask /3 0 [...] tablets daily documented as of this encounter Nursing Notes Alejandra Garrett R.N. - 09/23/2019 1:30 PM CST A review of the patients current medications was completed under the context of radiology care priorto contrast/medication administration. Outpatient, keeping PIV in for later exam: Why is PIV being left in? Another procedure/exam scheduled for today which requires a PIV Name and role of person notified in receiving area: dos RTATION OFFICER documented in this encounter Plan of Treatment Upcoming Encounters Date Type Specialty Care Team Description 06/21/2022 Clinical Communication Admitting/Central Scheduling 06/22/2022 Comprehensive Visit Rheumatology Clemente Mario M.B.B.S. [address] [place] [address] 08/03/2022 Comprehensive Visit Dermatology Jignesh Leonard M.D. [address] [place] [address] documented as of this encounter Procedures Procedure Name Priority Date/Time Associated Comments Diagnosis CT CHEST ABDOMEN RAD - Routine 09/23/2019 1:32 Aneurysm Thoracic Re sults for this PELVIS ANGIOGRAM (most inpatients PM DEPORTATION OFFICER Aorta Personal proce dure are in WITH IV CONTRAST and all History the results outpatients) Dissection Aorta section. Personal History documented in this encounter Results CT Chest Abdomen Pelvis Angiogram with IV Contrast (09/23/2019 1:32 PM DEPORTATION OFFICER) Anatomical Region Laterality Modality Chest, Abdomen, Pelvis, Cardiovascular C omputed Tomography, Computed RST LOS, Abdominal ARZ LOS, Thoracic Julio ography ARZ LOS, Vascular Interventional ARZ LOS, Vascular Interventional FLA LOS, Abdominal FLA LOS Specimen (Source) Anatomical Collection Method Collection Time Re ceived Time Location / / Volume Laterality 09/23/2019 2:55 PM DEPORTATION OFFICER Impressions 09/23/2019 3:07 PM DEPORTATION OFFICER 1. Widely patent thoracic aortic stent graft. No endoleak or stent migration. 2. Postsurgical changes in the infrarena l abdominal aorta, unchanged. 3. Unchanged focal dissection proximal l eft common iliac artery. Narrative 09/23/2019 3:07 PM DEPORTATION OFFICER EXAM: ??CT CHEST ABDOMEN PELVIS ANGIOGRAM WITH IV CONTRAST COMPARISON: ??CTA chest, abdomen and pel vis 04/06/2018. ? FINDINGS: ? VASCULAR FINDINGS: CHEST: Widely patent thoracic aortic stent mich t extending from the aortic arch at the level of the left carotid artery origin to the distal descending thoracic aorta. No endoleak or stent migration. The inno minate and left common carotid artery are widely patent. 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 Mild coronary artery calcificati on. ABDOMEN AND PELVIS: Normal caliber abdominal aorta. Postoper ative changes infrarenal abdominal aorta. The celiac axis, superior mesente aniyah artery, 2 right renal arteries, and single left renal artery are widely tineo nt. The ROSIE is occluded with collateral reconstitution distally. Patent tortuous bilateral common iliac a rteries. Focal dissection of the proximal left common iliac artery, uncha nged. The internal iliac and external iliac arteries are widely patent bilater ally. The common femoral arteries are patent bilaterally. ADDITIONAL FINDINGS: CHEST: Mild scarring or atelectasis in both low er lobes. ABDOMEN AND PELVIS: Hepatic steatosis. Calcified splenic gra nuloma. Splenule. Left inguinal hernia repair. Procedure Note Georges Núñez M.D. - 09/23/2019For matting of this note might be different from the original. EXAM: CT CHEST ABDOMEN PELVIS ANGIOGRAM WITH IV CONTRAST COMPARISON: CTA chest, abdomen and pelvi s 04/06/2018. FINDINGS: VASCULAR FINDINGS: CHEST: Widely patent thoracic aortic stent mich t extending from the aortic arch at the level of the left carotid artery origin to the distal descending thoracic aorta. No endoleak or stent migration. The inno minate and left common carotid artery are widely patent. 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 Mild coronary artery calcificati on. ABDOMEN AND PELVIS: Normal caliber abdominal aorta. Postoper ative changes infrarenal abdominal aorta. The celiac axis, superior mesente aniyah artery, 2 right renal arteries, and single left renal artery are widely tineo nt. The ROSIE is occluded with collateral reconstitution distally. Patent tortuous bilateral common iliac a rteries. Focal dissection of the proximal left common iliac artery, uncha nged. The internal iliac and external iliac arteries are widely patent bilater ally. The common femoral arteries are patent bilaterally. ADDITIONAL FINDINGS: CHEST: Mild scarring or atelectasis in both low er lobes. ABDOMEN AND PELVIS: Hepatic steatosis. Calcified splenic gra nuloma. Splenule. Left inguinal hernia repair. IMPRESSION: 1. Widely patent thoracic aortic stent g raft. No endoleak or stent migration. 2. Postsurgical changes in the infrarena l abdominal aorta, unchanged. 3. Unchanged focal dissection proximal l eft common iliac artery. Agustín RAYMUNDO CT PROCEDURES documented in this encounter Visit Diagnoses Diagnosis Aneurysm Thoracic Aorta Personal History Dissection Aorta Personal History documented in this encounter Administered Medications Inactive Administered Medications - up to 3 most recent administrations Medication Order MAR Action Action Date Dose Rate Site iohexol 350 mg iodine/mL solution Given 09/23/2019 1:17 PM DEPORTATION OFFICER 1 00 mL 1-200 mL (OMNIPAQUE) 1-200 mL, intravenous, Once in imaging, contrast, Starting on Sun09/23/19 at 1255, For 1 dose, Imaging Protocol Orders, Dose per Radiant Medication Guidelines sodium chloride (PF) 0.9 % injection 1-1 00 mL Given 09/23/2019 1:17 PM DEPORTATION OFFICER 30 mL 1-100 mL, intravenous, Once, On Sun09/23/19 at 1300, For 1 dose, Imaging Protocol Orders documented in this encounter Care Teams Apprentice Jockey Relationship Specialty Start Date End Date Elsewhere, Pcp PCP - General Family Medicine 02/13/18 documented as of this encounter
--- OUTSIDE RECORDS SUMMARY | 2022-06-10 10:54 | XMS_ITS | Encounter Summary ---
:1955 Author Organization [facility] Address [address] [place] [address] Care Team Providers Name Role Phone Elsewhere, Pcp Primary Care Provider Unavailable Encounter Details Date Type Department Care Team Description 09/01/2020 Ancillary Procedure Department of Phoebeing Glenn Reina Ophthalmology in Kaylen Draper O.D. [place], [place] [address] [facility] [address] [place] [phone] Social History Tobacco Use Types Packs/Day Years [...] containing 4 or more times a w [place] 12/18/2020 alcohol? How many drinks containing alcohol [...] How often do you attend yarsanism or quaker Never 09/20/2019 services? Do you [...] have completed or the highest Rufus, MEd, BOTANY LABORATORY ASSISTANT, SHON) degree you have received? Sex Assigned at Date Recorded Male 03/19/2018 11:46 AM CDT documented as of this encounter Plan of Treatment Upcoming Encounters Date Type Specialty Care Team Description 06/21/2022 Clinical Communication Admitting/Central Scheduling 06/22/2022 Comprehensive Visit Rheumatology Clemente Mario M.B.B.S. [address] [place] [address] 08/03/2022 Comprehensive Visit Dermatology Jignesh Leonard M.D. [address] [place] [address] documented as of this encounter Procedures Procedure Name Priority Date/Time Associated Comments Diagnosis OPTICAL COHERENCE Routine 09/01/2020 2:45 PM Glaucoma Resu lts for this TOMOGRAPHY (OCT) - ADVERTISING INTERN procedure are in OPTIC NERVE - OU - the resul ts BOTH EYES section. documented in this encounter Results Optical Coherence Tomography (OCT) - Optic Nerve - OU - Both Eyes (09/01/2020 2:45 PM ADVERTISING INTERN) Specimen (Source) Anatomical Location Collection Method / Collectio n Time Received Time / Laterality Volume Narrative OPHTHALMOLOGY IMAGING EXAM - 09/01/19 21 3:11 PM ADVERTISING INTERN OCT device used was Cirrus . Right Eye Reliability was good. Left Eye Reliability was good. Notes See note for results. Masoud Veliz O.D. OPHTH TOMOGRAPHY Performing Organization Address City/State/ZIP Code Phon e Number OPHTHALMOLOGY IMAGING EXAM documented in this encounter Visit Diagnoses Diagnosis Glaucoma documented in this encounter Care Teams Marketing Technology Specialist Relationship Specialty Start Date End Date Elsewhere, Pcp PCP - General Family Medicine 02/13/18 documented as of this encounter
--- OUTSIDE RECORDS SUMMARY | 2022-06-10 10:54 | XMS_ITS | Encounter Summary ---
:1955 Author Organization [facility] Address [address] [place] [address] Care Team Providers Name Role Phone Elsewhere, Pcp Primary Care Provider Unavailable Encounter Details Date Type Department Care Team Description 10/21/2020 Diagnostic Division of Nephrology Romy Voss M.D. [address] [place] [phone] Stroke Cerebrovascular Accident Personal History; and Hypertension in Maddie Dawkins L.P.N. [address] [place] [phone] Kidney Disorder; [place], [place] Hypertension Essential Prima ry; [address] [facility] Dissecting Aneurysm Thoracic Aortic ([place]) [place] [phone] Social History Tobacco Use Types Packs/Day Years [...] containing 4 or more times a w [place] 12/18/2020 alcohol? How many drinks containing alcohol [...] How often do you attend pentecostalism or mormonism Never 09/20/2019 services? Do you [...] place to sleep or slept in a custodial (including now)? Education Answer Date Recorded What is the highest level of school Master's degree (e.g., M A, MS, 09/20/2019 you have completed or the highest Rufus, MEd, MANAGER APPLICATION DEVELOPMENT, SHON) degree you have received? Sex Assigned at Date Recorded Male 03/19/2018 11:46 AM CDT documented as of this encounter Plan of Treatment Upcoming Encounters Date Type Specialty Care Team Description 06/21/2022 Clinical Communication Admitting/Central Scheduling 06/22/2022 Comprehensive Visit Rheumatology Clemente Mario M.B.B.S. [address] [place] [address] 08/03/2022 Comprehensive Visit Dermatology Jignesh Leonard M.D. [address] [place] [address] documented as of this encounter Procedures Procedure Name Priority Date/Time Associated Diagnosis Comme nts NEP BLOOD PRESSURE Routine 10/22/2020 7:51 AM Stroke Cerebrova scular CHECK 6 HR ELECTRICAL TRYOUT PERSON Accident Persona l History Kidney Disorder Hypertension Essential Primary Dissecting Aneurysm Thoracic Aortic (HCC) documented in this encounter Results NEP Blood pressure check 6 hr (10/22/2020 7:51 AM ELECTRICAL TRYOUT PERSON) Specimen (Source) Anatomical Location Collection Method / Collectio n Time Received Time / Laterality Volume Narrative This result has an attachment that is no t available. Romy Voss M.D. PFT ORDERABLES Performing Organization Address City/State/ZIP Code Phon e Number MMODAL documented in this encounter Visit Diagnoses Diagnosis Stroke Cerebrovascular Accident Personal History Kidney Disorder Hypertension 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) documented in this encounter Care Teams Vending Machine Servicer Relationship Specialty Start Date End Date Elsewhere, Pcp PCP - General Family Medicine 02/13/18 documented as of this encounter
--- OUTSIDE RECORDS SUMMARY | 2022-06-10 10:54 | XMS_ITS | Encounter Summary ---
:1955 Author Organization [facility] Address [address] [place] [address] Care Team Providers Name Role Phone Elsewhere, [...] containing 4 or more times a w [place] 12/18/2020 alcohol? How many drinks containing alcohol [...] or relatives? How often do you attend presybeterian or yarsanism Never 09/20/2019 services? Do you belong to any clubs or organizations Yes 12/18/2020 such as presybeterian groups, unions, fraternal or athletic groups, or [...] have completed or the highest Rufus, MEd, SHOULDER PAD MOLDER, SHON) degree you have received? Sex Assigned at Date Recorded Male 03/19/2018 11:46 AM CDT documented as of this encounter Plan of Treatment Upcoming Encounters Date Type Specialty Care Team Description 06/21/2022 Clinical Communication Admitting/Central Scheduling 06/22/2022 Comprehensive Visit Rheumatology Clemente Mario M.B.B.S. [address] [place] [address] 08/03/2022 Comprehensive Visit Dermatology Jignesh Leonard M.D. [address] [place] [address] documented as of this encounter Procedures Procedure Name Priority Date/Time Associated Comments Diagnosis OPHTHALMOLOGY IMAGE Routine 09/01/2020 2:40 PM Re sults for this EXAM HOMELAND SECURITY PROGRAM SPECIALIST procedure are i n the results section. documented in this encounter Results Optical Coherence Tomography (OCT)-Ophthalmology Image Exam (09/01/2020 2:40 PM HOMELAND SECURITY PROGRAM SPECIALIST) Specimen (Source) Anatomical Collection Method Collection Time Re ceived Time Location / / Volume Laterality 09/01/2020 2:40 PM HOMELAND SECURITY PROGRAM SPECIALIST Narrative [facility] - 09/01/2020 2:48 PM HOMELAND SECURITY PROGRAM SPECIALIST This order has been created and [...] on filedocumented in this encounter Care Teams Returning Officer Relationship Specialty Start Date End Date Elsewhere, Pcp PCP - General Family Medicine 02/13/18 documented as of this encounter
--- OUTSIDE RECORDS SUMMARY | 2022-06-10 10:55 | XMS_ITS | Encounter Summary ---
:1955 Author Organization [facility] Address [address] [place] [address] Care Team Providers Name Role Phone Elsewhere, Pcp Primary Care Provider Unavailable Encounter Details Date Type Department Care Team Description 03/01/2018 Hospital Encounter Department of Jennifer Zarate in [facility] Laboratory Medicine R and Pathology, [address], in [place], [place] [address] [place] [address] [place], [place] (Work) [phone] Social History Tobacco Use Types Packs/Day Years Used Date Smoking Tobacco: Former Smokeless Tobacco: Never Comments: quit in early 20s, 1 ppd X 6 y ears Alcohol Use Standard Drinks/Week Comments No 0 (1 standard drink = 0.6 oz pure cut on and off alcohol, none this alcohol) year Alcohol Habits Answer Date Recorded How often do you have a drink containing 4 or more times a w [place] 12/18/2020 alcohol? How many drinks containing alcohol [...] How often do you attend holiness or mosque Never 09/20/2019 services? Do you belong to [...] for the very basics like Not h rneu at all 12/18/2020 food, housing, medical care, [...] or slept in a assisted (including now)? Sex Assigned at Date Recorded Male 03/19/2018 11:46 AM CDT documented as of this encounter Medications at Time of Discharge Medication Sig Dispensed Refills Start Date End Date carvedilol (COREG) 25 Take 25 mg by mouth 2 0 mg tablet (two) times a day with meals. enalapril (VASOTEC) 20 Take 20 mg by mouth 2 0 mg tablet (two) times a day. FLUoxetine (PROzac) 40 Take 20 mg by mouth 0 mg capsule daily. montelukast (SINGULAIR) Take 10 mg by mouth 0 10 mg tablet at bedtime. NIFEdipine (ADALAT CC) Take 30 mg by mouth 0 60 mg ER tablet daily. aspirin 325 mg tablet Take 325 mg by mouth 0 10/12/2020 daily. cephalexin (KEFLEX) 500 Take 500 mg by mouth 0 04/16/2018 mg capsule 4 (four) times a day. omeprazole (PriLOSEC) Take 1 capsule (20 mg 30 capsule 11 04/16/2018 20 mg capsule total) by mouth every morning before breakfast. With prednisone oxyCODONE (OXY-IR) 5 mg Take 5 mg by mouth 0 04/16/2018 immediate release every 4 (four) hours capsule as needed for pain. pravastatin (PRAVACHOL) Take 60 mg by mouth 0 10/12/2020 40 mg tablet daily. 1.5 tablets daily predniSONE (DELTASONE) Take 3 tablets (15 mg 50 tablet 1 04/16/2018 5 mg tablet total) by mouth daily. X 5 days, 10 mg daily X 5 days, 5 mg daily X 5 days and stop documented as of this encounter Plan of Treatment Upcoming Encounters Date Type Specialty Care Team Description 06/21/2022 Clinical Communication Admitting/Central Scheduling 06/22/2022 Comprehensive Visit Rheumatology Clemente Mario M.B.B.S. [address] [place] [address] 08/03/2022 Comprehensive Visit Dermatology Jignesh Leonard M.D. [address] [place] [phone] documented as of this encounter Procedures Procedure Name Priority Date/Time Associated Diagnosis Comme nts HLA-B27, B Routine 03/01/2018 12:04 PM Pain Elbow Left Resul ts for this CDT procedure are i n the results section . documented in this encounter Results HLA B27 Associated Antigen Screening (03/01/2018 12:04 PM CDT) [facility] Method Time Signature HLA-B27 Result Negative Not 03/01/2018 [facility] Applicable 2:57 PM LABORATORIES - CDT [facility] HLA-B27 see below 03/01/2018 [facility] Interpretation 2:57 PM LABORATORIES - CDT [facility] Comment: HLA-B27 antigen was not detected. ----ADDITIONAL INFORMATION---- Method: Flow Cytometry Performing Laboratory CLIA# [id number] Specimen Anatomical Collection Method Collection Time Receive d Time (Source) Location / / Volume Laterality Blood (Blood, 03/01/2018 12:04 03/01/2018 Venous) PM CDT 12:36 PM CDT Jennifer Zarate LAB BLOOD NON ADD-ON Performing Organization Address City/State/ZIP Code Phon e Number [facility] LABORATORIES - [address] documented in this encounter Visit Diagnoses Diagnosis Pain Elbow Left documented in this encounter Care Teams Rubber Engraver Relationship Specialty Start Date End Date Elsewhere, Pcp PCP - General Family Medicine 02/13/18 documented as of this encounter
--- OUTSIDE RECORDS SUMMARY | 2022-06-10 10:55 | XMS_ITS | Encounter Summary ---
:1955 Author Organization [facility] Address [address] [place] [address] Care Team Providers Name Role Phone Elsewhere, Pcp Primary Care Provider Unavailable Encounter Details Date Type Department Care Team Description 07/05/2018 Ancillary Procedure Department of Glenn French Ophthalmology in Kaylen Draper O.D. [place], [place] [address] [facility] [address] [place] [address] [phone] Social History Tobacco Use Types Packs/Day Years [...] containing 4 or more times a w [place] 12/18/2020 alcohol? How many drinks containing alcohol [...] How often do you attend temple or adventism Never 09/20/2019 services? Do you belong to [...] [place] [facility] (including now)? Sex Assigned at Date Recorded Male 03/19/2018 11:46 AM CDT documented as of this encounter Plan of Treatment Upcoming Encounters Date Type Specialty Care Team Description 06/21/2022 Clinical Communication Admitting/Central Scheduling 06/22/2022 Comprehensive Visit Rheumatology Clemente Mario M.B.B.S. [address] [place] [address] 08/03/2022 Comprehensive Visit Dermatology Jignesh Leonard M.D. [address] [place] [address] documented as of this encounter Procedures Procedure Name Priority Date/Time Associated Diagnosis Comme nts FUNDUS PHOTOS - OU Routine 07/05/2018 12:12 PM Glaucoma Re sults for this - BOTH EYES STEAMBOAT INSPECTOR procedure are i n the results section. documented in this encounter Results Fundus Photos - OU - Both Eyes (07/05/2018 12:12 PM STEAMBOAT INSPECTOR) Specimen (Source) Anatomical Location Collection Method / Collectio n Time Received Time / Laterality Volume Narrative OPHTHALMOLGY NON-IMAGING ORDERS - 10:14 AM STEAMBOAT INSPECTOR Right Eye Field of view is standard view. Left Eye Field of view is standard view. Notes 06/2018 [facility] OCT 03/29 and 04/29...80 an d 76, RE one yellow section, LE all green; ganglion cell layer 79/75 - R E normal ??LE infer temp thinning 06/2018 visual field - RE 09/02, 3% False neg pattern deviation > total, nasal scatter infer and super; LE 10/03 3 % false positives 2 % false neg - superior scatter Color photos - good quality to follow cl inically Dx: ??Glaucoma suspect with no evidence of glaucoma Kaylen Reina O.D. OPHTH PHOTOGRAPHY Performing Organization Address City/State/ZIP Code Phon e Number OPHTHALMOLGY NON-IMAGING ORDERS documented in this encounter Visit Diagnoses Diagnosis Glaucoma documented in this encounter Care Teams Sales Incentive Analyst Relationship Specialty Start Date End Date Elsewhere, Pcp PCP - General Family Medicine 02/13/18 documented as of this encounter
--- OUTSIDE RECORDS SUMMARY | 2022-06-10 10:55 | XMS_ITS | Encounter Summary ---
:1955 Author Organization [facility] Address [address] [place] [address] Care Team Providers Name Role Phone Elsewhere, Pcp Primary Care Provider Unavailable Encounter Details Date Type Department Care Team Description 03/01/2018 Hospital Encounter Department of Jennifer Zarate in [facility] [place] Laboratory Medicine R and Pathology, [address], in [place], [place] [address] [address] [place] [address] [place], [place] (Work) [phone] Social History Tobacco Use Types Packs/Day Years [...] containing 4 or more times a w [place] 12/18/2020 alcohol? How many drinks containing alcohol [...] How often do you attend methodist or anglican Never 09/20/2019 services? Do you [...] or slept in a half-way (including now)? Sex Assigned at Date Recorded [...] Visit Rheumatology Clemente Mario M.B.BJaleelS. [address] [place] [address] 08/03/2022 Comprehensive Visit Dermatology Jignesh Leonard M.D. [address] [place] [address] documented as of this encounter Procedures Procedure Name Priority Date/Time Associated Comments Diagnosis MICROSCOPIC AUTOMATED Routine 03/01/2018 1:51 PM Results for this CDT procedure are i n the results section. URINALYSIS WITH Routine 03/01/2018 1:51 PM Pain Elbow Left Res ults for this MICROSCOPIC CDT procedure are i n the results section. documented in this encounter Results (ABNORMAL) Microscopic Automated (03/01/2018 1:51 PM CDT) P athologist Signature Microscopy Abnormal 03/01/2018 [facility] 2:52 PM CDT LABORATORIES [facility] WBC 4-10 (A) /hpf 03/01/2018 [facility] 2:52 PM CDT [facility] Comment: ----REFERENCE VALUE---- 1-3 ??(Males) 1-10 (Females) Casts, Hyaline 1-3 /lpf 03/01/2018 2:52 PM CDT [facility] Specimen Anatomical Collection Method Collection Time Receive d Time (Source) Location / / Volume Laterality Urine 03/01/2018 1:51 PM 8 1:51 CDT PM CDT Jennifer Zarate LAB URINE ORDERABLES Performing Organization Address City/State/ZIP Code Phon e Number [facility] LABORATORIES - [address] [place] [address] 05 [facility] (ABNORMAL) Urinalysis with Microscopic (03/01/2018 1:51 PM CDT) Patholo gist Method Time Signature Source Midstream 03/01/2018 [facility] 1:51 PM CDT [facility] Appearance Normal Normal 03/01/2018 [facility] 2:26 PM CDT [facility] Osmolality, U 656 150 - 1150 03/01/2018 [facility] mOsm/kg 2:23 PM CDT [facility] pH, U 5.8 4.5 - 8.0 03/01/2018 [facility] 2:23 PM CDT [facility] Comment: ----ADDITIONAL INFORMATION---- This test was developed and its performa nce characteristics determined by [facility] in a manner co nsistent with CLIA requirements. This test has not bee n cleared or approved by the U.S. Food and Drug Admin istration. Glucose 14 0 - 15 mg/dL 03/01/2018 2:26 PM CDT [facility] Protein, U 30 (H) <26 mg/dL 03/01/2018 2:26 PM CDT [facility] Comment: ----ADDITIONAL INFORMATION---- On 02/13/2017 the total protein assay me thod changed resulting in approximately a 15% increase in prote in values. Protein/Osmolality 0.46 (H) <0.42 Ratio 03/01/2018 2:26 PM [facility] CDT [facility] Comment: ----ADDITIONAL INFORMATION---- On 02/13/2017 the total protein assay me thod changed resulting in approximately a 15% increase in prote in values. Predicted 24 Hr 447 mg/24 h 03/01/2018 2:26 PM [facility] Protein T [facility] Predicted Range 142-1408 mg/24 h 03/01/2018 2:26 PM [facility] Hemoglobin, QL Negative Negative 03/01/2018 2:52 PM [facility] Specimen Anatomical Collection Method Collection Time Receive d Time (Source) Location / / Volume Laterality Urine (Urine, 03/01/2018 1:51 PM 03/01/20 1:51 Clean Catch) CDT PM CDT Jennifer Zarate LAB URINE ORDERABLES Performing Organization Address City/State/ZIP Code Phon e Number [facility] LABORATORIES - [address] [place] [address] 05 [facility] documented in this encounter Visit Diagnoses Diagnosis Pain Elbow Left documented in this encounter Care Teams Targeteer Relationship Specialty Start Date End Date Elsewhere, Pcp PCP - General Family Medicine 02/13/18 documented as of this encounter
--- OUTSIDE RECORDS SUMMARY | 2022-06-10 10:55 | XMS_ITS | Encounter Summary ---
:1955 Author Organization [facility] Address [address] [place] [address] Care Team Providers Name Role Phone Elsewhere, Pcp Primary Care Provider Unavailable Encounter Details Date Type Department Care Team Description 07/05/2018 Ancillary Procedure Department of Ophthalmology Social History [...] containing 4 or more times a w [place] 12/18/2020 alcohol? How many drinks containing alcohol [...] or relatives? How often do you attend gnosticist or scientologist Never 09/20/2019 services? Do you belong to any clubs or organizations Yes 12/18/2020 such as gnosticist groups, unions, fraternal or athletic groups, or [...] slept in a nursing home (including now)? Sex Assigned at Date Recorded Male 03/19/2018 11:46 AM CDT documented as of this encounter Plan of Treatment Upcoming Encounters Date Type Specialty Care Team Description 06/21/2022 Clinical Communication Admitting/Central Scheduling 06/22/2022 Comprehensive Visit Rheumatology Clemente Mario M.B.B.S. [address] [place] [address] 08/03/2022 Comprehensive Visit Dermatology Jignesh Leonard M.D. [address] [place] [address] documented as of this encounter Procedures Procedure Name Priority Date/Time Associated Comments Diagnosis OPHTHALMOLOGY IMAGE Routine 07/05/2018 11:11 Resu lts for this EXAM AM CLAIM INVESTIGATOR procedure are i n the results section. documented in this encounter Results OPHTHALMOLOGY IMAGE EXAM (07/05/2018 11:11 AM CLAIM INVESTIGATOR) Specimen (Source) Anatomical Collection Method Collection Time Re ceived Time Location / / Volume Laterality 07/05/2018 12:00 PM CLAIM INVESTIGATOR Narrative [facility] - 07/05/2018 11:11 AM CLAIM INVESTIGATOR This order has been created and auto-finalized [...] on filedocumented in this encounter Care Teams Garage Supervisor Relationship Specialty Start Date End Date Elsewhere, Pcp PCP - General Family Medicine 02/13/18 documented as of this encounter
--- OUTSIDE RECORDS SUMMARY | 2022-06-10 10:55 | XMS_ITS | Encounter Summary ---
:1955 Author Organization [facility] Address [address] [place] [address] Care Team Providers Name Role Phone Elsewhere, Pcp Primary Care Provider Unavailable Encounter Details Date Type Department Care Team Description 04/16/2018 Hospital Encounter Department of Luis Enrique Cunha Aneur ysm Dissecting Laboratory Medicine M.DJaleel Aortic (HCC) and Pathology, [address] [place] [address], in [place], [place] [address] [place] [address] [place], [place] (Work[place] [phone] Social History Tobacco Use Types Packs/Day Years [...] containing 4 or more times a w [place] 12/18/2020 alcohol? How many drinks containing [...] or relatives? How often do you attend sabianism or lutheran Never 09/20/2019 services? Do you belong to any clubs or organizations Yes 12/18/2020 such as sabianism groups, unions, fraternal or athletic groups, or [...] or slept in a fdc (including now)? Sex Assigned at Date Recorded Male 03/19/2018 11:46 AM CDT documented as of this encounter Medications at Time of Discharge Medication Sig Dispensed Refills Start Date End Date carvedilol (COREG) 25 mg Take 25 mg by mouth 0 tablet 2 (two) times a day with meals. enalapril (VASOTEC) 20 mg Take 20 mg by mouth 0 tablet 2 (two) times a day. FLUoxetine (PROzac) 40 mg Take 20 mg by mouth 0 capsule daily. montelukast (SINGULAIR) Take 10 mg by mouth 0 10 mg tablet at bedtime. NIFEdipine (ADALAT CC) 60 Take 30 mg by mouth 0 mg ER tablet daily. aspirin 325 mg tablet Take 325 mg by mouth 0 10/12/2020 daily. pravastatin (PRAVACHOL) Take 60 mg by mouth 0 10/12/2020 40 mg tablet daily. 1.5 tablets daily documented as of this encounter Progress Notes Tamara Evans M.S., [facility] - 04/16/2018 11:59 PM CDT CHIEF COMPLAINT Patient not seen; negative genetic testing HISTORY OF PRESENT ILLNESS Mr. Sanches was seen in the Department of Clinical Genomics due to a personal history of type B aortic dissection. At that time, he elected the Aortopathy Panel from [facility]. I called the patient with negative test results. IMPRESSION/REPORT/PLAN RESULTS To review, Mr. Sanches had genetic testing for 25 genes associated with aortopathy through [facility]. This included comprehensive sequencing and gross deletion/duplication analysisof ACTA2, CBS, COL3A1, COL5A1, COL5A2, EFEMP2, FBN1, FBN2, FLNA, MED12, MYH11, MYLK, NOTCH1, PLOD1, PRKG1, QCE8J19, SMAD3, SMAD4, SKI, TGFBR1, TGFBR2, TGFB2, TGFB3, MAT2A, and SMAD6. Mr. Sanches's testing was negative, meaning no pathogenic mutations were identified with this testing. The results of the genetic testing did not identify any mutations of clinical significance. However,this does not exclude the possibility that Mr. Sanches has an underlying connective tissue disorder. It is possible that a mutation exists in a gene not yet identified, or not tested for. Additionally, genetic testing has less than 100% sensitivity. Therefore, there is a small chance that there is a gene mutation that cannot be identified by current testing methodology. FAMILY SCREENING Because we could not identify a genetic cause for Mr. Sanches???s diagnosis of aortic dissection, we will not be able to use genetic testing to screen other family members. It is unknown at this time the chance that other family members will also develop aortic aneurysms and/or dissections. Therefore, cardiac screening for first-degree relatives is recommended. First-degree relatives (parents, siblings, and children) should undergo screening echocardiograms. Typically, we recommend follow-up screening occur every 5 years or based on personal history. Final screening and follow-up recommendations will be made by each individual's managing physician. Additional ly, any family member who is experiencing cardiac or other symptoms should seek medical care. PLAN Genetic testing for connective tissue disorders will continue to improve over time. It is recommended that Mr. Sanches periodically recontact us (every 1-2 years) to determine if additional testing would be available. Additionally, if there are any changes to the family history, I encourage Mr. Sanches to contact me. It was a pleasure speaking to Mr. Sanches. He is encouraged to contact me with any additional questions. PATIENT EDUCATION All of the above was explained in detail with the patient who verbalized understanding. There were no apparent barriers to learning and understanding. The patient's questions were answered. documented in this encounter Plan of Treatment Upcoming Encounters Date Type Specialty Care Team Description 06/21/2022 Clinical Communication Admitting/Central Scheduling 06/22/2022 Comprehensive Visit Rheumatology Clemente Mario M.B.BJaleelS. [address] [place] [phone] 08/03/2022 Comprehensive Visit Dermatology Jignesh Leonard M.D. [address] [place] [address] documented as of this encounter Procedures Procedure Name Priority Date/Time Associated Comments Diagnosis MISC. INVITAE Routine 04/16/2018 4:49 PM Results for this [employer] CDT procedure are i n the results section. documented in this encounter Results Misc. Accent (04/16/2018 4:49 PM CDT) [facility] Method Time Signature Test Name Aortopathy 04/17/2018 [employer] [employer] [facility] Comprehensive 8:10 AM CDT [employer] Panel Result SEE COMMENT 05/23/2018 [employer] [facility] 3:29 PM CDT [employer] [facility] Comment: For final report, select Lab-Send Out L ab Results hyperlink below. Specimen Anatomical Collection Method Collection Time Receive d Time (Source) Location / / Volume Laterality Varies 04/16/2018 4:49 PM 8 8:10 CDT AM CDT Narrative This result has an attachment that is no t available. Luis Enrique Cunha M.D. LAB MISC ORDERABLES Performing Organization Address City/State/ZIP Code Phon e Number [facility] [address] [place] [address] documented in this encounter Visit Diagnoses Diagnosis Aneurysm Dissecting Aortic (HCC) documented in this encounter Care Teams Eye Glass Frame Polisher Relationship Specialty Start Date End Date Elsewhere, Pcp PCP - General Family Medicine 02/13/18 documented as of this encounter
--- OUTSIDE RECORDS SUMMARY | 2022-06-10 10:55 | XMS_ITS | Encounter Summary ---
:1955 Author Organization [facility] Address [address] [place] [address] Care Team Providers Name Role Phone Elsewhere, Pcp Primary Care Provider Unavailable Encounter Details Date Type Department Care Team Description 03/01/2018 Hospital Encounter Department of Jennifer Zarate in [facility], [facility], in [address] [place] [address] [place] [address] [place], [place] [phone] [address] (Work) [phone] Social History Tobacco Use Types Packs/Day Years [...] containing 4 or more times a w [place] 12/18/2020 alcohol? How many drinks containing alcohol [...] How often do you attend amish or restorationist Never 09/20/2019 services? Do you belong to [...] or slept in a [facility] (including now)? Sex Assigned at Date Recorded [...] Visit Rheumatology Clemente Mario M.B.BJaleelS. [address] [place] [address] 08/03/2022 Comprehensive Visit Dermatology Jignesh Leonard M.D. [address] [place] [address] documented as of this encounter Procedures Procedure Name Priority Date/Time Associated Comments Diagnosis DX SHOULDER LEFT RAD - Routine 03/01/2018 1:15 Pain Elbow Left Resu lts for this 2+ VIEWS (most inpatients PM CDT procedure a re in and all the results outpatients) section. documented in this encounter Results DX Shoulder Left 2+ Views (03/01/2018 1:15 PM CDT) Anatomical Region Laterality Modality Upper Extremity, Shoulder, Musculoskeletal RST LOS Left Computed Radiography Specimen (Source) Anatomical Collection Method Collection Time Re ceived Time Location / / Volume Laterality 03/01/2018 1:37 PM CDT Impressions 03/01/2018 1:38 PM CDT IMPRESSION: ??Advanced degenerative arthritis left glenohumeral joint with prominent osteophyte formation along the inferomedial left humeral head and neck. Mild degenerative change left AC j oint. Left shoulder otherwise negative. The humeral head is concentrically locat ed at the glenoid. Thoracic aortic stent graft. Surgical clips in the neck. Narrative 03/01/2018 1:38 PM CDT EXAM: ??DX SHOULDER LEFT 2+ VIEWS Procedure Note Art Kruse M.D. - 03/01/2018Forma tting of this note might be different from the original. EXAM: DX SHOULDER LEFT 2+ VIEWS IMPRESSION: Advanced degenerative arthri tis left glenohumeral joint with prominent osteophyte formation along the inferomedial left humeral head and neck. Mild degenerative change left AC j oint. Left shoulder otherwise negative. The humeral head is concentrically locat ed at the glenoid. Thoracic aortic stent graft. Surgical clips in the neck. Jennifer [facility] BRIAN MICHEL documented in this encounter Visit Diagnoses Diagnosis Pain Elbow Left documented in this encounter Care Teams Alum Plant Operator Relationship Specialty Start Date End Date Elsewhere, Pcp PCP - General Family Medicine 02/13/18 documented as of this encounter
--- OUTSIDE RECORDS SUMMARY | 2022-06-10 10:55 | XMS_ITS | Encounter Summary ---
:1955 Author Organization [facility] Address [address] [place] [address] Care Team Providers Name Role Phone Elsewhere, [...] containing 4 or more times a w teller 12/18/2020 alcohol? How many drinks containing alcohol [...] or relatives? How often do you attend uatsdin or taoist Never 09/20/2019 services? Do you belong to any clubs or organizations Yes 12/18/2020 such as uatsdin groups, unions, fraternal or athletic groups, or [...] slept in a group home (including now)? Sex Assigned at Date Recorded Male 03/19/2018 11:46 AM CDT documented as of this encounter Plan of Treatment Upcoming Encounters Date Type Specialty Care Team Description 06/21/2022 Clinical Communication Admitting/Central Scheduling 06/22/2022 Comprehensive Visit Rheumatology Clemente Mario M.B.B.S. [address] [place] [address] 08/03/2022 Comprehensive Visit Dermatology Jignesh Leonard M.D. [address] [place] [address] documented as of this encounter Procedures Procedure Name Priority Date/Time Associated Comments Diagnosis OPHTHALMOLOGY IMAGE Routine 07/05/2018 12:10 Resu lts for this EXAM PM SCENE AND LIGHTING DESIGN LECTURER procedure are i n the results section. documented in this encounter Results OPHTHALMOLOGY IMAGE EXAM (07/05/2018 12:10 PM SCENE AND LIGHTING DESIGN LECTURER) Specimen (Source) Anatomical Collection Method Collection Time Re ceived Time Location / / Volume Laterality 07/05/2018 12:00 PM SCENE AND LIGHTING DESIGN LECTURER Narrative [facility] - 07/05/2018 12:12 PM SCENE AND LIGHTING DESIGN LECTURER This order has been created and auto-finalized [...] on filedocumented in this encounter Care Teams Front Office Help Relationship Specialty Start Date End Date Elsewhere, Pcp PCP - General Family Medicine 02/13/18 documented as of this encounter
--- OUTSIDE RECORDS SUMMARY | 2022-06-10 10:55 | XMS_ITS | Encounter Summary ---
:1955 Author Organization [facility] Address [address] [place] [address] Care Team Providers Name Role Phone Elsewhere, Pcp Primary Care Provider Unavailable Encounter Details Date Type Department Care Team Description 07/17/2018 Clinical Communication Department of Thomas Reina, Ophthalmology in Kaylen Draper O.D. [place], [place] [address] [facility] [address] [place] [phone] Social History Tobacco Use Types Packs/Day Years [...] containing 4 or more times a w la posta 12/18/2020 alcohol? How many drinks containing alcohol [...] How often do you attend yarsanism or hinduism Never 09/20/2019 services? Do you belong to [...] or slept in a chcf (including now)? Sex Assigned at Date Recorded Male 03/19/2018 11:46 AM CDT documented as of this encounter Plan of Treatment Upcoming Encounters Date Type Specialty Care Team Description 06/21/2022 Clinical Communication Admitting/Central Scheduling 06/22/2022 Comprehensive Visit Rheumatology Clemente Mario M.B.B.S. [address] [place] [address] 08/03/2022 Comprehensive Visit Dermatology Jignesh Leonard M.D. [address] [place] [address] documented as of this encounter Visit Diagnoses Not on filedocumented in this encounter Care Teams Distribution Designer Relationship Specialty Start Date End Date Elsewhere, Pcp PCP - General Family Medicine 02/13/18 documented as of this encounter
--- OUTSIDE RECORDS SUMMARY | 2022-06-10 10:55 | XMS_ITS | Encounter Summary ---
:[address] [facility] Address [address] [place] [address] Care Team Providers Name Role Phone Elsewhere, Pcp Primary Care Provider Unavailable Reason for Visit Outpatient (Routine) - Closed Specialty Diagnoses / Procedures Referred By Contact Refer red To Contact Diagnoses Aneurysm Dissecting Aortic (HCC) Agustín Charles M.D. [facility] [address] [place] [phone] Referral ID Status Reason Start Date Expiration Date Visits Requ ested Visits Authorized [id number] Closed 03/19/2018 03/19/2019 1 1 Encounter Details Date Type Department Care Team Description 04/16/2018 Comprehensive Visit Department of Luis Enrique Cunha M.D. [address] [place] [phone] Aneurysm Dissecting Medical Genetics Tamara Evans M.S. Aortic (HCC) in [place], [place] [address] [place] [phone] Social History Tobacco Use Types Packs/Day Years [...] or relatives? How often do you attend islam or bahai Never 09/20/2019 services? Do you belong to any clubs or organizations Yes 12/18/2020 such as islam groups, unions, fraternal or athletic groups, or school groups? How often do you attend meetings of the More than 4 times r year 12/18/2020 clubs or organizations you [...] or slept in a fci (including now)? Sex Assigned at Date Recorded Male 03/19/2018 11:46 AM CDT documented as of this encounter Consult Notes Tamara Evans M.S., [facility] - 04/16/2018 3:00 PM CDT REFERRING PROVIDER Supervising physician: Luis Enrique Cunha, [phone] Cardiology MD: Agustín Charles M.D. CHIEF COMPLAINT Personal history of aortic dissection HISTORY OF PRESENT ILLNESS London Sanches is a 63 y.o. male referred today by Agustín Charles M.D. due to a personal history of aortic dissection. The patient experienced a type B aortic dissection in 2013. He has a long-standing history of hypertension. He was seen in [facility]. Please see Dr. Cunha's note for detailed information regarding work-up and diagnosis. Mr. Sanches was referred for genetic counseling to discuss the genetics and inheritance of aortic aneurysm and to review screening recommendations and genetic testing options. Mr. Sanches attended today???s consultation with his spouse, Mae. FAMILY HISTORY A detailed family history was obtained from the patient and a pedigree was constructed. The pedigreewill be saved as a scanned document and available for viewing under the Media tab of [employer]. Our risk assessment is based upon medical and family history information as provided by the patient, and may change in the future should new information be obtained. RELEVANT HISTORY - The patient has a healthy 32-year-old daughter. - The patient has two healthy sisters and a healthy brother. The patient's maternal ancestry is Estonian and Martiniquais; the patient's paternal ancestry is Martiniquais and question Church. The remainder of the family history was non-contributory to today's discussion. There are no other diagnoses of aortic aneurysm or dissection in the family history. There are no other diagnoses of vascular aneurysm or dissection in the family history. No consanguinity was reported. IMPRESSION/REPORT/PLAN Please see Dr. Cunha's clinic note for further details pertaining to the Impression/Report/Plan. Briefly, based upon Dr. Cunha's physical examination, the patient does not meet criteria for a diagnosisof a syndromic condition such as Loeys-Marcella or Marfan syndrome. However, given the patient's history of aortic dissection, genetic testing was offered to the patient to attempt to confirm the genetic cause of the patient's symptoms. PATIENT EDUCATION We discussed the genetics of Marfan syndrome and related disorders. These conditions can be caused by mutations in several genes, including FBN1, TGFBR1 and TGFBR2 and others. We discussed that in general, these disorders are inherited in an autosomal dominant inheritance pattern, and children of an af fected parent would therefore have a 50% chance of inheriting the condition. We also discussed the concepts of variable expressivity and reduced penetrance. We discussed available genetic testing, including the option of testing several genes at once by using a large panel test. This testing involves drawing a blood sample, which will be analyzed for mutations in the gene or genes of interest. We discussed the gene panel available through [facility]. This test includes sequencing and deletion/duplication analyses of the following genes ACTA2, CBS, COL3A1, COL5A1, COL5A2, EFEMP2, FBN1, FBN2, FLNA, MED12, MYH11, MYLK, NOTCH1, PLOD1, PRKG1, XSC5P55, SMAD3, SMAD4, SKI, TGFBR1, TGFBR2, TGFB2, TGFB3, MAT2A, and SMAD6. The results from the genetic test should take approximately 2-4 weeks to get back. If the result is positive, this confirms a diagnosis and management will be based upon the gene involved. If the result is negative, it is important to note that the patient may still have a genetic form of connective tissue disease given that the testing does not have a 100% detection rate. Thus, regardless of whether the patient is found to have Marfan syndrome, a related disorder, or no identifiable mutations, echocardiographic screening of first degree family members should be discussed after results are available. Additionally, any family member who is experiencing cardiac or other symptoms should seek medical care. We encourage those seeking clinical evaluation or genetic testing to work with a physician or genetic counselor familiar with this condition to ensure appropriate interpretation and follow up of results. We would be happy to see family members here at [facility] or are available to identify resources closer to the individual's residence. Genetic testing can help determine whether or not a mutation is present in a family, and as a resultmay provide information that could help clarify an individual's (and possibly other family members')risks. It may also help direct decisions about screening and prevention options. Approximate cost, insurance coverage, and laws governing genetic discrimination were discussed. Risks, benefits, and limitations of genetic testing were discussed. Implications of possible test results, including positive, negative, and variant of uncertain significance, were discussed. PLAN Psychosocial support and counseling were provided to the patient. Considerations related to decision-making were discussed. At the end of our visit, Mr. Sanches elected to pursue the Aortopathy Panel through [facility]. The laboratory will complete insurance pre-verification for testing and will contact the patient if the estimated [id number] cost exceeds $100. Results will become available approximately 3 weeks from the release of testing. Screening and management recommendations will be made for the patient and family members at the time of results disclosure. If results are abnormal, we will invite the patient back to discuss further. It was a pleasure to meet Mr. Sanches. He is welcome to contact us with any questions. PATIENT EDUCATION Patient expressed understanding of this information. The impression and plan were discussed in detail. There were no apparent barriers to learning or understanding. Questions were answered. I remain available to answer any questions in the future. Total time: 35 minutes Luis Enrique Cunha M.D. - 04/16/2018 3:00 PM CDT SUBJECTIVE CHIEF COMPLAINT / REASON FOR CONSULT London Sanches is a delightful 63 y.o. male who was referred by Agustín Charles M.D. for evaluation of aortic dissection. He is accompanied by his spouse. Genetic counselor present: Tamara Evans [facility]. HISTORY OF PRESENT ILLNESS Mr. Sanches states that in January 2014 he developed sudden onset chest pain pressure and was found tohave a type B aortic dissection. He underwent repair and has had his aorta routinely follow over thelast few years. Prior to his aortic dissection he had uncontrolled hypertension with systolic blood pressures in the 130s 140s. A recent echocardiogram now shows aortic root dilatation and because of this new finding the question of underlying connective tissue disorder was raised. Mr. Sarah giron is not very flexible. He has never dislocated joint or has chronic joint pain. He has sublux his left wrist with trauma. He denies any soft or stretchy skin, wound dehiscence, easy bruising, easy bleeding, unusual scars, stretch benítez, or poor wound healing. He does have a history of GERD, occasional diarrhea and constipation but denies any nausea, vomiting, or abdominal pain. He has had myopia since mid 30s but denies any history of lens dislocation retinal detachment. He has never had braces onhis teeth or told he has tooth over crowding. He has not have a history of flat feet, pectus excavatum or carinatum, or pneumothorax. He has had bilateral inguinal hernias status post repair. He has had an abdominal wall incisional hernia status post repair. He does have a history of depression. MEDICAL HISTORY 1. Type B aortic dissection 2. Hypertension for 20 years 3. 2 inguinal hernias 4. incisional hernia 5. Aortic root dilation 6. Cecum diverticulitis 7. Pseudo-gout SURGICAL HISTORY 1. Repair of type B aortic dissection 2. Inguinal hernia repair x2 3. Duodenal ulcer s/p cauterization 4. Incisional hernia repair 5. Muscle pulled in eyelid for droopy eye at age 5 6. Vasectomy SOCIAL HISTORY Lives in [place], [place] with . 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 Family history Pedigree reviewed and available on the computerized medical record. Pedigree reviewed as documented by the Genetic Counselor. Maternal and paternal lineage are of Martiniquais and Estonian ancestry. The presence of Ashkenazi Church heritage is unknown. There is no known consanguinity in these relationships. History provided by: patient. Additional reports reviewed: none The following portions of the patient's history were reviewed and updated as appropriate: allergies,current medications, family history, medical history, social history, surgical history, developmental history, history and problem list REVIEW OF SYSTEMS Constitutional: no constitutional findings such as weight changes, fever, or fatigue Skin: no benítez, dyspigmentation, abnormal scars, or stretch benítez Eyes: vision loss since mid to late 30's. Wears progressive lens. Enlarged optic nerve, observed forglaucoma. Eye exam: last eye exam over a year. There is no evidence of blue sclerae. ENT: no hearing problems, teeth crowding, or TMJ pain reported Respiratory: no shortness of breath or asthma reported Cardiovascular: no congenital heart anomalies, palpitations, chest pain, or physical activity intolerance. With regard to the patient's cardiovascular history,he has aortic enlargement - date of diagnosis 03/19/2018, aortic measurement at Sinuses Of Valsalva 41 mm , and Z-score 1.62 GI: heartburn and constipation : no congenital anomalies or blood in urine Neuro: no fainting, seizures and weakness Hemotology: no easy bruising or prolonged bleeding reported Musculoskeletal: hernias - bilateral inguinal hernias, abdominal incisional hernia. Left sided weakness diagnosed as pseudo-gout. Wrist dislocation while playing football. Endocrine: no report of easy heat or cold intolerance, sweating, frequent urinations, thirst, or changes in appetite Neck: no lumps, swollen glands, pain, or stiffness Psychiatric: depression OBJECTIVE PHYSICAL EXAM Height: 170.8 cm Arm-span: 170.4 cm Arm-span to height ratio: 1 General: patient in no acute distress. Head: no dolichocephaly, no enophthalmos, no malar hypoplasia, no retrognathia, no down-slanting palpebral fissures, sclerae are white} Ears: well formed, normally set Mouth: no dental crowding, no high-arched palate, no narrow palate, no bifid uvula Heart: regular rate and rhythm Chest: no pectus carinatum, no pectus excavatum, no chest asymmetry Respiratory: clear to auscultation bilaterally Abdomen: no organomegaly, positive bowel sounds, soft nontender and nondistended Back: no scoliosis, no kyphosis Extremities: negative wrist signs, negative thumb signs, no limitation of elbow extension, no pes planus, no hindfoot valgus, no small joint hypermobility Skin: not soft or overly extensible, no striae, no bruising, no prominent veins visible, no atrophicscars Neuro: deep tendon reflexes equal and symmetric bilaterally, gross motor sensation intact Imaging Echocardiogram: date - 03/19/2018, internally performed, results - Borderline sinus of Valsalva dilation of 41 mm, s/p ascending aortic aneurysm repair ASSESSMENT / PLAN #1 Aneurysm Dissecting Aortic (HCC) #2 Hypertension We discussed with London Sanches today that aortic dilatation can be both acquired and genetic.Acquired aortic aneurysms usually are associated with coronary artery disease and hypertension. He does have a history of hypertension. We also discussed that when there is enlargement of the sinus of V alsalva, we are always more concerned that there may be a genetic etiology. We discussed that there are a number of genetic etiologies that can lead to aortopathy. These include Marfan syndrome, Loeys-Marcella syndrome, familial thoracic aortic aneurysm and aortic dissection, and Jayden-Danlos syndrome va scular type. We discussed that based on physical exam today, he does not meet clinical criteria for Marfan syndrome. We also discussed that he does not have any features of Loeys-Marcella syndrome or Jayden-Danlos syndrome vascular type. We also discussed that individuals who have familial thoracic aortic aneurysm and aortic dissection usually have no physical findings suggestive of a connective tissue disorder. However, we also discussed that there is significant clinical variability in these syndromes, and there is significant phenotypic overlap, which makes it difficult to determine which gene may be involved based on physical exam alone. We discussed genetic panel testing and that this is the most cost-effective way to evaluate genes that lead to aortopathy. We discussed that a positive test would have implications for his medical and surgical management as well as surveillance of other vascular beds. We also discussed that a positive test would impact his first-degree relatives as they would also be at risk for inheriting a changed gene if one is found. At this time, London Sanches would like to proceed with genetic testing. Discussed in detail with the patient/family the diagnosis and treatment plan and answered their questions. Patient/family expressed understanding of the content. Educational materials were provided as appropriate. documented in this encounter Plan of Treatment Upcoming Encounters Date Type Specialty Care Team Description 06/21/2022 Clinical Communication Admitting/Central Scheduling 06/22/2022 Comprehensive Visit Rheumatology Clemente Mario M.B.B.S. [address] [place] [phone] 08/03/2022 Comprehensive Visit Dermatology Jignesh Leonard M.D. [address] [place] [address] documented as of this encounter Visit Diagnoses Diagnosis Aneurysm Dissecting Aortic (HCC) documented in this encounter Care Teams Tugboat Engineer Relationship Specialty Start Date End Date Elsewhere, Pcp PCP - General Family Medicine 02/13/18 documented as of this encounter
--- OUTSIDE RECORDS SUMMARY | 2022-06-10 10:55 | XMS_ITS | Encounter Summary ---
:1955 Author Organization [facility] Address [address] [place] [address] Care Team Providers Name Role Phone Elsewhere, Pcp Primary Care Provider Unavailable Encounter Details Date Type Department Care Team Description 07/05/2018 Ancillary Procedure Department of Glenn French Ophthalmology in Kaylen Draper O.D. [place], [place] [address] [facility] [address] [place] [phone] [phone] Social History Tobacco Use Types Packs/Day Years [...] containing 4 or more times a w [place] 12/18/2020 alcohol? How many drinks containing alcohol [...] or relatives? How often do you attend sabianist or cheondoism Never 09/20/2019 services? Do you belong to any clubs or organizations Yes 12/18/2020 such as sabianist groups, unions, fraternal or athletic groups, or [...] or slept in a fpc (including now)? Sex Assigned at Date Recorded Male 03/19/2018 11:46 AM CDT documented as of this encounter Plan of Treatment Upcoming Encounters Date Type Specialty Care Team Description 06/21/2022 Clinical Communication Admitting/Central Scheduling 06/22/2022 Comprehensive Visit Rheumatology Clemente Mario M.B.BJaleelS. [address] [place] [address] 08/03/2022 Comprehensive Visit Dermatology Jignesh Leonard M.D. [address] [place] [address] documented as of this encounter Procedures Procedure Name Priority Date/Time Associated Diagnosis Comme nts AUTOMATED VF - Routine 07/05/2018 10:31 AM Glaucoma Result s for this EXTENDED - OU - HOME DECORATOR procedure ar e in BOTH EYES the results section. documented in this encounter Results Automated VF - Extended - OU - Both Eyes (07/05/2018 10:31 AM HOME DECORATOR) Specimen (Source) Anatomical Location Collection Method / Collectio n Time Received Time / Laterality Volume Narrative OPHTHALMOLGY NON-IMAGING ORDERS - 10:14 AM HOME DECORATOR Right Eye Automated visual field device used was Z eiss. Strategy was CHIARA. Threshold was 24-2. Eyelid was taped. Left Eye Automated visual field device used was Z eiss. Strategy was CHIARA. Threshold was 24-2. Eyelid was taped. Notes 06/2018 cirrus OCT 03/29 and 04/29...80 [...] evidence of glaucoma Kaylen Reina O.D. OPHTH VISUAL FIELD Performing Organization Address City/State/ZIP Code Phon e Number OPHTHALMOLGY NON-IMAGING ORDERS documented in this encounter Visit Diagnoses Diagnosis Glaucoma documented in this encounter Care Teams Retail Service Representative Relationship Specialty Start Date End Date Elsewhere, Pcp PCP - General Family Medicine 02/13/18 documented as of this encounter
--- OUTSIDE RECORDS SUMMARY | 2022-06-10 10:55 | XMS_ITS | Encounter Summary ---
:1955 Author Organization [facility] Address [address] [place] [address] Care Team Providers Name Role Phone Elsewhere, Pcp Primary Care Provider Unavailable Encounter Details Date Type Department Care Team Description 07/05/2018 Ancillary Procedure Department of Glenn French Ophthalmology in Kaylen Draper O.D. [place], [place] [address] [facility] [address] [place] [phone] Social History Tobacco Use Types Packs/Day Years [...] containing 4 or more times a w [place] 12/18/2020 alcohol? How many drinks containing alcohol [...] How often do you attend mandaen or evangelical Never 09/20/2019 services? Do you [...] Visit Rheumatology Clemente Mario M.B.B.S. [address] [place] [address] 08/03/2022 Comprehensive Visit Dermatology Jignesh Leonard M.D. [address] [place] [address] documented as of this encounter Procedures Procedure Name Priority Date/Time Associated Comments Diagnosis OPTICAL COHERENCE Routine 07/05/2018 12:13 PM Glaucoma Res ults for this TOMOGRAPHY (OCT) - WEB CONTENT WRITER procedure are in OPTIC NERVE - OU - the resul ts BOTH EYES section. documented in this encounter Results Optical Coherence Tomography (OCT) - Optic Nerve - OU - Both Eyes (07/05/2018 12:13 PM WEB CONTENT WRITER) Specimen (Source) Anatomical Location Collection Method / Collectio n Time Received Time / Laterality Volume Narrative OPHTHALMOLGY NON-IMAGING ORDERS - 10:14 AM WEB CONTENT WRITER OCT device used is Cirrus . Right Eye Reliability was good. Left Eye Reliability was good. Notes 06/2018 cirrus OCT 03/29 and 04/29...80 [...] evidence of glaucoma Kaylen Reina O.D. OPHTH TOMOGRAPHY Performing Organization Address City/State/ZIP Code Phon e Number [facility] OPHTHALMOLGY NON-IMAGING ORDERS documented in this encounter Visit Diagnoses Diagnosis Glaucoma documented in this encounter Care Teams Facsimile Machine Operator Relationship Specialty Start Date End Date Elsewhere, Pcp PCP - General Family Medicine 02/13/18 documented as of this encounter
--- OUTSIDE RECORDS SUMMARY | 2022-06-10 10:55 | XMS_ITS | Encounter Summary ---
:1955 Author Organization [facility] Address [address] [place] [address] Care Team Providers Name Role Phone Elsewhere, Pcp Primary Care Provider Unavailable Reason for Referral Outpatient (Routine) - Closed Specialty Diagnoses / Procedures Referred By Contact Refer red To Contact Diagnoses Thoracic Aortic Aneurysm Without Rupture Unspecified (HCC) Dissection Of Thoracic Aorta Unspecified (HCC) Agustín Charles M.D. [facility] Procedures Echo Transthoracic (TTE) - Adult Congenital [address] [place] [phone] Referral ID Status Reason Start Date Expiration Date Visits Requ ested Visits Authorized [id number] Closed 04/16/2018 04/16/2019 1 1 utpatient (Routine) - Closed Specialty Diagnoses / Procedures Referred By Contact Refer red To Contact Cardiovascular Disease Agustín Charles [place] M.D. [address] [place] [phone] Referral ID Status Reason Start Date Expiration Date Visits Requ ested Visits Authorized [id number] Closed 04/16/2018 04/16/2019 1 1 Reason for Visit Outpatient (Routine) - Closed Specialty Diagnoses / Procedures Referred By Contact Refer red To Contact Cardiovascular Disease Agustín Charles [place] M.D. [address] [place] [phone] Referral ID Status Reason Start Date Expiration Date Visits Requ ested Visits Authorized [id number] Closed 03/19/2018 03/19/2019 1 1 Encounter Details Date Type Department Care Team Description 04/16/2018 Office Visit Department of Agustín Charles Aneurysm Thor acic Aortic Without Rupture (HCC) (Primary Dx); Cardiovascular Medicine Kim Garcia Hypertension Essential Primary; in [facility] quotation clerk [address] [facility] Dissecting Aneurysm Thoracic Aortic (HCC ); [address] [place], [place] Aneurysm Aortic Without Rupt ure ([place]) [place] [phone] Social History Tobacco Use Types Packs/Day Years [...] containing 4 or more times a w [place] 12/18/2020 alcohol? How many drinks containing alcohol [...] or relatives? How often do you attend hinduism or anabaptist Never 09/20/2019 services? Do you belong to any clubs or organizations Yes 12/18/2020 such as hinduism groups, unions, fraternal or athletic groups, or [...] documented as of this encounter Progress Notes Agustín Charles M.D. - 04/16/2018 4:00 PM CDT REASON FOR VISIT I am seeing Mr. Sanches on followup after completing his evaluation. His electrocardiogram shows sinus bradycardia otherwise unremarkable. MRA of the brain showed no intracranial aneurysm which is very reassuring. He was seen by my associate in Medical Genetics. The patient agreed with proceeding with genetic testing which I would also support. The finding on genetic testing would likely impact our decision about about what to do with the ascending aorta as far as when to intervene. I discussed above plan of care with the patient and his . He is going to stay on the same medical therapy with goal blood pressure of less than 120/80. We again talked about avoidance contact sports. I shall arrange for him to come back and see me in a year's time for followup. He will contact me through the patient portal if he has any additional questions or concerns. ASSESSMENT / PLAN Agustín Charles M.D. 04/16/2018 documented in this encounter Plan of Treatment Upcoming Encounters Date Type Specialty Care Team Description 06/21/2022 Clinical Communication Admitting/Central Scheduling 06/22/2022 Comprehensive Visit Rheumatology Clemente Mario M.B.B.S. [address] [place] [address] 08/03/2022 Comprehensive Visit Dermatology Jignesh Leonard M.D. [address] [place] [address] Scheduled Referrals Name Type Priority Associated Order Schedule Diagnoses Cardiovascular Disease Outpatient Referral Routine Expected: office visit (clinic) 2018 (Approximate), Expires: 04/16/2021 documented as of this encounter Results (TTE) 2D ECHO DOPPLER COLOR (09/23/2019 3:39 PM METAL CANS SUPERVISOR) [facility] Method Time Signature Ejection Fraction 61 [...] / / Volume Laterality 09/23/2019 2:22 PM METAL CANS SUPERVISOR Impressions 09/23/2019 8:10 PM METAL CANS SUPERVISOR LEFT VENTRICLE: ??Mildly enlarged left ventricular chamber [...] evel Documents below. Narrative 09/23/2019 8:10 PM METAL CANS SUPERVISOR For the complete report, see the [employer] evel Documents below. Final Impressions 1. Status [...] original. For the complete report, see the [employer] evDCITS Documents below. Final Impressions 1. Status post [...] Thoracic Aortic Aneurysm Without Rupture Unspecified (HCC) - Primary Hypertension 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) Aneurysm Aortic Without Rupture (HCC) Thoracic Aortic Aneurysm Without Rupture Unspecified (HCC) Dissection Of Thoracic Aorta Unspecified (HCC) documented in this encounter Care Teams Rat Farmer Relationship Specialty Start Date End Date Elsewhere, Pcp PCP - General Family Medicine 02/13/18 documented as of this encounter
--- OUTSIDE RECORDS SUMMARY | 2022-06-10 10:55 | XMS_ITS | Encounter Summary ---
:1955 Author Organization [facility] Address [address] [place] [address] Care Team Providers Name Role Phone Elsewhere, Pcp Primary Care Provider Unavailable Reason for Referral Outpatient (Routine) - Closed Specialty Diagnoses / Procedures Referred By Contact Refer red To Contact Diagnoses Glaucoma Kaylen French [facility] Procedures Corneal Pachymetry - OU - Both Eyes ME OPHTHAL US DX EYE THICKNESS O.D. [address] [place] [phone] Referral ID Status Reason Start Date Expiration Date Visits Requ ested Visits Authorized [id number] Closed 06/10/2018 06/10/2019 1 1 Reason for Visit Reason Comments Eye Exam Hx of enlarged optical nerve s; both eyes. Vision changes every years; both eyes; minimally. Denies pain , flashes, floaters, double vision. Outpatient (Routine) - Closed Specialty Diagnoses / Procedures Referred By Contact Refer red To Contact Ophthalmology Diagnoses Aneurysm Dissecting Aortic (HCC) Agustín Charles M.D. [place] [facility] [address] [place] [phone] Referral ID Status Reason Start Date Expiration Date Visits V isits Requested Authorized [id number] Closed Specialty 03/19/2018 03/19/2019 1 1 Services Required Encounter Details Date Type Department Care Team Description 06/10/2018 Comprehensive Visit Department of Glenn French (Primary Ophthalmology in Kaylen Draper O.D. Dx) [place], [place] [address] [facility] 200 [place] [phone] Social History Tobacco Use Types Packs/Day Years [...] containing 4 or more times a w [place] 12/18/2020 alcohol? How many drinks containing alcohol [...] How often do you attend denominational or rastafarian Never 09/20/2019 services? Do you [...] documented as of this encounter Progress Notes Kaylen French O.D. - 06/10/2018 3:45 PM CDT Images from the original note were not included. [place] Sanches was seen today for Eye Exam (Hx of enlarged optical nerves; both eyes. Vision changes every years; both eyes; minimally. Denies pain, flashes, floaters, double vision./) Impression/Plan: #1 Glaucoma suspect based on large cup/disc Plan: Get CHIARA visual field, Cirrus OCT , pachymetry and disc phtoos. I'll Call with results. #2 Refractive disorder Plan: Rx Final given. Addendum: 09/12/2018 - I sent to Dr. Veliz to review - I still am concerned about the large CD - which contradicts what I communicated to the patient. RE: Does he need sooner FU vs one year? Received: 1 month ago Message Contents Masoud Veliz O.D. Softing Hataye, Alaina L, O.D. ?? Jose Abdullahi, yes I agree, rims look to be on the thinner side and vf shows possible early arcuate changes, so I would repeat testing in 3-4 mo. The first 2 oct and vf are baseline, and then the analysis looks for changes on subsequent testing, so it's good to get the first two in a relatively shorter time frame. Plan: Orders entered, second email sent to patient explaining my concerns. RTC 3 months for testing and I will have glaucoma team review results and call you with the plan. [facility] documented in this encounter Plan of Treatment Upcoming Encounters Date Type Specialty Care Team Description 06/21/2022 Clinical Communication Admitting/Central Scheduling 06/22/2022 Comprehensive Visit Rheumatology Clemente Mario M.B.B.S. [address] [place] [address] 08/03/2022 Comprehensive Visit Dermatology Jignesh Leonard M.D. [address] [place] [address] Scheduled Orders Name Type Priority Associated Diagnoses Order S chedule Corneal Pachymetry - Ophthalmology Routine Glaucoma Expect ed: OU - Both Eyes 06/10/2018 (Approximate), Expires: 2020 documented as of this encounter Results Optical Coherence Tomography (OCT) - Optic Nerve - OU - Both Eyes (07/05/2018 12:13 PM [facility]) Specimen (Source) Anatomical Location Collection Method / Collectio n Time Received Time / Laterality Volume Narrative OPHTHALMOLGY NON-IMAGING ORDERS - 10:14 AM [facility] OCT device used is Cirrus . Right Eye Reliability was good. Left Eye Reliability was good. Notes 06/2018 cirrus OCT 03/29 and 04/29...80 an d 76, RE one yellow section, LE all green; ganglion cell layer 79/75 - R E normal ??LE infer temp thinning 06/2018 visual field - RE 1/, 3% False neg pattern deviation > total, nasal scatter infer and super; LE 2/ 3 % false positives 2 % false neg - superior scatter Color photos - good quality to follow cl inically Dx: ??Glaucoma suspect with no evidence of glaucoma Kaylen Reina O.D. OPHTH TOMOGRAPHY Performing Organization Address [facility] Phon e Number OPHTHALMOLGY NON-IMAGING ORDERS Fundus Photos - OU - Both Eyes (07/05/2018 12:12 PM [facility]) Specimen (Source) Anatomical Location Collection Method / Collectio n Time Received Time / Laterality Volume Narrative OPHTHALMOLGY NON-IMAGING ORDERS - 10:14 AM [facility] Right Eye Field of view is standard view. Left Eye Field of view is standard view. Notes 06/2018 cirrus OCT 03/29 and 04/29...80 an d 76, RE one yellow section, LE all green; ganglion cell layer 79/75 - R E normal ??LE infer temp thinning 06/2018 visual field - RE 1, 3% False neg pattern deviation > total, nasal scatter infer and super; LE 2 3 % false positives 2 % false neg - superior scatter Color photos - good quality to follow cl inically Dx: ??Glaucoma suspect with no evidence of glaucoma Kaylen Reina O.D. OPHTH PHOTOGRAPHY Performing Organization Address [facility] Phon e Number OPHTHALMOLGY NON-IMAGING ORDERS Automated VF - Extended - OU - Both Eyes (07/05/2018 10:31 AM [facility]) Specimen (Source) Anatomical Location Collection Method / Collectio n Time Received Time / Laterality Volume Narrative OPHTHALMOLGY NON-IMAGING ORDERS - 10:14 AM [facility] Right Eye Automated visual field device used [...] ??Glaucoma suspect with no evidence of glaucoma aKylen Reina O.D. OPH VISUAL FIELD Performing Organization Address City/State/ZIP Code Phon e Number OPHTHALMOLGY NON-IMAGING ORDERS documented in this encounter Visit Diagnoses Diagnosis Glaucoma - Primary Glaucoma Glaucoma Glaucoma documented in this encounter Care Teams Information Systems Planner Relationship Specialty Start Date End Date Elsewhere, Pcp PCP - General Family Medicine 02/13/18 documented as of this encounter
--- OUTSIDE RECORDS SUMMARY | 2022-06-10 10:55 | XMS_ITS | Encounter Summary ---
:1955 Author Organization [facility] Address [address] [place] [address] Care Team Providers Name Role Phone Elsewhere, Pcp Primary Care Provider Unavailable Reason for Visit MRI/CAT/PET Scan (Routine) - Closed Specialty Diagnoses / Procedures Referred By Contact Refer red To Contact Radiology Diagnoses Aneurysm Cerebral Unruptured (HCC) Agustín Charles M.D. [facility] Procedures MR Brain Angiogram without IV Contrast MR Brain Angiogram without and with IV Contrast IA MRA HEAD WO/W [facility] HC MRA HEAD WO/W [facility] IA MRA HEAD WO/W [facility] IA MRA HEAD WO [facility] HC MRA HEAD WO [facility] IA MRA HEAD WO [facility]TRST [address] [place] [address] Referral ID Status Reason Start Date Expiration Date Visits Requ ested Visits Authorized [id number] Closed 03/19/2018 03/19/2019 1 1 Encounter Details Date Type Department Care Team Description 03/21/2018 Hospital Encounter Department of Agustín Charles Cerebral Radiology, Valente Garcia M.D. Unruptured (HCC) [facility] in [place], [address] [place], [place] [address] [place] [address] [place], [place] [phone] (Work) [phone] Social History Tobacco Use Types Packs/Day Years [...] containing 4 or more times a w [place] 12/18/2020 alcohol? How many drinks containing alcohol [...] How often do you attend presybeterian or confucianist Never 09/20/2019 services? Do you belong to [...] or slept in a usp (including now)? Sex Assigned at Date Recorded [...] Visit Rheumatology Clemente Mario M.B.BJaleelS. [address] [place] [phone] 08/03/2022 Comprehensive Visit Dermatology Jignesh Leonard M.D. [address] [place] [phone] documented as of this encounter Procedures Procedure Name Priority Date/Time Associated Comments Diagnosis MR BRAIN RAD - Routine 03/21/2018 6:24 Aneurysm Cerebral Result s for this ANGIOGRAM WITHOUT (most inpatients PM CDT Unruptured (HCC) pr ocedure are in IV CONTRAST and all the results outpatients) section. documented in this encounter Results MR Brain Angiogram without IV Contrast (03/21/2018 6:24 PM CDT) Anatomical Region Laterality Modality Head, Brain, Neuroradiology RST LOS N/A Magn etic Resonance Specimen (Source) Anatomical Collection Method Collection Time Re ceived Time Location / / Volume Laterality 03/21/2018 7:31 PM CDT Impressions 03/21/2018 7:37 PM CDT IMPRESSION: No evidence of intracranial aneurysm. Narrative 03/21/2018 7:37 PM CDT EXAM: MR BRAIN ANGIOGRAM WITHOUT IV CONTRAST COMPARISON: None. FINDINGS: Diffuse dolichoectasia of the visualized distal cervical and intracranial internal carotid arteries. Dominant right vertebral artery. Examination is otherwise negative. No ev idence of aneurysm or dissection. Procedure Note Lucho Lopes M.D. - 03/21/2018For matting of this note might be different from the original. EXAM: MR BRAIN ANGIOGRAM WITHOUT IV CONT RAST COMPARISON: None. FINDINGS: Diffuse dolichoectasia of the visualized distal cervical and intracranial internal carotid arteries. Dominant right vertebral artery. Examination is otherwise negative. No ev idence of aneurysm or dissection. IMPRESSION: No evidence of intracranial aneurysm. Agustín Charles M.D. IM[facility]to[facility] MRI PROCEDURES documented in this encounter Visit Diagnoses Diagnosis Aneurysm Cerebral Unruptured (HCC) documented in this encounter Care Teams Railroad Shop Inspector Relationship Specialty Start Date End Date Elsewhere, Pcp PCP - General Family Medicine 02/13/18 documented as of this encounter
--- OUTSIDE RECORDS SUMMARY | 2022-06-10 10:55 | XMS_ITS | Encounter Summary ---
:1955 Author Organization [facility] Address [address] [place] [address] Care Team Providers Name Role Phone Elsewhere, Pcp Primary Care Provider Unavailable Reason for Referral Outpatient (Routine) - Closed Specialty Diagnoses / Procedures Referred By Contact Refer red To Contact Diagnoses Aortic Aneurysm Of Unspecified Site Ruptured (HCC) Jennifer Zarate [facility] Procedures Echo Transthoracic (TTE) [address] [place], [place] [address] Referral ID Status Reason Start Date Expiration Date Visits Requ ested Visits Authorized [id number] Closed 03/01/2018 03/01/2019 1 1 Reason for Visit Outpatient (Routine) - Closed Specialty Diagnoses / Procedures Referred By Contact Refer red To Contact Diagnoses Aortic Aneurysm Of Unspecified Site Ruptured (HCC) Jennifer Zarate [facility] Procedures Echo Transthoracic (TTE) [address] [place] [address] Referral ID Status Reason Start Date Expiration Date Visits Requ ested Visits Authorized [id number] Closed 03/01/2018 03/01/2019 1 1 Encounter Details Date Type Department Care Team Description 03/19/2018 Hospital Encounter Department of Cody Zarate neurysm Of Cardiovascular Jennifer Seymour Unspecified Site Diseases in [place], [facility] [address] Ruptured (HCC) [place], [place] [address] [facility] [address] [place], [place] [phone] (Work) [phone] Social History Tobacco Use Types Packs/Day Years [...] containing 4 or more times a w [place] 12/18/2020 alcohol? How many drinks containing alcohol [...] How often do you attend evangelical or mormonism Never 09/20/2019 services? Do you [...] Visit Rheumatology Clemente Mario M.B.B.S. [address] [place] [address] 08/03/2022 Comprehensive Visit Dermatology Jignesh Leonard M.D. [address] [place] [address] documented as of this encounter Procedures Procedure Name Priority Date/Time Associated Diagnosis Comme nts (TTE) 2D ECHO Routine 03/19/2018 8:56 AM Aortic Aneurysm Of Re sults for this DOPPLER COLOR CDT Unspecified Site procedure are in Ruptured (HCC) the results section. documented in this encounter Results (TTE) 2D ECHO DOPPLER COLOR (03/19/2018 8:56 AM CDT) [facility] gist Method Time Signature Ejection Fraction 66 MC CV EIMS Sinus of Valsalva 41 MC CV EIMS Sinotubular Junction 34 MC CV EIM S Proximal Ascending 35 MC CV EIMS Aorta Mid-Ascending Aorta 38 MC CV EIMS Distal Ascending 36 MC CV EIMS Aorta LV Mass Index 97 MC CV EIMS LV End-Diastolic 53 MC CV EIMS Diameter LV End-Systolic 35 MC CV EIMS Diameter LV End-Diastolic 164 MC CV EIMS Volume LV End-Systolic 56 MC CV EIMS Volume MV E Velocity 0.8 MC CV EIMS MV A Velocity 0.7 MC CV EIMS MV E/A 1.14 MC CV EIMS MV e' Velocity 0.09 MC CV EIMS Medial MV e' Velocity 0.12 MC CV EIMS Lateral MV E/e' Medial 8.9 MC CV EIMS MV E/e' Lateral 6.7 MC CV EIMS Left ventricular 61 MC CV EIMS stroke volume index Cardiac Output 7.64 MC CV EIMS Cardiac Index 3.73 MC CV EIMS LV Global -20 MC CV EIMS Longitudinal Strain LV Interventricular 10 MC CV EIMS Septal Wall Thickness LV Posterior Wall 10 MC CV EIMS Thickness LV Relative Wall 38 MC CV EIMS Thickness TAPSE 24 MC CV EIMS Tricuspid Annular S? 0.12 MC CV EIMS TR Vmax 2.31 MC CV EIMS RA Pressure 10 MC CV EIMS RV Systolic Pressure 31 MC CV EIM S Estimated diastolic 14 MC CV EIMS pulmonary artery pressure Aortic valve area 4.38 MC CV EIMS Aortic Valve 0.83 MC CV EIMS Dimensionless Index LA Volume Index 33 MC CV EIMS Anatomical Region Laterality Modality Echocardiography Specimen (Source) Anatomical Collection Method Collection Time Re ceived Time Location / / Volume Laterality 03/19/2018 7:32 AM CDT Narrative 03/19/2018 9:20 AM CDT This result has an attachment that is no t available. See PDF For Result Procedure Note Marty Rodriguez M.D. - 03/19/2018Formatti ng of this note might be different from the original. See PDF For Result Jennifer Zarate CV ECHO PROCEDURES documented in this encounter Visit Diagnoses Diagnosis Aortic Aneurysm Of Unspecified Site Rupt ured (HCC) documented in this encounter Care Teams International Freight Forwarder Relationship Specialty Start Date End Date Elsewhere, Pcp PCP - General Family Medicine 02/13/18 documented as of this encounter
--- OUTSIDE RECORDS SUMMARY | 2022-06-10 10:55 | XMS_ITS | Encounter Summary ---
:1955 Author Organization [facility] Address [address] [place] [address] Care Team Providers Name Role Phone Elsewhere, Pcp Primary Care Provider Unavailable Reason for Referral Outpatient (Routine) - Closed Specialty Diagnoses / Procedures Referred By Contact Refer red To Contact Cardiovascular Disease Agustín Charles [place] M.D. [address] [place] [phone] Referral ID Status Reason Start Date Expiration Date Visits Requ ested Visits Authorized [id number] Closed 03/19/2018 03/19/2019 1 1 Outpatient (Routine) - Closed Specialty Diagnoses / Procedures Referred By Contact Refer red To Contact Ophthalmology Diagnoses Aneurysm Dissecting Aortic (HCC) Agustín Charles M.D. [address] [phone] Referral ID Status Reason Start Date Expiration Date Visits V isits Requested Authorized [id number] Closed Specialty 03/19/2018 03/19/2019 1 1 Services Required Outpatient (Routine) - Closed Specialty Diagnoses / Procedures Referred By Contact Refer red To Contact Diagnoses Aneurysm Dissecting Aortic (HCC) Agustín Charles M.D. [address] [phone] Referral ID Status Reason Start Date Expiration Date Visits Requ ested Visits Authorized [id number] Closed 03/19/2018 03/19/2019 1 1 Outpatient (Routine) - Closed Specialty Diagnoses / Procedures Referred By Contact Refer red To Contact Diagnoses Aneurysm Dissecting Aortic (HCC) Agustín Charles M.D. [facility] Procedures ECG 12 Lead MI EKG 12 LEAD TRACE ONLY MI EKG I&R ONLY [address] [place] [phone] Referral ID Status Reason Start Date Expiration Date Visits Requ ested Visits Authorized [id number] Closed 03/19/2018 03/19/2019 1 1 Reason for Visit Outpatient (Routine) - Closed Specialty Diagnoses / Referred By Contact Referred To Contact Procedures Cardiovascular Diseases / Diagnoses Aneurysm Dissecting Aortic (HCC) Jennifer Zarate [facility] Cardiovascular Disease R [address] [place] [phone] Referral ID Status Reason Start Date Expiration Date Visits Requ ested Visits Authorized [id number] Closed 03/01/2018 03/01/2019 1 1 Encounter Details Date Type Department Care Team Description 03/19/2018 Comprehensive Visit Department of German Tian M.D. [address] [place] [phone] Aneurysm Dissecting Aortic (HCC) (Primar y Dx); Cardiovascular Agustín Charles M.D. [address] [place] [phone] Hypertension Essential Primary; Medicine in Elevated Lipids ; [place], [place] Aneurysm Cerebral Unruptured (HCC) [address] [place] [phone] Social History Tobacco Use Types Packs/Day Years [...] containing 4 or more times a w [place] 12/18/2020 alcohol? How many drinks containing alcohol [...] or relatives? How often do you attend mandaeism or amish Never 09/20/2019 services? Do you belong to any clubs or organizations Yes 12/18/2020 such as mandaeism groups, unions, fraternal or athletic groups, or [...] or slept in a prison (including now)? Sex Assigned at Date Recorded Male 03/19/2018 11:46 AM CDT documented as of this encounter Last Filed Vital Signs Vital Sign Reading Time Taken Comments Blood Pressure 108/59 03/19/2018 11:59 AM CDT Pulse 71 03/19/2018 11:59 AM CDT Temperature - - Respiratory Rate - - Oxygen Saturation - - Inhaled Oxygen Concentration - - Weight 86.8 kg (191 lb 5.8 oz) 03/19/2018 11:57 AM CDT Height 170.8 cm (5' 7.24) 03/19/2018 11:57 AM CDT Body Mass Index 29.75 03/19/2018 11:57 AM CDT documented in this encounter Consult Notes Agustín Charles M.D. - 03/19/2018 12:00 PM CDT Referring Provider: Jennifer Zarate M.D. REASON FOR CONSULT: Prior aortic dissection SUBJECTIVE HISTORY OF PRESENT ILLNESS Mr. London Sanches is a very pleasant 63 y.o. male who presents to [facility] for evaluation of possible genetically mediated aortopathy. 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 He underwent Endovascular thoracic aortic stent extending from the mid aortic arch to the distal descending thoracic aorta. This was complicated by embolization of the distal flap distallyto the aortic bifurcation and therefore the procedure was converted to an open repair with bifurcated aortic replacement with a Dacron graft. In addition the carotid to subclavian artery bypass was performed. Postoperative course was complicated by acute kidney injury. Since then he has been placed onantihypertensive regimen with good blood pressure control at 120 mm of Hg systolic. He has had long-standing history of hypertension for approximately 20 years and he had been on-off antihypertensive regimen prior to 2013. He was on no antihypertensive regimen for approximately 4 years before his dissection. In January of 2018, he developed right lower quadrant pain with suspicion of appendicitis. He had an exploratory laparotomy and appendix was normal. The surgeon told him that there was some gunk that heremoved from around the cecum and he suggested that he might have a connective tissue disorder. The patient himself had had history of 2 inguinal hernia as before and 1 incisional hernia related to his aortic surgery. No family history of aortopathies, sudden or intracranial aneurysm.In vascular tortuosity. He has 1 healthy daughter as well as 3 healthy siblings. His brother has hypertension. His daughter has scoliosis No history of ectopia lentis, retinal detachment, myopia, glaucoma or cataract. He has had an eyelidoperation on the left. No history of pneumothorax, scoliosis, chest deformity, flat feet. No known history of dural ectasia. No additional features of cleft palate, hypertelorism. No easy bruisability, unusual skin scarring or wound healing. No tooth discoloration, bifid uvula. No emphysema, gastrointestinal symptoms suggestive of Crohn???s disease, Eosinophilic esophagitis, food allergies. No intracranial aneurysm, vertebral abnormality with spinal cord injury. No club feet or joint contractures. No joint laxity, joint hypermobility or dislocation. Cardiovascular Risk Factors: 1. Smoking status: has never smoked 2. Type II Diabetes Mellitus: no No components found for: HEMOGLOBIN A1C 3. Hypertension: yes 4. Dyslipidemia: yes No components found for: LIPIDS, TOTAL, SERUM 5. Family history of early Coronary Artery Disease in a first degree relative (Male less than 55 years of age; Female less than 65 years of age): no REVIEW OF SYSTEMS Pertinent items are noted in HPI; all other review of systems was negative. MEDICATIONS: Current Medications: ??? aspirin 325 mg tablet, Take 325 mg by mouth daily. ??? carvedilol (COREG) 25 mg tablet, Take 25 mg by mouth 2 (two) times a day with meals. ??? enalapril (VASOTEC) 20 mg tablet, Take 20 mg by mouth 2 (two) times a day. ??? FLUoxetine (PROzac) 40 mg capsule, Take 40 mg by mouth daily. ??? montelukast (SINGULAIR) 10 mg tablet, Take 10 mg by mouth at bedtime. ??? NIFEdipine (ADALAT CC) 60 mg ER tablet, Take 60 mg by mouth 2 (two) times a day. ??? pravastatin (PRAVACHOL) 40 mg tablet, Take 40 mg by mouth daily. ??? predniSONE (DELTASONE) 5 mg tablet, Take 3 tablets (15 mg total) by mouth daily. X 5 days, 10 mgdaily X 5 days, 5 mg daily X 5 days and stop ??? cephalexin (KEFLEX) 500 mg capsule, Take 500 mg by mouth 4 (four) times a day. ??? omeprazole (PriLOSEC) 20 mg capsule, Take 1 capsule (20 mg total) by mouth every morning before breakfast. With prednisone (Patient not taking: Reported on 03/19/2018 ) ??? oxyCODONE (OXY-IR) 5 mg immediate release capsule, Take 5 mg by mouth every 4 (four) hours as needed for pain. OBJECTIVE Vitals: 03/19/18 1157 03/19/18 1159 BP: 102/56 108/59 BP Location: Left arm Right arm Patient Position: Sitting Sitting Cuff Size: Regular Regular Pulse: 71 71 Weight: 86.8 kg Height: 170.8 cm PHYSICAL EXAMINATION GENERAL: Well-appearing and in no acute distress. No dolichocephaly, malar hypoplasia, enophthalmos,retrognathia or down-slanting palpebral fissures. No hypertelorism. PSYCH: The patient is awake alert oriented and normally conversant. SKIN:. No stretch benítez. No scars. Normal texture, not velvet like. No translucency. EYES: No scleral icterus or conjunctival injection. ENT: Oral mucosa moist without lesions or ulcerations. Normal uvula and teeth. Normal arch palate. No overcrowding. LYMPH: No preauricular, cervical, or supraclavicular lymphadenopathy. VESSELS: No jugular venous distension. Soft left sided carotid bruit. HEART: Quiet precordium, normal heart sounds. In grade 1 systolic murmur at left sternal border. LUNGS: Clear to auscultation & tympanic to percussion bilaterally with good inspiratory effort. No chest deformity. ABDOMEN: Soft, nontender, and nondistended. No hepatomegaly. No bruits heard. Multiple scars noted. SPINE: No scoliosis. EXTREMITIES: No wrist or thumb sign. No reduction of extension at level of elbow, no hindfoot deformity, no flatfeet. No club feet. No pretibial edema, clubbing or cyanosis. Normal dorsalis pedis pulses. DIAGNOSTICS I have reviewed the patient's current laboratory, imaging, and other diagnostic studies. CT scan of the chest and abdomen was noted. The ectasia in his arteries with focal dissection of the proximal left common iliac artery and tortuous and ectatic.proximal common iliac arteries. Echo showed thickenedaortic valve, trileaflet, with mild?moderate regurgitation. with borderline sinus of Valsalva dilatation (diameter 41 mm). Laboratory tests were noted. ASSESSMENT / PLAN #1 Aneurysm Dissecting Aortic, type B status post repair #2 Hypertension #3 Hyperlipidemia #4 Aortic root enlargement with mild to moderate regurgitation PLAN: I discussed with the patient our approach in the evaluation of possible genetically mediated aortopathy and its multidisciplinary management including the cardiovascular, genetic, ophthalmology and possibly orthopedic assessment. Based on the evaluation today, I am unable to make the diagnosis of Marfan syndrome or other genetically mediated aortopathy. His type B aortic dissection could be related to untreated hypertension. He has had long-standing history of hypertension for approximately 20years and he had been intolerant to antihypertensive regimen prior to 2013. He was on no antihypertensive regimen for approximately 4 years before his dissection. According the his aortic dissection could be related to untreated hypertension. However, I agree about the concern about underlying connective tissue disorder based on his history. That would have significant implications for him as well his siblings and daughter which I explained. For him, it would predominantly affect when we intervene on his ascending aortic aneurysm. If he has a genetically mediated aortopathy with prior history of a type B aortic dissection, my inclination would be to operate sooner rather than later. Therefore to be important to pursue that with further imaging of the brain as well as ophthalmology consultation and visited my associate in Medical Genetics. I discussed the natural history of genetically mediated aortopathy. We discussed at length the relationship between proximal aorta size and risk of complications such as aortic dissection and the appropriate timing of aorta surgery to prevent aorta catastrophe and improve long-term survival. Appropriate timing of surgical intervention depends on this absolute or indexed aorta diameter as well as other risk factors including growth of the aorta over time, involvement of multiple segments of the aortaas well as personal or family history of aortic dissection. He has a personal history of type B aortic dissection which is raising our awareness at this time. We also talked about his aortic valve. It is tricuspid and has mild to moderate regurgitation. This will be monitored very closely especially with respect to his aortic root diameter. It is reassuring to note that by CT scan in 2014 his aortic root measured 41 mm which is similar to the measurement obtained on echocardiogram during this visit.Meanwhile, since hypertension and smoking are risk factors for aortic aneurysm growth, I counseled the patient with regard to blood pressure control with a goal systolic BP of <120/80 mmHg. I also counseled the patient toward avoid contact or competitive sports, isometric and strenuous exercise up to the level of exhaustion and to avoid smoking. We talked about screening first degree relatives including his daughter at brothers and sisters with an echocardiogram and the benefit of genetic counseling and testing After long discussion with the patient, the plan is as follows: 1. MRA of the brain to exclude intracranial aneurysm 2. Pathology consultation to ensure he does not have any problem with the lenses, retina or gluacoma 3. EKG for baseline 4. Obtained from the outside CT scans performed since 2013 to document stability of the ascending aortic aneurysm size 5. The genetic consultation and testing 6. Return to see me after initial testing for further discussion Agustín Charles M.D. 03/19/18 12:25 PM documented in this encounter Plan of Treatment Upcoming Encounters Date Type Specialty Care Team Description 06/21/2022 Clinical Communication Admitting/Central Scheduling 06/22/2022 Comprehensive Visit Rheumatology Clemente Mario M.B.B.S. [address] [place] [address] 08/03/2022 Comprehensive Visit Dermatology Jignesh Leonard M.D. [address] [place] [address] Scheduled Referrals Name Type Priority Associated Order Schedule Diagnoses Clinical Genomics - Outpatient Referral Routine Aneurysm E xpected: Marfan consult (clinic) Dissecting Aortic 03/19/2018 (HCC) (Approximate), Expires: 03/19/2021 Ophthalmology - General Outpatient Referral Routine Aneurysm Expected: consult (clinic) Dissecting Aortic 2017 (HCC) (Approximate), Expires: 03/19/2021 Cardiovascular Disease Outpatient Referral Routine Expected: office visit (clinic) 2018 (Approximate), Expires: 03/19/2021 documented as of this encounter Results ECG 12 Lead (03/19/2018 1:50 PM CDT) P athologist Signature Ventricular Rate 58 BPM MUSE ECG/Min MI Interval 176 ms MUSE QRSD Interval 90 ms MUSE QT Interval 426 ms MUSE QTC Interval 418 ms MUSE P Perley 50 degrees MUSE R Perley 20 degrees MUSE T Wave [place]ley 22 degrees MUSE Specimen Anatomical Collection Method Collection Time Receive d Time (Source) Location / / Volume Laterality 03/19/2018 1:50 PM 8 1:55 CDT PM CDT Impressions MUSE - 03/19/2018 1:55 PM CDT Sinus bradycardia Otherwise normal ECG No previous ECGs available Narrative This result has an attachment that is no t available. Agustín Charles M.D. ECG ORDERABLES Performing Organization Address City/State/ZIP Code Phon e Number MUSE MUSE NA documented in this encounter Visit Diagnoses Diagnosis Aneurysm Dissecting Aortic (HCC) - Prima ry Hypertension Essential Primary Elevated Lipids Aneurysm Cerebral Unruptured (HCC) documented in this encounter Care Teams Sound Controller Relationship Specialty Start Date End Date Elsewhere, Pcp PCP - General Family Medicine 02/13/18 documented as of this encounter
--- OUTSIDE RECORDS SUMMARY | 2022-06-10 10:55 | XMS_ITS | Encounter Summary ---
:1955 Author Organization [facility] Address [address] [place] [address] Care Team Providers Name Role Phone Elsewhere, [...] containing 4 or more times a w [place] 12/18/2020 alcohol? How many drinks containing alcohol [...] How often do you attend temple or pentecostalism Never 09/20/2019 services? Do you belong to [...] Visit Rheumatology Clemente Mario M.B.B.S. [address] [place] [address] 08/03/2022 Comprehensive Visit Dermatology Jignesh Leonard M.D. [address] [place] [address] documented as of this encounter Procedures Procedure Name Priority Date/Time Associated Comments Diagnosis OPHTHALMOLOGY IMAGE Routine 07/05/2018 12:05 Resu lts for this EXAM PM GERIATRIC SOCIAL WORK PROFESSOR procedure are i n the results section. documented in this encounter Results OPHTHALMOLOGY IMAGE EXAM (07/05/2018 12:05 PM GERIATRIC SOCIAL WORK PROFESSOR) Specimen (Source) Anatomical Collection Method Collection Time Re ceived Time Location / / Volume Laterality 07/05/2018 12:00 PM GERIATRIC SOCIAL WORK PROFESSOR Narrative [facility] - 07/05/2018 12:07 PM GERIATRIC SOCIAL WORK PROFESSOR This order has been created and auto-finalized [...] on filedocumented in this encounter Care Teams Occupational Health Nurse Supervisor Relationship Specialty Start Date End Date Elsewhere, Pcp PCP - General Family Medicine 02/13/18 documented as of this encounter
--- OUTSIDE RECORDS SUMMARY | 2022-06-10 10:55 | XMS_ITS | Encounter Summary ---
:1955 Author Organization [facility] Address [address] [place] [address] Care Team Providers Name Role Phone Elsewhere, Pcp Primary Care Provider Unavailable Reason for Referral Outpatient (Routine) - Closed Specialty Diagnoses / Procedures Referred By Contact Refer red To Contact Diagnoses Aortic Aneurysm Of Unspecified Site Ruptured (HCC) Jennifer Zarate [facility] Procedures Echo Transthoracic (TTE) [address] [place] [phone] Referral ID Status Reason Start Date Expiration Date Visits Requ ested Visits Authorized [id number] Closed 03/01/2018 03/01/2019 1 1 Encounter Details Date Type Department Care Team Description 03/01/2018 Orders Only Division of Jennifer Zarate Aortic An eurysm Of Rheumatology in R Unspecified Site [place], [place] [address] [place] [address] Ruptured (HCC) [address] [place], [place] (Primary Dx) [place] [phone] Social History Tobacco Use Types Packs/Day Years [...] containing 4 or more times a w [place] 12/18/2020 alcohol? How many drinks containing alcohol [...] How often do you attend alevism or catholic Never 09/20/2019 services? Do you belong to any clubs or organizations Yes 12/18/2020 such as alevism groups, unions, fraternal or athletic groups, or school groups? How often do you attend meetings of the More than 4 times 12/18/2020 clubs or organizations you belong to? [...] Visit Rheumatology Clemente Mario M.B.B.S. [address] [place] [address] 08/03/2022 Comprehensive Visit Dermatology Jignesh Leonard M.D. [address] [place] [address] documented as of this encounter Results (TTE) 2D ECHO DOPPLER COLOR (03/19/2018 8:56 AM CDT) [facility] gist Method Time Signature Ejection Fraction 66 [...] Aneurysm Of Unspecified Site Rupt ured (HCC) - Primary Aortic Aneurysm Of Unspecified Site Rupt ured (HCC) documented in this encounter Care Teams Windscreen Fitter Relationship Specialty Start Date End Date Elsewhere, Pcp PCP - General Family Medicine 02/13/18 documented as of this encounter
--- OUTSIDE RECORDS SUMMARY | 2022-06-10 10:55 | XMS_ITS | Encounter Summary ---
:1955 Author Organization [facility] Address [address] [place] [address] Care Team Providers Name Role Phone Elsewhere, Pcp Primary Care Provider Unavailable Encounter Details Date Type Department Care Team Description 07/08/2018 Clinical Communication Department of Thomas Reina, Ophthalmology in Kaylen Draper O.D. [place], [place] [address] [facility] [address] [place] [phone] Social History Tobacco Use Types Packs/Day Years [...] containing 4 or more times a w [place] 12/18/2020 alcohol? How many drinks containing alcohol [...] How often do you attend protestant or anabaptist Never 09/20/2019 services? Do you [...] or slept in a jail (including now)? Sex Assigned at Date Recorded Male 03/19/2018 11:46 AM CDT documented as of this encounter Plan of Treatment Upcoming Encounters Date Type Specialty Care Team Description 06/21/2022 Clinical Communication Admitting/Central Scheduling 06/22/2022 Comprehensive Visit Rheumatology Clemente Mario M.B.B.S. [address] [place] [address] 08/03/2022 Comprehensive Visit Dermatology Jignesh Leonard M.D. [address] [place] [address] documented as of this encounter Visit Diagnoses Not on filedocumented in this encounter Care Teams Automotive Product Engineer Relationship Specialty Start Date End Date Elsewhere, Pcp PCP - General Family Medicine 02/13/18 documented as of this encounter
--- OUTSIDE RECORDS SUMMARY | 2022-06-10 10:55 | XMS_ITS | Encounter Summary ---
:1955 Author Organization [facility] Address [address] [place] [address] Care Team Providers Name Role Phone Elsewhere, Pcp Primary Care Provider Unavailable Encounter Details Date Type Department Care Team Description 03/01/2018 Clinical Communication Division of Dawn Daniels Rheumatology in [address] [place] [address] [place] [address] [place], [place] [phone] (Work) [phone] Social History Tobacco Use Types Packs/Day Years [...] or relatives? How often do you attend yazdanism or roman catholic Never 09/20/2019 services? Do you belong to any clubs or organizations Yes 12/18/2020 such as yazdanism groups, unions, fraternal or athletic groups, or [...] this encounter Miscellaneous Notes Telephone Encounter - Jennifer Zarate M.D. - 03/01/2018 5:10 PM CDT Echo ordered Telephone Encounter - Pushpa Daniels - 03/01/2018 11:33 AM CDT I called to schedule Marfan & Thoracic consult and was told PT needs to have ECO & Chest X-Ray done before scheduling. Thank you documented in this encounter Plan of Treatment Upcoming Encounters Date Type Specialty Care Team Description 06/21/2022 Clinical Communication Admitting/Central Scheduling 06/22/2022 Comprehensive Visit Rheumatology Clemente Mario M.B.B.S. [address] [place] [address] 08/03/2022 Comprehensive Visit Dermatology Jignesh Leonard M.D. [address] [place] [address] documented as of this encounter Visit Diagnoses Not on filedocumented in this encounter Care Teams Visitor Services Technician Relationship Specialty Start Date End Date Elsewhere, Pcp PCP - General Family Medicine 02/13/18 documented as of this encounter
--- OUTSIDE RECORDS SUMMARY | 2022-06-10 10:55 | XMS_ITS | Encounter Summary ---
:1955 Author Organization [facility] Address [address] [place] [address] Care Team Providers Name Role Phone Elsewhere, Pcp Primary Care Provider Unavailable Encounter Details Date Type Department Care Team Description 09/12/2018 Orders Only Department of Softing Hat[place], Glaucoma (P rimary Dx) Ophthalmology in Kaylen Draper O.D. [place], [place] [address] [facility] [address] [place] [phone] Social History Tobacco Use Types Packs/Day Years [...] or relatives? How often do you attend rastafarian or pentecostal Never 09/20/2019 services? Do you belong to any clubs or organizations Yes 12/18/2020 such as rastafarian groups, unions, fraternal or athletic groups, or [...] place to sleep or slept in a longterm (including now)? Sex Assigned at Date Recorded Male 03/19/2018 11:46 AM CDT documented as of this encounter Plan of Treatment Upcoming Encounters Date Type Specialty Care Team Description 06/21/2022 Clinical Communication Admitting/Central Scheduling 06/22/2022 Comprehensive Visit Rheumatology Clemente Mario M.B.B.S. [address] [place] [address] 08/03/2022 Comprehensive Visit Dermatology Jignesh Leonard M.D. [address] [place] [address] documented as of this encounter Visit Diagnoses Diagnosis Glaucoma - Primary documented in this encounter Care Teams Employment Attorney Relationship Specialty Start Date End Date Elsewhere, Pcp PCP - General Family Medicine 02/13/18 documented as of this encounter
--- OUTSIDE RECORDS SUMMARY | 2022-06-10 10:55 | XMS_ITS | Encounter Summary ---
:1955 Author Organization [facility] Address [address] [place] [address] Care Team Providers Name Role Phone Elsewhere, Pcp Primary Care Provider Unavailable Encounter Details Date Type Department Care Team Description 03/01/2018 Hospital Encounter Department of Jennifer Zarate Pa in [facility], [facility], in [address] [place] [address] [place] [phone] [place], [place] [phone] (Work) [phone] Social History Tobacco Use Types Packs/Day Years [...] containing 4 or more times a w navajo 12/18/2020 alcohol? How many drinks containing alcohol [...] or relatives? How often do you attend congregation or yazidi Never 09/20/2019 services? Do you belong to any clubs or organizations Yes 12/18/2020 such as congregation groups, unions, fraternal or athletic groups, or [...] slept in a senior living (including now)? Sex Assigned at Date Recorded [...] Visit Rheumatology Clemente Mario M.B.BJaleelS. [address] [place] [address] 08/03/2022 Comprehensive Visit Dermatology Jignesh Leonard M.D. [address] [place] [address] documented as of this encounter Procedures Procedure Name Priority Date/Time Associated Comments Diagnosis DX CHEST AP OR PA RAD - Routine 03/01/2018 11:35 Pain Elbow Left Re sults for this AND LATERAL 2 (most inpatients AM CDT procedure are in VIEWS and all the results outpatients) section. documented in this encounter Results DX Chest AP or PA and Lateral 2 Views (03/01/2018 11:35 AM CDT) Anatomical Region Laterality Modality Chest, Thoracic RST LOS N/A Digital Radiogra phy Specimen (Source) Anatomical Collection Method Collection Time Re ceived Time Location / / Volume Laterality 03/01/2018 11:48 AM CDT Impressions 03/01/2018 11:50 AM CDT IMPRESSION: ??Mild cardiomegaly. Very small right pleural effusion. Clear lungs. Thoracic aortic stent graft. Clips in th e left supraclavicular region. Chest otherwise negative. Narrative 03/01/2018 11:50 AM CDT EXAM: ??DX CHEST AP OR PA AND LATERAL 2 VIEWS Procedure Note Chip Joshua M.D. - 03/01/2018Formatt ing of this note might be different from the original. EXAM: DX CHEST AP OR PA AND LATERAL 2 EWS IMPRESSION: Mild cardiomegaly. Very smal l right pleural effusion. Clear lungs. Thoracic aortic stent graft. Clips in th e left supraclavicular region. Chest otherwise negative. Jennifer [facility] BRIAN MICHEL documented in this encounter Visit Diagnoses Diagnosis Pain Elbow Left documented in this encounter Care Teams Bad Cloth Checker Relationship Specialty Start Date End Date Elsewhere, Pcp PCP - General Family Medicine 02/13/18 documented as of this encounter
--- OUTSIDE RECORDS SUMMARY | 2022-06-10 10:55 | XMS_ITS | Encounter Summary ---
:1955 Author Organization [facility] Address [address] [place] [address] Care Team Providers Name Role Phone Elsewhere, Pcp Primary Care Provider Unavailable Reason for Visit Outpatient (Routine) - Closed Specialty Diagnoses / Procedures Referred By Contact Refer red To Contact Rheumatology Jennifer Zarate [place] [address] [place] [phone] Referral ID Status Reason Start Date Expiration Date Visits Requ ested Visits Authorized [id number] Closed 03/01/2018 03/01/2019 1 1 Encounter Details Date Type Department Care Team Description 03/21/2018 Office Visit Division of Conchita Zarate ([facility] elena Rheumatology in [facility]) [place], [place] [address] [place] [address] [address] [place] [phone] Social History Tobacco Use Types Packs/Day Years [...] containing 4 or more times a w ely shoshone 12/18/2020 alcohol? How many drinks containing [...] or relatives? How often do you attend orthodoxy or scientologist Never 09/20/2019 services? Do you belong to any clubs or organizations Yes 12/18/2020 such as orthodoxy groups, unions, fraternal or athletic groups, or [...] slept in a senior care (including now)? Sex Assigned at Date Recorded Male 03/19/2018 11:46 AM CDT documented as of this encounter Progress Notes Jennifer Zarate M.D. - 03/21/2018 12:00 AM CDT HISTORY OF PRESENT ILLNESS Mr. Sanches returns for followup. Please see my consultation note for details. I had seen him on 03/01 for left elbow acute pseudogout, which was proven on aspiration. Exam had shown still some persistent tenderness over the olecranon bursa, and we have done a short course of prednisone. He is still currently on 5 mg. He is significantly improved. Still, there is some persistent tenderness. At his initial visit, he also had a history of whole aortic dissection, and we referred him to Cardiology. Hewas seen by Dr. Charles, and I appreciate and reviewed the consultation. Labs that have been done have shown some changes of acute-phase response. Platelets are elevated. Sed rate is 92, much improved from 125, and CRP is 49, much improved from 342 on the 21 of February. I have reviewed consultation from Dr. Charles. Please see his note for details. ASSESSMENT / PLAN #1 Left elbow acute attack of pseudogout #2 Elevated creatinine #3 Recent cecal diverticulitis #4 Aortic dissection, status post repair Plan is to get a genetic consultation and MR brain to rule out any other aneurysms. Clinical suspicion for connective tissue disease, inheritable, is low, but because of implications for valve surgery,additional testing is being requested. He will follow up with Dr. Charles on 04/16. I have asked Mr. Sanches to continue taking 5 mg for an additional 3 days. If he has no pain, he can stop it, otherwise to prolong the course for 2.5 For 5 days and stop. Hopefully, this will be a self-limited episode of acute pseudogout, but if he has pain again, he will call me. Job ID: [id number] documented in this encounter Plan of Treatment Upcoming Encounters Date Type Specialty Care Team Description 06/21/2022 Clinical Communication Admitting/Central Scheduling 06/22/2022 Comprehensive Visit Rheumatology Clemente Mario M.B.B.S. [address] [place] [address] 08/03/2022 Comprehensive Visit Dermatology Jignesh Leonard M.D. [address] [place] [address] documented as of this encounter Visit Diagnoses Diagnosis Pseudogout - Primary documented in this encounter Care Teams Circular Distributor Relationship Specialty Start Date End Date Elsewhere, Pcp PCP - General Family Medicine 02/13/18 documented as of this encounter
--- OUTSIDE RECORDS SUMMARY | 2022-06-10 10:56 | XMS_ITS | Encounter Summary ---
:1955 Author Organization [facility] Address [address] [place] [address] Care Team Providers Name Role Phone Elsewhere, Pcp Primary Care Provider Unavailable Encounter Details Date Type Department Care Team Description 02/22/2018 Abstract DATA ABSTRACTION Provider, Historical Social History Tobacco Use Types Packs/Day Years Used Date Smoking Tobacco: Former Alcohol Use Standard Drinks/Week Comments No 0 (1 standard drink = 0.6 oz pure alcoho l) Alcohol Habits Answer Date Recorded How often do you have a drink containing 4 or more times a w [place] 12/18/2020 alcohol? How many drinks containing alcohol [...] How often do you attend gnosticism or mormon Never 09/20/2019 services? Do you [...] Visit Rheumatology Clemente Mario M.B.B.S. [address] [place] [address] 08/03/2022 Comprehensive Visit Dermatology Jignesh Leonard M.D. [address] [place] [address] documented as of this encounter Visit Diagnoses Not on filedocumented in this encounter Care Teams Petroleum Supply Specialist Relationship Specialty Start Date End Date Elsewhere, Pcp PCP - General Family Medicine 02/13/18 documented as of this encounter
--- OUTSIDE RECORDS SUMMARY | 2022-06-10 10:56 | XMS_ITS | Clinical Summary ---
:1955 Author Organization [facility] [place] [address] Care Team Providers Name Role Phone Anita Davis DO Primary Care Provider Allergies Active Allergy Reactions Severity Noted Date Comments Sulfamethoxazole-Trimethoprim Hives 02/18/2018 Medications Medication Sig Dispensed Refills Start End Status Date Date cod liver oil oil Take 5 mL by 1 Bottle 0 03/05/20 Active mouth once daily. 19 CPAPIndications: CPAP machine for 1 Device 11 09/15/19 Active Obstructive sleep home use at 20 apnea pressure: 11-15 cmw , Heated humidifier x 1 q 5 yr, Humidifier chamber x 1 q 6 mo, Full face mask x1 q 3mos, with cushion x 2 q mo, Heated tubing x 1 q 3 mo, Headgear x 1 q 6 mo, Filters: Disposable x 2 q mo non-disposable filters x1 q 6mo, Length of Need: 99 months, Frequency of use: Daily medical supply, For personal use. 1 Packet 0 04/19/20 Active miscellaneous Length: calf 20 (GRADUATED Strength: 16-20 COMPRESSION mmHg STOCKINGS)Indicati Circumference in ons: Venous cm: For calf: insufficiency Ankle 29cm, Calf 42cm, Ankle to calf length 22cm. CPAPIndications: Full face mask 1 Device 11 07/13/20 Active SAMIR (obstructive 1/3 months, full 20 sleep apnea) face mask cushion 1/1 month multivitamin (MVI) Take 1 Tablet by 0 11/16/19 Active tablet mouth once daily. 21 aspirin chewable Chew 1 Tablet (81 0 11/16/19 Active 81 mg chewable mg) by mouth once 21 tablet daily with a meal. ciclopirox 0.77% Apply topically 90 g 2 08/30/19 Active cream (LOPROX) to affected 22 0.77 % area(s) 2 times creamIndications: daily. Right foot Tinea pedis of right foot ketoconazole 2% Apply topically 90 g 2 08/30/19 Active topical (NIZORAL) to affected 22 creamIndications: area(s) 2 times Tinea pedis of daily. Left foot both feet NIFEdipine ER TAKE 1 TABLET BY 90 Tablet 2 10/11/19 Active (ADALAT CC) 30 mg MOUTH DAILY 22 Extended-Release tabletIndications: Hypertension, unspecified type diclofenac topical Apply topically 0 12/08/19 Active (VOLTAREN) 1 % gel to affected 22 area(s) 4 times daily. montelukast TAKE 1 TABLET BY 90 Tablet 2 03/08/20 A ctive (SINGULAIR) 10 mg MOUTH AT BEDTIME 22 tabletIndications: Environmental allergies fluticasone (50 Inhale 1 [place] to 48 g 3 04/20/20 Active mcg per actuation) both nostrils 22 nasal solution once daily. (FLONASE)Indicatio ns: Seasonal allergic rhinitis due to pollen triamterene-hydroc Take 1 Capsule by 90 capsule. 3 05/08/20 Active hlorothiazide, mouth every 22 37.5-25 mg, morning. (DYAZIDE) 37.5-25 mg capsuleIndications : Hypertension, unspecified type atorvastatin Take 1 Tablet (80 90 tablet. 05/08/20 Active (LIPITOR) 80 mg mg) by mouth at 22 tabletIndications: bedtime. Hyperlipidemia, unspecified hyperlipidemia type carvediloL (COREG) Take 1 Tablet (25 180 tablet. 05/08/20 Active 25 mg mg) by mouth two 22 tabletIndications: times daily with Hypertension, meals. unspecified type cetirizine Take 1 Tablet (10 90 Tablet 3 05/08/20 A ctive (ZYRTEC) 10 mg mg) by mouth once 22 tabletIndications: daily. Seasonal allergies enalapril Take 1 Tablet (20 180 tablet. 05/08/20 Active (VASOTEC) 20 mg mg) by mouth two 22 tabletIndications: times daily. Hypertension, unspecified type FLUoxetine 20 mg Take 1 Tablet (20 90 Tablet 05/08/20 Active tabletIndications: mg) by mouth once 22 Depression, daily. recurrent (HC) sildenafil citrate Take 1 Tablet (50 10 Tablet 3 06/08/20 Active (Viagra) 50 mg mg) by mouth once 22 tabletIndications: daily if needed Erectile for Erectile dysfunction, Dysfunction. Take unspecified 30min to 4 hours erectile before sexual dysfunction type activity. Max 100mg/24hr sildenafil citrate Take 1 Tablet (50 10 Tablet 3 12/20/1909/10 Discontinued (Viagra) 50 mg mg) by mouth once 22 022 (Reorder tabletIndications: daily if needed (E-cancel not Erectile for Erectile sent)) dysfunction, Dysfunction. Take unspecified 30min to 4 hours erectile before sexual dysfunction type activity. Max 100mg/24hr Active Problems Problem Noted Date Primary osteoarthritis of right knee 02/15/2022 Overview: January 2022: Dr. Watson did right knee co rtisone injection. 90% pain relief at 1 month. Depression, recurrent 12/07/2021 SDH (subdural hematoma) 12/07/2021 Stage 3a chronic kidney disease 12/07/2021 CKD (chronic kidney disease) stage 2, GFR 60-89 ml/min 11/15/2020 Overview: Saw nephrology at [place] 11/11/20. That not e reports I did a cystatin C which gave him an eGFR of 69. He is a well-built gentleman and therefore I think the creatinine overestimates his degree of kidney disease. This is stage II rather than stage IIIB Nonrheumatic aortic valve insufficiency 03/06/2019 Overview: Mild-moderate on echocardiogram 02/2018 Hyperlipidemia, unspecified 07/15/2018 Pseudogout 03/11/2018 Elevated serum creatinine 03/11/2018 Overview: Saw nephrology at [place] on 11/11/20. That note reports I did a cystatin C which gave him an eGFR of 69. He is a well-built gentleman and therefore I think the creatinine overestimates his degree of kidne y disease. This is stage II rather than stage IIIB. No further follow up with nephrology was recommended at that time and will monitor. 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); Immunization/In jection; Immunization/In jection (COVID-19 vacci ne) 05/08/2022 Travel 04/06/2022 Medical Messaging Anita Davis Re ferral to [facility] DO from Last 3 Months Immunizations Name Administration Dates Next Due COVID-19 vaccine (Moderna 100mcg/0.5mL) PF, MDV 10/28/2020 COVID-19 vaccine (Moderna Booster 50mcg/0.25mL) PF, 07/04/20 21 MDV COVID-19 vaccine (Pfizer-BioNTech 30mcg/0.3mL) 12YO+ 022 BIVALENT BOOSTER PF, MDV COVID-19 vaccine (Pfizer-BioNTech 30mcg/0.3mL) 12YO+ 022 TRINI-SUCROSE PF, MDV Influenza, High-dose Quadrivalent Inactivated 07/28/2020 Influenza, IIV4 05/30/2018 Influenza, Inactivated AIIV4 (Age 65+ Years) Preserv 022, 05/04/2021 Free Pneumococcal Poly,23-Valent (Pneumovax) 04/19/2020 Pneumococcal conj 13-Valent (Prevnar 13) 03/10/2019 Td, Preservative Free (age >= 7 Years) 03/10/2019 Tdap 03/04/2014 Zoster (Shingrix-RZV, recombinant) 07/28/2020, 05/19/2020 Zoster (Zostavax-ZVL, live) 04/04/2015 Family History Relation Name Status Comments Father throat cancer Mother Alive Social History Tobacco Use Types Packs/Day Years Used Date Never Smoker Smokeless Tobacco: Never Used Tobacco Cessation: Counseling Given: Yes Alcohol Use Standard Drinks/Week Comments Not Currently 0 (1 standard drink = 0.6 oz pure alcoho l) stopped drinking in December 2020 Alcohol Habits Answer Date Recorded How often do you have a drink containing 4 or more times a w [place] 03/05/2019 alcohol? How many drinks containing alcohol do you 3 or 4 03/05/2019 have on a typical day when you are drinking? How often do you have six or more drinks Monthly 03/05/2019 on one occasion? Comment: stopped drinking in December 2020 05/04/2021 Sex Assigned at Date Recorded Not on file Obstetrics History Last Filed Vital Signs Vital Sign Reading Time Taken Comments Blood Pressure 126/62 05/08/2022 9:52 AM CDT Pulse 61 05/08/2022 9:13 AM CDT Temperature 36.7 ??C (98.1 ??F) 06/08/2020 7:41 AM CDT Respiratory Rate 18 03/17/2019 10:59 AM CDT Oxygen Saturation 98% 05/08/2022 9:13 AM CDT Inhaled Oxygen Concentration - - Weight 99.8 kg (220 lb) 05/08/2022 9:13 AM CDT Height 171.5 cm (5' 7.5) 05/08/2022 9:13 AM CDT Body Mass Index 33.95 05/08/2022 9:13 AM CDT Plan of Treatment Health Maintenance Due Date Last Done Comments BMI (ht and wt on same day) for 05/08/2023 05/08/2022, 04/20, age 18+ 04/19/2020, Additional history exists Depression screening for age 12+ 05/08/2023 05/08/2022, 03/2022, 05/04/2021, Additional history exists Medicare Wellness for age 65+ 05/08/2023 05/08/2022, 2020, 04/19/2020, Additional history exists Colonoscopy through age 75 06/30/2026 06/30/2016 (Completed outside of [facility]), 06/30/2016, 08/20/2015 (Completed outside of [facility]) Lipids for age 45-75 05/08/2027 05/08/2022, 12/07/2021, 05/04/2021, Additional history exists Tetanus booster 03/10/2029 03/10/2019, 03/04/2014 Tdap Completed 03/04/2014 Hepatitis C screening for age Completed 04/19/2020 18-79 Pneumococcal series for age 65+ Completed 04/19/2020, 02/18 Zoster (shingles) series for age Completed 07/28/2020, , 50+ 04/04/2015 COVID-19 vaccine series Completed 05/08/2022, 12/21/2021, 07/04/2021, Additional history exists Influenza for age 65+ Completed 05/08/2022, 05/04/2021, 07/28/2020, Additional history exists Procedures Procedure Name Priority Date/Time Associated Diagnosis Comme nts BASIC METABOLIC Routine 05/08/2022 10:20 Hypertension, Results for this PANEL AM CDT unspecified type procedure a re in the results section. LDL Routine 05/08/2022 10:20 Hyperlipidemia, Results for this CHOLESTEROL,DIRECT AM CDT unspecified procedure are in hyperlipidemia type the resu lts section. from Last 3 Months Results LDL CHOLESTEROL,DIRECT (05/08/2022 10:20 AM CDT) P athologist Signature LDL 108 mg/dL 05/09/2022 [facility] CHOLESTEROL,DI 6:55 AM CDT LABORATORY-CE NT RECT RAL LABORATORY PROVIDER RANDOM 05/09/2022 [facility] ORDERED STATUS 6:55 AM CDT LABORATORY-CE NT RAL LABORATORY Specimen Anatomical Collection Method / Collection Time Recei wes Time (Source) Location / Volume Laterality Blood BLOOD SPECIMEN / Venipuncture / 05/08/2022 10:20 05/08 Unknown Unknown AM CDT 10:20 AM CDT Narrative [facility] LABORATORY-CENTRAL LABORAT ORY - 05/09/2022 6:55 AM CDT ?RISK CATEGORY LDL GOAL ?(mg/dL) ? Vascular disease and/or diabetes (<100) Multiple (2+) risk factors ? (<13 0) 0-1 risk factor ?(<160) Anita Alexa Stortz DO CHEMISTRY Performing Organization Address City/State/ZIP Code Phon e Number [facility] [address] [place] [address] LABORATORY-CENTRAL 2000 LABORATORY (ABNORMAL) BASIC METABOLIC PANEL (05/08/2022 10:20 AM CDT) [facility] Method Time Signature SODIUM 139 135 - 145 05/09/2022 [facility] mmol/L 6:54 AM CDT LABORATORY-ZAID TRAL LABORATORY POTASSIUM 4.5 3.5 - 5.0 05/09/2022 [facility] mmol/L 6:54 AM CDT LABORATORY-ZA[facility] TRAL LABORATORY CHLORIDE 102 98 - 110 05/09/2022 [facility] mmol/L 6:54 AM CDT LABORATORY-[facility] TRAL LABORATORY CO2,TOTAL 27 21 - 31 05/09/2022 [facility] mmol/L 6:54 AM CDT LABORATORY-[facility] TRAL LABORATORY ANION GAP 10 5 - 18 05/09/2022 [facility] 6:54 AM CDT LABORATORY-[facility] TRAL LABORATORY GLUCOSE 98 65 - 100 05/09/2022 [facility] mg/dL 6:54 AM CDT LABORATORY-[facility] TRAL LABORATORY CALCIUM 9.6 8.5 - 10.5 05/09/2022 [facility] mg/dL 6:54 AM CDT LABORATORY-[facility] TRAL LABORATORY BUN 20 8 - 25 05/09/2022 [facility] mg/dL 6:54 AM CDT LABORATORY-[facility] TRAL LABORATORY CREATININE 1.33 (H) 0.72 - 05/09/2022 [facility] 1.25 mg/dL 6:54 AM CDT LABORATORY-[facility] TRAL LABORATORY BUN/CREAT RATIO 15 10 - 20 05/09/2022 [facility] 6:54 AM CDT LABORATORY-[facility] TRAL LABORATORY eGFR 58 (L) >90 05/09/2022 [facility] mL/min/1.7 6:54 AM CDT LABORATORY-ZAID 3m2 TRAL LABORATORY Comment: As of 2021, eGFR is calcu lated by the CKD-EPI creatinine equation without race adjustment. eGFR can be inf luenced by muscle mass, exercise, and diet. The reported eGFR is an estimation only and is only applicable if the renal function is stable. Specimen Anatomical Collection Method / Collection Time Recei wes Time (Source) Location / Volume Laterality Blood BLOOD SPECIMEN / Venipuncture / 05/08/2022 10:20 05/08 Unknown Unknown AM CDT 10:20 AM CDT Anita Davis DO CHEMISTRY Performing Organization Address City/State/ZIP Code Phon e Number [facility] [address] [place] [address] LABORATORY-CENTRAL 2000 LABORATORY from Last 3 Months Insurance Payer Benefit Plan / Subscriber ID Effective Dates Phone Addre ss Type Group BLUE [employer]OSS [place] BLUE [employer]OSS [id number] 2019-Present [address] [address] [place], [place] ONLY [id number] Care Teams Chemical Checker Relationship Specialty Start Date End Date Anita Davis DO PCP - General Family Practice 02/21/18 [address] [place] [address]
--- OUTSIDE RECORDS SUMMARY | 2022-06-10 10:56 | XMS_ITS | Encounter Summary ---
:1955 Author Organization [facility] Address [address] [place] [address] Care Team Providers Name Role Phone Luis Enrique Walsh M.D. Primary Care Provider Encounter Details Date Type Department Care Team Description 01/31/2018 Orders Only Department of Luis Enrique Walsh Cardiac Vas cular Disease Screening (Primary Dx); [facility] Mc Garcia M.D. Screening Examination Diabetes Mellitus Medicine in [address] [phone] (Work) [phone] Social History Tobacco Use Types Packs/Day Years Used Date Smoking Tobacco: Never Assessed Alcohol Habits Answer Date Recorded How often do you have a drink containing 4 or more times a w [place] 12/18/2020 alcohol? How many drinks containing alcohol [...] or relatives? How often do you attend druze or orthodox Never 09/20/2019 services? Do you belong to any clubs or organizations Yes 12/18/2020 such as druze groups, unions, fraternal or athletic groups, or [...] or slept in a [facility] (including now)? Sex Assigned at Date Recorded Male 03/19/2018 11:46 AM CDT documented as of this encounter Plan of Treatment Upcoming Encounters Date Type Specialty Care Team Description 06/21/2022 Clinical Communication Admitting/Central Scheduling 06/22/2022 Comprehensive Visit Rheumatology Clemente Mario M.B.B.S. [address] [place] [phone] 08/03/2022 Comprehensive Visit Dermatology Jignesh Leonard M.D. [address] [place] [phone] documented as of this encounter Visit Diagnoses Diagnosis Cardiac Vascular Disease Screening - [facility] Screening Examination Diabetes Mellitus documented in this encounter Care Teams Brazing Machine Operator Relationship Specialty Start Date End Date Luis Enrique Walsh M.D. PCP - General 06/01/17 02/12/[address] [place] [address] documented as of this encounter
--- OUTSIDE RECORDS SUMMARY | 2022-06-10 10:56 | XMS_ITS | Encounter Summary ---
:1955 Author Organization [facility] Address [address] [place] [address] Care Team Providers Name Role Phone Elsewhere, Pcp Primary Care Provider Unavailable Encounter Details Date Type Department Care Team Description 03/01/2018 Hospital Encounter Department of Jennifer Zarate in [facility] Laboratory Medicine R and Pathology, [address], in [place], [place] [phone] [place] [address] [place], [place] (Work) [phone] Social History Tobacco Use Types Packs/Day Years [...] containing 4 or more times a w venetie ira 12/18/2020 alcohol? How many drinks containing alcohol [...] How often do you attend rastafari or caodaism Never 09/20/2019 services? Do you belong to [...] slept in a long term (including now)? Sex Assigned at Date Recorded [...] Visit Rheumatology Clemente Mario M.B.BJaleelS. [address] [place] [phone] 08/03/2022 Comprehensive Visit Dermatology Jignesh Leonard M.D. [address] [place] [phone] documented as of this encounter Procedures Procedure Name Priority Date/Time Associated Comments Diagnosis ANTINUCLEAR AB, HEP-2, Routine 03/01/2018 12:04 Pain Elbow Lef t Results for this SUBSTRATE, S PM CDT procedure are i n the results section. THROMBIN TIME (BOVINE), Routine 03/01/2018 12:04 Results for this P PM CDT procedure are i n the results section. STACLOT LA, P Routine 03/01/2018 12:04 Results fo r this PM CDT procedure are i n the results section. DRVVT MIX Routine 03/01/2018 12:04 Results for this PM CDT procedure are i n the results section. DRVVT CONFIRMATION Routine 03/01/2018 12:04 Resul ts for this PM CDT procedure are i n the results section. BETA-2 GLYCOPROTEIN 1 Routine 03/01/2018 12:04 Pain Elbow Left Results for this ABS, IGG AND IGM, S PM CDT procedur e are in the results section. AB TO EXTRACTABLE Routine 03/01/2018 12:04 Pain Elbow Left Res ults for this NUCLEAR AG EVAL, S PM CDT procedure are in the results section. HCV AB W/REFLEX TO HCV Routine 03/01/2018 12:04 Pain Elbow Lef t Results for this PCR, S PM CDT procedure are i n the results section. CYCLIC CITRULLINATED Routine 03/01/2018 12:04 Pain Elbow Left Results for this PEPTIDE ABS, IGG, S PM CDT procedur e are in the results section. DNA DOUBLE-STRANDED Routine 03/01/2018 12:04 Pain Elbow Left R esults for this (DSDNA) ABS, IGG, S PM CDT procedur e are in the results section. HBC TOTAL AB, SERUM Routine 03/01/2018 12:04 Pain Elbow Left R esults for this PM CDT procedure are i n the results section. 25-HYDROXYVITAMIN D2 AND Routine 03/01/2018 12:04 Pain Elbow L eft Results for this D3, S PM CDT procedure are i n the results section. LUPUS ANTICOAGULANT Routine 03/01/2018 12:04 Pain Elbow Left R esults for this PROFILE PM CDT procedure are i n the results section. HBS ANTIBODY, SERUM Routine 03/01/2018 12:04 Pain Elbow Left R esults for this PM CDT procedure are i n the results section. HEPATITIS B SURFACE Routine 03/01/2018 12:04 Pain Elbow Left R esults for this ANTIGEN PM CDT procedure are i n the results section. PHOSPHOLIPID Routine 03/01/2018 12:04 Pain Elbow Left Results for this (CARDIOLIPIN) ABS, IGG PM CDT proce dure are in AND IGM, S the results section. SEDIMENTATION RATE, B Routine 03/01/2018 12:04 Pain Elbow Left Results for this PM CDT procedure are i n the results section. CBC WITH DIFFERENTIAL, B Routine 03/01/2018 12:04 Pain Elbow L eft Results for this PM CDT procedure are i n the results section. RHEUMATOID FACTOR, S/P Routine 03/01/2018 12:04 Pain Elbow Lef t Results for this PM CDT procedure are i n the results section. COMPL C3, S Routine 03/01/2018 12:04 Pain Elbow Left Results for this PM CDT procedure are i n the results section. COMPLEMENT C4, S Routine 03/01/2018 12:04 Pain Elbow Left Resu lts for this PM CDT procedure are i n the results section. C-REACTIVE PROTEIN Routine 03/01/2018 12:04 Pain Elbow Left Re sults for this (CRP), S/P PM CDT procedure are i n the results section. ALANINE AMINOTRANSFERASE Routine 03/01/2018 12:04 Pain Elbow L eft Results for this (ALT), S/P PM CDT procedure are i n the results section. ASPARTATE Routine 03/01/2018 12:04 Pain Elbow Left Results for this AMINOTRANSFERASE (AST), PM CDT proc edure are in S/P the results section. PHOSPHORUS (INORGANIC), Routine 03/01/2018 12:04 Pain Elbow Le ft Results for this S PM CDT procedure are i n the results section. FERRITIN, S Routine 03/01/2018 12:04 Pain Elbow Left Results for this PM CDT procedure are i n the results section. CREATININE WITH EGFR, Routine 03/01/2018 12:04 Pain Elbow Left Results for this S/P PM CDT procedure are i n the results section. CREATINE KINASE (CK), S Routine 03/01/2018 12:04 Pain Elbow Le ft Results for this PM CDT procedure are i n the results section. CALCIUM, TOT, S/P Routine 03/01/2018 12:04 Pain Elbow Left Res ults for this PM CDT procedure are i n the results section. QUANTIFERON-TB GOLD Routine 03/01/2018 12:03 Pain Elbow Left R esults for this PLUS, B PM CDT procedure are i n the results section. COMPL, TOT, S Routine 03/01/2018 12:01 Pain Elbow Left Results for this PM CDT procedure are i n the results section. SPECIAL COAG Routine 03/01/2018 11:40 Results for this INTERPRETATION 2, P AM CDT procedur e are in the results section. documented in this encounter Results Staclot Lupus Anticoagulant (03/01/2018 12:04 PM CDT) athologist Signature Staclot APTT 51 03/05/2018 [facility] 11:39 AM CDT LABORATORIES [facility] Staclot Delta 3 0 - 7 sec 03/05/2018 [facility] 11:39 AM CDT [facility] Comment: ----ADDITIONAL INFORMATION---- This test has been modified from the man miltonr's instructions. Its performance characteri stics were determined by [facility] in a manner co nsistent with CLIA requirements. This test has not bee n cleared or approved by the U.S. Food and Drug Admin istration. Specimen Anatomical Collection Method Collection Time Receive d Time (Source) Location / / Volume Laterality Blood 03/01/2018 12:04 03/01/2018 3:49 PM CDT PM CDT Jennifer Cardenasary LAB BLOOD NON ADD-ON Performing Organization Address City/[facility]/ZIP Code Phon e Number [facility] LABORATORIES - [address] DRVVT Confirmation (03/01/2018 12:04 PM CDT) athologist Signature DRVVT Confirm 1.0 0.0 - 1.1 03/01/2018 [facility] Ratio ratio 3:14 PM CDT LABORATORIES [facility] Specimen Anatomical Collection Method Collection Time Receive d Time (Source) Location / / Volume Laterality Blood 03/01/2018 12:04 03/01/2018 PM CDT 12:34 PM CDT Jennifer R Elliot LAB BLOOD NON ADD-ON Performing Organization Address City/[facility] Phon e Number [facility] LABORATORIES - [address] Thrombin Time (Bovine) (03/01/2018 12:04 PM CDT) P athologist Signature Thrombin Time 20 15 - 23 03/01/2018 [facility] (Bovine), P sec 3:00 PM CDT LABORATORIES [facility] Comment: ----ADDITIONAL INFORMATION---- This test has been modified from the man ufacturer's instructions. Its performance characteri stics were determined by [facility] in a manner co nsistent with CLIA requirements. This test has not bee n cleared or approved by the U.S. Food and Drug Admin istration. Specimen Anatomical Collection Method Collection Time Receive d Time (Source) Location / / Volume Laterality Blood 03/01/2018 12:04 03/01/2018 PM CDT 12:34 PM CDT Jennifer Dawn CardenasElliot LAB BLOOD ADD-ON Performing Organization Address City/[facility]/ZIP Code Phon e Number [facility] - [address] (ABNORMAL) DRVVT Mix (03/01/2018 12:04 PM CDT) Patholo gist Method Time Signature DRVVT Mix 1.3 (H) 0.0 - 1.1 03/01/2018 [facility] Ratio ratio 3:06 PM CDT LABORATORIES - [facility] Specimen Anatomical Collection Method Collection Time Receive d Time (Source) Location / / Volume Laterality Blood 03/01/2018 12:04 03/01/2018 PM CDT 12:34 PM CDT Jennifer R Elliot LAB BLOOD NON ADD-ON Performing Organization Address City/[facility]/ZIP Code Phon e Number [facility] LABORATORIES - [address] CK (Creatine Kinase) (03/01/2018 12:04 PM CDT) P athologist Signature Creatine 46 39 - 308 03/01/2018 [facility] Kinase (CK), S U/L 1:01 PM CDT [facility] Specimen Anatomical Collection Method Collection Time Receive d Time (Source) Location / / Volume Laterality Blood (Blood, 03/01/2018 12:04 03/01/2018 Venous) PM CDT 12:23 PM CDT Jennifer R Elliot LAB BLOOD ADD-ON Performing Organization Address City/[facility]/ZIP Code Phon e Number [facility] LABORATORIES - [address] [place] [address] [facility] Ferritin (03/01/2018 12:04 PM CDT) athologist Signature Ferritin, S 264 24 - 336 03/01/2018 [facility] mcg/L 1:26 PM CDT LABORATORIES - [facility] Specimen Anatomical Collection Method Collection Time Receive d Time (Source) Location / / Volume Laterality Blood (Blood, 03/01/2018 12:04 03/01/2018 Venous) PM CDT 12:23 PM CDT Jennifer Zarate LAB BLOOD ADD-ON Performing Organization Address City/[facility]/ZIP Code Phon e Number [facility] LABORATORIES - [address] [place], [place] [address] [facility] 25-Hydroxyvitamin D2 and D3 (03/01/2018 12:04 PM CDT) athologist Signature 25-Hydroxy D2 <4.0 ng/mL 03/04/2018 [facility] 6:32 PM CDT [facility] 25-Hydroxy D3 49 ng/mL 03/04/2018 [facility] 6:32 PM CDT [facility] 25-Hydroxy D 49 ng/mL 03/04/2018 [facility] Total 6:32 PM CDT [facility] Comment: ----REFERENCE VALUE---- 25-HYDROXY D TOTAL (D2+D3) Optimum level s in the healthy population are 20-50, patients with bone disease may benefit from higher levels within this r scotty. ----ADDITIONAL INFORMATION---- This test was developed and its performa nce characteristics determined by [facility] in a manner consistent with CLIA requirements. This test has not been cleared or approved by the U.S. Sin d and Drug Administration. Specimen Anatomical Collection Method Collection Time Receive d Time (Source) Location / / Volume Laterality Blood (Blood, 03/01/2018 12:04 03/04/2018 8:38 Venous) PM CDT AM CDT Jennifer Zarate LAB BLOOD ADD-ON Performing Organization Address City/State/ZIP Code Phon e Number [facility] [address] [place], [place] [address] [facility] Phosphorus Inorganic (03/01/2018 12:04 PM CDT) Analysis Performed At Patho logist Time Signature Phosphorus 3.6 2.5 - 4.5 03/01/2018 [facility] (Inorganic), S mg/dL 1:01 PM CDT LABORATORIES - [facility] Specimen Anatomical Collection Method Collection Time Receive d Time (Source) Location / / Volume Laterality Blood (Blood, 03/01/2018 12:04 03/01/2018 Venous) PM CDT 12:23 PM CDT Jennifer R Elliot LAB BLOOD ADD-ON Performing Organization Address City/[facility]/ZIP Code Phon e Number [facility] LABORATORIES - [address] [place], [place] [address] [facility] Calcium, Total (03/01/2018 12:04 PM CDT) athologist Signature Calcium, 9.6 8.8 - 10.2 03/01/2018 [facility] Total, S mg/dL 1:01 PM CDT LABORATORIES - [facility] Specimen Anatomical Collection Method Collection Time Receive d Time (Source) Location / / Volume Laterality Blood (Blood, 03/01/2018 12:04 03/01/2018 Venous) PM CDT 12:23 PM CDT Jennifer R Elliot LAB BLOOD ADD-ON Performing Organization Address City/[facility] Phon e Number [facility] LABORATORIES - [address] [place], [place] [address] [facility] Beta-2 Glycoprotein 1 Antibodies, IgG and IgM (03/01/2018 12:04 PM CDT) athologist Signature Beta 2 GP1 Ab <9.4 <15.0 03/01/2018 [facility] IgG, S (Negative) 8:57 PM CDT LABORATORIES - U/mL [facility] Beta 2 GP1 Ab <9.4 <15.0 03/01/2018 [facility] IgM, S (Negative) 8:57 PM CDT LABORATORIES - U/mL [facility] Specimen Anatomical Collection Method Collection Time Receive d Time (Source) Location / / Volume Laterality Blood (Blood, 03/01/2018 12:04 03/01/2018 1:13 Venous) PM CDT PM CDT Jennifer R Elliot LAB BLOOD ADD-ON Performing Organization Address City/[facility]/ZIP Code Phon e Number [facility] LABORATORIES - [address] [place], [place] [address] [facility] Phospholipid (Cardiolipin) Antibodies, IgG and IgM (03/01/2018 12:04 PM CDT) [facility] Method Time Signature Phospholipid Ab <9.4 <15.0 03/02/2018 [facility] IgM, S (Negative 1:20 PM CDT LABORATORIES - ) MPL [facility] Phospholipid Ab <9.4 <15.0 03/02/2018 [facility] IgG, S (Negative 1:21 PM CDT LABORATORIES - ) GPL [facility] Specimen Anatomical Collection Method Collection Time Receive d Time (Source) Location / / Volume Laterality Blood (Blood, 03/01/2018 12:04 03/01/2018 1:13 Venous) PM CDT PM CDT Jennifer Andrewsdhary LAB BLOOD ADD-ON Performing Organization Address City/State/ZIP Code Phon e Number [facility] LABORATORIES - [address] [place], [place] [address] [facility] (ABNORMAL) Lupus Anticoagulant Profile (03/01/2018 12:04 PM CDT) Component Value Ref Test Analysis Performed At [facility] Range Method Time Signature Prothrombin Time 12.7 10.3 - 03/01/2018 [facility] (PT), P 12.8 2:46 PM LABORATORIES - sec [facility] INR 1.2 03/01/2018 [facility] 2:46 PM LABORATORIES - [facility] Activated 32 26 - 36 03/01/2018 [facility] Partial sec 2:48 PM LABORATORIES - Thrombopl Time, [facility] DRVVT Screen 1.3 (H) 0.0 - 03/01/2018 [facility] Ratio 1.1 2:56 PM LABORATORIES - ratio [facility] Reviewed by: Michelle Bains M.D. 03/06/2018 [facility] 2:13 PM LABORATORIES - T [facility] Interpretation ?Type of Study: ??Lupus Anticoagulant Profile 03/06/2018 [facility] ?IMPRESSION: ??1) No evidence for a lupus anticoagula nt (LAC). 2:13 PM LABORATORIES - ?2) Antiphospholipid and anti-beta 2 glycoprotein I antibody levels are [facility] within normal limits. CAMPUS ?COMMENTS: ??The thrombin time (TT), prothrombin time ( PT), activated partial thromboplastin time (APTT) and Staclot A PTT are within normal limits. ?The dilute Chad viper venom time (DRVVT) is p rolonged and inhibited but fails to improve with additional phospholipid. ?There is therefore no evidence for a lupus anticoagu lant (LAC) within limits of testing repertoire. ?Negative results of testing for anti-beta 2 glycopro tein I antibodies (IgG and IgM) and anticardiolipin antibodies (IgG and IgM) p rovide no evidence of antiphospholipid antibodies by this methodology. Specimen Anatomical Collection Method Collection Time Receive d Time (Source) Location / / Volume Laterality Blood (Blood, 03/01/2018 12:04 03/01/2018 Venous) PM CDT 12:31 PM CDT Narrative [facility] - 03/06/2018 2:14 PM CDT Specimen Information: Specimen ID: [id number] Specimen Type: Blood Specimen Collection Start Date: 03/01/20 12:04 PM Specimen Received Date: 03/01/2018 12:31 PM Specimen ID: [id number] Specimen Type: Blood Specimen Collection Start Date: 03/01/20 12:04 PM Specimen Received Date: 03/01/2018 12:31 PM Specimen ID: [id number] Specimen Type: Blood Specimen Collection Start Date: 03/01/20 12:04 PM Specimen Received Date: 03/01/2018 12:34 PM Jennifer Dawn Elliot LAB BLOOD NON ADD-ON Performing Organization Address City/[facility] Phon e Number [facility] - [address] Complement C4 (03/01/2018 12:04 PM CDT) Analysis Performed At Patho [facility] Time Signature Complement C4, 34 14 - 40 03/01/2018 [facility] S mg/dL 4:52 PM CDT [facility] Specimen Anatomical Collection Method Collection Time Receive d Time (Source) Location / / Volume Laterality Blood (Blood, 03/01/2018 12:04 03/01/2018 1:13 Venous) PM CDT PM CDT [facility] LAB BLOOD ADD-ON Performing Organization Address [facility] Phon e Number [facility] LABORATORIES - [address] [place] [address] [facility] (ABNORMAL) Complement C3 (03/01/2018 12:04 PM CDT) Patholo gist Method Time Signature Complement C3, 179 (H) 75 - 175 03/01/2018 [facility] S mg/dL 4:52 PM CDT LABORATORIES - [facility] Specimen Anatomical Collection Method Collection Time Receive d Time (Source) Location / / Volume Laterality Blood (Blood, 03/01/2018 12:04 03/01/2018 1:13 Venous) PM CDT PM CDT JenniferBinfiredhary LAB BLOOD ADD-ON Performing Organization Address City/[facility] Phon e Number [facility] LABORATORIES - [address] [place], [place] [address] [facility] DNA Double-Stranded (dsDNA) Antibodies, IgG (03/01/2018 12:04 PM CDT) P athologist Signature DNA <12.3 <30.0 03/01/2018 [facility] Double-Strande (Negative) 6:59 PM CDT LABORATORIES - d Ab, IgG, S IU/mL [facility] Specimen Anatomical Collection Method Collection Time Receive d Time (Source) Location / / Volume Laterality Blood (Blood, 03/01/2018 12:04 03/01/2018 1:13 Venous) PM CDT PM CDT JenniferBinfiredhary LAB BLOOD ADD-ON Performing Organization Address City/[facility] Code Phon e Number [facility] LABORATORIES - [address] [place], [place] [address] [facility] Antibody to Extractable Nuclear Antigen Evaluation (03/01/2018 12:04 PM CDT) P athologist Signature SS-A/Ro Ab, <0.2 <1.0 03/01/2018 [facility] IgG, S (Negative) 2:53 PM CDT LABORATORIES - U [facility] SS-B/La Ab, <0.2 <1.0 03/01/2018 [facility] IgG, S (Negative) 2:53 PM CDT LABORATORIES - U [facility] Sm Ab, IgG, S <0.2 <1.0 03/01/2018 [facility] (Negative) 2:53 PM CDT LABORATORIES - U [facility] IGNITER CAPPER Ab, IgG, S <0.2 <1.0 03/01/2018 [facility] (Negative) 2:53 PM CDT LABORATORIES - U [facility] Scl 70 Ab, <0.2 <1.0 03/01/2018 [facility] IgG, S (Negative) 2:53 PM CDT LABORATORIES - U [facility] Mini 1 Ab, IgG, <0.2 <1.0 03/01/2018 [facility] S (Negative) 2:53 PM CDT LABORATORIES - U [facility] Specimen Anatomical Collection Method Collection Time Receive d Time (Source) Location / / Volume Laterality Blood (Blood, 03/01/2018 12:04 03/01/2018 1:13 Venous) PM CDT PM CDT [facility] LAB BLOOD ADD-ON Performing Organization Address City/[facility]/ZIP Code Phon e Number [facility] LABORATORIES - [address] [place], [place] [address] [facility] HCV Ab w/Reflex to HCV PCR, S (03/01/2018 12:04 PM CDT) athologist Signature HCV Ab, S Negative Negative 03/01/2018 [facility] 4:51 PM CDT [facility] Comment: Dfjyqx-ap-nmhemj ratio is <1.00 . Specimen Anatomical Collection Method Collection Time Receive d Time (Source) Location / / Volume Laterality Blood (Blood, 03/01/2018 12:04 03/01/2018 3:51 Venous) PM CDT PM CDT Jennifer Cardenasary LAB MICROBIOLOGY - BLOOD ORD ERABLES Performing Organization Address City/[facility]/ZIP Code Phon e Number [facility] [address] [place] [facility] Hepatitis B Core Total Ab (03/01/2018 12:04 PM CDT) P athologist Signature HBc Total Ab, Negative Negative 03/01/2018 [facility] S 4:50 PM CDT [facility] Specimen Anatomical Collection Method Collection Time Receive d Time (Source) Location / / Volume Laterality Blood (Blood, 03/01/2018 12:04 03/01/2018 3:51 Venous) PM CDT PM CDT Jennifer Dawn CardenasElliot LAB MICROBIOLOGY - BLOOD ORD ERABLES Performing Organization Address City/State/ZIP Code Phon e Number [facility] [address] [place] [address] [facility] Hepatitis B Surface, Ab (03/01/2018 12:04 PM CDT) athologist Signature HBs Antibody, Negative 03/01/2018 [facility] 4:50 PM CDT [facility] Comment: Patient is presumed to be not immune to infection with HBV. ----REFERENCE VALUE---- Unvaccinated: Negative Vaccinated: Positive HBs Antibody, <5.0 mIU/mL 03/01/2018 4:50 PM CDT [facility] Comment: ----REFERENCE VALUE---- Unvaccinated: <5.0 Vaccinated: >=12.0 Specimen Anatomical Collection Method Collection Time Receive d Time (Source) Location / / Volume Laterality Blood (Blood, 03/01/2018 12:04 03/01/2018 3:51 Venous) PM CDT PM CDT Jennifer Zarate LAB MICROBIOLOGY - BLOOD ORD ERABLES Performing Organization Address City/[facility]/ZIP Code Phon e Number [address] [place] Hepatitis B Surface Antigen (03/01/2018 12:04 PM CDT) athologist Signature HBs Antigen, S Negative Negative 03/01/2018 [facility] 4:34 PM CDT [facility] Specimen Anatomical Collection Method Collection Time Receive d Time (Source) Location / / Volume Laterality Blood (Blood, 03/01/2018 12:04 03/01/2018 3:51 Venous) PM CDT PM CDT Jennifer Zarate LAB MICROBIOLOGY - BLOOD ORD ERABLES Performing Organization Address City/State/ZIP Code Phon e Number [address] [place] [address] (ABNORMAL) Antinuclear Antibodies, HEp-2 Substrate, IgG, Serum (03/01/2018 12:04 PM CDT) Component Value Ref Test Analysis Performed At [facility] Range Method Time Signature Antinuclear Ab, Positive <1:80 03/01/2018 [facility] HEp-2 1:320 (A) (Negativ 11:16 PM LABORATORIES - Substrate, S e) CDT [facility] CATHIE Titer: 1:320 03/01/2018 [facility] 11:16 PM LABORATORIES - CDT [facility] CATHIE Pattern: Nucleolar 03/01/2018 [facility] 11:16 PM LABORATORIES - CDT [facility] Specimen Anatomical Collection Method Collection Time Receive d Time (Source) Location / / Volume Laterality Blood (Blood, 03/01/2018 12:04 03/01/2018 1:13 Venous) PM CDT PM CDT Jennifer Cardenasary LAB BLOOD ADD-ON Performing Organization Address City/[facility]/ZIP Code Phon e Number [facility] LABORATORIES - [address] [place] [address] [facility] Cyclic Citrullinated Peptide Antibodies, IgG (03/01/2018 12:04 PM CDT) [facility] [employer] Method Time Signature Cyclic <15.6 <20.0 03/01/2018 [facility] Citrullinated (Negative 6:37 PM CDT LABORATORIES - Peptide Ab, S ) U [facility] Specimen Anatomical Collection Method Collection Time Receive d Time (Source) Location / / Volume Laterality Blood (Blood, 03/01/2018 12:04 03/01/2018 1:13 Venous) PM CDT PM CDT Jennifer Cardenasary LAB BLOOD ADD-ON Performing Organization Address City/State/ZIP Code Phon e Number [facility] LABORATORIES - [address] [place] [address] [facility] Rheumatoid Factor (03/01/2018 12:04 PM CDT) P athologist Signature Rheumatoid <15 <15 IU/mL 03/01/2018 [facility] Factor, S 5:41 PM CDT [facility] Specimen Anatomical Collection Method Collection Time Receive d Time (Source) Location / / Volume Laterality Blood (Blood, 03/01/2018 12:04 03/01/2018 4:43 Venous) PM CDT PM CDT Jennifer Dawn AndrewsElliot LAB BLOOD ADD-ON Performing Organization Address City/[facility]/ZIP Code Phon e Number [facility] [address] [place] [phone] [facility] (ABNORMAL) Creatinine with Estimated GFR (03/01/2018 12:04 PM CDT) [facility] [employer] Method Time Signature Creatinine 1.44 (H) 0.74 - 03/01/2018 [facility] 1.35 1:01 PM CDT LABORATORIES - mg/dL [facility] eGFR-Non 51 (L) >=60 03/01/2018 [facility] Black/ mL/min/BS 1:01 PM CDT LABORATORIES - [place] [facility] Comment: ----ADDITIONAL INFORMATION---- Estimated GFR calculated using the 2009 CKD_EPI creatinine equation. eGFR-Black/ 59 (L) >=60 mL/min/BSA 03/01/2018 1:01 [facility] [place] PM CDT LABORATORIES - [facility] Comment: ----ADDITIONAL INFORMATION---- Estimated GFR calculated using the 2009 CKD_EPI creatinine equation. Specimen Anatomical Collection Method Collection Time Receive d Time (Source) Location / / Volume Laterality Blood (Blood, 03/01/2018 12:04 03/01/2018 Venous) PM CDT 12:23 PM CDT Jennifer Dawn Zarate LAB BLOOD ADD-ON Performing Organization Address City/[facility]/ZIP Code Phon e Number [facility] LABORATORIES - [address] [place] [address] [facility] ALT (Alanine Aminotransferase) (03/01/2018 12:04 PM CDT) [facility] [employer] Method Time Signature Alanine 19 7 - 55 03/01/2018 [facility] Aminotransferase U/L 1:01 PM CDT LABORATORIE S - (ALT), S [facility] Specimen Anatomical Collection Method Collection Time Receive d Time (Source) Location / / Volume Laterality Blood (Blood, 03/01/2018 12:04 03/01/2018 Venous) PM CDT 12:23 PM CDT Jennifer Dawn CardenasElliot LAB BLOOD ADD-ON Performing Organization Address City/[facility]/ZIP Code Phon e Number [facility] LABORATORIES - [address] [place] [address] [facility] AST (Aspartate Aminotransferase) (03/01/2018 12:04 PM CDT) [employer] Method Time Signature Aspartate 15 8 - 48 03/01/2018 [facility] Aminotransferase U/L 1:01 PM CDT LABORATORIE S - (AST), [facility] Specimen Anatomical Collection Method Collection Time Receive d Time (Source) Location / / Volume Laterality Blood (Blood, 03/01/2018 12:04 03/01/2018 Venous) PM CDT 12:23 PM CDT Jennifer Dawn Elliot LAB BLOOD ADD-ON Performing Organization Address City/State/ZIP Code Phon e Number [facility] LABORATORIES - [address] [place], [place] [address] [facility] (ABNORMAL) CRP (C-Reactive Protein) (03/01/2018 12:04 PM CDT) [facility] Method Time Signature C-Reactive 46.1 (H) <=8.0 03/01/2018 [facility] Protein (CRP), mg/L 1:01 PM CDT LABORATORIES - [facility] Specimen Anatomical Collection Method Collection Time Receive d Time (Source) Location / / Volume Laterality Blood (Blood, 03/01/2018 12:04 03/01/2018 Venous) PM CDT 12:23 PM CDT Jennifer Dawn Elliot LAB BLOOD ADD-ON Performing Organization Address City/State/ZIP Code Phon e Number [facility] LABORATORIES - [address] [place] [address] [facility] (ABNORMAL) Sedimentation Rate (03/01/2018 12:04 PM CDT) [facility] Method Time Signature Sedimentation 92 (H) 0 - 22 03/01/2018 [facility] Rate, B mm/1 h 2:37 PM CDT LABORATORIES - [facility] Specimen Anatomical Collection Method Collection Time Receive d Time (Source) Location / / Volume Laterality Blood (Blood, 03/01/2018 12:04 03/01/2018 Venous) PM CDT 12:23 PM CDT Jennifer R Elliot LAB BLOOD ADD-ON Performing Organization Address City/State/ZIP Code Phon e Number [facility] LABORATORIES - [address] [place] [address] [facility] (ABNORMAL) CBC with Differential, Blood (03/01/2018 12:04 PM CDT) [facility] Method Time Signature Hemoglobin 11.3 (L) 13.2 - 03/01/2018 [facility] 16.6 g/dL 12:34 PM CDT LABORATORIES - [facility] Hematocrit 34.5 (L) 38.3 - 03/01/2018 [facility] 48.6 % 12:34 PM CDT [facility] - [facility] Erythrocytes 3.71 (L) 4.35 - 03/01/2018 [facility] 5.65 12:34 PM CDT LABORATORIES - x10(12)/L [facility] MCV 93.0 78.2 - 03/01/2018 [facility] 97.9 fL 12:34 PM CDT LABORATORIES - [facility] RBC Distrib 13.3 11.8 - 03/01/2018 [facility] Width 14.5 % 12:34 PM CDT LABORATORIES - [facility] Platelet Count 546 (H) 135 - 317 03/01/2018 [facility] x10(9)/L 12:34 PM CDT LABORATORIES - [facility] Leukocytes 9.3 3.4 - 9.6 03/01/2018 [facility] x10(9)/L 12:34 PM CDT LABORATORIES - [facility] Neutrophils 6.80 (H) 1.56 - 03/01/2018 [facility] 6.45 12:34 PM CDT LABORATORIES - x10(9)/L [facility] Lymphocytes 1.67 0.95 - 03/01/2018 [facility] 3.07 12:34 PM CDT LABORATORIES - x10(9)/L [facility] Monocytes 0.65 0.26 - 03/01/2018 [facility] 0.81 12:34 PM CDT LABORATORIES - x10(9)/L [facility] Eosinophils 0.17 0.03 - 03/01/2018 [facility] 0.48 12:34 PM CDT LABORATORIES - x10(9)/L [facility] Basophils 0.04 0.01 - 03/01/2018 [facility] 0.08 12:34 PM CDT LABORATORIES - x10(9)/L [facility] Specimen Anatomical Collection Method Collection Time Receive d Time (Source) Location / / Volume Laterality Blood (Blood, 03/01/2018 12:04 03/01/2018 Venous) PM CDT 12:23 PM CDT Jennifer Zarate LAB BLOOD ADD-ON Performing Organization Address City/State/ZIP Code Phon e Number [facility] LABORATORIES - [address] [place], [place] [address] [facility] QuantiFERON-Tb Gold Plus, Blood (03/01/2018 12:03 PM CDT) athologist Signature QuantiFERON-TB Negative Negative 03/03/2018 [facility] Gold Plus 2:[address] [facility] Comment: No interferon-gamma response to M. tuber culosis antigens was detected. Infection with M. tubercul osis is unlikely. A single negative result does not exclud e infection with M. tuberculosis. In patients at high ris k for M.tuberculosis infection, a second test should be consi dered in accordance with the 2017 ATS/IDSA/CDC Clinical Prac ariel Guidelines for Diagnosis of Tuberculosis in Adults and Children [Lewinsohn DM et. al. Clin. Infect. Dis. 2017;64(2):111-115]. TB1 Ag minus Nil 0.00 IU/mL 03/03/2018 2:06 PM CDT [facility] [address] [facility] TB2 Ag minus Nil 0.01 IU/mL 03/03/2018 2:06 PM CDT [facility] [address] [facility] Mitogen minus Nil >10.00 IU/mL 03/03/2018 2:06 PM CDT [facility] [address] [facility] Nil Result 0.02 IU/mL 03/03/2018 2:06 PM CDT [facility] CENTER Specimen Anatomical Collection Method Collection Time Receive d Time (Source) Location / / Volume Laterality Blood (Blood, 03/01/2018 12:03 03/01/2018 2:49 Venous) PM CDT PM CDT Narrative [facility] - 03/03/2018 2:06 PM CDT Specimen Information: Specimen ID: [id number] Specimen Type: Blood Specimen Collection Start Date: 03/01/20 18 12:03 PM Specimen Received Date: 03/01/2018 ??2:4 9 PM Specimen ID: [id number] Specimen Type: Blood Specimen Collection Start Date: 03/01/20 18 12:03 PM Specimen Received Date: 03/01/2018 ??2:4 9 PM Specimen ID: [id number] Specimen Type: Blood Specimen Collection Start Date: 03/01/20 18 12:03 PM Specimen Received Date: 03/01/2018 ??2:4 9 PM Specimen ID: [id number] Specimen Type: Blood Specimen Collection Start Date: 03/01/20 18 12:03 PM Specimen Received Date: 03/01/2018 ??2:4 9 PM Jennifer Zarate LAB MICROBIOLOGY - BLOOD ORD ERABLES Performing Organization Address City/State/ZIP Code Phon e Number [facility] [address] [place] [address] [facility] Complement, Total (03/01/2018 12:01 PM CDT) P athologist Signature Complement, 65 30 - 75 03/01/2018 [facility] Total, S U/mL 3:29 PM CDT LABORATORIES [facility] Specimen Anatomical Collection Method Collection Time Receive d Time (Source) Location / / Volume Laterality Blood (Blood, 03/01/2018 12:01 03/01/2018 1:45 Venous) PM CDT PM CDT Jennifer Zarate LAB BLOOD NON ADD-ON Performing Organization Address City/State/[facility] Phon e Number [facility] LABORATORIES - [address] [place] [address] [facility] Special Coagulation Interpretation 2 (03/01/2018 11:40 AM CDT) Patholo gist Method Time Signature Interpretation Performed 03/06/2018 [facility] 2:14 PM CDT [facility] Specimen (Source) Anatomical Collection Method Collection Time Re ceived Time Location / / Volume Laterality 03/01/2018 11:40 AM CDT Jennifer Cardenasary LAB BLOOD NON ADD-ON Performing Organization Address City/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
--- OUTSIDE RECORDS SUMMARY | 2022-06-10 10:56 | XMS_ITS | Encounter Summary ---
:1955 Author Organization [facility] Address [address] [place] [id number] Care Team Providers Name Role Phone Elsewhere, Pcp Primary Care Provider Unavailable Reason for Referral Outpatient (Routine) - Closed Specialty Diagnoses / Procedures Referred By Contact Refer red To Contact Rheumatology Diagnoses Pain Elbow Left Rach Joyce P.A.-C. [facility] [address] [place] [phone] Referral ID Status Reason Start Date Expiration Date Visits Requ ested Visits Authorized [id number] Closed 02/22/2018 02/22/2019 1 1 Reason for Visit Reason Comments Joint Pain Encounter Details Date Type Department Care Team Description 02/21/2018 - Emergency [facility] Gin Suh M.D., M.P.H. [address] [place] [address] Pain Elbow Left 02/22/2018 Emergency Department Luis Enrique Harris M.D., M.S. [address] [place] [phone] (Primary Dx) [address] [facility] Todd Cheung M.D. [address] [place] [phone] [place] [address] Social History Tobacco Use Types Packs/Day Years Used Date Smoking Tobacco: Former Alcohol Use Standard Drinks/Week Comments No 0 (1 standard drink = 0.6 oz pure alcoho l) Alcohol Habits Answer Date Recorded How often do you have a drink containing 4 or more times a w havasupai 12/18/2020 alcohol? How many drinks containing alcohol [...] or relatives? How often do you attend restorationist or restoration Never 09/20/2019 services? Do you belong to any clubs or organizations Yes 12/18/2020 such as restorationist groups, unions, fraternal or athletic groups, or [...] Sign Reading Time Taken Comments Blood Pressure 120/52 02/22/2018 9:15 AM CDT Pulse 85 02/22/2018 9:15 AM CDT Temperature 37.1 ??C (98.8 ??F) 02/22/2018 9:15 AM CDT Respiratory Rate 16 02/21/2018 9:51 PM CDT Oxygen Saturation 93% 02/22/2018 9:15 AM CDT Inhaled Oxygen Concentration - - Weight 91 kg (200 lb 9.9 oz) 02/21/2018 7:34 PM CDT Height - - Body Mass Index - - documented in this encounter Discharge Summaries Rach Joyce P.A.-C. - 02/22/2018 12:07 PM CDT Emergency Department Discharge Note BRIEF OVERVIEW Admission Date: 02/21/2018 Discharge Date: 02/22/2018 Primary Discharge Diagnosis Final diagnoses: [M25.522] Pain Elbow Left Discharge Disposition [place] is being discharged to home Outpatient Follow-Up Related to this Admission Follow up with a [place] provider: Next available appointment Test Results Pending at Discharge Pending Labs Order Current Status Bacterial Culture, Aerobic + Susc Collected (02/22/18820) Bacterial Culture, Aerobic + Susc Collected (02/22/18828) Bacterial Culture, Anaerobic + Susc Collected (02/22/18820) Bacterial Culture, Anaerobic + Susc Collected (02/22/18828) Gram Stain Collected (02/22/18820) Gram Stain Collected (02/22/18828) Bacterial Culture, Aerobic + Susc In process Bacterial Culture, Anaerobic + Susc In process Ehrlichia / Anaplasma PCR, Blood In process Patient education Discharge instructions given. All questions answered to the best of my ability Condition at Discharge Stable DETAILS OF OBSERVATION STAY Observation Course joint pain with negative joint aspiration. OTS has recommended rheumatology follow up, and return toED if elbow worsens. Rach Joyce P.A.-C. 02/22/18 1208 documented in this encounter Discharge Instructions AttachmentsThe following attachments cannot be sent through Care Everywhere. Joint Pain (Kinyarwanda)documented in this encounter Medications at Time of [...] mg capsule 4 (four) times a day. oxyCODONE (OXY-IR) 5 mg Take 5 mg by mouth 0 04/16/2018 immediate release capsule every 4 (four) hours as needed for pain. pravastatin (PRAVACHOL) Take 60 mg by mouth 0 10/12/2020 40 mg tablet daily. 1.5 tablets daily documented as of this encounter Progress Notes Dimitri Ohara M.D. - 02/22/2018 11:40 AM CDT Review of patients left elbow aspirate demonstrates inflammatory effusion likely consistent with pseudogout. No role for Orthopaedic Surgery at this time. Will recommend medical management and Rheumatology consultation. Patient may also benefit from immobilization of his joint for comfort. This could be accomplished with a removable orthoplast splint in full extension fashioned by occupational therapy to be worn only for comfort. Elbow could alternatively be supported in sling in position of comfort. Expectation would be that patient would come out of sling or splint several times a day for range of motion exercises. No limitations with extremity other than activities as tolerated. We will continue to follow up his progress while he is in the hospital in case there is a need for additional orthopaedic recommendations. Please contact the [facility] team with questions or concerns. documented in this encounter Consult Notes Sathish Sanchez M.D. - 02/21/2018 10:16 PM CDTAssociated Order(s): IP CONSULT TO ORTHOPEDIC SURGERY Referral Source No ref. provider found Chief Complaint -or- Reason for Consult Chief Complaint Patient presents with ??? Joint Pain History of Present Illness Mr. [place] Sanches is a 62 y.o. male with a past medical history significant for HTN, duodenal ulcers, diverticuitis, who presented to the [facility] emergency department for evaluation of ChiefComplaint Patient presents with ??? Joint Pain ; Orthopedics was consulted for evaluation and recommendations regarding his left elbow pain. This problem started for Mr. Sanches on Sunday and has been getting worse. Currently his problem affects his left elbow mainly. Also endorses some other arthralgias, left hip, left knee, left shoulder as well. All starting since this past Sunday. No numbness or tingling. Evaluated in [facility] on 02-19-2018, US PIERCE (-) for DVT, placed in a posterior slab splint for comfort due to elbow effusion. Today was evaluated Dr. bueno (family medicine) who recommended follow upwith rheumatology for migratory polyarthralgia and elevated inflammatory markers, started patient onkeflex 500mg for 10days today. He does endorse associated decreased ROM of the affected joints. He denies any numbness or tingling,weakness, clickling/popping/locking/catching, nausea/vomiting, swelling, drainage, redness, warmth. Endorses utilizing a hammer drill 2-3 weeks ago, repetitive forceful impaction through his bilateral arms. right hand-dominant The patient is not currently on anticoagulation. Past Medical and Surgical History Past Medical History: Diagnosis Date ??? Depressive Disorder ??? Hypertension NOS ??? Ulcer Duodenal 2000 Cauterized. Cause H. Pylori Past Surgical History: Procedure Laterality Date ??? HERNIA REPAIR ??? THORACIC AORTA STENT Specifically, the patient denies history of gout, rheumatoid arthritis, psoriasis, ankylosing spondylitis, site/joint/deep tissue infections, diabetes mellitus type 1 or 2. Review of Systems A complete 12-point review of systems was performed using patient provided information in addition to review of the electronic medical record and is negative with the exception of what is mentioned in the HPI. Family History No family history on file. Social History He is right hand dominant. Lives at home with his and 2 dogs, for 2 years. 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 Denies ETOH. Denies Tobacco use. Denies any illicit drug use. A good contact number for him is [phone]. Medications No current facility-administered medications on file prior to encounter. No current outpatient prescriptions on file prior to encounter. Reviewed per EMR. Allergies Allergies Allergen Reactions ??? Sulfamethoxazole-Trimethoprim Hives Vitals Temperature: [37.4 ??C] 37.4 ??C Resp Rate: [16-18] 16 Blood Pressure: (86-111)/(49-59) 87/50 SpO2: [92 %-95 %] 92 % Weight: [91 kg] 91 kg Pulse Rate: [69-75] 69 No intake/output data recorded. Physical Exam GEN: No acute distress. Conversing appropriately, AAOx3. MUSCULOSKELETAL EXAM: Bilateral UE: Neuro intact distally in M/R/U nerve distributions. Able to move all fingers. Skin warm and well perfused with no lesions or skin compromise. 2+ radial pulse. Left elbow is able to range small arc range of motions without pain. Pain with terminal extension and pain with flexion past 100?? endorsed in the mid lateral forearm. Forearm compartment is soft and nontender. No pain with resisted extension and flexion at the wrist. No pain with resisted flexion andextension at the elbow. The elbow is warm to touch, there is mild blanching erythema overlying the dorsal aspect of the elbow. No gross instability of the elbow noted. Left shoulder painless range of motion. Bilateral LE: EHL, FHL, dorsi-flexor and plantar-flexor strength intact. Sensation intact to light touch in the deep peroneal, superficial peroneal, saphenous, sural, and tibial nerve distributions. Toes warm and well perfused with adequate capillary refill at < 2 seconds. Calves are soft and non tender. 2+ posterior tibial and dorsalis pedis pulses. Left knee with positive patellar grind test, and pain anteriorly with flexion past 100??. Otherwise painless range of motion. Left hip painless range of motion. Diagnostics Recent Labs 02/21/182111 WBC 14.5 H HGB 10.0 L HCT 28.8 L MCV 89.4 PLT 322 H Recent Labs 02/21/182111 NA 132 L CL 95 L CREATININE 2.20 H BUN 46 H GLUCOSE 117 No results for input(s): INR, PT in the last 48 hours. Recent Labs 02/21/182111 CRP 345.2 H Imaging Studies I have reviewed all the relevant imaging studies to date and have noted the followin. AP/Lateral xrays of Left elbow reveal a notable elbow effusion, advanced degenerative changes. A possible nondisplaced radial head fracture, there is a cortical irregularity appreciable which may represent fracture. Assessment and Plan Mr. [place] Sanches is a 62 y.o. male with a past medical history significant for HTN, duodenal ulcers, diverticuitis, who presented to the [facility] emergency department for evaluation of ChiefComplaint Patient presents with ??? Joint Pain ; Orthopedics was consulted for evaluation and recommendations regarding his left elbow pain. I had a good discussion with Mr. Sanches regarding his history of migratory polyarthralgias, and more specifically his left elbow pain which has worsened over the last few days. I do agree that a rheumatologic workup as suggested by his family medicine physician would be prudent as an outpatient. With regards to his issues today,He is afebrile and hemodynamically stable. His exam is overall revealing for blanching erythema over the dorsal aspect of the elbow, warm to touch, painless small arc range of motion, with pain endorsed at terminal extension and flexion (however this pain is endorsed at the mid lateral forearm). His diagnostic studies are significant for a leukocytosis of 14.5, elevated CRP 345.2; and his imaging shows a large effusion about the left elbow, with advanced degenerative changes, radiology endorses a possible nondisplaced radial head fracture. I do not appreciate a fracture on imaging, history and clinical exam does not seem consistent with a fracture of the radial head. Given the inflammatory markers, leukocytosis, erythematous elbow, persistent effusion and worsening pain I believe that it is prudent to rule out a septic elbow in this case. Due to the advanced degenerative changes in the elbow I would favor an ultrasound-guided procedure in order to obtain this fluid. Additionally this fluid may provide more information regarding potential manifestation of rheumatologic disease. This was discussed at length with the emergency department team and the patient and his at bedside. All questions were answered. All parties were in agreement of the plan. #1. Left elbow Swelling. Recommendations/Plan: No indication for acute operative intervention at this time; recommend ultrasound-guided aspiration of the left elbow, fluid to be analyzed for cell count, gram stain, differential, crystals, cultures (aerobic, anaerobic). I will follow-up the results of these tests prior to patient discharge or disposition. [employer] application should be used to document the status of the elbow soft tissues in the patient chart with his consent. For any questions regarding the care of this patient, please do not hesitate to page at [phone]. (This note was created with the use of [employer] voice recognition software. While this note has been reviewed, some errors may still persist. Please contact the author with any questions.) Electronically signed by: Sathsih Sanchez M.D. 02/21/18 10:16 PM documented in this encounter ED Notes Amira Andrea M.D. - 02/22/2018 12:08 PM CDT VITAL SIGNS BP (!) 120/52 (BP Location: Right arm, Patient Position: Sitting) Pulse 85 Temp 37.1 ??C (Oral) Resp 16 Wt 91 kg SpO2 93% ED Course as of Feb 23 1208SunFeb 22, 2018 0732 This patient was signed over to me awaiting ultrasound-guided aspiration of his left elbow. Plan he will be taken to the operating room with Orthopedics and return to the emergency department following this procedure. 1207 Patient went to the OR for ultrasound-guided aspiration. Ortho contacted us stating that they were happy with the results and that the patient did not need a washout today. I examined the patient he has no overlying erythema or swelling over the joint. I am not concerned that this is the cellulitis. We will put through an outpatient rheumatology consult and the patient will follow up with them in clinic. He was given return precautions and was discharged home from our observation unit. Final Diagnoses: as of Feb 23 1208 Pain Elbow Left Amira Andrea M.D. Resident 02/22/181207 Todd Farrar M.D. - 02/22/2018 8:44 AM CDT SUBJECTIVE CHIEF COMPLAINT/REASON FOR VISIT Joint Pain HISTORY OF PRESENT ILLNESS REVIEW OF SYSTEMS OBJECTIVE Initial Vitals [02/21/18 193] Temperature Pulse Rate Heart Rate Resp Rate Blood Pressure SpO2 37.4 ??C 74 -- 18 (!) 94/49 95 % Pain Score 3 PHYSICAL EXAMINATION ASSESSMENT/PLAN Final Diagnoses: as of Feb 23 844 Pain Elbow Left Care Handoff Row Name 02/22/18 0112 Care Handoff Type of Handoff Shift change handoff Providers Name Dr. Myles Provider Comments Pending orthopedic evalaution I have personally seen and examined this patient. I have fully participated in the care of this patient. I have reviewed all clinical information including history, physical exam, orders, and plan. I agree with the note of the resident. I have reviewed and agree with the resident's note addendum. I personally performed the services described in this documentation, as scribed in my presence, and it is both accurate and complete. Todd Cheung M.D. 02/22/18 0800 Todd Cheung M.D. 02/22/18 9991 Luis Enrique Harris M.D. - 02/22/2018 7:11 AM CDT This patient was signed over to the night team with a pending workup for polyarthritis including a significantly swollen left elbow, and elevated inflammatory markers. Orthopedics evaluated the patientin the ED, and recommend ultrasound guided aspiration given the overlying cellulitis of the left elbow. Radiology will perform the study first thing during business hours. VITAL SIGNS BP 94/60 (BP Location: Right arm, Patient Position: Semi-recumbent) Pulse 83 Temp 37.4 ??C (Oral) Resp 16 Wt 91 kg SpO2 92% Final Diagnoses: as of Feb 22 711 Pain Elbow Left Luis Enrique Harris M.D. 02/22/18 0713 Shawanda Myles M.D. - 02/21/2018 11:39 PM CDT Care of patient transferred to tx by Dr. Oneal. Disposition pending orthopedic consultation and concern for SARANYA and polyarthralgias. Orthopedics came and evaluated the patient and agree that tapping the joint is probably necessary. Idid talk to the ultrasound fellow who is on-call and plan will be to bring the patient right away inthe morning to the ultrasound suite to have his elbow tapped. Ortho will then follow-up and decide disposition from there. VITAL SIGNS BP 93/67 Pulse 72 Temp 37.4 ??C (Oral) Resp 16 Wt 91 kg SpO2 91% ED Course as of Feb 23 616 [facility] Feb 21, 2018 2350 Tick panel ordered Final Diagnoses: as of Feb 23 616 Pain Elbow Left Shawanda Myles M.D. Resident 02/22/18 0617 T Flores Oneal M.D. - 02/21/2018 10:50 PM CDT SUBJECTIVE CHIEF COMPLAINT/REASON FOR VISIT Joint Pain HISTORY OF PRESENT ILLNESS Mr. Sanches is a 62yo male with history of previous aortic dissection s/p graft repair on multipleblood pressure medications with SBP goal of 90-100 who presents from [place] from further evaluation of ongoing joint pains and specifically left elbow redness, swelling, and warmth. He states that he underwent abdominal surgery at the end of January for what was thought to be appendicitis, but upon surgical intervention was told it was not appendicitis, but cecum inflammation. Since that time, he has developed migratory polyarthralgias and at times hip/knee pain that is so severe he can barely walk with a cane. Most recently his worth pain is in his left elbow and has developed swelling and redness. He presented to OSH where ultrasound was performed that was felt to be consistent with hematoma, but his ESR was >100 therefore he was placed in a splint and recommended to present to [facility] if this did not improve therefore, he comes today as he's had ongoing pain despite oxycodone and splinting and now his ROM is decreasing in the left elbow. He denies objective fever, but states he sometimes has chills and intermittent night sweats. No known trauma or inciting incident. Worst joint painhas been in the left ankle, knee, hip and elbow. Sometimes he states the pain will also be in the right hip. REVIEW OF SYSTEMS Constitutional: Positive for chills. Negative for fever. HENT: Negative for congestion. Eyes: Negative for visual disturbance. Respiratory: Negative for stridor. Cardiovascular: Positive for leg swelling. Negative for chest pain. Gastrointestinal: Negative for abdominal pain. Genitourinary: Negative for inability to urinate. Musculoskeletal: Positive for arthralgias, gait problem, joint swelling and extremity pain. Skin: Positive for color change (redness over left elbow). Allergic/Immunologic: Negative for immunocompromised state. Neurological: Negative for syncope. Psychiatric/Behavioral: Negative for agitation and behavioral problems. OBJECTIVE Initial Vitals [02/21/181937] Temperature Pulse Rate Heart Rate Resp Rate Blood Pressure SpO2 37.4 ??C 74 -- 18 (!) 94/49 95 % Pain Score 3 PHYSICAL EXAMINATION Constitutional: He appears well-nourished. No distress. HENT: Head: Normocephalic and atraumatic. Nose: Nose normal. Mouth/Throat: Mucous membranes are moist. Eyes: Conjunctivae are normal. Neck: No neck rigidity. Cardiovascular: Normal rate, regular rhythm and normal heart sounds. Pulses are palpable. Pulmonary/Chest: Effort normal and breath sounds normal. There is normal air entry. No respiratory distress. Abdominal: Soft. There is no tenderness. There is no rebound and no guarding. Musculoskeletal: On examination of left upper extremity there is swelling, erythema, and warmth over the elbow. He has approximately 160 degrees of extension and 90 degrees of flexion before pain begins. Severe pain atend points of extension and flexion. Left knee also appears mildly swollen and warm, but has full ROM without pain. Hip has full ROM without pain or obvious swelling. Ankle joint normal. There is 1+ pedal pitting edema. Right sided jointsshows normal joints without pain at this time. He states it comes and goes and moves from joint to joint. Neurological: He is alert. He is not disoriented. Skin: Skin is warm, dry and normal color. Psychiatric: He has a normal mood and affect. His behavior is normal. Nursing note and vitals reviewed. ASSESSMENT/PLAN Mr. Sanches is a 62yo male with history of previous aortic dissection s/p graft repair on multiple blood pressure medications with SBP goal of 90-100 who presents from [place] from further evaluation of ongoing joint pains and specifically left elbow redness, swelling, and warmth. This seems to brenden migratory polyarthralgia and most painful joint at this time is his left elbow. Differential includes septic joint, septic bursitis, lyme disease, viral, gout, or something rare and unlikely such as whipple's disease or sarcoidosis. We will proceed with left elbow xray, labs including Tick panel, CRP and ESR and will consult our orthopedic colleagues for further recommendations. ED Course as of Feb 22 113 [facility] Feb 21, 2018 2233 C-Reactive Protein (CRP), S: (!) 345.2 2253 No previous values to compare to. Patient states this is new and he has had no kidney troubles since an SARANYA years ago. Creatinine, P: (!) 2.20 2329 Sedimentation Rate, B: (!) 125 Final Diagnoses: as of Feb 22 113 Pain Elbow Left Care Handoff Row Name 02/22/18 011 Care Handoff Type of Handoff Shift change handoff Providers Name Dr. Myles Provider Comments Pending orthopedic evalaution Flores Oneal M.D. Resident 02/22/18 0114 Cindy Suh M.D., M.P.H. 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 He has left elbow pain and was seen at OSH ED on 02/19/18 and was told he has a hematoma and was put in shoulder immobilizer and ESR and CRP were elevated. He has pain with movement and some stiffness. He notes worsening redness and pain over the left elbow. He has also had pain in his left hip as well as his left knee. He has no history of gout or pseudogout. No fevers noted. VITAL SIGNS BP 111/56 Pulse 75 Temp 37.4 ??C (Oral) Resp 17 Wt 91 kg SpO2 93% General: pt sitting in bed, easily converses HEENT: AT Chest: CTAB CV: rrr, no m/r/g Abd: soft, NT, ND, no guarding/rebound, surgical site c/d/i without erythema/warmth/drainage Musculosk: DELANEY and able to flex and extend at elbow but does elicit some pain; full AROM in hip and no deformity; full AROM in left knee but warm to touch without redness and small amount of swelling present Neuro: no focal deficits Psych: appropriate mood/affect Differential diagnosis includes gout, pseudogout, cellulitis, septic arthritis, amongst others I/R/P: 62-year-old male here with concerns of possible septic arthritis of the left elbow versus rheumatological problem causing polyarthritis. ESR, CRP, and WBC are all elevated. We have asked Orthopedics to consult. X-ray of the elbow shows possible radial head fracture although I think this is unlikely. We will wait Orthopedics recommendations. Pain medication was offered. Final Diagnoses: as of Feb 21 2359 Pain Elbow Left I have personally seen and examined this patient. I have fully participated in the care of this patient. I have reviewed all clinical information including history, physical exam, orders, and plan. I agree with the note of the resident with the following exceptions: Or stated in chart. Cindy Suh M.D., M.P.H. 02/22/18 0002 documented in this encounter Plan of Treatment Upcoming Encounters Date Type Specialty Care Team Description 06/21/2022 Clinical Communication Admitting/Central Scheduling 06/22/2022 Comprehensive Visit Rheumatology Clemente Mario M.B.B.S. [address] [place] [phone] 08/03/2022 Comprehensive Visit Dermatology Jignesh Leonard M.D. [address] [place] [phone] Scheduled Orders Name Type Priority Associated Diagnoses Order S chedule Bacterial Culture, Microbiology Routine Routine f or 1 Anaerobic + Susc Occurrences starting 02/22/2018 Bacterial Culture, Microbiology Routine Routine f or 1 Anaerobic + Susc Occurrences starting 02/22/2018 Gram Stain Microbiology Routine Routine for 1 Occurrences sta rting 02/22/2018 Gram Stain Microbiology Routine Routine for 1 Occurrences sta rting 02/22/2018 Bacterial Culture, Microbiology Routine Routine f or 1 Aerobic + Susc Occurrences s tarting 02/22/2018 Bacterial Culture, Microbiology Routine Routine f or 1 Aerobic + Susc Occurrences s tarting 02/22/2018 Scheduled Referrals Name Type Priority Associated Diagnoses Order S chedule Post ED visit Outpatient Referral Routine Pain Elbow Left Expe cted: 02/22/2018 (Approximate), Expires: 2020 documented as of this encounter Procedures Procedure Name Priority Date/Time Associated Comments Diagnosis US MAJOR JOINT RAD - Routine 02/22/2018 8:44 Results f or ASPIRATION AND OR (most inpatients AM CDT this p rocedure INJECTION LEFT and all are in the outpatients) results section. BACTERIAL CULTURE, Routine 02/22/2018 8:29 Result s for AEROBIC + SUSC AM CDT this procedur e are in the results section. CRYSTAL ID, BF Routine 02/22/2018 8:29 Results fo r AM CDT this procedure are in the results section. CELL COUNT AND Routine 02/22/2018 8:29 Results fo r DIFFERENTIAL, BF AM CDT this proced ure are in the results section. GRAM STAIN Routine 02/22/2018 8:29 Results for AM CDT this procedure are in the results section. BACTERIAL CULTURE, Routine 02/22/2018 8:29 Result s for ANAEROBIC + SUSC AM CDT this proced ure are in the results section. LYME DISEASE STAT 02/21/2018 11:54 Results for SEROLOGY, S PM CDT this procedure are in the results section. EHRLICHIA/ANAPLASMA STAT 02/21/2018 11:54 Resu lts for PCR, BLOOD PM CDT this procedure are in the results section. DX ELBOW LEFT 2 RAD - Semiurgent 02/21/2018 9:58 Resul ts for VIEWS (Fast; most ED PM CDT this procedur e patients; some are in the inpatients) results section. SEDIMENTATION RATE, STAT 02/21/2018 9:12 Resul ts for B PM CDT this procedure are in the results section. CBC WITH STAT 02/21/2018 9:12 Results for DIFFERENTIAL, B PM CDT this procedu re are in the results section. C-REACTIVE PROTEIN STAT 02/21/2018 9:12 Result s for (CRP), S/P PM CDT this procedure are in the results section. BASIC METABOLIC STAT 02/21/2018 9:12 Results f or PANEL, S/P PM CDT this procedure are in the results section. documented in this encounter Results US Major Joint Aspiration and or Injection Left (02/22/2018 8:44 AM CDT) Anatomical Region Laterality Modality Joint, Ultrasound RST LOS Left Ultrasound Specimen (Source) Anatomical Collection Method Collection Time Re ceived Time Location / / Volume Laterality 02/22/2018 8:46 AM CDT Impressions 02/22/2018 9:39 AM CDT IMPRESSION: Ultrasound-guided left elbow aspiration. EP Narrative 02/22/2018 9:39 AM CDT EXAM: US MAJOR JOINT ASPIRATION AND OR INJECTION LEFT PRE-PROCEDURE: Patient seen, evaluated, and history reviewed. Discussed risks, benefits, alternatives for procedure, an d obtained informed consent. Patient understands information and questions an swered. Immediately prior to starting the procedure, in the presence of the as sisting personnel, procedural pause was conducted to verify correct patient iden tity and verification of procedure to be performed, and as applicable, correct si de and site, correct patient position, availability of implants, special equipm ent, or special requirements, and all image and specimen identification data. The roles and responsibilities of care team members, residents, and fellows skylar cardona discussed. TECHNIQUE: Survey images of the left elb ow from a posterior approach demonstrate a small posterior joint effusion. This w as targeted for ultrasound-guided aspiration. Sterile. 1% lidocaine for lo michael anesthesia. Direct ultrasound visualization was used to guide needle t o left elbow effusion. Location: Left elbow Needle/catheter size: 18-gauge needle Volume aspirated: 1 cc of slightly thick , yellow synovial fluid was aspirated and sent for laboratory analysis., Complication: None. Blood loss: None. PATIENT INSTRUCTIONS: Patient may be dis missed from the radiology department when dismissal criteria met. POST-PROCEDURE DIAGNOSIS: Left elbow eff usion. Procedure Note Susanne Martinez M.D., Ph.D. - 01/2018 EXAM: US MAJOR JOINT ASPIRATION AND OR I NJECTION LEFT PRE-PROCEDURE: Patient seen, evaluated, and history reviewed. Discussed risks, benefits, alternatives for procedure, an d obtained informed consent. Patient understands information and questions an swered. Immediately prior to starting the procedure, in the presence of the as sisting personnel, procedural pause was conducted to verify correct patient iden tity and verification of procedure to be performed, and as applicable, correct si de and site, correct patient position, availability of implants, special equipm ent, or special requirements, and all image and specimen identification data. The roles and responsibilities of care team members, residents, and fellows skylar cardona discussed. TECHNIQUE: Survey images of the left elb ow from a posterior approach demonstrate a small posterior joint effusion. This w as targeted for ultrasound-guided aspiration. Sterile. 1% lidocaine for lo michael anesthesia. Direct ultrasound visualization was used to guide needle t o left elbow effusion. Location: Left elbow Needle/catheter size: 18-gauge needle Volume aspirated: 1 cc of slightly thick , yellow synovial fluid was aspirated and sent for laboratory analysis., Complication: None. Blood loss: None. PATIENT INSTRUCTIONS: Patient may be dis missed from the radiology department when dismissal criteria met. POST-PROCEDURE DIAGNOSIS: Left elbow eff usion. IMPRESSION: Ultrasound-guided left elbow aspiration. EP Shawanda MAZAG US PROCEDURES (ABNORMAL) Crystal Identification, Synovial Fluid (02/22/2018 8:29 AM CDT) Component Value Ref Test Analysis Performed At [facility] gist Range Method Time Signature Crystal ID, Intracellular None 02/22/2018 [facility] Synovial Fl CPPD Present (A) seen 11:33 AM LABORATORIE S - CDT [facility] Reviewed by: Tech 02/22/2018 [facility] 11:33 AM LABORATORIES - CDT [facility] Specimen Anatomical Collection Method Collection Time Receive d Time (Source) Location / / Volume Laterality Fluid 02/22/2018 8:29 AM 8 9:01 CDT AM CDT Shawanda Matthews M.D. LAB BODY FLUIDS AND STOOLS O RDERABLES Performing Organization Address City/State/ZIP Code Phon e Number [facility] LABORATORIES - [address] [place] [phone] [facility] Cell Count and Differential, Body Fluid (02/22/2018 8:29 AM CDT) [facility] gist Method Time Signature Fluid Type Aspirate, 02/22/2018 [facility] Elbow, Left 10:32 AM LABORATORIES - T [facility] Gross Purulent 02/22/2018 [facility] Appearance Cloudy 10:32 AM LABORATORIES - T [facility] Total [id number] /mcL 02/22/2018 [facility] Nucleated 10:32 AM LABORATORIES - Cells T [facility] Comment: ----REFERENCE VALUE---- Synovial: <150 Peritoneal: <500 Pleural: <500 Pericardial: <500 Neutrophils 90 % 02/22/2018 10:32 AM CDT [facility] Comment: ----REFERENCE VALUE---- Synovial: <25% Peritoneal: <25% Pleural: <25% Pericardial: <25% Lymphocytes 7 Synovial: <75% 02/22/2018 10:32 [facility] LINIC % AM CDT [facility] Monocytes/Macroph 3 Synovial: <70% 02/22/2018 10:32 [facility] ages % AM CDT LABORATORIES [facility] Comment No blasts or 02/22/2018 10:32 [facility] malignant cells AM CDT LABORATORIES - seen. [facility] Reviewed by: Tech 02/22/2018 10:32 [facility] AM CDT LABORATORIES [facility] Specimen Anatomical Collection Method Collection Time Receive d Time (Source) Location / / Volume Laterality Fluid 02/22/2018 8:29 AM 8 9:01 CDT AM CDT Shawanda Matthews M.D. LAB BODY FLUIDS AND STOOLS O GHAZALA Performing Organization Address [facility]/ZIP Code Phon e Number [facility] LABORATORIES - [address] [place], [place] [address] [facility] Bacterial Culture, Aerobic + Susc (02/22/2018 8:29 AM CDT) Patholo gist Method Time Signature Bacterial Placed in Bactec Peds bottle 02/27/2018 [facility] Culture, No growth after 5 days of incubation. 8: 20 AM CDT LABORATORIES - Aerobic + [facility] Specimen (Source) Anatomical Collection Method Collection Time Re ceived Time Location / / Volume Laterality Aspirate (Elbow, 02/22/2018 8:29 AM Left) CDT Comment: CELL COUNT Shawanda Matthews M.D. LAB MICROBIOLOGY - GENERAL O GHAZALA Performing Organization Address [facility] Phon e Number [facility]ORATORIES - [address] [place], [place] [address] [facility] Gram Stain (02/22/2018 8:29 AM CDT) [facility] gist Method Time Signature Gram Stain Placed in Bactec Peds bottle 02/22/2018 [facility] No organisms seen. 10:01 AM CDT BELK[facility]O BARB - White blood cells, Many. [facility] Specimen (Source) Anatomical Collection Method Collection Time Re ceived Time Location / / Volume Laterality Aspirate (Elbow, 02/22/2018 8:29 AM Left) CDT Comment: CELL COUNT Shawanda Matthews M.D. LAB MICROBIOLOGY - GENERAL O GHAZALA Performing Organization Address City/[facility] Hospital/ZIP Code Phon e Number [facility]IES - [address] [place], [place] [address] [facility] Bacterial Culture, Anaerobic + Susc (02/22/2018 8:29 AM CDT) Patholo gist Method Time Signature Bacterial Placed in Bactec Peds bottle 03/08/2018 [facility] Culture, No growth after 14 days of incubation. 7 :39 AM CDT LABORATORIES - Anaerobic + [facility] Specimen (Source) Anatomical Collection Method Collection Time Re ceived Time Location / / Volume Laterality Aspirate (Elbow, 02/22/2018 8:29 AM Left) CDT Comment: CELL COUNT Shawanda Matthews M.D. LAB MICROBIOLOGY - GENERAL O RDJIE Performing Organization Address [facility] Phon e Number [facility]IES - [address] [place], [place] [address] [facility] Ehrlichia / Anaplasma PCR, Blood (02/21/2018 11:54 PM CDT) Patholo gist Method Time Signature Anaplasma Negative Negative 02/22/2018 [facility] phagocytophil 3:22 PM CDT LABORATORIES - um, PCR [facility] Ehrlichia Negative Negative 02/22/2018 [facility] chaffeensis, 3:22 PM CDT LABORATORIES - PCR [facility] Ehrlichia Negative Negative 02/22/2018 [facility] ewingii/canis 3:22 PM CDT LABORATORIES - , PCR [facility] Ehrlichia Negative Negative 02/22/2018 [facility] muris 3:22 PM CDT LABORATORIES - eauclairensis [facility] Comment: ----ADDITIONAL INFORMATION---- This test was developed and its performa nce characteristics determined by [facility] in a manner consistent with CLIA requirements. This test has not been cleared or approved by the [place] d and Drug Administration. Specimen Anatomical Collection Method Collection Time Receive d Time (Source) Location / / Volume Laterality Blood (Blood, 02/21/2018 11:54 02/22/2018 5:16 Venous) PM CDT AM CDT Shawanda Matthews M.D. LAB MICROBIOLOGY - BLOOD ORD STEPHENIEBLES Performing Organization Address City/[facility] Hospital/[facility] Code Phon e Number [facility]ATORIES - [address] [place], [place] [address] [facility] Lyme Disease Serology, Serum (02/21/2018 11:54 PM CDT) P athologist Signature Lyme Disease Negative Negative 02/22/2018 [facility] Serology, S 12:05 PM CDT [facility] Comment: No evidence of antibodies to B. burgdorf yossi detected. False negative results may occur in rece ntly infected patients (<=2 weeks) due to low or undet ectable antibody levels to B. burgdorferi. If recent expo sure is suspected, a second sample should be collected and tested in 2-4 weeks. Specimen Anatomical Collection Method Collection Time Receive d Time (Source) Location / / Volume Laterality Blood (Blood, 02/21/2018 11:54 02/22/2018 8:52 Venous) PM CDT AM CDT Shawanda Matthews M.D. LAB MICROBIOLOGY - BLOOD ORD ERABLES Performing Organization Address City/State/ZIP Code Phon e Number [facility] [address] [place] [address] [facility] DX Elbow Left 2 Views (02/21/2018 9:58 PM CDT) Anatomical Region Laterality Modality Upper Extremity, Elbow, Musculoskeletal RST LOS Left Digital Radiography Specimen (Source) Anatomical Collection Method Collection Time Re ceived Time Location / / Volume Laterality 02/21/2018 9:59 PM CDT Impressions 02/22/2018 9:26 AM CDT IMPRESSION: ??Large left elbow joint effusion. Cortical irregularity of the left radial head may represent a nondisplaced radial head fracture. 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 I have personally reviewed the images an d agree with this interpretation. Narrative 02/22/2018 9:26 AM CDT EXAM: ??DX ELBOW LEFT 2 VIEWS Procedure Note Gen Martines M.D. - 02/22/2018Formatt ing of this note might be different from the original. EXAM: DX ELBOW LEFT 2 VIEWS IMPRESSION: Large left elbow joint effus ion. Cortical irregularity of the left radial head may represent a nondisplaced radial head fracture. 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 I have personally reviewed the images an d agree with this interpretation. Flores Oneal M.D. IMG DIAGNOSTIC IMAGING PROCE DURES (ABNORMAL) BMP (Basic Metabolic Panel) (02/21/2018 9:12 PM CDT) [facility] Method Time Signature Potassium, P 3.7 3.6 - 5.2 02/21/2018 [facility] mmol/L 9:33 PM CDT LABORATORIES - [facility] Sodium, P 132 (L) 135 - 145 02/21/2018 [facility] mmol/L 9:33 PM CDT LABORATORIES [facility] Chloride, P 95 (L) 98 - 107 02/21/2018 [facility] mmol/L 9:33 PM CDT LABORATORIES [facility] Bicarbonate, P 23 22 - 29 02/21/2018 [facility] mmol/L 9:33 PM CDT LABORATORIES - [facility] Anion Gap, P 14 7 - 15 02/21/2018 [facility] 9:33 PM CDT LABORATORIES - [facility] BUN (Blood 46 (H) 8 - 24 02/21/2018 [facility] Urea mg/dL 9:33 PM CDT LABORATORIES - Nitrogen), P [facility] Creatinine 2.20 (H) 0.74 - 02/21/2018 [facility] 1.35 9:33 PM CDT LABORATORIES - mg/dL [facility] eGFR-Black/Afr 36 (L) >=60 02/21/2018 [facility] ican Chilean mL/min/BS 9:33 PM CDT LABORATORIES - A [facility] Comment: ----ADDITIONAL INFORMATION---- Estimated GFR calculated using the 2009 CKD_EPI creatinine equation. eGFR Non-Black/ 31 (L) >=60 mL/min/BSA 02/21/2018 9:33 [facility] Chilean PM CDT LABORATORIES - [facility] Comment: ----ADDITIONAL INFORMATION---- Estimated GFR calculated using the 2009 CKD_EPI creatinine equation. Calcium, Total, P 8.8 8.8 - 10.2 mg/dL 02/21/2018 9:33 PM [facility] CDT LABORATORIES [facility] Glucose, P 117 70 - 140 mg/dL 02/21/2018 9:33 PM [facility] CDT LABORATORIES [facility] Specimen Anatomical Collection Method Collection Time Receive d Time (Source) Location / / Volume Laterality Blood (Blood, 02/21/2018 9:12 PM 02/22/20 18 9:18 Venous) CDT PM CDT Flores Oneal M.D. LAB BLOOD ADD-ON Performing Organization Address City/State/ZIP Code Phon e Number [facility]ATORIES - [address] [place], [place] [address] [facility] (ABNORMAL) CBC with Differential (02/21/2018 9:12 PM CDT) [facility] Method Time Signature Hemoglobin 10.0 (L) 13.2 - 02/21/2018 [facility] 16.6 g/dL 9:20 PM CDT LABORATORIES [facility] Hematocrit 28.8 (L) 38.3 - 02/21/2018 [facility] 48.6 % 9:20 PM CDT LABORATORIES [facility] Erythrocytes 3.22 (L) 4.35 - 02/21/2018 [facility] 5.65 9:20 PM CDT LABORATORIES - x10(12)/L [facility] MCV 89.4 78.2 - 02/21/2018 [facility] 97.9 fL 9:20 PM CDT LABORATORIES - [facility] RBC Distrib 12.7 11.8 - 02/21/2018 [facility] Width 14.5 % 9:20 PM CDT LABORATORIES - [facility] Platelet Count 322 (H) 135 - 317 02/21/2018 [facility] x10(9)/L 9:20 PM CDT LABORATORIES - [facility] Leukocytes 14.5 (H) 3.4 - 9.6 02/21/2018 [facility] x10(9)/L 9:20 PM CDT LABORATORIES - [facility] Neutrophils 12.11 (H) 1.56 - 02/21/2018 [facility] 6.45 9:20 PM CDT LABORATORIES - x10(9)/L [facility] Lymphocytes 1.15 0.95 - 02/21/2018 [facility] 3.07 9:20 PM CDT LABORATORIES - x10(9)/L [facility] Monocytes 1.15 (H) 0.26 - 02/21/2018 [facility] 0.81 9:20 PM CDT LABORATORIES - x10(9)/L [facility] Eosinophils 0.09 0.03 - 02/21/2018 [facility] 0.48 9:20 PM CDT LABORATORIES - x10(9)/L [facility] Basophils 0.03 0.01 - 02/21/2018 [facility] 0.08 9:20 PM CDT LABORATORIES - x10(9)/L [facility] Specimen Anatomical Collection Method Collection Time Receive d Time (Source) Location / / Volume Laterality Blood (Blood, 02/21/2018 9:12 PM 02/22/20 18 9:18 Venous) CDT PM CDT Flores Oneal M.D. LAB BLOOD ADD-ON Performing Organization Address City/State/ZIP Code Phon e Number [facility]ATORIES - [address] [place], [place] [address] [facility] (ABNORMAL) Sedimentation Rate (02/21/2018 9:12 PM CDT) [facility] Method Time Signature Sedimentation 125 (H) 0 - 22 02/21/2018 [facility] Rate, B mm/1 h 11:27 PM CDT LABORATORIES - [facility] Specimen Anatomical Collection Method Collection Time Receive d Time (Source) Location / / Volume Laterality Blood (Blood, 02/21/2018 9:12 PM 02/22/20 9:22 Venous) CDT PM CDT Flores Oneal M.D. LAB BLOOD ADD-ON Performing Organization Address City/[facility] Hospital/ZIP Code Phon e Number [facility]ORATORIES - [address] (ABNORMAL) CRP (C-Reactive Protein) (02/21/2018 9:12 PM CDT) [facility] gist Method Time Signature C-Reactive 345.2 (H) <=8.0 02/21/2018 [facility] Protein (CRP), mg/L 10:07 PM CDT LABORATORIES - [facility] Specimen Anatomical Collection Method Collection Time Receive d Time (Source) Location / / Volume Laterality Blood (Blood, 02/21/2018 9:12 PM 02/22/20 9:22 Venous) CDT PM CDT Flores Oneal M.D. LAB BLOOD ADD-ON Performing Organization Address [facility] Phon e Number [facility] - [address] documented in this encounter Visit Diagnoses Diagnosis Pain Elbow Left - Primary documented in this encounter Administered Medications Inactive Administered Medications - up to 3 most recent administrations Medication Order MAR Action Action Date Dose Rate Site fentaNYL injection 50 mcg Given 02/22/2018 12:13 AM CDT 50 mcg (SUBLIMAZE) 50 mcg, intravenous, Once, On [place] 02/21/18 at 2348, For 1 dose morphine injection 6 mg Given 02/22/2018 4:55 AM CDT 6 mg 6 mg, intravenous, Once, On Sun02/22/18 at 0444, For 1 dose NaCl 0.9 % bolus 1,000 mL New Bag 02/21/2018 11:00 PM CDT 1,000 mL 1000 mL/hr 1,000 mL, intravenous, at 1,000 mL/hr, Administer over 1 Hours, Once, On [place] 02/21/18 at 2220, For 1 dose documented in this encounter Active and Recently Administered Medications Times are shown in CDT. Scheduled Medication Order 02/20/2018 02/21/2018 02/22/2018 fentaNYL injection 50 mcg (SUBLIMAZE) (COMPLETED) 0013 (Given - Provider: Leilani Camarena RJuanjo) 50 mcg, intravenous, Once, [place] 02/21/18 at 2348, For 1 dose morphine injection 6 mg (COMPLETED) 0455 (Given - Provider: Leilani Camarena R.N.) 6 mg, intravenous, Once, 02/22/18 at 0444, For 1 dose NaCl 0.9 % bolus 1,000 mL (COMPLETED) 23 00 (New Bag - Provider: Tashia Denney R.N.) 0000 (Stopped - Provider: Leilani up RJaleelNJaleel) 1,000 mL, intravenous, at 1,000 mL/hr, A dminister over 1 Hours, Once, [place] 02/21/18 at 2220, For 1 dose documented in this encounter Care Teams Scarf Gluer Relationship Specialty Start Date End Date Elsewhere, Pcp PCP - General Family Medicine 02/13/18 documented as of this encounter
--- OUTSIDE RECORDS SUMMARY | 2022-06-10 10:56 | XMS_ITS | Encounter Summary ---
:1955 Author Organization [facility] Address [address] [place] [id number] Care Team Providers Name Role Phone Elsewhere, Pcp Primary Care Provider Unavailable Reason for Referral Outpatient (Routine) - Closed Specialty Diagnoses / Procedures Referred By Contact Refer red To Contact Rheumatology Jennifer Zarate [facility] [address] [place] [phone] Referral ID Status Reason Start Date Expiration Date Visits Requ ested Visits Authorized [id number] Closed 03/01/2018 03/01/2019 1 1 Outpatient (Routine) - Closed Specialty Diagnoses / Referred By Contact Referred To Contact Procedures Cardiovascular Diseases / Diagnoses Aneurysm Dissecting Aortic (HCC) Jennifer Zarate [facility] Cardiovascular Disease R [address] [place] [phone] Referral ID Status Reason Start Date Expiration Date Visits Requ ested Visits Authorized [id number] Closed 03/01/2018 03/01/2019 1 1 Reason for Visit Outpatient (Routine) - Closed Specialty Diagnoses / Procedures Referred By Contact Refer red To Contact Rheumatology Diagnoses Pain Elbow Left Rach Joyce P.A.-C. [place] [address] [place] [phone] Referral ID Status Reason Start Date Expiration Date Visits Requ ested Visits Authorized [id number] Closed 02/22/2018 02/22/2019 1 1 Encounter Details Date Type Department Care Team Description 03/01/2018 Comprehensive Visit Division of [place], Aneurysm Dissecting Aortic (HCC) (Primary Dx); Rheumatology in Jennifer R Pain Elbow Left [place], [place] [address] [place] [phone] Social History Tobacco Use Types Packs/Day Years [...] or more times a w [place] 12/18/2020 alcohol? How many drinks containing alcohol [...] How often do you attend amish or mormon Never 09/20/2019 services? Do you [...] documented as of this encounter Consult Notes Jennifer Zarate M.D. - 03/01/2018 12:00 AM CDT REASON FOR CONSULT Mr. Sanches is a very pleasant 62-year-old gentleman referred to us from emergency room for evaluation of inflammatory arthritis. HISTORY OF PRESENT ILLNESS He was in good state of health until February 07, 2018 when he had abdominal pain, flu-like symptoms, and abdominal tenderness. He presented to his local health facility and a suspicion of appendicitis wasraised and a laparoscopic surgery was done. The surgeon told him that that there was a lot of inflammation/cecum diverticulitis noted. The appendix was removed, but Path showed it to be normal. Around February 19 he started developing pain in the left elbow, left shoulder, left hip, and left knee. The pain was severe enough to require a visit to the emergency room where labs showed elevated ESR and CRP. He was subsequently seen in [facility] emergency room on February 21 witha hemoglobin of 10, white count of 14.5, which is neutrophilic leukocytosis. ESR was 125, creatininewas 2.2, and C-reactive protein was 345.2. A suspicion for septic arthritis was raised. The last creatinine I have in the Epic system from [facility] is from June of 2017 with a creatinin e of 1.26. At one point in time his uric acid in 2016 was 8.1 with a creatinine of 1.46. The left elbow was aspirated in emergency room, and total cell count was 36,372, predominantly neutrophilic withintracellular CPPD crystals. He also had an x-ray of the left elbow that showed a large left elbow effusion with cortical irregularity of the left radial head suspicious for a nondisplaced radial fracture. There were advanced hypertrophic degenerative changes in the elbow. Mr. Sanches also had a self-limited episode of shoulder pain in 2008 that responded to myofascial massage and trigger point manipulations. There has not been any other joints or gout history in the interim. His medical history is also significant for difficult to control hypertension, spontaneous thoracic aortic dissection. He denied any preceding headache, jaw claudication, or scalp tenderness or symptoms of PMR in the past. REVIEW OF SYSTEMS Negative for fever, chills, or night sweats. He has photosensitivity and gets a diffuse reddish unique the lower extremity when he goes out in the sun. He avoids sun. He tells me he attributed that toprobably a photoallergic effect from one of the blood pressure medicines. There is no Raynaud's phenomena. No history of serositis. No abdominal pain or blood in stools. MEDICAL HISTORY 1. 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 2. 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 3. Tortuous and ectatic common iliac arteries. SOCIAL HISTORY Ex-smoker, 1 pack per day for less than 6 years. No alcohol since the beginning of this year. FAMILY HISTORY Negative for any autoimmune disease. No known connective tissue disease in the family. Maternal uncle has had vascular issues. Medication Sig ??? aspirin 325 mg tablet Take 325 mg by mouth daily. ??? carvedilol (COREG) 25 mg tablet Take 25 mg by mouth 2 (two) times a day with meals. ??? enalapril (VASOTEC) 20 mg tablet Take 20 mg by mouth 2 (two) times a day. ??? FLUoxetine (PROzac) 40 mg capsule Take 40 mg by mouth daily. ??? montelukast (SINGULAIR) 10 mg tablet Take 10 mg by mouth at bedtime. ??? NIFEdipine (ADALAT CC) 60 mg ER tablet Take 60 mg by mouth 2 (two) times a day. ??? oxyCODONE (OXY-IR) 5 mg immediate release capsule Take 5 mg by mouth every 4 (four) hours as needed for pain. ??? pravastatin (PRAVACHOL) 40 mg tablet Take 40 mg by mouth daily. ??? cephalexin (KEFLEX) 500 mg capsule Take 500 mg by mouth 4 (four) times a day. PHYSICAL EXAMINATION General: Alert, oriented, appropriate affect, no apparent distress. Eyes: Clear conjunctivae and lids. ENT: Moist oral mucosa without mucositis. Joints: Bilateral PIPs, MCPs of wrists nontender and nonswollen. Right elbow has olecranon bursitis.The left also has olecranon bursitis and mild tenderness. He has a 5-degree flexion deformity of theleft elbow. Bilateral shoulder joint line, acromioclavicular sternoclavicular TMJ nontender, nonswollen. Hip joint range of motion is normal. Knees, ankles, metatarsals, subtalar nontender. Heart: Regular rate. No murmurs or rubs. Lungs: Clear to auscultation bilaterally. Abdomen: No tenderness or hepatosplenomegaly noted. Neurologic: Appropriate gait for age. Proximal and distal strength in the upper and lower extremities is grossly intact. ASSESSMENT / PLAN #1 Left elbow acute attack of pseudogout #2 Elevated creatinine #3 Recent cecal diverticulitis #4 Aortic dissection, status post repair Discussed with Jaleel Sarah that the joint fluid aspirated was inflammatory and showed intracellularCPPD indicating an acute attack of pseudogout. Hopefully this was an acute self-limited episode in the setting of a postoperative state, but because of some persistent pain (he is taking oxycodone). Heis taking oxycodone, ibuprofen 2 tablets, and Tylenol. We will do a short course of prednisone for 15 mg for 5 days, taper by 5 mg every 3 days. I will also give him Glenn, has a prior history of duodenal ulcer. I have asked him to stop the ibuprofen and minimize the oxycodone use when he is on prednisone. His elevated creatinine may be related to recent surgery, dehydration, etc., but I will repeat it today and if persistently elevated consider a Nephrology evaluation. Locally, labs were drawn, and an CATHIE was also obtained which has shown as 1 in 160 nucleolar pattern. The significance of this is not clear to me. Since his joint fluids are suspicious for a crystalline process, this is likely nonsignificant. I will repeat it here along with the CATHIE, dsDNA, complement, and other autoantibodies. Rheumatoid factor was negative. I will also cook pickled meat a CCP. He has had history of spontaneous dissection of the aorta. The imaging done in 2017 at [place] has raised a suspicion for a connective tissue disease process. I will make a referral to our desizing pad operator here. He follows up in [facility] too, and I have reviewed their cardiology notes. I will see him back. If the attack does not resolve, we will consider additional imaging like MRI of the elbow, etc. Addendum: Labs reviewed , ESR, CRP and creatinine are trending dowwards and improving. UA shows 4-10WBCs and 1-3 hyaline casts. CATHIE is 1: 320 nucleolar but dsDNA, SAM normal, Antiphospholipid normal. Job ID: [id number] documented in this encounter Plan of Treatment Upcoming Encounters Date Type Specialty Care Team Description 06/21/2022 Clinical Communication Admitting/Central Scheduling 06/22/2022 Comprehensive Visit Rheumatology Clemente Mario M.B.B.S. [address] [place] [address] 08/03/2022 Comprehensive Visit Dermatology Jignesh Leonard M.D. [address] [place] [phone] Scheduled Referrals Name Type Priority Associated Order Schedule Diagnoses Cardiovascular Disease Outpatient Referral Routine Aneurysm Expected: - Marfan and thoracic Dissecting Aortic 0 03/01/2018 [facility] ([facility] (Appr oximate), Expires: 03/01/2021 Rheumatology office Outpatient Referral Routine E xpected: visit (clinic) 03/01/2018 (Approximate), Expires: 03/01/2021 documented as of this encounter Results (ABNORMAL) Urinalysis with Microscopic (03/01/2018 1:51 PM CDT) [employer] Method Time Signature Source Midstream 03/01/2018 [facility] 1:51 PM CDT [facility] Appearance Normal Normal 03/01/2018 [facility] 2:26 PM CDT [facility] Osmolality, U 656 150 - 1150 03/01/2018 [facility] mOsm/kg 2:23 PM CDT [facility] pH, U 5.8 4.5 - 8.0 03/01/2018 [facility] 2:23 PM CDT [facility] Comment: ----ADDITIONAL INFORMATION---- This test was developed and its performa nce characteristics determined by [facility] in a manner co nsistent with CLIA requirements. This test has not bee n cleared or approved by the U.S. Food and Drug Admin istration. Glucose 14 0 - 15 mg/dL 03/01/2018 2:26 PM CDT [facility] S Protein, U 30 (H) <26 mg/dL 03/01/2018 2:26 PM CDT [place] [facility] [facility] S Comment: ----ADDITIONAL INFORMATION---- On 02/13/2017 the total protein assay me thod changed resulting in approximately a 15% increase in prote in values. Protein/Osmolality 0.46 (H) <0.42 Ratio 03/01/2018 2:26 PM [facility] CDT [facility] Comment: ----ADDITIONAL INFORMATION---- On 02/13/2017 the total protein assay me thod changed resulting in approximately a 15% increase in prote in values. Predicted 24 Hr 447 mg/24 h 03/01/2018 2:26 PM [facility] Protein CDT [facility] S Predicted Range 142-1408 mg/24 h 03/01/2018 2:26 PM [facility] CDT [facility] Hemoglobin, QL Negative Negative 03/01/2018 2:52 PM [facility] CD[facility] Specimen Anatomical Collection Method Collection Time Receive d Time (Source) Location / / Volume Laterality Urine (Urine, 03/01/2018 1:51 PM 03/01/20 18 1:51 Clean Catch) CDT PM CDT Jennifer Zarate LAB URINE ORDERABLES Performing Organization Address City/State/ZIP Code Phon e Number [facility] - [address] [place], [place] [address] [facility] DX Shoulder Left 2+ Views (03/01/2018 1:15 [...] graft. Surgical clips in the neck. Jennifer Zarate IMG DIAGNOSTIC IMAGING PROCE DURES HLA B27 Associated Antigen Screening (03/01/2018 12:04 PM CDT) Patholo gist Method Time Signature HLA-B27 Result Negative Not 03/01/2018 [facility] Applicable 2:57 PM LABORATORIES - CDT [facility] HLA-B27 see below 03/01/2018 [facility] Interpretation 2:57 PM [facility]ATORIES - CDT [facility] Comment: HLA-B27 antigen was not detected. ----ADDITIONAL INFORMATION---- Method: Flow Cytometry Performing Laboratory CLIA# [id number] Specimen Anatomical Collection Method Collection Time Receive d Time (Source) Location / / Volume Laterality Blood (Blood, 03/01/2018 12:04 03/01/2018 Venous) PM CDT 12:36 PM CDT Jennifer Dawn CardenasElliot LAB BLOOD NON ADD-ON Performing Organization Address City/[facility] Phon e Number [facility]ORATORIES - [address] [place] [address] [facility] CK (Creatine Kinase) (03/01/2018 12:04 PM CDT) P athologist Signature Creatine 46 39 - 308 03/01/2018 [facility] Kinase (CK), S U/L 1:01 PM CDT [facility] Specimen Anatomical Collection Method Collection Time Receive d Time (Source) Location / / Volume Laterality Blood (Blood, 03/01/2018 12:04 03/01/2018 Venous) PM CDT 12:23 PM CDT Jennifer R [facility] LAB BLOOD ADD-ON Performing Organization Address City/[facility]/ZIP Code Phon e Number [facility]IES - [address] [place] [address] [facility] Ferritin (03/01/2018 12:04 PM CDT) P athologist Signature Ferritin, S 264 24 - 336 03/01/2018 [facility] mcg/L 1:26 PM CDT LABORATORIES [facility] Specimen Anatomical Collection Method Collection Time Receive d Time (Source) Location / / Volume Laterality Blood (Blood, 03/01/2018 12:04 03/01/2018 Venous) PM CDT 12:23 PM CDT Jennifer R [place] LAB BLOOD ADD-ON Performing Organization Address City/[facility]/ZIP [facility] Phon e Number [facility]IES - [address] [place] [address] [facility] 25-Hydroxyvitamin D2 and D3 (03/01/2018 12:04 PM CDT) athologist Signature 25-Hydroxy D2 <4.0 ng/mL 03/04/2018 [facility] 6:32 PM CDT [facility] 25-Hydroxy D3 49 ng/mL 03/04/2018 [facility] 6:32 PM CDT [facility]ENTER 25-Hydroxy D 49 ng/mL 03/04/2018 [facility] Total 6:32 PM CDT [facility] Comment: ----REFERENCE VALUE---- 25-HYDROXY D TOTAL (D2+D3) Optimum level s in the healthy population are 20-50, patients with bone disease may benefit from higher levels within this r scotty. ----ADDITIONAL INFORMATION---- This test was developed and its performa nce characteristics determined by [facility] in a manner consistent with CLIA requirements. This test has not been cleared or approved by the U.S. Sin d and Drug Administration. Specimen Anatomical Collection Method Collection Time Receive d Time (Source) Location / / Volume Laterality Blood (Blood, 03/01/2018 12:04 03/04/2018 8:38 Venous) PM CDT AM CDT Jennifer Zarate LAB BLOOD ADD-ON Performing Organization Address City/State/ZIP Code Phon e Number [facility] [address] [place] [address] CENTER Phosphorus Inorganic (03/01/2018 12:04 PM CDT) Analysis Performed At Patho logist Time Signature Phosphorus 3.6 2.5 - 4.5 03/01/2018 [facility] (Inorganic), S mg/dL 1:01 PM CDT [facility] Specimen Anatomical Collection Method Collection Time Receive d Time (Source) Location / / Volume Laterality Blood (Blood, 03/01/2018 12:04 03/01/2018 Venous) PM CDT 12:23 PM CDT Jennifer Zarate LAB BLOOD ADD-ON Performing Organization Address City/State/ZIP Code Phon e Number [facility] - [address] [place] [address] [facility] Calcium, Total (03/01/2018 12:04 PM CDT) athologist Signature Calcium, 9.6 8.8 - 10.2 03/01/2018 [facility] Total, S mg/dL 1:01 PM CDT [facility] Specimen Anatomical Collection Method Collection Time Receive d Time (Source) Location / / Volume Laterality Blood (Blood, 03/01/2018 12:04 03/01/2018 Venous) PM CDT 12:23 PM CDT Jennifer Zarate LAB BLOOD ADD-ON Performing Organization Address City/[facility] Phon e Number [facility]IES - [address] [place] [address] [facility] Beta-2 Glycoprotein 1 Antibodies, IgG and IgM (03/01/2018 12:04 PM CDT) P athologist Signature Beta 2 GP1 Ab <9.4 <15.0 03/01/2018 [facility] IgG, S (Negative) 8:57 PM CDT LABORATORIES - U/mL [facility] Beta 2 GP1 Ab <9.4 <15.0 03/01/2018 [facility] IgM, S (Negative) 8:57 PM CDT LABORATORIES - U/mL [facility] Specimen Anatomical Collection Method Collection Time Receive d Time (Source) Location / / Volume Laterality Blood (Blood, 03/01/2018 12:04 03/01/2018 1:13 Venous) PM CDT PM CDT Jennifer Cardenasary LAB BLOOD ADD-ON Performing Organization Address City/State/[facility] Code Phon e Number [facility]IES - [address] [place] [address] [facility] Phospholipid (Cardiolipin) Antibodies, IgG and IgM (03/01/2018 12:04 PM CDT) Patholo gist Method Time Signature Phospholipid Ab <9.4 <15.0 03/02/2018 [facility] IgM, S (Negative 1:20 PM CDT LABORATORIES - ) [facility] Phospholipid Ab <9.4 <15.0 03/02/2018 [facility] IgG, S (Negative 1:21 PM CDT LABORATORIES - ) GPL [facility] Specimen Anatomical Collection Method Collection Time Receive d Time (Source) Location / / Volume Laterality Blood (Blood, 03/01/2018 12:04 03/01/2018 1:13 Venous) PM CDT PM CDT Jennifer Zarate LAB BLOOD ADD-ON Performing Organization Address City/State/ZIP Code Phon e Number [facility]IES - [address] [place], [place] [address] [facility] (ABNORMAL) Lupus Anticoagulant Profile (03/01/2018 12:04 PM CDT) Component Value Ref Test Analysis Performed At [facility] Range Method Time Signature Prothrombin Time 12.7 10.3 - 03/01/2018 [facility] (PT), P 12.8 2:46 PM LABORATORIES - sec CDT [facility] INR 1.2 03/01/2018 [facility] 2:46 PM LABORATORIES - CDT [facility] Activated 32 26 - 36 03/01/2018 [facility] Partial sec 2:48 PM LABORATORIES - Thrombopl Time, CDT [facility] DRVVT Screen 1.3 (H) 0.0 - 03/01/2018 [facility] Ratio 1.1 2:56 PM LABORATORIES - ratio T [facility] Reviewed by: Michelle Bains M.D. 03/06/2018 [facility] 2:13 PM LABORATORIES - CDT [facility] Interpretation ?Type of Study: ??Lupus Anticoagulant Profile 03/06/2018 [facility] ?IMPRESSION: ??1) No evidence for a lupus anticoagula nt (LAC). 2:13 PM LABORATORIES - ?2) Antiphospholipid and anti-beta 2 glycoprotein I antibody levels are T [facility] within normal limits. CAMPUS ?COMMENTS: ??The thrombin [...] Venous) PM CDT 12:31 PM CDT Narrative [facility] - 03/06/2018 2:14 PM CDT Specimen Information: Specimen ID: [id number] Specimen Type: Blood Specimen Collection Start Date: 03/01/20 12:04 PM Specimen Received Date: 03/01/2018 12:31 PM Specimen ID: [id number] Specimen Type: Blood Specimen Collection Start Date: 03/01/20 12:04 PM Specimen Received Date: 03/01/2018 12:31 PM Specimen ID: [id number] Specimen Type: Blood Specimen Collection Start Date: 03/01/20 12:04 PM Specimen Received Date: 03/01/2018 12:34 PM Jennifer Cardenasary LAB BLOOD NON ADD-ON Performing Organization Address City/State/ZIP Code Phon e Number [facility] - [address] [place] [address] [facility] Complement C4 (03/01/2018 12:04 PM CDT) Analysis Performed At Patho logist Time Signature Complement C4, 34 14 - 40 03/01/2018 [facility] S mg/dL 4:52 PM CDT [facility] Specimen Anatomical Collection Method Collection Time Receive d Time (Source) Location / / Volume Laterality Blood (Blood, 03/01/2018 12:04 03/01/2018 1:13 Venous) PM CDT PM CDT Jennifer Dawn Elliot LAB BLOOD ADD-ON Performing Organization Address City/[facility]/ZIP Code Phon e Number [facility] - [address] [place] [address] [facility] (ABNORMAL) Complement C3 (03/01/2018 12:04 PM CDT) Patholo gist Method Time Signature Complement C3, 179 (H) 75 - 175 03/01/2018 [facility] S mg/dL 4:52 PM CDT [facility] Specimen Anatomical Collection Method Collection Time Receive d Time (Source) Location / / Volume Laterality Blood (Blood, 03/01/2018 12:04 03/01/2018 1:13 Venous) PM CDT PM CDT Jennifer Dawn Elliot LAB BLOOD ADD-ON Performing Organization Address City/[facility]/ZIP Code Phon e Number [facility] - [address] [place], [place] [address] [facility] DNA Double-Stranded (dsDNA) Antibodies, IgG (03/01/2018 12:04 PM CDT) athologist Signature DNA <12.3 <30.0 03/01/2018 [facility] Double-Strande (Negative) 6:59 PM CDT LABORATORIES - d Ab, IgG, S IU/mL [facility] Specimen Anatomical Collection Method Collection Time Receive d Time (Source) Location / / Volume Laterality Blood (Blood, 03/01/2018 12:04 03/01/2018 1:13 Venous) PM CDT PM CDT Jennifer Zarate LAB BLOOD ADD-ON Performing Organization Address City/State/ZIP Code Phon e Number [facility]IES - [address] [place], [place] [address] [facility] Antibody to Extractable Nuclear Antigen Evaluation (03/01/2018 12:04 PM CDT) athologist Signature SS-A/Ro Ab, <0.2 <1.0 03/01/2018 [facility] IgG, S (Negative) 2:53 PM CDT LABORATORIES - U [facility] SS-B/La Ab, <0.2 <1.0 03/01/2018 [facility] IgG, S (Negative) 2:53 PM CDT LABORATORIES - U [facility] Sm Ab, IgG, S <0.2 <1.0 03/01/2018 [facility] (Negative) 2:53 PM CDT LABORATORIES - U [facility] SECONDARY HISTORY TEACHER Ab, IgG, S <0.2 <1.0 03/01/2018 [facility] (Negative) 2:53 PM CDT LABORATORIES - U [facility] Scl 70 Ab, <0.2 <1.0 03/01/2018 [facility] IgG, S (Negative) 2:53 PM CDT LABORATORIES - U [facility] Mini 1 Ab, IgG, <0.2 <1.0 03/01/2018 [facility] S (Negative) 2:53 PM CDT LABORATORIES - U [facility] Specimen Anatomical Collection Method Collection Time Receive d Time (Source) Location / / Volume Laterality Blood (Blood, 03/01/2018 12:04 03/01/2018 1:13 Venous) PM CDT PM CDT Jennifer Zarate LAB BLOOD ADD-ON Performing Organization Address City/State/ZIP Code Phon e Number [facility] LAB[facility]IES - [address] [place], [place] [address] [facility] HCV Ab w/Reflex to HCV PCR, S (03/01/2018 12:04 PM CDT) athologist Signature HCV Ab, S Negative Negative 03/01/2018 [facility] 4:51 PM CDT [facility] Comment: Nyeztj-mm-ltxeeu ratio is <1.00 . Specimen Anatomical Collection Method Collection Time Receive d Time (Source) Location / / Volume Laterality Blood (Blood, 03/01/2018 12:04 03/01/2018 3:51 Venous) PM CDT PM CDT Jennifer Zarate LAB MICROBIOLOGY - BLOOD ORD ERABLES Performing Organization Address City/[facility]/ZIP Code Phon e Number [facility] DRIVE [address] [place] [address] [facility] Hepatitis B Core Total Ab (03/01/2018 12:04 PM CDT) athologist Signature HBc Total Ab, Negative Negative 03/01/2018 [facility] 4:50 PM CDT [facility] Specimen Anatomical Collection Method Collection Time Receive d Time (Source) Location / / Volume Laterality Blood (Blood, 03/01/2018 12:04 03/01/2018 3:51 Venous) PM CDT PM CDT Jennifer Zraate LAB MICROBIOLOGY - BLOOD ORD ERABLES Performing Organization Address City/[facility]/ZIP Code Phon e Number [facility] [address] [place] [address] [facility] Hepatitis B Surface, Ab (03/01/2018 12:04 PM CDT) athologist Signature HBs Antibody, Negative 03/01/2018 [facility] 4:50 PM CDT [facility] Comment: Patient is presumed to be not immune to infection with HBV. ----REFERENCE VALUE---- Unvaccinated: Negative Vaccinated: Positive HBs Antibody, <5.0 mIU/mL 03/01/2018 4:50 PM CDT [facility] Comment: ----REFERENCE VALUE---- Unvaccinated: <5.0 Vaccinated: >=12.0 Specimen Anatomical Collection Method Collection Time Receive d Time (Source) Location / / Volume Laterality Blood (Blood, 03/01/2018 12:04 03/01/2018 3:51 Venous) PM CDT PM CDT Jennifer Zarate LAB MICROBIOLOGY - BLOOD ORD ERABLES Performing Organization Address City/[facility]/ZIP Code Phon e Number [facility] [address] [place] [address] [facility] Hepatitis B Surface Antigen (03/01/2018 12:04 PM CDT) P athologist Signature HBs Antigen, S Negative Negative 03/01/2018 [facility] 4:34 PM CDT [facility] Specimen Anatomical Collection Method Collection Time Receive d Time (Source) Location / / Volume Laterality Blood (Blood, 03/01/2018 12:04 03/01/2018 3:51 Venous) PM CDT PM CDT Jennifer Zarate LAB MICROBIOLOGY - BLOOD ORD ERABLES Performing Organization Address City/[facility]/ZIP Code Phon e Number [place] [id number] [place] [address] [facility] [place] (ABNORMAL) Antinuclear Antibodies, HEp-2 Substrate, IgG, Serum (03/01/2018 12:04 PM CDT) Component Value Ref Test Analysis Performed At [facility] [employer] Range Method Time Signature Antinuclear Ab, Positive <1:80 03/01/2018 [facility] HEp-2 1:320 (A) (Negativ 11:16 PM LABORATORIES - Substrate, S e) CDT [facility] CATHIE Titer: 1:320 03/01/2018 [facility] 11:16 PM LABORATORIES - CDT [facility] CATHIE Pattern: Nucleolar 03/01/2018 [facility] 11:16 PM LABORATORIES - CDT [facility] Specimen Anatomical Collection Method Collection Time Receive d Time (Source) Location / / Volume Laterality Blood (Blood, 03/01/2018 12:04 03/01/2018 1:13 Venous) PM CDT PM CDT Jennifer Zarate LAB BLOOD ADD-ON Performing Organization Address City/State/ZIP Code Phon e Number [facility] LABORATORIES - [address] [place], [place] [address] [facility] Cyclic Citrullinated Peptide Antibodies, IgG (03/01/2018 12:04 PM CDT) [employer] Method Time Signature Cyclic <15.6 <20.0 03/01/2018 [facility] Citrullinated (Negative 6:37 PM CDT LABORATORIES - Peptide Ab, S ) U [facility] Specimen Anatomical Collection Method Collection Time Receive d Time (Source) Location / / Volume Laterality Blood (Blood, 03/01/2018 12:04 03/01/2018 1:13 Venous) PM CDT PM CDT Jennifer Dawn AndrewsElliot LAB BLOOD ADD-ON Performing Organization Address City/State/ZIP Code Phon e Number [facility] LABORATORIES - [address] [place], [place] [address] [facility] Rheumatoid Factor (03/01/2018 12:04 PM CDT) P athologist Signature Rheumatoid <15 <15 IU/mL 03/01/2018 [facility] Factor, S 5:41 PM CDT [facility] Specimen Anatomical Collection Method Collection Time Receive d Time (Source) Location / / Volume Laterality Blood (Blood, 03/01/2018 12:04 03/01/2018 4:43 Venous) PM CDT PM CDT Jennifer R Elliot LAB BLOOD ADD-ON Performing Organization Address City/State/ZIP Code Phon e Number [facility] [address] [place], [place] [address] [facility] (ABNORMAL) Creatinine with Estimated GFR (03/01/2018 12:04 PM CDT) Patholo gist Method Time Signature Creatinine 1.44 (H) 0.74 - 03/01/2018 [facility] 1.35 1:01 PM CDT LABORATORIES - mg/dL [facility] eGFR-Non 51 (L) >=60 03/01/2018 [facility] Black/ mL/min/BS 1:01 PM CDT LABORATORIES - [place] A [facility] Comment: ----ADDITIONAL INFORMATION---- Estimated GFR calculated using the 2009 CKD_EPI creatinine equation. eGFR-Black/ 59 (L) >=60 mL/min/BSA 03/01/2018 1:01 [facility] [place] PM CDT LABORATORIES - [facility] Comment: ----ADDITIONAL INFORMATION---- Estimated GFR calculated using the 2009 CKD_EPI creatinine equation. Specimen Anatomical Collection Method Collection Time Receive d Time (Source) Location / / Volume Laterality Blood (Blood, 03/01/2018 12:04 03/01/2018 Venous) PM CDT 12:23 PM CDT Jennifer R Elliot LAB BLOOD ADD-ON Performing Organization Address City/[facility]/ZIP Code Phon e Number [facility] LABORATORIES - [address] [place] [address] [facility] ALT (Alanine Aminotransferase) (03/01/2018 12:04 PM CDT) [facility] Method Time Signature Alanine 19 7 - 55 03/01/2018 [facility] Aminotransferase U/L 1:01 PM CDT LABORATORIE S - (ALT), [facility] Specimen Anatomical Collection Method Collection Time Receive d Time (Source) Location / / Volume Laterality Blood (Blood, 03/01/2018 12:04 03/01/2018 Venous) PM CDT 12:23 PM CDT Jennifer R Elliot LAB BLOOD ADD-ON Performing Organization Address City/[facility]/ZIP Code Phon e Number [facility] LABORATORIES - [address] [place] [address] [facility] AST (Aspartate Aminotransferase) (03/01/2018 12:04 PM CDT) [facility] Method Time Signature Aspartate 15 8 - 48 03/01/2018 [facility] Aminotransferase U/L 1:01 PM CDT LABORATORIE S - (AST), [facility] Specimen Anatomical Collection Method Collection Time Receive d Time (Source) Location / / Volume Laterality Blood (Blood, 03/01/2018 12:04 03/01/2018 Venous) PM CDT 12:23 PM CDT Jennifer R Elliot LAB BLOOD ADD-ON Performing Organization Address City/[facility]/ZIP Code Phon e Number [facility] LABORATORIES - [address] [place] [address] [facility] (ABNORMAL) CRP (C-Reactive Protein) (03/01/2018 12:04 PM CDT) [facility] Method Time Signature C-Reactive 46.1 (H) <=8.0 03/01/2018 [facility] Protein (CRP), mg/L 1:01 PM CDT LABORATORIES - [facility] Specimen Anatomical Collection Method Collection Time Receive d Time (Source) Location / / Volume Laterality Blood (Blood, 03/01/2018 12:04 03/01/2018 Venous) PM CDT 12:23 PM CDT Jennifer R Elliot LAB BLOOD ADD-ON Performing Organization Address City/State/ZIP Code Phon e Number [facility] LABORATORIES - [address] [place] [address] [facility] (ABNORMAL) Sedimentation Rate (03/01/2018 12:04 PM CDT) [facility] Method Time Signature Sedimentation 92 (H) 0 - 22 03/01/2018 [facility] Rate, B mm/1 h 2:37 PM CDT LABORATORIES - [facility] Specimen Anatomical Collection Method Collection Time Receive d Time (Source) Location / / Volume Laterality Blood (Blood, 03/01/2018 12:04 03/01/2018 Venous) PM CDT 12:23 PM CDT Jennifer Zarate LAB BLOOD ADD-ON Performing Organization Address City/State/[facility] Code Phon e Number [facility] LABORATORIES - [address] [place] [address] [facility] (ABNORMAL) CBC with Differential, Blood (03/01/2018 12:04 PM CDT) [facility] Method Time Signature Hemoglobin 11.3 (L) 13.2 - 03/01/2018 [facility] 16.6 g/dL 12:34 PM CDT LABORATORIES - [facility] Hematocrit 34.5 (L) 38.3 - 03/01/2018 [facility] 48.6 % 12:34 PM CDT LABORATORIES - [facility] Erythrocytes 3.71 (L) 4.35 - 03/01/2018 [facility] 5.65 12:34 PM CDT LABORATORIES - x10(12)/L [facility] MCV 93.0 78.2 - 03/01/2018 [facility] 97.9 fL 12:34 PM CDT LABORATORIES - [facility] RBC Distrib 13.3 11.8 - 03/01/2018 [facility] Width 14.5 % 12:34 PM CDT LABORATORIES - [facility] Platelet Count 546 (H) 135 - 317 03/01/2018 [facility] x10(9)/L 12:34 PM CDT LABORATORIES - [facility] Leukocytes 9.3 3.4 - 9.6 03/01/2018 [facility] x10(9)/L 12:34 PM CDT LABORATORIES - [facility] Neutrophils 6.80 (H) 1.56 - 03/01/2018 [facility] 6.45 12:34 PM CDT LABORATORIES - x10(9)/L [facility] Lymphocytes 1.67 0.95 - 03/01/2018 [facility] 3.07 12:34 PM CDT LABORATORIES - x10(9)/L [facility] Monocytes 0.65 0.26 - 03/01/2018 [facility] 0.81 12:34 PM CDT LABORATORIES - x10(9)/L [facility] Eosinophils 0.17 0.03 - 03/01/2018 [facility] 0.48 12:34 PM CDT LABORATORIES - x10(9)/L [facility] Basophils 0.04 0.01 - 03/01/2018 [facility] 0.08 12:34 PM CDT LABORATORIES - x10(9)/L [facility] Specimen Anatomical Collection Method Collection Time Receive d Time (Source) Location / / Volume Laterality Blood (Blood, 03/01/2018 12:04 03/01/2018 Venous) PM CDT 12:23 PM CDT Jennifer Andrewsdhary LAB BLOOD ADD-ON Performing Organization Address City/State/ZIP Code Phon e Number [facility] LABORATORIES - [address] [place], [place] [address] [facility] QuantiFERON-Tb Gold Plus, Blood (03/01/2018 12:03 PM CDT) P athologist Signature QuantiFERON-TB Negative Negative 03/03/2018 [facility] Gold Plus 2:06 PM CDT [facility] [...] Diagnosis of Tuberculosis in Adults and Children [Ambrosioinsrodneyn DM et. al. Clin. Infect. Dis. 2017;64(2):111-115]. TB1 Ag minus Nil 0.00 IU/mL 03/03/2018 2:06 PM CDT [facility] [address] [facility] TB2 Ag minus Nil 0.01 IU/mL 03/03/2018 2:06 PM CDT [facility] [address] [facility] Mitogen minus Nil >10.00 IU/mL 03/03/2018 2:06 PM CDT [facility] Nil Result 0.02 IU/mL 03/03/2018 2:06 PM CDT [place] [facility] Specimen Anatomical Collection Method Collection Time Receive d Time (Source) Location / / Volume Laterality Blood (Blood, 03/01/2018 12:03 03/01/2018 2:49 Venous) PM CDT PM CDT Narrative [facility] - 03/03/2018 2:06 PM CDT Specimen Information: Specimen ID: [id number] Specimen Type: Blood Specimen Collection Start Date: 03/01/20 12:03 PM Specimen Received Date: 03/01/2018 ??2:4 9 PM Specimen ID: [id number] Specimen Type: Blood Specimen Collection Start Date: 03/01/20 12:03 PM Specimen Received Date: 03/01/2018 ??2:4 9 PM Specimen ID: [id number] Specimen Type: Blood Specimen Collection Start Date: 03/01/20 12:03 PM Specimen Received Date: 03/01/2018 ??2:4 9 PM Specimen ID: [id number] Specimen Type: Blood Specimen Collection Start Date: 03/01/20 12:03 PM Specimen Received Date: 03/01/2018 ??2:4 9 PM Jennifer Zarate LAB MICROBIOLOGY - BLOOD ORD ERABLES Performing Organization Address City/State/ZIP Code Phon e Number [facility] [address] [place] [address] [facility] Complement, Total (03/01/2018 12:01 PM CDT) P athologist Signature Complement, 65 30 - 75 03/01/2018 [facility] Total, S U/mL 3:29 PM CDT LABORATORIES - [facility] Specimen Anatomical Collection Method Collection Time Receive d Time (Source) Location / / Volume Laterality Blood (Blood, 03/01/2018 12:01 03/01/2018 1:45 Venous) PM CDT PM CDT Jennifer Zarate LAB BLOOD NON ADD-ON Performing Organization Address City/State/ZIP [facility] Phon e Number [facility] - [address] [place] [address] [facility] DX Chest AP or PA and Lateral [...] left supraclavicular region. Chest otherwise negative. Jennifer Zarate IM DIAGNOSTIC IMAGING PROCE ANAND documented in this encounter Visit Diagnoses Diagnosis Aneurysm Dissecting Aortic (HCC) - Prima ry Pain Elbow Left Pain Elbow Left Pain Elbow Left Pain Elbow Left documented in this encounter Care Teams Physical Education Specialist Relationship Specialty Start Date End Date Elsewhere, Pcp PCP - General Family Medicine 02/13/18 documented as of this encounter
[2022-06-10] MEDS: dexAMETHasone 10 MG/ML inj PO (10:57)
[2022-06-10] MEDS: MORPHINE 10 MG/ML inj IM (10:57)
== END 2022-06-10 11:11 | disposition home or self-care (01) ==
LOC: ED 10:50
PROVIDERS: Emergency Provider Emergency Medicine Emergency Medical Services; PCP Family Medicine
DX: M11.261 Other chondrocalcinosis, right knee (principal)
CPT/HCPCS: 96372; 99284; J1100; J2270